=== PATIENT | male | born 1965 | race Caucasian/White ===

== ENCOUNTER 2017-02-23 12:05 | Emergency (ER) | payer OTHER, SELFPAY ==
[2017-02-23 12:21] VITALS: TEMP 98.1
--- NOTE | 2017-02-23 12:42 | ED.PDOC ---
History of Present Illness - General Chief Complaint: Skin/Abrasion/Tear Stated Complaint: diabetic wound Time Seen by Provider: 02/23/17 12:26 Source: patient Exam Limitations: no limitations - History of Present Illness Initial Comments: the patient is a 51-year-old male presenting to the emergency room secondary to a right heel ulcer with some surrounding erythema. The ulcer itself is approximately 1 inch in diameter with a diameter of the surrounding erythema being approximately 3 inches. The patient does have severe diabetic neuropathy. He has not been taking very good care of his diabetes secondary to funding issues. He has not had any fevers. He does not feel his feet very well. He has had some generalized malaise. No syncope and no chest pain. No other areas of ulceration. The current area is not draining. The ulcer does appear to be completely through the skin and into the soft tissue. Timing/Duration: unsure, constant Severity: moderate Improving Factors: nothing Worsening Factors: nothing Allergies/Adverse Reactions: Allergies NO KNOWN ALLERGY Allergy (Verified 02/23/17 12:19) Home Medications: Ambulatory Orders Aspirin [Gnp Aspirin] 81 mg PO DAILY 11/20/16 Carvedilol 6.25 mg PO TID 11/20/16 Furosemide [Lasix] 20 mg PO TID 11/20/16 Gemfibrozil 600 mg PO DAILY 11/20/16 Insulin Aspart [Novolog] See Protocol [facility] 11/20/16 Insulin Glargine [Toujeo Solostar] 10 unit SC ACHS 11/20/16 Metoclopramide HCl 10 mg PO DAILY 11/20/16 Simvastatin 20 mg PO DAILY 11/20/16 Gabapentin 100 mg PO AC #30 cap 11/21/16 Ciprofloxacin [Cipro] 500 mg PO BID #20 tab 02/23/17 Sulfamethoxazole-Trimethoprim [Bactrim Ds 800-160 mg] 1 tab PO BID #20 tab 02/23 Review of Systems - Review of Systems Constitutional: States: malaise EENTM: States: no symptoms reported Respiratory: States: no symptoms reported Cardiology: States: no symptoms reported Gastrointestinal/Abdominal: States: no symptoms reported Genitourinary: States: no symptoms reported Musculoskeletal: States: no symptoms reported Skin: States: see HPI Neurological: States: see HPI All other Systems: No Change from Baseline Past Medical History (General) - Patient Medical History Hx Seizures: Yes Hx Stroke: No Hx Dementia: No Hx Asthma: No Hx of COPD: No Hx Cardiac Disorders: Yes - Triple bypass is going to be scheduled Hx Congestive Heart Failure: Yes Hx Pacemaker: No Hx Hypertension: Yes Hx Thyroid Disease: No Hx Diabetes: Yes Hx Gastroesophageal Reflux: Yes Hx Renal Disease: No Hx Cancer: No Hx of HIV: No Hx Hepatitis C: No Hx MRSA: No - Vaccination History Hx Tetanus, Diphtheria Vaccination: - unknown Hx Influenza Vaccination: Yes Hx Pneumococcal Vaccination: Yes - Social History Hx Tobacco Use: No Hx Chewing Tobacco Use: No Hx Alcohol Use: No Hx Substance Use: No Hx Substance Use Treatment: No Hx Depression: No Hx Physical Abuse: No Hx Emotional Abuse: No Hx Suspected Abuse: No - Activities of Daily Living Hospice Agency (if applicable):: None - Female History Patient is a Female of Child Bearing Age (10 -59 yrs old): No Patient : No Family Medical History - Family History Father Family History: Unknown Living Status: Still Living Hx Family Diabetes: Yes Mother Family History: Unknown Living Status: Cause of : COPD Hx Family Hypertension: Yes Hx Family Diabetes: Yes Physical Exam - Physical Exam General Appearance: Alert, Comfortable, No apparent distress Eye Exam: bilateral normal Ears, Nose, Throat: normal ENT inspection, normal pharynx Neck: full range of motion Respiratory: lungs clear, normal breath sounds, no respiratory distress, no accessory muscle use Cardiovascular/Chest: normal peripheral pulses, regular rate, rhythm, no edema Peripheral Pulses: radial,right: 2+, radial,left: 2+, dorsalis pedis,right: 2+, dorsalis pedis,left: 2+ Gastrointestinal/Abdominal: non tender, soft - obese Rectal Exam: deferred Back Exam: normal inspection Extremity: normal range of motion, non-tender, no pedal edema, no calf tenderness, normal capillary refill Neurologic: alert, normal mood/affect, oriented x 3, sensory deficit Skin Exam: normal color - with the exception of the right heel as described above Comments: Vital Signs - 24 hr 02/23/17 12:10 Temperature 98.1 F Pulse Rate [ 100 H pulse ox] Respiratory 20 Rate Blood Pressure 186/97 [Left Arm] O2 Sat by Pulse 98 Oximetry Progress - Progress Progress: 02/23/17 12:42 the patient is a 51-year-old male presenting with a diabetic ulcer to the right medial heel. There is some surroundings cellulitis. There is no evidence of abscess formation. X-ray of the heel shows no evidence of overt osteomyelitis. Wound culture has been performed. I did debride the surrounding necrotic tissue. The patient should wash the wound twice daily with an antibacterial soap and water. He needs to try to avoid weightbearing as much as possible for now. The patient will be placed on Bactrim and ciprofloxacin for a minimum course of 10 days. He needs to control his diabetes tightly. Additionally his blood pressure was elevated here today and as needs to be followed at home and at his primary care doctor's office. He needs to follow-up with his primary care doctor within the next week for reevaluation. I would encourage him to take a picture today of the wound for comparison at his follow-up appointment. He can dress the wound locally with a triple antibiotic ointment and gauze. He does need to get set back up with a primary care doctor for the above issues. No evidence of sepsis clinically at this time. procedure: Wound debridement of right medial heel ulcer: Diameter ulcer is 1 inch: full skin thickness debridement performed by me. No local anesthetic required due to neuropathy. Culture taken. Wound cleaned with alcohol prep prior. 15 blade scalpel used for debridement of surrounding hypertrophic callus as well as for debridement of central necrotic tissue. estimated blood loss none. Departure - Departure Clinical Impression: Foot ulcer due to secondary DM Disposition: Discharge to Home or Self Care Departure Forms: ED Discharge - Pt. Copy, Patient Portal Self Enrollment Instructions: DI for Diabetic Foot Ulcer Diet: diabetic diet Activity: no pushing/pulling with affected limb Prescriptions: Sulfamethoxazole-Trimethoprim [Bactrim Ds 800-160 mg] 1 tab PO BID #20 tab Ciprofloxacin [Cipro] 500 mg PO BID #20 tab Home Medications: Ambulatory Orders Aspirin [Gnp Aspirin] 81 mg PO DAILY 11/20/16 Carvedilol 6.25 mg PO TID 11/20/16 Furosemide [Lasix] 20 mg PO TID 11/20/16 Gemfibrozil 600 mg PO DAILY 11/20/16 Insulin Aspart [Novolog] See Protocol [facility] 11/20/16 Insulin Glargine [Toujeo Solostar] 10 unit SC ACHS 11/20/16 Metoclopramide HCl 10 mg PO DAILY 11/20/16 Simvastatin 20 mg PO DAILY 11/20/16 Gabapentin 100 mg PO AC #30 cap 11/21/16 Ciprofloxacin [Cipro] 500 mg PO BID #20 tab 02/23/17 Sulfamethoxazole-Trimethoprim [Bactrim Ds 800-160 mg] 1 tab PO BID #20 tab 02/23 Additional Instructions: the patient is a 51-year-old male presenting with a diabetic ulcer to the right medial heel. There is some surroundings cellulitis. There is no evidence of abscess formation. X-ray of the heel shows no evidence of overt osteomyelitis. Wound culture has been performed. I did debride the surrounding necrotic tissue. The patient should wash the wound twice daily with an antibacterial soap and water. He needs to try to avoid weightbearing as much as possible for now. The patient will be placed on Bactrim and ciprofloxacin for a minimum course of 10 days. He needs to control his diabetes tightly. Additionally his blood pressure was elevated here today and as needs to be followed at home and at his primary care doctor's office. He needs to follow-up with his primary care doctor within the next week for reevaluation. I would encourage him to take a picture today of the wound for comparison at his follow-up appointment. He can dress the wound locally with a triple antibiotic ointment and gauze. He does need to get set back up with a primary care doctor for the above issues. No evidence of sepsis clinically at this time. taking her antibiotics with food to help avoid stomach upset. Hold your cholesterol medication while taking the antibiotics.
--- NOTE | 2017-02-23 13:35 | RAD ---
EXAM: Calcaneous,Right CLINICAL INDICATION: 51-year-old male with diabetes mellitus and medial heel ulcer. TECHNIQUE: Two views RIGHT hind foot were obtained in AP, lateral projections COMPARISON: None. FINDINGS: There is no fracture or dislocation. The joint spaces are preserved. Soft tissue irregularity along the posterior medial aspect of the heel soft tissues compatible with the patient's history of ulcer. Atherosclerotic calcification of the soft tissues. IMPRESSION: No acute radiographic abnormality. Electronically signed by: Dara Romero MD 02/23/2017 1:34 PM CDT
[2017-02-23 13:44] VITALS: BP 163/91; O2SAT 96
== END 2017-02-23 13:35 | disposition home or self-care (01) ==
LOC: ER 12:05
DX: E11.621 Type 2 diabetes mellitus with foot ulcer (principal); L97.419 Non-pressure chronic ulcer of right heel and midfoot with unspecified severity; E11.40 Type 2 diabetes mellitus with diabetic neuropathy, unspecified; I11.0 Hypertensive heart disease with heart failure; I50.9 Heart failure, unspecified; K21.9 Gastro-esophageal reflux disease without esophagitis; Z79.4 Long term (current) use of insulin; Z79.899 Other long term (current) drug therapy; Z79.82 Long term (current) use of aspirin

== ENCOUNTER 2017-03-13 01:45 | Inpatient (IN) | payer SELFPAY ==
--- NOTE | 2017-03-13 03:06 | RAD ---
EXAM DESCRIPTION: Foot,Right 3 Views CLINICAL HISTORY: 51 years, Male, right heel ulceration with erythema on top of foot COMPARISON: Calcaneal radiographs February 23, 2017 FINDINGS: There is no acute fracture or dislocation. The bony alignment is normal. There is a large area of soft tissue ulceration along the calcaneal tuberosity. There are no definite lytic or sclerotic changes. There are vascular calcifications throughout the dorsalis pedis. IMPRESSION: 1. No acute fracture or dislocation. 2. Soft tissue ulceration overlying the calcaneal tuberosity without radiographic evidence of osteomyelitis. Electronically signed by: Ramses Randle MD 03/13/2017 3:05 AM CDT
[2017-03-13] MEDS ORDERED: INSULIN, REG.(HUMAN) 100 U/ML VIAL SUBCU ONE (03:32)
[2017-03-13] MEDS ORDERED: VANCOMYCIN HCL INJ 1,000 MG in SODIUM CHLORIDE 0.9% 250ML 250 ML IVPB ONE (03:40)
--- NOTE | 2017-03-13 03:43 | ED.PDOC ---
History of Present Illness - General Chief Complaint: Skin/Abrasion/Tear Stated Complaint: right heel diabetic ulcer Time Seen by Provider: 03/13/17 02:22 Source: patient, RN notes reviewed, Vital Signs reviewed, family Exam Limitations: no limitations - History of Present Illness Initial Comments: Patient is a 51 y/o diabetic who presents with an ulcer on his right foot. He was seen in the ED [address] Parham who debrided it and started him on antibiotics. However, the wound has increased in size. He denies any pain as he has peripheral neuropathy. His sugars have been running high, in the 400s. He denies any fever or chills. He has another area on the top of his foot which is turning red and has two small ulcerations on it. Timing/Duration: getting worse, other - over 2 weeks Severity: moderate Location: feet Improving Factors: nothing Worsening Factors: nothing Associated Symptoms: change in skin texture, paresthesia Allergies/Adverse Reactions: Allergies NO KNOWN ALLERGY Allergy (Verified 03/13/17 03:02) Home Medications: Ambulatory Orders Aspirin [Gnp Aspirin] 81 mg PO DAILY 11/20/16 Carvedilol 6.25 mg PO BID 11/20/16 Furosemide [Lasix] 20 mg PO BID 11/20/16 Gemfibrozil 600 mg PO DAILY 11/20/16 Insulin Aspart [Novolog] 8 unit [facility] 11/20/16 Insulin Glargine [Toujeo Solostar] 85 unit SC DAILY 11/20/16 Metoclopramide HCl 10 mg PO QID 11/20/16 Atorvastatin Calcium [Lipitor] 40 mg PO DAILY 03/13/17 Review of Systems - Review of Systems Constitutional: States: no symptoms reported EENTM: States: no symptoms reported Respiratory: States: no symptoms reported Cardiology: States: no symptoms reported Gastrointestinal/Abdominal: States: no symptoms reported Genitourinary: States: no symptoms reported Musculoskeletal: States: joint pain, muscle pain Skin: States: other - ulcerations right foot Neurological: States: paresthesia, pre-existing deficit Endocrine: States: no symptoms reported Hematologic/Lymphatic: States: no symptoms reported All other Systems: Reviewed and Negative Past Medical History (General) - Patient Medical History Hx Seizures: No Hx Stroke: No Hx Dementia: No Hx Asthma: No Hx of COPD: No Hx Cardiac Disorders: Yes Hx Congestive Heart Failure: Yes Hx Pacemaker: No Hx Hypertension: Yes Hx Thyroid Disease: No Hx Diabetes: Yes Hx Gastroesophageal Reflux: No Hx Renal Disease: No Hx Cancer: No Hx of HIV: No Hx Hepatitis C: No Hx MRSA: No Surgical History: other - Vaccination History Hx Tetanus, Diphtheria Vaccination: No Hx Influenza Vaccination: Yes Hx Pneumococcal Vaccination: No Immunizations Up to Date: No - Social History Hx Tobacco Use: No Hx Chewing Tobacco Use: No Hx Alcohol Use: No Hx Substance Use: No Hx Substance Use Treatment: No Hx Depression: No Feels Threatened In Home Enviroment: No Feels Threatened In a Relationship: No Hx Physical Abuse: No Hx Emotional Abuse: No Hx Suspected Abuse: No - Female History Patient : No Family Medical History - Family History Father Family History: Unknown Living Status: Still Living Hx Family Diabetes: Yes Mother Family History: Unknown Living Status: Cause of : COPD Hx Family Hypertension: Yes Hx Family Diabetes: Yes Physical Exam - Physical Exam General Appearance: Alert, Comfortable, No apparent distress Eyes, Ears, Nose, Throat Exam: normal ENT inspection Cardiovascular/Chest: regular rate, rhythm, no edema, no gallop, no murmur Respiratory: lungs clear, normal breath sounds, no respiratory distress, no accessory muscle use Gastrointestinal/Abdominal: normal bowel sounds, non tender, soft, no organomegaly Extremity: normal range of motion, non-tender, slow capillary refill, other - pedal pulse found only by doppler and very faint. Neurologic: alert, normal mood/affect, oriented x 3, sensory deficit Skin Exam: other - Right heel ulceration 7.7 cm by 4 cm with full thickness ulceration 6.0 by 3.2 cm. Additionally Patient has an erythematous area on the proximal volar right foot 5.7 by 2.5 cm which has two small excoriations. Skin Problem Location: lower extremities Skin Character: lesion Progress - Results/Orders Results/Orders: 03/13/17 03/13/17 03/13/17 01:50 01:58 02:45 Temperature 98.6 F Pulse Rate [ 88 90 monitor] Respiratory 18 18 Rate Blood Pressure 171/71 174/87 [Right Arm] O2 Sat by Pulse 97 Oximetry 03/13/17 03:38 LACTIC ACID Stat BLOOD CULTURE Stat 03/13/17 03:40 Vancomycin HCl Inj 1,000 mg Sodium Chloride 0.9% 250Ml [NS 250ml] 250 ml IVPB ONCE 03/13/17 03:46 Sodium Chloride 0.9% 1000ML [Ns 1000 ml] 1,000 ml IVS ONCE Laboratory Results WBC 7.2 K/mm3 (4.8-10.8) 03/13/17 02:22 RBC 3.97 M/mm3 (4.70-6.10) L 03/13/17 02:22 Hgb 11.1 gm/dL (14.0-18.0) L 03/13/17 02:22 Hct 34.1 % (42.0-52.0) L 03/13/17 02:22 MCV 85.9 fl (80.0-94.0) 03/13/17 02:22 MCH 27.9 pg (27.0-31.0) 03/13/17 02:22 MCHC 32.4 g/dL (33.0-37.0) L 03/13/17 02:22 RDW 14.5 % (11.5-14.5) 03/13/17 02:22 Plt Count 283 K/mm3 (130-400) 03/13/17 02:22 MPV 8.6 fl (7.40-10.4) 03/13/17 02:22 Absolute Neuts (auto) 4.60 K/uL (1.8-6.8) 03/13/17 02:22 Absolute Lymphs (auto) 1.70 K/uL (1.0-3.4) 03/13/17 02:22 Absolute Monos (auto) 0.80 K/uL (0.2-0.8) 03/13/17 02:22 Absolute Eos (auto) 0.10 K/uL (0.0-0.4) 03/13/17 02:22 Absolute Basos (auto) 0.10 K/uL (0.0-0.1) 03/13/17 02:22 Neutrophils % 63.3 % (42.0-78.0) 03/13/17 02:22 Lymphocytes % 23.3 % (20.0-50.0) 03/13/17 02:22 Monocytes % 11.1 % (2.0-9.0) H 03/13/17 02:22 Eosinophils % 1.5 % (1.0-5.0) 03/13/17 02:22 Basophils % 0.8 % (0.0-2.0) 03/13/17 02:22 Sodium 133 mmol/L (135-145) L 03/13/17 02:22 Potassium 5.8 mmol/L (3.6-5.0) H 03/13/17 02:22 Chloride 97 mmol/L (101-111) L 03/13/17 02:22 Carbon Dioxide 29 mmol/L (21-31) 03/13/17 02:22 Anion Gap 12.8 (12-18) 03/13/17 02:22 BUN 65 mg/dL (7-18) H 03/13/17 02:22 Creatinine 1.94 mg/dL (0.6-1.3) H 03/13/17 02:22 BUN/Creatinine Ratio 33.5 (10-20) H 03/13/17 02:22 Random Glucose 564 mg/dL (70-105) H* 03/13/17 02:22 Serum Osmolality 310.7 mOsm/L (275-295) H 03/13/17 02:22 Calcium 9.5 mg/dL (8.4-10.2) 03/13/17 02:22 Total Bilirubin 0.4 mg/dL (0.2-1.0) 03/13/17 02:22 AST 13 IU/L (10-42) 03/13/17 02:22 ALT 11 IU/L (10-60) 03/13/17 02:22 Alkaline Phosphatase 145 IU/L (42-121) H 03/13/17 02:22 Serum Total Protein 7.6 gm/dL (6.4-8.2) 03/13/17 02:22 Albumin 3.3 g/dl (3.2-5.5) 03/13/17 02:22 Globulin 4.3 gm/dL (2.3-3.5) H 03/13/17 02:22 Albumin/Globulin Ratio 0.8 (1.1-1.9) L 03/13/17 02:22 - EKG/XRAY/CT XRAY: right foot - No ajith involvement Departure - Departure Clinical Impression: Hyperglycemia without ketosis, Neuropathy, Acute hyperkalemia, Diabetic ulcer of heel Diabetes mellitus Qualifiers: Diabetes mellitus type: type 2 Diabetes mellitus complication status: with skin complications Diabetes mellitus complication detail: with foot ulcer Qualifier Code: (E11.621) Type 2 diabetes mellitus with foot ulcer CKD (chronic kidney disease) Qualifiers: Chronic kidney disease stage: stage 3 (moderate) Qualifier Code: (N18.3) Chronic kidney disease, stage 3 (moderate) Time of Disposition: 03:56 Disposition: Admit Patient Home Medications: Ambulatory Orders Aspirin [Gnp Aspirin] 81 mg PO DAILY 11/20/16 Carvedilol 6.25 mg PO BID 11/20/16 Furosemide [Lasix] 20 mg PO BID 11/20/16 Gemfibrozil 600 mg PO DAILY 11/20/16 Insulin Aspart [Novolog] 8 unit [facility] 11/20/16 Insulin Glargine [Toujeo Solostar] 85 unit SC DAILY 11/20/16 Metoclopramide HCl 10 mg PO QID 11/20/16 Atorvastatin Calcium [Lipitor] 40 mg PO DAILY 03/13/17 Decision To Admit - Decistion To Admit Decision to Admit Reason: Medical Nature Decision to Admit Date: 03/13/17 Decision to Admit Time: 03:40
[2017-03-13] MEDS ORDERED: SODIUM CHLORIDE 0.9% 1000ML 1,000 ML IVS ONE (03:46)
--- NOTE | 2017-03-13 03:55 | HP ---
SUPERVISING PHYSICIAN: Jerry Parham M.D. CHIEF COMPLAINT: Sore to the right foot. HISTORY OF PRESENT ILLNESS: Mr. Warner is a 51 year-old male patient with a history of diabetes who presented to the Emergency Department today with an ulcer to his right foot. He had been seen previously maybe 2 weeks ago prior to this admission by Dr. Parham who debrided the area and started the patient on antibiotics. The patient noted that the wound had been increasing in size and he had been experiencing pain in the area. He notes that he has been without his diabetes medications for well over 7 weeks or better and has been taking his 's insulin, and his blood sugars have been averaging 200 to 400. In the Emergency Room, his initial blood sugar was 564. He had a potassium of 5.8. X-ray of his foot was completed for the right heel ulceration and per radiology interpretation there are no acute fractures or dislocation noted. There was note of soft tissue ulceration overlying the calcaneal tuberosity without any evidence of osteomyelitis. On admission, he was afebrile with temperature 98.6. Dr. Vazquez, E. R. physician, requested the patient be admitted for continued treatment and evaluation of his uncontrolled blood sugars and to possibly have Dr. Aguilar consult in regards to possible debridement of the wound. He was admitted in stable condition. PAST MEDICAL HISTORY: 1. Diabetes mellitus type 2 with a history of being noncompliant. 2. Chronic kidney disease. 3. Hypertension. 4. Gastroesophageal reflux disease. PAST SURGICAL HISTORY: 1. Left knee surgery. 2 Coronary artery bypass grafting HOME MEDICATIONS: 1. Metoclopramide 10 mg q.i.d. p.r.n. 2. Tradjenta 5 mg daily. 3. Toujeo 85 units subcue daily. 4. NovoLog 8 units subcue at a.c. 5. Gemfibrozil 600 mg daily. 6. Lasix 20 mg twice daily. 7. Carvedilol 6.25 mg twice daily. 8. Lipitor 40 mg daily. 9. Aspirin 81 mg daily. ALLERGIES: NO KNOWN DRUG ALLERGIES. FAMILY HISTORY: Father has history of diabetes. Mother with emphysema. SOCIAL HISTORY: The patient has previously used smokeless tobacco. He does not smoke cigarettes. He denies any alcohol or illicit drug use. He is and lives with his in [place], and is currently unemployed. REVIEW OF SYSTEMS: GENERAL: Negative for any fatigue or fevers. HEENT: Denies any ear pain, decrease in hearing, sore throat or nasal congestion. CARDIOVASCULAR: Has a history of pedal edema but denies any chest pains or palpitations. RESPIRATORY: Denies cough. Notes he had some mild dyspnea on exertion. GASTROINTESTINAL: Negative for any constipation, diarrhea, nausea or vomiting, or abdominal pain. MUSCULOSKELETAL: As noted in his History of Present Illness, right diabetic ulcer to the heel area for well over 2 weeks. Denies any significant arthralgia, limb pains or general malaise. NEUROLOGIC: Denies any headaches, weakness or seizures. PHYSICAL EXAMINATION: VITAL SIGNS: Temperature 98.6, pulse 80, blood pressure 174/87, respirations 18 , O2 sat showing 96 on room air. Admission weight 99.2 kg which is actually down from previous admission in March of last year when he weighed 103.7 kg. GENERAL: The patient appears to be well nourished, however, he does appears dehydrated but in no acute distress. HEENT: Tympanic membranes are clear bilaterally. Oropharynx is pink with mucosal membranes being dry with no jugular venous distention. There are no oral lesions. NECK: Supple with no difficulty with range of motion. CHEST: Breath sounds are bilateral and equal with no appreciable rhonchi, wheezing or rales. CARDIOVASCULAR: Regular rate and rhythm without appreciable murmurs, gallops, or rubs. ABDOMEN: Obese but soft, non-tender. Positive bowel sounds. EXTREMITIES: Right heel ulceration noted measuring 7 cm x 4 cm with full thickness of ulceration 6 x 3.2 cm as measured in the Emergency Department with some erythema noted on the proximal volar right foot measuring approximately 5.7 x 2.5 cm with two small areas of excoriations. Pulses are weak bilaterally. NEUROLOGIC: He is alert and oriented times three. Cranial nerves II-XII are grossly intact. Facial features are symmetrical. Extraocular movements are within normal limits. No nystagmus noted. There is no discernible localizing or lateralizing neuromotor deficits. He is alert and oriented times three. LABORATORY: White count 7.2, hemoglobin 11.1, hematocrit 34.1, platelet count 283,000. Differential shows to be without a left shift. Blood gas analysis showed essentially to be within normal limits with pH 7.4, bicarb 22, PO2 was 105, PCO2 was 36. Initial chemistries showed sodium 133, potassium 5.8 with BUN 65, creatinine 1.94, glucose was initially 564 with serum osmolality 310, lactic acid was normal at 1.4, calcium 9.5. Liver functions showed to be within normal limits except for an elevated alkaline phosphatase of 145. TSH is pending. Hemoglobin A1c was 13.0. Urinalysis showed 100 protein with 500 glucose and trace amount of intact blood on dipstick, otherwise was within normal limits. Serum ketones were negative. RADIOLOGY: X-ray of the right foot per radiology interpretation showed no acute fractures or dislocations. There was note of soft tissue ulceration overlying the calcaneal tuberosity without any radiographic evidence of osteomyelitis. ASSESSMENT: 1. Electrolyte imbalance with moderate hyperkalemia. 2. Chronic kidney disease with baseline creatinine around 1.4. 3. Diabetes mellitus type 2 on both oral and insulin, but the patient being in poor compliance having run out of his medications as evidenced by current hemoglobin A1c of 13.0. 4. Hypertension. 5. Gastroesophageal reflux disease. 6. Right foot ulcer secondary to complications from type 2 diabetes mellitus with no radiographic evidence of osteomyelitis at time of admission. Cultures pending 7. History of congestive heart failure, unknown etiology with no echocardiogram currently for review. 8. Hyperosmolar hyperglycemia secondary to poorly controlled diabetes medication regimen with no evidence of diabetic ketoacidosis with pH on arterial blood gas showing to be within normal limits. 9. Obesity with a body mass index of 32.3. 10. Moderate dehydration secondary to poor blood sugar control. PLAN: The patient was admitted from the E. . at the request of Dr. Vazquez as she was not comfortable with the wound care and possibly doing some debridement. Therefore she requested that the patient be admitted and if possible have Dr. Aguilar look at the wound for further assistance in the management. The patient was given 10 units of insulin in the Emergency Department as well as additional fluids. Will continue with fluids and monitor his blood sugars and electrolytes closely in an attempt to normalize his blood sugars. I will start him on Levemir 30 units daily as well as a sliding scale. The patient apparently ran out of his medications many months previously and has been using his 's insulin as he has not actually been seen recently in followup in the clinic to help with management and to have refills of his medications. He will be started on anabiotic coverage for diabetic foot ulcer with Rocephin, Flagyl and Vancomycin until cultures are competed to help in targeting antibiotic coverage. I have ask Dr Aguilar to look at the area of concern to help seed analysis laboratory assistant in plan of care. Anticipate length of stay to be 2 to 3 days. Until the patient shows to be clinically stable in regards to his blood sugars, will continue to monitor the patient closely and treat appropriately. #[id number] [facility]
[2017-03-13] MEDS ORDERED: SODIUM CHLORIDE 0.9% 250ML 250 ML ONE ×2 (04:09→20:13)
[2017-03-13] MEDS ORDERED: VANCOMYCIN HCL INJ 1,000 MG VIAL IVPB ONE ×2 (04:09→20:14)
[2017-03-13] MEDS ORDERED: SODIUM CHLORIDE 0.9% (FLUSH) 10 ML SYG IV PRN (06:36)
[2017-03-13] MEDS ORDERED: DEXTROSE 50% 25 GM/50 ML SYG IV PRN (06:55)
[2017-03-13] MEDS ORDERED: GLUCAGON INJ 1 MG VIAL SUBCU PRN (06:55)
[2017-03-13] MEDS ORDERED: IV SET AND CAP CHANGE INJ INJ SCH (07:00)
[2017-03-13] MEDS ORDERED: CARVEDILOL 3.125 MG TAB ONE (07:45)
[2017-03-13] MEDS ORDERED: metroNIDAZOLE IV PREMIX 500MG 100 ML IVPB ONE ×3 (07:45→20:14)
[2017-03-13] MEDS ORDERED: SODIUM CHL 0.9% 100ML MINI-BAG 100 ML IVPB ONE (07:45)
[2017-03-13] MEDS ORDERED: VANCOMYCIN PER PHARMACY INJ SCH (08:00)
[2017-03-13] MEDS: cefTRIAXone SODIUM 2 GM in SODIUM CHL 0.9% 100ML MINI-BAG 100 ML IVPB SCH (08:03)
[2017-03-13] MEDS: ACETAMINOPHEN 325 MG TAB PO PRN ×2 (08:10→18:00)
[2017-03-13] MEDS: SODIUM CHLORIDE 0.9% 1000ML 1,000 ML IVS PRN ×2 (08:11→13:09)
[2017-03-13] MEDS: metroNIDAZOLE IV PREMIX 500MG 500 MG in PREMIX BAG 1 BAG IVPB SCH ×2 (09:12→16:23)
[2017-03-13] MEDS: CARVEDILOL 3.125 MG TAB PO SCH ×2 (09:13→21:25)
[2017-03-13] MEDS: ASPIRIN EC 81 MG TAB PO SCH (09:13)
[2017-03-13] MEDS: GEMFIBROZIL 600 MG TAB PO SCH (09:14)
[2017-03-13] MEDS ORDERED: INSULIN DETEMIR 100 UNITS/ML PEN SUBCU SCH (10:30)
[2017-03-13] MEDS ORDERED: INSULIN LISPRO 100 UNITS/ML PEN SUBCU SCH (12:00)
[2017-03-13] MEDS: INSULIN LISPRO 100 UNITS/ML PEN SUBCU SCH ×2 (16:53→21:20)
[2017-03-13] MEDS: KCL 20MEQ/0.45% NS 1,000 ML IVS PRN (17:59)
--- NOTE | 2017-03-13 19:39 | PCM.CORE ---
Physician DVT/VTE - Nurse DVT Assessment & Total Each Risk Factor Represents 3 Points: Medical PT with Hx of MA, CHF, Severe infection/sepsis Each Risk Factor Represents 1 Point: Age 41-60, Medical PT at Bed Rest Each Risk Factor is 1 Point: Obesity (BMI >25) DVT Assessment Score: 6 - 5 or more Very High Risk Treatments: Early Ambulation *, Sequential Compression Device Pharmacological: Enoxaparin 40mg SQ Daily
[2017-03-13] MEDS ORDERED: ENOXAPARIN SODIUM 40 MG/0.4 ML SYG SUBCU SCH (20:00)
[2017-03-13] MEDS ORDERED: VANCOMYCIN HCL INJ 500 MG VIAL ONE (20:13)
[2017-03-13] MEDS ORDERED: ATORVASTATIN 20 MG TAB PO SCH (21:00)
[2017-03-13] MEDS ORDERED: SODIUM CHL 0.9% 250ML (AVIVA) 250 ML IVPB ONE (21:37)
[2017-03-13] MEDS: CHLORHEXIDINE GLUCONATE 4 % 15 ML UD TOP SCH (21:57)
[2017-03-13] MEDS ORDERED: VANCOMYCIN HCL INJ 1,000 MG, VANCOMYCIN HCL INJ 500 MG in SODIUM CHL 0.9% 250ML (AVIVA)... IVPB SCH (22:00)
[2017-03-14] MEDS: metroNIDAZOLE IV PREMIX 500MG 500 MG in PREMIX BAG 1 BAG IVPB SCH ×2 (00:34→08:49)
[2017-03-14] MEDS: GEMFIBROZIL 600 MG TAB PO SCH (06:28)
[2017-03-14] MEDS: KCL 20MEQ/0.45% NS 1,000 ML IVS PRN (06:29)
[2017-03-14] MEDS: INSULIN LISPRO 100 UNITS/ML PEN SUBCU SCH ×4 (07:41→11:48)
[2017-03-14] MEDS ORDERED: SODIUM CHL 0.9% 100ML MINI-BAG 100 ML IVPB ONE (07:54)
[2017-03-14] MEDS: cefTRIAXone SODIUM 2 GM in SODIUM CHL 0.9% 100ML MINI-BAG 100 ML IVPB SCH (08:01)
[2017-03-14] MEDS: ACETAMINOPHEN 325 MG TAB PO PRN (08:04)
[2017-03-14] MEDS ORDERED: metroNIDAZOLE IV PREMIX 500MG 100 ML IVPB ONE (08:25)
[2017-03-14] MEDS ORDERED: INSULIN DETEMIR 100 UNITS/ML PEN SUBCU SCH (09:00)
[2017-03-14] MEDS: ASPIRIN EC 81 MG TAB PO SCH (09:08)
[2017-03-14] MEDS: CARVEDILOL 3.125 MG TAB PO SCH (09:08)
[2017-03-14] MEDS: CHLORHEXIDINE GLUCONATE 4 % 15 ML UD TOP SCH (09:16)
[2017-03-14 14:41] VITALS: BP 167/84; TEMP 97.1; O2SAT 97
[2017-03-14] MEDS ORDERED: ENOXAPARIN SODIUM 40 MG/0.4 ML SYG SUBCU SCH (21:00)
--- NOTE | 2017-03-17 09:16 | DS ---
SUPERVISING PHYSICIAN: Damian Bansal MD DISCHARGE DIAGNOSIS: 1. Right foot ulcer secondary to complications from type 2 diabetes mellitus with no radiographic evidence of osteomyelitis at time of admission with cultures pending at time of discharge. 2. Electrolyte imbalance with moderate hyperkalemia. 3. Chronic kidney disease with baseline creatinine of 1.4. 4. Diabetes mellitus, type 2, on both oral and insulin therapy, but the patient being in poor compliance having run out of his medications as evidenced by current hemoglobin A1c of 13.0. 5. Hypertension. 6. Gastroesophageal reflux disease. 7. History of congestive heart failure, unknown etiology with no echocardiogram currently for review. 8. Hyperosmolar hyperglycemia secondary to poorly controlled diabetes medication regimen with no evidence of diabetic ketoacidosis with pH on arterial blood gas within normal limits. 9. Obesity with a body mass index of 32.3. 10. Moderate dehydration secondary to poor blood sugar control. HISTORY OF PRESENT ILLNESS: Mr. Warner is a 51-year-old male patient with a history of diabetes who presented to the Emergency Department on date of admission with an ulcer to his right foot. He had been seen previously maybe 2 weeks ago prior to this admission by Dr. Parham in the Emergency Room who debrided the area and started the patient on antibiotics. The patient noted that the wound had been increasing in size and he had been experiencing pain in the area. He notes that he has been without his diabetes medications for well over 7 weeks or better and has been taking his 's insulin, and his blood sugars have been averaging 200 to 400 daily. In the Emergency Room, his initial blood sugar was 564. He had a potassium of 5.8. X-ray of his foot was completed for the right heel ulceration and per radiology interpretation there were no acute fractures or dislocation noted. There was note of soft tissue ulceration overlying the calcaneal tuberosity without any evidence of osteomyelitis. On admission, he was afebrile with temperature 98.6. Dr. Vazquez , ER physician, requested the patient be admitted for continued treatment and evaluation of his uncontrolled blood sugars and to possibly have Dr. Aguilar consult in regards to possible debridement of the wound. He was admitted in stable condition. LABORATORY: White count was normal on admission and at discharge was 5.9, hemoglobin 9.8, hematocrit 29.7, differential within normal limits with no left noted at admission and at discharge. Platelet count 251,000. Blood gas analysis was within normal limits with pH 7.41. Chemistries on admission showed sodium 133, corrected for 564 glucose approximately 136 with potassium 5.8. Carbon dioxide 29, BUN 65 initially and creatinine 1.14. After initiation of subcutaneous insulin, sliding scale, and IV fluids, at discharge his electrolytes has normal. Potassium 4.7, BUN 43, creatinine 1.42, glucose down to 169. Lactic acid on admission was within normal limits at 1.4. Hemoglobin A1c 13.0%. TSH normal at 0.35. Liver functions all within normal limits. Urinalysis showed 100 protein, 500 glucose, trace intact blood in dipstick with microscopic within normal limits. Serum ketones were negative on admission. MICROBIOLOGY: Blood cultures times two showed no growth. Wound culture of the left heel showed heavy growth of budding yeast, but no bacterial growth. RADIOLOGY: X-ray of the right foot in the Emergency Department prior to admission per radiology interpretation showed no acute fractures or dislocations. There was note of soft tissue ulceration overlying the calcaneal tuberosity without any radiographic evidence of osteomyelitis. HOSPITAL COURSE: Mr. Warner was admitted from the Emergency Room to the Medical/ Surgical Floor as noted in history of present illness. He was started on fluids with boluses and subcutaneous insulin. He did show improvement in his glucose which normalized, potassium as well. Wound care was initiated on the right heel after Dr. Aguilar was able to look at the area and noted there was no need for any surgical intervention and that wound care would be sufficient. He was provided wound care twice daily with diluted Hibiclens. He was encouraged to keep his foot elevated, heart level or below, and to keep his foot off the foot or any pressure point to further exacerbate the area. His blood sugars were controlled with Levemir and sliding scale. He was started on a diabetic diet. It was felt he had clinically improved and was able to be discharged to continue with wound care and home and further manage his diabetes with a primary care provider. The patient was started on antibiotic coverage that included Flagyl, Levaquin, and vancomycin which were continued until discharge at which time the patient was transitioned to Augmentin. PLAN: Mr. Warner was discharged on 03/14/17 and encouraged to establish with a primary care provider at [facility] until he could have insurance arrangements made to establish with a different primary care provider. He was to followup with [facility] with an appointment that was scheduled on 03/17/17. He was to resume his home medications as instructed to take his insulin as directed. He was to monitor blood sugars before each meal and at bedtime and take a log with him to his followup appointment. Wound care on the foot at least twice daily with diluted Hibiclens and apply loose dressings. He was encouraged to take his antibiotics as directed, wear good pressure off loading cushioned shoes and return to the hospital should he show any worsening of his condition or any other concerning symptoms. DISCHARGE MEDICATIONS: 1. Augmentin twice daily, #20. 2. Levemir 45 units daily, #1 pen. 3. NovoLog FlexPen 10 units a.c.. DIET: Diabetic diet. ACTIVITY: Increase as tolerated. CONDITION AT DISCHARGE: Stable. #[id number] [facility]
== END 2017-03-14 15:00 | disposition home or self-care (01) | DRG 638 ==
LOC: ER 01:45 → MS 03:54 → OBSVTOIN 03:54
PROVIDERS: ADMIT Nurse Practitioner Family; ATTEND Nurse Practitioner Family
DX: E11.621 Type 2 diabetes mellitus with foot ulcer (principal); L97.411 Non-pressure chronic ulcer of right heel and midfoot limited to breakdown of skin; I13.0 Hypertensive heart and chronic kidney disease with heart failure and stage 1 through stage 4 chronic kidney disease, or unspecified chronic kidney disease; E11.22 Type 2 diabetes mellitus with diabetic chronic kidney disease; E11.00 Type 2 diabetes mellitus with hyperosmolarity without nonketotic hyperglycemic-hyperosmolar coma (NKHHC); T38.3X6A Underdosing of insulin and oral hypoglycemic [antidiabetic] drugs, initial encounter; E86.0 Dehydration; E87.5 Hyperkalemia; N18.9 Chronic kidney disease, unspecified; I50.9 Heart failure, unspecified; K21.9 Gastro-esophageal reflux disease without esophagitis; E66.9 Obesity, unspecified; Z91.128 Patient's intentional underdosing of medication regimen for other reason; Y92.009 Unspecified place in unspecified non-institutional (private) residence as the place of occurrence of the external cause; Z68.32 Body mass index [BMI] 32.0-32.9, adult; Z79.4 Long term (current) use of insulin; Z79.84 Long term (current) use of oral hypoglycemic drugs; Z95.1 Presence of aortocoronary bypass graft; Z79.899 Other long term (current) drug therapy; Z79.82 Long term (current) use of aspirin

== ENCOUNTER 2017-04-14 13:05 | Inpatient (IN) | payer SELFPAY ==
--- NOTE | 2017-04-14 16:49 | HP ---
HISTORY OF PRESENT ILLNESS: This 51 year-old white male is admitted to the hospital from the [facility]. He was last at [facility] a month ago in March of this year with a significant right heel ulceration. It seemed to be localized with some localized erythema. He was treated will antibiotics and sent home on some Augmentin, but was unable to acquire the Augmentin because of the nolasco. He was subsequently seen again in [facility] last Friday at which time he was given a Rocephin shot because of worsening appearance of his right heel. He had had some pain that was radiating up his foot with increasing redness to also extend up his leg towards the calf. The Rocephin was given IM and he had a diagnosis previously made of Escherichia coli which had pansensitivity. He was given a prescription for Bactrim and was discharged from the clinic with followup today on Friday. He did not grain picker the Bactrim because of no money and was seen in the clinic today, and was noticed to be significantly worse. Over the last couple of weeks, the foot has begun to smell quite badly. The ulceration started about 3 or 4 months ago and is now much worse. In the clinic today, his white count was elevated at over 16,000, hemoglobin 10.7 and his creatinine was 2.17 suggesting some decline in some of his end organs. He was admitted to the hospital after cultures were rechecked and had received another dose of Rocephin in the clinic today, but was steadily showing worsening symptoms and tissue viability was becoming a larger concern. The patient was admitted to the hospital for parenteral antibiotics as well as intervention by Surgery, Dr. Aguilar, for evaluation for debridement and evaluation of the eschar present. PAST MEDICAL HISTORY: 1. Diabetes mellitus type 2 currently on insulin therapy for the last 14 years. 2. Chronic kidney disease. 3. Hypertension. 4. Gastroesophageal reflux disease. PAST SURGICAL HISTORY: 1. August of last year, coronary artery bypass grafting after sternotomy to 4 vessels being followed-up subsequently by Dr. De Los Santos in the clinic. 2. Left knee surgery. CURRENT MEDICATIONS: Please refer to list provided by the nurses for an up to date list of verified home medications, including insulin which he takes Levaquin 45 units at bedtime and NovoLog 10 units before meals. His sugar earlier today was over 300. ALLERGIES: NONE KNOWN. FAMILY HISTORY: Positive for coronary artery disease, diabetes mellitus and cancer. SOCIAL HISTORY: The patient lives with his and has currently been disabled , unable to work for the last 2 years. He has not, nor does he smoke tobacco products. REVIEW OF SYSTEMS: The patient has been losing some weight. No fever or chills. HEENT: No significant hearing or vision disturbances. LUNGS: Significant shortness of breath evident upon even mild exertion. CARDIOVASCULAR: No chest pains recently. No palpitations. ABDOMEN: Generally soft with diminished appetite thereby resulting in some weight loss recently. EXTREMITIES: Significant ulceration right heel with most of the skin sloughed with a large area of scab formation now with cellulitis. NEUROLOGIC: Quite tired and appears to be quite weak clinically. PHYSICAL EXAMINATION: VITAL SIGNS: Temperature is slightly elevated at 99.7, pulse 94, blood pressure 148/79, pulse oximetry 94% on room air. Weight 105 kilos. GENERAL: The patient is awake and alert, lying in the bed on his left side. His right foot is in a dressing with an Evan wrap around it. When opened up, produced a quite malodorous smell throughout the room with significant erythema extending up his calf from the dark eschar of his right heel. HEENT: Coloration is somewhat pale. NECK: Supple. No carotid bruits. CHEST: Lungs have diminished breath sounds. CARDIOVASCULAR: Tones are regular. ABDOMEN: Soft, obese. A healed mid sternal sternotomy scar is evident. EXTREMITIES: Decreased hair is noted on the lower extremities. He does have a large area of the right heel where the skin has sloughed and especially medially has a very dark eschar. There appears to be some pus up under the skin as well in close circumference to the eschar. Significant cellulitis with erythema is extending up towards the calf medially as well as anteriorly towards the dorsum of the foot. This is all new compared to his last admission a month ago showing a worsening condition. LABORATORY: White count is 16,200, hemoglobin 10.7. Sodium 130, potassium 3.9 , BUN 54, creatinine 2.17, glucose 336, albumin 2.9. Wound cultures were obtained earlier this afternoon in the clinic and blood cultures were also obtained earlier today. X-ray was taken and radiographic interpretation is pending. ASSESSMENT: 1. Chronic ulceration right heel with eschar and localized worsening cellulitis and tissue infection grade 1 extending into 2 with significant involvement. 2. Diabetes mellitus on insulin therapy. 3. Chronic renal insufficiency worsening. 4. History of atherosclerotic cardiovascular disease with the possibility of an ischemic extremity contributing to the failure to improve. 5. Poor compliance with the patient not being able to procure outpatient antibiotics to assist with the treatment of this infected foot. 6. History of congestive heart failure. 7. History of coronary artery disease with a history of a quadruple coronary artery bypass grafting in August of last year. 8. Obesity. PLAN: The patient is admitted to the hospital for initiation of parenteral antibiotic therapy as well as surgical consultation to see if debridement might be able to assist. The patient will be started on Zosyn as well as vancomycin per Pharmacy protocol. Special cleansing is in order. Vascular Doppler ultrasound in the morning to evaluate for adequacy of peripheral vascular supply. Close observation and management of diabetes. Elevated the right foot up even with the heart, but not too high and close observation. Social Service to assist with his ongoing decisions, especially regarding his disability. #[id number] [facility]
[2017-04-14] MEDS ORDERED: DEXTROSE 50% 25 GM/50 ML SYG IV PRN (17:35)
[2017-04-14] MEDS ORDERED: HYDROcodone 5MG/APAP 325MG 1 EA TAB PO PRN (17:35)
[2017-04-14] MEDS ORDERED: MAGNESIUM HYDROXIDE 30 ML UD PO PRN (17:35)
[2017-04-14] MEDS ORDERED: GLUCAGON INJ 1 MG VIAL SUBCU PRN (17:35)
[2017-04-14] MEDS ORDERED: CHLORHEXIDINE GLUCONATE 4 % 15 ML UD TOP ONE (17:46)
[2017-04-14] MEDS ORDERED: VANCOMYCIN PER PHARMACY INJ SCH (18:00)
[2017-04-14] MEDS ORDERED: SODIUM CHL 0.9% 50ML MIN-BAG+ 50 ML IVPB ONE (19:46)
[2017-04-14] MEDS ORDERED: PIPERACILLIN/TAZOBACTAM 3.375 GM VIAL IVPB ONE (19:47)
[2017-04-14] MEDS ORDERED: SODIUM CHLORIDE 0.9% 100ML 100 ML IVPB ONE (19:47)
[2017-04-14] MEDS: KCL 20 MEQ/NS 1,000 ML IVS PRN (19:54)
[2017-04-14] MEDS: PIPERACILLIN/TAZOBACTAM 3.375 GM in SODIUM CHLORIDE 0.9% 100ML 100 ML IVPB SCH (19:55)
[2017-04-14] MEDS: IV SET AND CAP CHANGE INJ INJ SCH (20:06)
[2017-04-14] MEDS ORDERED: CARVEDILOL 3.125 MG TAB ONE (20:50)
[2017-04-14] MEDS: BIFIDOBACTERIUM INFANTIS 4 MG CAP PO SCH (20:58)
[2017-04-14] MEDS ORDERED: NON-FORMULARY MEDICATION 1 EA MIS (Carvedilol [Carvedilol] 6.25 MG) PO SCH (21:00)
[2017-04-14] MEDS: INSULIN LISPRO 100 UNITS/ML PEN SUBCU SCH (21:16)
[2017-04-14] MEDS: INSULIN DETEMIR 100 UNITS/ML PEN SUBCU SCH (21:16)
[2017-04-15] MEDS ORDERED: PIPERACILLIN/TAZOBACTAM 3.375 GM VIAL IVPB ONE ×5 (01:28→23:31)
[2017-04-15] MEDS ORDERED: SODIUM CHLORIDE 0.9% 100ML 100 ML IVPB ONE ×5 (01:28→23:32)
[2017-04-15] MEDS: PIPERACILLIN/TAZOBACTAM 3.375 GM in SODIUM CHLORIDE 0.9% 100ML 100 ML IVPB SCH ×4 (01:34→17:33)
[2017-04-15] MEDS: OMEPRAZOLE CAP 20 MG CAP PO SCH (06:05)
--- NOTE | 2017-04-15 07:02 | RAD ---
EXAM: Two view chest. INDICATION: Chest pain. COMPARISON: Chest x-ray: 11/20/2016. FINDINGS: Cardiac silhouette: Enlarged Nan: Unremarkable. Lobar consolidation: None. Pleural effusion: None. Pneumothorax: None. Other: None. Bones: Unremarkable. Other: None. IMPRESSION: 1. No acute cardiopulmonary process. Electronically signed by: Cedrick Saldaña MD 04/15/2017 7:02 AM CDT
--- NOTE | 2017-04-15 07:04 | RAD ---
EXAM DESCRIPTION: Foot,Right 3 Views CLINICAL HISTORY: 51 years Male, DIABETES MELLITUS WITH NEUROPATHY COMPARISON: None. FINDINGS: 3 views of the right fissure no acute fracture or malalignment. There is no lytic or sclerotic bone lesion. Lucency in the soft tissues posterior to the calcaneus suggests soft tissue injury at this location. No radiopaque foreign body. Vascular calcifications are noted. IMPRESSION: Probable soft tissue injury or ulceration posterior to the calcaneus, but no underlying fracture, malalignment or radiographic evidence of osteomyelitis. If clinically suspicious of osteomyelitis, MRI is recommended. Vascular calcifications. Electronically signed by: Pahni Villa MD 04/15/2017 7:04 AM CDT
[2017-04-15] MEDS ORDERED: CARVEDILOL 3.125 MG TAB ONE (07:23)
[2017-04-15] MEDS: INSULIN LISPRO 100 UNITS/ML PEN SUBCU SCH ×4 (07:47→21:53)
[2017-04-15] MEDS: HYDROcodone 7.5MG/APAP 325MG 1 EA TAB PO PRN ×2 (08:33→17:33)
[2017-04-15] MEDS: FLUCONAZOLE 100 MG TAB PO SCH (09:33)
[2017-04-15] MEDS: CARVEDILOL 3.125 MG TAB PO SCH ×2 (09:33→21:52)
[2017-04-15] MEDS: BIFIDOBACTERIUM INFANTIS 4 MG CAP PO SCH ×2 (09:33→21:52)
[2017-04-15] MEDS: ASPIRIN EC 81 MG TAB PO SCH (09:33)
[2017-04-15] MEDS: CHLORHEXIDINE GLUCONATE 4 % 15 ML UD TOP SCH ×2 (09:34→21:54)
[2017-04-15] MEDS ORDERED: VANCOMYCIN HCL INJ 1,000 MG VIAL IVPB ONE (09:37)
[2017-04-15] MEDS ORDERED: VANCOMYCIN HCL INJ 500 MG VIAL ONE (09:37)
[2017-04-15] MEDS ORDERED: SODIUM CHLORIDE 0.9% 250ML 250 ML ONE (09:37)
[2017-04-15] MEDS: VANCOMYCIN HCL INJ 1,000 MG, VANCOMYCIN HCL INJ 500 MG in SODIUM CHLORIDE 0.9% 250ML 25... IVPB SCH (09:43)
--- NOTE | 2017-04-15 11:33 | US ---
EXAM DESCRIPTION: Extremity,Lower Frank Arteries CLINICAL HISTORY: 51 years, Male, right heel deep infection COMPARISON: None. FINDINGS: Peak systolic velocities in the right lower extremity as follows: Right common femoral artery 128 centimeters/second Proximal right superficial femoral artery 57 centimeters/second Mid right superficial femoral artery 41 centimeters/second Distal right superficial femoral artery 12 centimeters/second Right popliteal artery 45 centimeters/second Right posterior tibial artery no identifiable flow Right dorsalis pedis artery no identifiable flow Right peroneal artery 33 centimeters/second Monophasic waveforms throughout the superficial femoral, popliteal and peroneal arteries. Peak systolic velocities in the left lower extremity as follows: Left common femoral artery 108 centimeters/second Proximal left superficial femoral artery 96 centimeters/second Mid left superficial femoral artery 142 centimeters/second Distal left superficial femoral artery 94 centimeters/second Left popliteal artery 53 centimeters/second Left posterior tibial artery no identifiable flow Left dorsalis pedis artery 35 cm/s Left peroneal artery 35 centimeters/second Monophasic waveforms involving the mid/distal superficial femoral, popliteal, dorsalis pedis and peroneal arteries. IMPRESSION: Bilateral lower extremity peripheral artery disease, with abnormal velocities and waveforms in both lower extremities involving the superficial femoral and more distal arteries as detailed above. Findings include no identifiable flow in the right posterior tibial, right dorsalis pedis and left posterior tibial arteries. If relevant, CT may be helpful for further evaluation. Electronically signed by: Phani Villa MD 04/15/2017 11:32 AM CDT
--- NOTE | 2017-04-15 13:18 | PN ---
DATE: 04/15/17 SUBJECTIVE: The patient is sitting up. He had increasing pain in his right heel when trying to walk and position himself for some x-ray studies. Helped by analgesic medication. No significant shortness of breath, but still very weak. Drainage evident through the dressing on his right foot. Less erythema noted on the foot. OBJECTIVE: VITAL SIGNS: Temperature 99.8. Blood pressure 129/77. Pulse oximetry 96% on room air. LUNGS: Relatively clear. HEART: Regular. ABDOMEN : Obese, yet soft. EXTREMITIES: Right foot still severely involved with infection and black eschar with undermining of some of the surrounding skin with what appears to be a pus-like arrangement on the right heel. Dr. Aguilar is coming to evaluate for the possibility of debridement to assist with trying to save tissue. RADIOLOGY: Arterial Doppler ultrasound performed revealing significant occlusive vascular disease, both lower extremities, slightly worse on the right compared to the left. LABORATORY: White count down to 15,100 with 79% neutrophils. Hemoglobin dropped to 9.5 with hydration. Sodium up to 134, CO2 27, BUN down to 50, creatinine down to 2.07, fasting glucose 162. Beta natriuretic peptide elevated at 754. Albumin 2.5, TSH normal at 0.49. Urinalysis showed evidence of pyuria, hematuria, bacteruria as well as some yeast. Urine culture pending. Wound culture initially shows some contaminants and blood cultures are negative. The patient continues on Zosyn and vancomycin per pharmacy protocol. Chest x-ray showed no acute findings. ASSESSMENT: 1. Significant chronic ulceration, right heel, with black eschar and localized worsening cellulitis and tissue infection with malodor with a grade 1 extending into 2 with significant involvement with surgery to evaluate for possible debridement. 2. Diabetes mellitus on insulin therapy. 3. Chronic renal insufficiency. 4. History of peripheral vascular occlusive arterial disease contributing to the failing to heal of the right heel ulceration. 5. Poor compliance with the patient not buying outpatient antibiotics to assist with the treatment of the infection because of cost factors. 6. History of congestive heart failure. 7. History of coronary artery disease with a history of a quadruple coronary artery bypass grafting in August of last year. 8. Obesity. PLAN: Dr. Aguilar is coming to see the patient who will make recommendations. Continue with current treatment program unless needing to change based upon clinical decisions. Close followup necessary with general condition not being entirely good for tissue preservation, but will provide ongoing assistance in an effort to save tissue as possible. #[id number] [facility]
--- NOTE | 2017-04-15 14:09 | CONS ---
DATE OF CONSULTATION: 04/15/17 HISTORY OF PRESENT ILLNESS: The patient is a 51-year-old male who I have seen in the past, in fact, a month ago, he was in the hospital with an ulceration on the right heel. At that time, I saw him without discrete consultation and recommended he continue the antibiotics that he was improving on, however, he went home and did not obtain the antibiotic. It has worsened and he was admitted yesterday with erythema and tenderness up to almost the midcalf. I have been asked to help evaluate. The patient has currently a low temperature elevation, but no chills PAST MEDICAL HISTORY: 1. Renal insufficiency. 2. Hypertension. 3. Gastroesophageal reflux. 4. Diabetes, on insulin for 14 years. PAST SURGICAL HISTORY: 1. Coronary artery bypass grafting. 2. Left knee surgery. CURRENT MEDICATIONS: He has an updated medicine list on the chart. ALLERGIES: NO KNOWN DRUG ALLERGIES. FAMILY HISTORY: Positive for heart disease, diabetes and malignancies. SOCIAL HISTORY: The patient is . He lives at home with his . He is unable to work and has become disabled. He has not smoked tobacco products. REVIEW OF SYSTEMS: Unremarkable other than significant injury to this right heel that is likely a pressure ulcer. PHYSICAL EXAMINATION: VITAL SIGNS: Temperature 99. Normotensive. Pulse 90. Respiratory rate 18. HEENT: Sclerae nonicteric. Mucous membranes moist. NECK: Without adenopathy. BACK: Without CVA tenderness. CHEST: Equal breath sounds. HEART: Regular rhythm. ABDOMEN: Benign. EXTREMITIES: The right lower extremity reveals pale right leg with an eschar about his right heel. There is mild erythema surrounding it. It is somewhat malodorous, but not strongly so. There is a small amount of purulent exudate seen at the edges of the eschar. He has no palpable dorsalis pedis or posterior tibialis pulse on this leg. LABORATORY: On admission, white count 16.2, now down to 15.1 this morning. Hemoglobin down from 10.7 to 9.5. He had 308,000 platelets. Neutrophils have gone from 82.3 to 79. He came in with a potassium of 4.9 and it is 4.1. Creatinine has come down from 2.17 to 2.07. BNP is 754. Liver functions are within normal limits. Blood sugars are anywhere from 300 to 150. X-ray of the foot reveals no signs of osteomyelitis or air in the soft tissues. Right lower extremity vascular studies show decreased flowing throughout the leg with no identifiable flow in the dorsalis pedis or posterior tibial artery. The right popliteal artery showed 45 cm per second. There were all monophasic waveforms. ASSESSMENT: 1. Pressure ulcer with eschar and surrounding cellulitis with cultures pending. 2. Diabetes mellitus with decreased flow to the right leg. PLAN: Continue the antibiotic therapy awaiting cultures. We will discuss the vascular flow with Radiology. There is no sign of osteomyelitis currently, so local wound care. The longstanding problem will be whether this will heal prior to a recurrent infection leading to a worsening situation and if there is anything our interventional vascular physicians can do to improve blood flow to the lower leg. #[id number] [facility]
[2017-04-15] MEDS: KCL 20 MEQ/NS 1,000 ML IVS PRN (15:06)
[2017-04-15] MEDS: INSULIN DETEMIR 100 UNITS/ML PEN SUBCU SCH (21:52)
[2017-04-16] MEDS: PIPERACILLIN/TAZOBACTAM 3.375 GM in SODIUM CHLORIDE 0.9% 100ML 100 ML IVPB SCH ×4 (00:16→17:44)
[2017-04-16] MEDS: KCL 20 MEQ/NS 1,000 ML IVS PRN ×2 (04:22→22:43)
[2017-04-16] MEDS ORDERED: SODIUM CHLORIDE 0.9% 100ML 100 ML IVPB ONE ×3 (05:46→10:54)
[2017-04-16] MEDS ORDERED: PIPERACILLIN/TAZOBACTAM 3.375 GM VIAL IVPB ONE ×3 (05:46→10:54)
[2017-04-16] MEDS: OMEPRAZOLE CAP 20 MG CAP PO SCH (05:57)
[2017-04-16] MEDS ORDERED: VANCOMYCIN HCL INJ 500 MG VIAL ONE (07:16)
[2017-04-16] MEDS ORDERED: SODIUM CHLORIDE 0.9% 250ML 250 ML ONE (07:16)
[2017-04-16] MEDS ORDERED: VANCOMYCIN HCL INJ 1,000 MG VIAL IVPB ONE (07:17)
[2017-04-16] MEDS: HYDROcodone 7.5MG/APAP 325MG 1 EA TAB PO PRN ×3 (07:32→22:44)
[2017-04-16] MEDS: INSULIN LISPRO 100 UNITS/ML PEN SUBCU SCH ×4 (07:36→21:27)
[2017-04-16] MEDS: VANCOMYCIN HCL INJ 1,000 MG, VANCOMYCIN HCL INJ 500 MG in SODIUM CHLORIDE 0.9% 250ML 25... IVPB SCH (08:25)
[2017-04-16] MEDS: CARVEDILOL 3.125 MG TAB PO SCH ×2 (08:27→20:50)
[2017-04-16] MEDS: BIFIDOBACTERIUM INFANTIS 4 MG CAP PO SCH ×2 (08:27→20:50)
[2017-04-16] MEDS: FLUCONAZOLE 100 MG TAB PO SCH (08:27)
[2017-04-16] MEDS: ASPIRIN EC 81 MG TAB PO SCH (08:27)
[2017-04-16] MEDS: CHLORHEXIDINE GLUCONATE 4 % 15 ML UD TOP SCH ×2 (08:28→21:26)
[2017-04-16] MEDS: ENOXAPARIN SODIUM 40 MG/0.4 ML SYG SUBCU SCH (16:54)
[2017-04-16] MEDS ORDERED: ENOXAPARIN SODIUM 30 MG/0.3 ML SYG SUBCU SCH (17:00)
[2017-04-16] MEDS ORDERED: POVIDONE IODINE 10 % 15 ML UD TOP ONE ×2 (17:13→17:31)
--- NOTE | 2017-04-16 17:37 | PN ---
DATE: 04/16/17 SUPERVISING PHYSICIAN: Damian Bansal M.D. SUBJECTIVE: The patient is lying in his hospital bed. He is asleep. He awakens easily. He complains of pain in that right foot and he says he just will not ever be able to go home because he cannot walk on it and it hurts too bad. Otherwise, he denies chest pain, shortness of breath, nausea, vomiting or diarrhea. OBJECTIVE: VITAL SIGNS: Temperature 99.3, heart rate 83, blood pressure 150/73 , respiratory rate 18, O2 sat is 91% on room air. RESPIRATORY: Essentially clear to auscultation bilaterally. CARDIAC: Regular rate and rhythm. ABDOMEN: Obese, soft. Bowel sounds are positive. EXTREMITIES: Continues to have that severe infection to his right heel with black eschar. There is also quite a bit of pus surrounding that area on the right heel. NEUROLOGIC: He is awake, alert and oriented times three. LABORATORY AND RADIOLOGY: There are no labs and films to report. ASSESSMENT: 1. Significant chronic ulceration, right heel, with black eschar and localized worsening cellulitis and tissue infection with malodor with a grade 1 extending into 2 with significant involvement with surgery to evaluate for possible debridement. 2. Diabetes mellitus on insulin therapy. 3. Chronic renal insufficiency. 4. History of peripheral vascular occlusive arterial disease contributing to the failing to heal of the right heel ulceration. 5. Poor compliance with the patient not buying outpatient antibiotics to assist with the treatment of the infection because of cost factors. 6. History of congestive heart failure. 7. History of coronary artery disease with a history of a quadruple coronary artery bypass grafting in August of last year. 8. Obesity. PLAN: We will continue present supportive care. Dr. Aguilar has seen the patient and at this point he would like to have the patient evaluated by either a school lunch manager or a vascular surgeon to determine if the infection clears if we could stent that right lower leg to improve the blood flow, or if that would be ineffective in helping the blood flow to that foot thereby he would most likely need an amputation. I have called Dr. De Los Santos who I believe has seen the patient in the past and he is out of town at this time. I will try to contact him later. Otherwise, I will recheck his lab in the morning. We will continue with his present antibiotic therapy and we will monitor his wound culture as sensitivities become available. Encourage good pulmonary hygiene. I will also add Lovenox for DVT prophylaxis. We will continue to monitor the patient closely and followup as needed. #[id number] and [id number] [facility]
[2017-04-16] MEDS: INSULIN DETEMIR 100 UNITS/ML PEN SUBCU SCH (21:26)
[2017-04-17] MEDS: PIPERACILLIN/TAZOBACTAM 3.375 GM in SODIUM CHLORIDE 0.9% 100ML 100 ML IVPB SCH ×4 (01:05→17:40)
[2017-04-17] MEDS ORDERED: SODIUM CHLORIDE 0.9% 100ML 100 ML IVPB ONE ×6 (04:04→19:38)
[2017-04-17] MEDS ORDERED: PIPERACILLIN/TAZOBACTAM 3.375 GM VIAL IVPB ONE ×6 (04:04→19:37)
[2017-04-17] MEDS: OMEPRAZOLE CAP 20 MG CAP PO SCH (06:21)
[2017-04-17] MEDS: HYDROcodone 7.5MG/APAP 325MG 1 EA TAB PO PRN ×2 (06:26→16:30)
[2017-04-17] MEDS ORDERED: VANCOMYCIN HCL INJ 500 MG VIAL ONE (07:31)
[2017-04-17] MEDS ORDERED: SODIUM CHLORIDE 0.9% 250ML 250 ML ONE (07:32)
[2017-04-17] MEDS ORDERED: VANCOMYCIN HCL INJ 1,000 MG VIAL IVPB ONE (07:32)
[2017-04-17] MEDS: INSULIN LISPRO 100 UNITS/ML PEN SUBCU SCH ×4 (07:43→21:20)
[2017-04-17] MEDS: BIFIDOBACTERIUM INFANTIS 4 MG CAP PO SCH ×2 (09:00→21:22)
[2017-04-17] MEDS: ASPIRIN EC 81 MG TAB PO SCH (09:00)
[2017-04-17] MEDS: FLUCONAZOLE 100 MG TAB PO SCH (09:00)
[2017-04-17] MEDS: ENOXAPARIN SODIUM 40 MG/0.4 ML SYG SUBCU SCH (09:00)
[2017-04-17] MEDS: CARVEDILOL 3.125 MG TAB PO SCH ×2 (09:00→21:21)
[2017-04-17] MEDS: VANCOMYCIN HCL INJ 1,000 MG, VANCOMYCIN HCL INJ 500 MG in SODIUM CHLORIDE 0.9% 250ML 25... IVPB SCH (09:34)
[2017-04-17] MEDS: CHLORHEXIDINE GLUCONATE 4 % 15 ML UD TOP SCH ×2 (16:36→21:23)
--- NOTE | 2017-04-17 20:34 | PN ---
DATE: 04/17/17 SUPERVISING PHYSICIAN: Damian Bansal M.D. SUBJECTIVE: The patient is sitting up in his chair in his hospital room. He is visiting with family members. Denies any chest pain, shortness of breath, abdominal pain, nausea or vomiting, but he does continue complaints of that right lower leg. OBJECTIVE: VITAL SIGNS: Temperature 99.3, pulse rate 81, blood pressure 146/76 , respiratory rate 20, O2 sat is 97%. RESPIRATORY: Essentially clear to auscultation bilaterally. CARDIAC: Regular rate and rhythm. ABDOMEN: Obese, soft, non-tender. Bowel sounds are positive. Dressing to the right lower leg is dry and intact. NEUROLOGIC: He is awake, alert and oriented times three. LABORATORY: WBCs are still elevated at 14.7, hemoglobin is 9.2, hematocrit 27.8 , platelets 333. BUN is slightly improved at 37 as well as his creatinine at 1.93. Alkaline phosphatase is 130, albumin 2.2, globulin 4.8, albumin 0.5. His wound culture has resulted and shows Enterococcus faecalis. It is sensitive to vancomycin which he is presently on. All other labs and films have been reviewed via the EMR. ASSESSMENT: 1. Significant chronic ulceration, right heel, with black eschar and localized worsening cellulitis and tissue infection with malodor with a grade 1 extending into 2 with significant involvement with surgery to evaluate for possible debridement. His wound culture shows Enterococcus faecalis. It is sensitive to vancomycin. 2. Diabetes mellitus on insulin therapy. 3. Chronic renal insufficiency. 4. History of peripheral vascular occlusive arterial disease contributing to the failing to heal of the right heel ulceration. 5. Poor compliance with the patient not buying outpatient antibiotics to assist with the treatment of the infection because of cost factors, presently on Vancomycin and Zosyn. 6. History of congestive heart failure. 7. History of coronary artery disease with a history of a quadruple coronary artery bypass grafting in August of last year. 8. Obesity. PLAN: We will continue present supportive care. Will continue vancomycin and Zosyn at this time. He will most likely need a moth exterminator of 4 to 6 weeks of antibiotic therapy and we may have to plan for Swing Bed admission or outpatient IV antibiotic infusion therapy. Dr. Aguilar had some concerns whether the flow to his lower extremities could be improved with some thinning. I showed the report to Dr. Snell, office machine servicer apprentice, and he recommended that at some point that he get an angiogram. Most likely he will not be able to get that angiogram until after his antibiotic therapy has completed. I will order routine lab in the morning and we will continue to follow the patient closely. I will speak with Emmie Musa, Gathering Machine Setter, as far as his discharge planning. Will encourage good pulmonary hygiene and follow the patient up as needed. Dr. Bansal is the collaborating physician available for consultation. #[id number] [facility]
[2017-04-17] MEDS: INSULIN DETEMIR 100 UNITS/ML PEN SUBCU SCH (21:19)
[2017-04-17] MEDS: SODIUM CHLORIDE 0.9% (FLUSH) 10 ML SYG IV SCH (21:23)
[2017-04-18] MEDS: PIPERACILLIN/TAZOBACTAM 3.375 GM in SODIUM CHLORIDE 0.9% 100ML 100 ML IVPB SCH ×4 (00:13→17:49)
[2017-04-18] MEDS: SODIUM CHLORIDE 0.9% (FLUSH) 10 ML SYG IV PRN (06:35)
[2017-04-18] MEDS: OMEPRAZOLE CAP 20 MG CAP PO SCH (06:35)
[2017-04-18] MEDS: HYDROcodone 7.5MG/APAP 325MG 1 EA TAB PO PRN ×3 (06:55→20:32)
[2017-04-18] MEDS ORDERED: SODIUM CHLORIDE 0.9% 250ML 250 ML ONE (07:55)
[2017-04-18] MEDS ORDERED: VANCOMYCIN HCL INJ 500 MG VIAL ONE (07:55)
[2017-04-18] MEDS ORDERED: VANCOMYCIN HCL INJ 1,000 MG VIAL IVPB ONE (07:56)
[2017-04-18] MEDS: IV SET AND CAP CHANGE INJ INJ SCH (08:15)
[2017-04-18] MEDS: INSULIN LISPRO 100 UNITS/ML PEN SUBCU SCH ×4 (09:05→21:08)
[2017-04-18] MEDS: FLUCONAZOLE 100 MG TAB PO SCH (09:06)
[2017-04-18] MEDS: CARVEDILOL 3.125 MG TAB PO SCH ×2 (09:06→20:32)
[2017-04-18] MEDS: BIFIDOBACTERIUM INFANTIS 4 MG CAP PO SCH ×2 (09:06→20:32)
[2017-04-18] MEDS: ENOXAPARIN SODIUM 40 MG/0.4 ML SYG SUBCU SCH (09:06)
[2017-04-18] MEDS: ASPIRIN EC 81 MG TAB PO SCH (09:06)
[2017-04-18] MEDS: CHLORHEXIDINE GLUCONATE 4 % 15 ML UD TOP SCH ×2 (09:06→20:36)
[2017-04-18] MEDS: VANCOMYCIN HCL INJ 1,000 MG, VANCOMYCIN HCL INJ 500 MG in SODIUM CHLORIDE 0.9% 250ML 25... IVPB SCH (09:07)
[2017-04-18] MEDS: SODIUM CHLORIDE 0.9% (FLUSH) 10 ML SYG IV SCH ×2 (09:07→20:33)
[2017-04-18] MEDS ORDERED: SODIUM CHLORIDE 0.9% 100ML 100 ML IVPB ONE ×3 (11:40→20:16)
[2017-04-18] MEDS ORDERED: PIPERACILLIN/TAZOBACTAM 3.375 GM VIAL IVPB ONE ×3 (11:40→20:15)
[2017-04-18] MEDS: [UNRECOGNIZED DRUG - OTHER] TOP SCH ×2 (11:51→20:37)
--- NOTE | 2017-04-18 13:13 | PN ---
SUPERVISING PHYSICIAN: Srinivas Parham MD DATE: 04/18/17 SUBJECTIVE: The patient is lying in his hospital bed. His is at the bedside. Dr. Aguilar and I are in examining his wound. The patient states he has been walking around, but he has a lot of pain in that right foot. He denies any shortness of breath, chest pain, nausea, vomiting, or diarrhea. OBJECTIVE: VITAL SIGNS: Afebrile. Heart rate 82. Blood pressure 137/78. Respiratory rate 20. O2 saturation 96%. LUNGS: Clear to auscultation bilaterally. CARDIAC: Regular rate and rhythm. ABDOMEN: Soft, nontender, nondistended. Bowel sounds are positive. EXTREMITIES: He has a wound to his right heel. It is approximately 4 cm in diameter and has quite a bit of eschar as well as some tissue in it, but there is a small amount of granulation on the outer part of it. NEUROLOGIC: Awake, alert and oriented times three. LABORATORY: His blood sugars have run between 137 to 209. All other labs and films have been reviewed via the EMR. ASSESSMENT: 1. Significant chronic ulceration, right heel, with black eschar and localized worsening cellulitis and tissue infection with malodor with a grade 1 extending into 2 with significant involvement with surgery to evaluate for possible debridement. His wound culture is Enterococcus faecalis. It is sensitive to vancomycin. 2. Diabetes mellitus on insulin therapy. 3. Chronic renal insufficiency. 4. History of peripheral vascular occlusive arterial disease contributing to the failing to heal of the right heel ulceration. 5. Poor compliance with the patient not buying outpatient antibiotics to assist with the treatment of the infection because of cost factors. Presently on Vanc and Zosyn. 6. History of congestive heart failure. 7. History of coronary artery disease with a history of a quadruple coronary artery bypass grafting in August of last year. 8. Obesity. PLAN: We will continue present supportive care. I have changed his dressing changes per Dr. Aguilar's instructions to Vasolex b.i.d. I will also do a CBC tomorrow. He will need 10 days of Zosyn antibiotic therapy. His last dose will be at noon on 04/24/17. I am also going to attempt to get him a PICC line placed if possible as he will most likely need 4 to 6 weeks of vancomycin antibiotic therapy. I am not sure whether that will be Swing Bed or as an outpatient, but we will try to get that finalized in the next few days. At some point after his antibiotic therapy, he will need an angiogram of the lower extremity per the recommendations of Dr. Snell. Otherwise, we will continue to monitor the patient closely and followup as needed. #[id number] [facility]
[2017-04-18] MEDS: INSULIN DETEMIR 100 UNITS/ML PEN SUBCU SCH (20:35)
[2017-04-19] MEDS: SODIUM CHLORIDE 0.9% (FLUSH) 10 ML SYG IV PRN ×2 (00:18→06:20)
[2017-04-19] MEDS: PIPERACILLIN/TAZOBACTAM 3.375 GM in SODIUM CHLORIDE 0.9% 100ML 100 ML IVPB SCH ×5 (00:18→23:47)
[2017-04-19] MEDS: HYDROcodone 7.5MG/APAP 325MG 1 EA TAB PO PRN ×3 (05:14→18:28)
[2017-04-19] MEDS ORDERED: SODIUM CHLORIDE 0.9% 100ML 100 ML IVPB ONE ×4 (05:20→20:04)
[2017-04-19] MEDS ORDERED: PIPERACILLIN/TAZOBACTAM 3.375 GM VIAL IVPB ONE ×4 (05:20→20:04)
[2017-04-19] MEDS: OMEPRAZOLE CAP 20 MG CAP PO SCH (06:20)
[2017-04-19] MEDS: INSULIN LISPRO 100 UNITS/ML PEN SUBCU SCH ×4 (07:08→21:28)
[2017-04-19] MEDS ORDERED: SODIUM CHLORIDE 0.9% 250ML 250 ML ONE (08:20)
[2017-04-19] MEDS ORDERED: VANCOMYCIN HCL INJ 500 MG VIAL ONE (08:20)
[2017-04-19] MEDS ORDERED: VANCOMYCIN HCL INJ 1,000 MG VIAL IVPB ONE (08:20)
[2017-04-19] MEDS: FUROSEMIDE 40 MG TAB PO SCH ×2 (09:23→18:15)
[2017-04-19] MEDS: VANCOMYCIN HCL INJ 1,000 MG, VANCOMYCIN HCL INJ 500 MG in SODIUM CHLORIDE 0.9% 250ML 25... IVPB SCH (09:35)
[2017-04-19] MEDS: CHLORHEXIDINE GLUCONATE 4 % 15 ML UD TOP SCH ×2 (09:36→21:04)
[2017-04-19] MEDS: ENOXAPARIN SODIUM 40 MG/0.4 ML SYG SUBCU SCH (09:36)
[2017-04-19] MEDS: FLUCONAZOLE 100 MG TAB PO SCH (09:36)
[2017-04-19] MEDS: ASPIRIN EC 81 MG TAB PO SCH (09:36)
[2017-04-19] MEDS: CARVEDILOL 3.125 MG TAB PO SCH ×2 (09:36→21:03)
[2017-04-19] MEDS: SODIUM CHLORIDE 0.9% (FLUSH) 10 ML SYG IV SCH ×2 (09:36→21:06)
[2017-04-19] MEDS: BIFIDOBACTERIUM INFANTIS 4 MG CAP PO SCH ×2 (09:36→21:03)
[2017-04-19] MEDS: [UNRECOGNIZED DRUG - OTHER] TOP SCH ×2 (09:37→21:04)
--- NOTE | 2017-04-19 15:00 | PN ---
DATE: 04/19/17 SUPERVISING PHYSICIAN: Jerry Parham M.D. SUBJECTIVE: The patient is lying in bed. He is asleep. His is at his bedside. He awakens easily and has no complaints at this time. OBJECTIVE: VITAL SIGNS: He is afebrile. Heart rate 77, blood pressure 122/72, respiratory rate 20, O2 sat is 94% on room air. RESPIRATORY: Essentially clear to auscultation bilaterally. CARDIAC: Regular rate and rhythm. ABDOMEN: Soft, nondistended, non-tender. Bowel sounds are positive. EXTREMITIES: The wound to his right medial heel is slightly improved from yesterday using the new wound care treatment. There is a draining area on the upper medial aspect of his wound that has some purulent fluid. NEUROLOGIC: He is awake, alert and oriented times three. LABORATORY: His WBCs are 11.6, hemoglobin 8.1, hematocrit 25.3, neutrophils are 80.8. Blood sugars have run between 107 and 200. All other labs and films have been reviewed via the EMR. ASSESSMENT: 1. Significant chronic ulceration, right heel, with localized cellulitis and tissue infection. Dr. Aguilar is consulting on case to evaluate for possible debridement. His wound culture is Enterococcus faecalis. It is sensitive to vancomycin. 2. Anemia with a hemoglobin that has dropped over 2 grams since admission. 3. Diabetes mellitus on insulin therapy. 4. Chronic renal insufficiency. 5. History of peripheral vascular occlusive arterial disease contributing to the failing to heal of the right heel ulceration. 6. Poor compliance with the patient not buying outpatient antibiotics to assist with the treatment of the infection because of cost factors. Presently on Vanc and Zosyn. 7. History of congestive heart failure. 8. History of coronary artery disease with a history of a quadruple coronary artery bypass grafting in August of last year. 9. Obesity. PLAN: We will continue present supportive care. We will need to try to get a PICC line in the next couple of days because he will need several more weeks of antibiotic treatment. The wound has improved on the Vasolex so we will continue that. I will do a CBC and metabolic panel tomorrow as well as we have done a new wound culture on that drainage. I will also do an anemia panel. I have also sent a note to Emmie Musa, our Insurance Instructor, that we can decide for discharge if he can do his therapy as an outpatient or if should be a Swing Bed admission, but we will look at that over the next few days. It also is to be noted that at some point he will need an angiogram of that right lower extremity per recommendations of Dr. Snell, career consultant. Otherwise we will continue to monitor the patient closely and followup as needed. #[id number] [facility]
[2017-04-19] MEDS: INSULIN DETEMIR 100 UNITS/ML PEN SUBCU SCH (21:05)
[2017-04-20] MEDS: HYDROcodone 7.5MG/APAP 325MG 1 EA TAB PO PRN ×4 (04:25→23:04)
[2017-04-20] MEDS ORDERED: PIPERACILLIN/TAZOBACTAM 3.375 GM VIAL IVPB ONE ×4 (06:08→20:08)
[2017-04-20] MEDS ORDERED: SODIUM CHLORIDE 0.9% 100ML 100 ML IVPB ONE ×4 (06:08→20:08)
[2017-04-20] MEDS: PIPERACILLIN/TAZOBACTAM 3.375 GM in SODIUM CHLORIDE 0.9% 100ML 100 ML IVPB SCH ×3 (06:10→17:06)
[2017-04-20] MEDS: OMEPRAZOLE CAP 20 MG CAP PO SCH (06:11)
[2017-04-20] MEDS ORDERED: VANCOMYCIN HCL INJ 500 MG VIAL ONE (07:41)
[2017-04-20] MEDS ORDERED: SODIUM CHLORIDE 0.9% 250ML 250 ML ONE (07:42)
[2017-04-20] MEDS ORDERED: VANCOMYCIN HCL INJ 1,000 MG VIAL IVPB ONE (07:43)
[2017-04-20] MEDS: FUROSEMIDE 40 MG TAB PO SCH ×2 (08:30→17:06)
[2017-04-20] MEDS: INSULIN LISPRO 100 UNITS/ML PEN SUBCU SCH ×4 (09:16→21:30)
[2017-04-20] MEDS: CARVEDILOL 3.125 MG TAB PO SCH ×2 (09:18→21:30)
[2017-04-20] MEDS: ENOXAPARIN SODIUM 40 MG/0.4 ML SYG SUBCU SCH (09:18)
[2017-04-20] MEDS: BIFIDOBACTERIUM INFANTIS 4 MG CAP PO SCH ×2 (09:18→21:30)
[2017-04-20] MEDS: ASPIRIN EC 81 MG TAB PO SCH (09:18)
[2017-04-20] MEDS: FLUCONAZOLE 100 MG TAB PO SCH (09:24)
[2017-04-20] MEDS: VANCOMYCIN HCL INJ 1,000 MG, VANCOMYCIN HCL INJ 500 MG in SODIUM CHLORIDE 0.9% 250ML 25... IVPB SCH (09:24)
[2017-04-20] MEDS: SODIUM CHLORIDE 0.9% (FLUSH) 10 ML SYG IV SCH (09:25)
[2017-04-20] MEDS: [UNRECOGNIZED DRUG - OTHER] TOP SCH ×2 (09:25→21:30)
[2017-04-20] MEDS: CHLORHEXIDINE GLUCONATE 4 % 15 ML UD TOP SCH ×2 (09:25→21:30)
--- NOTE | 2017-04-20 16:53 | PN ---
DATE: 04/20/17 SUPERVISING PHYSICIAN: Jerry Parham M.D. SUBJECTIVE: The patient is lying in his hospital bed. He is asleep. He awakens easily. His is at bedside. He has no complaints of shortness of breath, chest pain, nausea or vomiting. He does complain that he is somewhat weak and he still has pain in the right foot, but it does seem to be improving. OBJECTIVE: VITAL SIGNS: Temperature 99.2, pulse rate 69, blood pressure 127/66 , respiratory rate 18, O2 saturation is 91% on room air. RESPIRATORY: Essentially clear to auscultation bilaterally. It is somewhat diminished at the bases. CARDIAC: Regular rate and rhythm. ABDOMEN: Soft, nondistended, non- tender. Bowel sounds are positive. EXTREMITIES: The wound to his right medial heel is improved. The redness around the circumference of the wound is just minimal and it is just by the margins. There is no more drainage from the wound today. NEUROLOGIC: He is awake, alert and oriented times three. LABORATORY: WBCs have slightly increased from 11.6 yesterday to 12.2. Hemoglobin has dropped to 7.9 and hematocrit is 23.8, platelets 316, neutrophils 79.2. Blood sugars have run from about 98 to 187. Metabolic panel is basically within normal limits with the exception of his BUN and creatinine have elevated to 38 and 2.6. Magnesium is now 2. Ferritin is 287, TIBC is 184.8, iron saturation is 8.6, reticulocyte count is pending. MICROBIOLOGY: The second wound culture shows further incubation required. All other labs and films have been reviewed via the EMR. ASSESSMENT: 1. Significant chronic ulceration of the right heel that is now open with improvement in the localized cellulitis. His wound culture is Enterococcus faecalis sensitive to vancomycin. Dr. Aguilar following. 2. Anemia with a hemoglobin that has dropped down to 7.9 and on admission was 10.7. 3. Diabetes mellitus on insulin therapy. 4. Chronic renal insufficiency, that has worsened. 5. History of peripheral vascular occlusive arterial disease contributing to the failing to heal of the right heel ulceration. 6. Poor compliance with the patient not buying outpatient antibiotics to assist with the treatment of the infection because of cost factors. Presently on Vanc and Zosyn. 7. History of congestive heart failure. 8. History of coronary artery disease with a history of a quadruple coronary artery bypass grafting in August of last year. 9. Obesity. PLAN: We will continue present supportive care. We are in the process of attempting to get a PICC line over the next several days so he can get his antibiotic treatment that will last over the next 4 plus weeks. Will continue to use the Vasolex for the wound as that has improved greatly. I will do a CBC and metabolic panel tomorrow. Will monitor the anemia panel as well as his H& H. I am not sure where the source of the bleeding is from, although with his kidney function he probably has little erythropoietin. He may need a blood transfusion tomorrow. Per Dr. Aguliar's recommendations, we will hold off until we see it tomorrow as it may compromise his wound healing. Dr. Gabriel, head char filter tank tender, or Dr. Veronica, automotive technician instructor, may need to be involved with his chronic anemia. Dr. Gabriel will be in [place] on Friday and he may see patient in hospital then, as well as monitor his kidney function. I will also check with Emmie Musa tomorrow in Corporate Quality Manager to see if he would benefit from Swing Bed admission for his antibiotics as his history of poor compliance may hinder wound healing and at some point he will need a right lower extremity angiogram per recommendations of Dr. Snell, community relations manager. Otherwise we will continue to follow the patient closely and followup as needed. Dr. Parham is the collaborating physician and available for consultation. #[id number] [facility]
[2017-04-20] MEDS: SODIUM CHLORIDE 0.9% 1000ML 1,000 ML IVS PRN (17:44)
[2017-04-20] MEDS: IV SET AND CAP CHANGE INJ INJ SCH (18:27)
[2017-04-20] MEDS: INSULIN DETEMIR 100 UNITS/ML PEN SUBCU SCH (21:30)
[2017-04-21] MEDS: PIPERACILLIN/TAZOBACTAM 3.375 GM in SODIUM CHLORIDE 0.9% 100ML 100 ML IVPB SCH ×5 (00:20→23:17)
[2017-04-21] MEDS ORDERED: SODIUM CHLORIDE 0.9% 100ML 0 ML IVPB ONE (05:11)
[2017-04-21] MEDS ORDERED: PIPERACILLIN/TAZOBACTAM 3.375 GM VIAL IVPB ONE ×3 (05:11→19:59)
[2017-04-21] MEDS: HYDROcodone 7.5MG/APAP 325MG 1 EA TAB PO PRN ×2 (06:01→21:10)
[2017-04-21] MEDS: OMEPRAZOLE CAP 20 MG CAP PO SCH (06:03)
[2017-04-21] MEDS: INSULIN LISPRO 100 UNITS/ML PEN SUBCU SCH ×4 (07:02→22:06)
[2017-04-21] MEDS ORDERED: VANCOMYCIN HCL INJ 500 MG VIAL ONE (07:06)
[2017-04-21] MEDS ORDERED: SODIUM CHLORIDE 0.9% 250ML 0 ML ONE (07:06)
[2017-04-21] MEDS ORDERED: VANCOMYCIN HCL INJ 1,000 MG VIAL IVPB ONE (07:08)
[2017-04-21] MEDS ORDERED: SODIUM CHLORIDE 0.9% 100ML 100 ML IVPB ONE ×2 (07:08→19:59)
[2017-04-21] MEDS: FUROSEMIDE 40 MG TAB PO SCH ×2 (08:39→17:16)
[2017-04-21] MEDS: ASPIRIN EC 81 MG TAB PO SCH (08:39)
[2017-04-21] MEDS: CARVEDILOL 3.125 MG TAB PO SCH ×2 (08:39→21:10)
[2017-04-21] MEDS: BIFIDOBACTERIUM INFANTIS 4 MG CAP PO SCH ×2 (08:39→21:10)
[2017-04-21] MEDS: CHLORHEXIDINE GLUCONATE 4 % 15 ML UD TOP SCH ×2 (08:39→21:10)
[2017-04-21] MEDS: FLUCONAZOLE 100 MG TAB PO SCH (08:39)
[2017-04-21] MEDS: [UNRECOGNIZED DRUG - OTHER] TOP SCH ×2 (08:40→21:11)
[2017-04-21] MEDS: ENOXAPARIN SODIUM 40 MG/0.4 ML SYG SUBCU SCH (08:40)
[2017-04-21] MEDS ORDERED: FUROSEMIDE INJ 20 MG/2 ML VIAL IV ONE (10:05)
[2017-04-21] MEDS ORDERED: diphenhydrAMINE HCL 50 MG/ML VIAL IV ONE (10:05)
[2017-04-21] MEDS ORDERED: ACETAMINOPHEN 325 MG TAB PO ONE (10:05)
[2017-04-21] MEDS ORDERED: SODIUM CHLORIDE 0.9% 500ML 500 ML IVS SCH (10:30)
[2017-04-21] MEDS ORDERED: ONDANSETRON 4 MG TAB ONE (18:04)
[2017-04-21] MEDS: ONDANSETRON 4 MG TAB PO PRN (18:09)
--- NOTE | 2017-04-21 20:18 | PN ---
DATE: 04/21/17 SUPERVISING PHYSICIAN: Damian Bansal M.D. SUBJECTIVE: The patient is resting in the bedside chair with his feet up. He has not reported any nausea, vomiting or diarrhea. Notes that his foot is improving but continues to remain tender. OBJECTIVE: VITAL SIGNS: T max 98.3, pulse 72, blood pressure 179/88, respiratory rate 16, satting 93% on room air. I's and O's show a positive balance of 1120 with 2570 in, 1450 out. Weight 105.2 kg. CHEST: Lungs are clear to auscultation. HEART: Regular rate and rhythm. ABDOMEN: Soft, obese but non-tender. Positive bowel sounds. EXTREMITIES: Wound to the right medial heel continues to show improvement with some continued redness and minimal drainage. NEUROLOGIC: He is alert and oriented times three. LABORATORY: White count remains persistent at 12.8 with hemoglobin showing decreased to 7.7 and hematocrit 24.5 with platelet count 342,000. Differential shows a left shift. Reticulocyte count is pending. Chemistries show normal electrolytes with potassium 4.0, BUN has improved somewhat to 38 as well as creatinine is down to 2.51, glucoses range from 135 to 219. Calcium 8.4. MICROBIOLOGY: Additional wound culture of the heel again shows Enterococcus faecalis that is sensitive to both Rocephin and Ampicillin. Urine final culture at 48 hours showed no growth. Blood cultures remain negative after 5 days. ASSESSMENT: 1. Chronic ulceration of the right heel showing improvement of localized cellulitis with final culture results showing Enterococcus faecalis being sensitive to both Rocephin and Ampicillin with Dr. Aguilar following wound management. 2. Anemia likely of chronic illness with some renal insufficiency with hemoglobin continuing to show decrease now requiring transfusion of 2 units of packed red blood cells. 3. Diabetes mellitus on insulin therapy. 4. Chronic renal insufficiency showing some slight improvement. 5. History of peripheral vascular occlusive arterial disease contributing to decreased healing to the right heel and ulceration. 6. Poor compliance with medical management as the patient refuses to buy outpatient antibiotics to assist with treatment of infection. The patient currently is on vancomycin and Zosyn with plans to discontinue vancomycin and continue with Zosyn. 7. History of congestive heart failure. 8. History of coronary artery disease with history of quadruple coronary artery bypass graft in August of 2016. 9. Obesity. PLAN: I discussed the patient's case with Dr. Hamlin today. Given that no MRSA was isolated,she agreed that we could stop the vancomycin and recommended continuation of coverage with Zosyn as the sensitivity showed it was sensitive to Ampicillin. Will continue with Zosyn coverage based off renal function with anticipation of at least [address] Hamlin's recommendations to be evaluated weekly with renal functions and continued wound care management. Will plan to transfuse 2 units of packed red blood cells and repeat a CBC in the morning. After repeat H&H in the morning, I will talk to Dr. Gabriel in regards to further kidney management based off repeat BUN and creatinine. Will continue to work with Emmie and likely anticipate transferring the patient to Swing Bed status once he shows stabilization from Acute Care for continued rehabilitation, strengthening and ongoing antibiotic therapy and wound management. Until then, will continue to monitor the patient closely and treat appropriately. #[id number] [facility]
[2017-04-21] MEDS: INSULIN DETEMIR 100 UNITS/ML PEN SUBCU SCH (22:05)
[2017-04-21] MEDS: SODIUM CHLORIDE 0.9% 1000ML 1,000 ML IVS PRN (23:16)
[2017-04-21] MEDS: SODIUM CHLORIDE 0.9% (FLUSH) 10 ML SYG IV PRN (23:21)
--- NOTE | 2017-04-21 23:33 | PCM.CORE ---
Physician DVT/VTE - Contraindications Medication Contraindication: Medical Contraindication - worseing anemia - Nurse DVT Assessment & Total Each Risk Factor Represents 3 Points: Medical PT with Hx of [place], CHF, Severe infection/sepsis Each Risk Factor Represents 1 Point: Age 41-60 Each Risk Factor is 1 Point: Varicose Veins/Edema Legs, Obesity (BMI >25) DVT Assessment Score: 6 - 5 or more Very High Risk Treatments: Early Ambulation *, Sequential Compression Device
[2017-04-22] MEDS ORDERED: PIPERACILLIN/TAZOBACTAM 3.375 GM VIAL IVPB ONE ×5 (04:09→19:51)
[2017-04-22] MEDS ORDERED: SODIUM CHLORIDE 0.9% 100ML 100 ML IVPB ONE ×5 (04:12→19:51)
[2017-04-22] MEDS: PIPERACILLIN/TAZOBACTAM 3.375 GM in SODIUM CHLORIDE 0.9% 100ML 100 ML IVPB SCH ×3 (05:03→17:46)
[2017-04-22] MEDS: HYDROcodone 7.5MG/APAP 325MG 1 EA TAB PO PRN ×4 (05:20→22:10)
[2017-04-22] MEDS: OMEPRAZOLE CAP 20 MG CAP PO SCH (05:42)
[2017-04-22] MEDS: INSULIN LISPRO 100 UNITS/ML PEN SUBCU SCH ×4 (08:32→21:30)
[2017-04-22] MEDS ORDERED: VANCOMYCIN HCL INJ 1,000 MG, VANCOMYCIN HCL INJ 250 MG in SODIUM CHLORIDE 0.9% 250ML 25... IVPB SCH (09:00)
[2017-04-22] MEDS: BIFIDOBACTERIUM INFANTIS 4 MG CAP PO SCH ×2 (09:34→20:35)
[2017-04-22] MEDS: CARVEDILOL 3.125 MG TAB PO SCH ×2 (09:34→20:35)
[2017-04-22] MEDS: CHLORHEXIDINE GLUCONATE 4 % 15 ML UD TOP SCH ×2 (09:34→22:10)
[2017-04-22] MEDS: ASPIRIN EC 81 MG TAB PO SCH (09:34)
[2017-04-22] MEDS: ENOXAPARIN SODIUM 40 MG/0.4 ML SYG SUBCU SCH (09:34)
[2017-04-22] MEDS: [UNRECOGNIZED DRUG - OTHER] TOP SCH ×2 (09:34→22:10)
[2017-04-22] MEDS: FUROSEMIDE 40 MG TAB PO SCH ×2 (09:55→17:25)
[2017-04-22] MEDS: SODIUM CHLORIDE 0.9% 1000ML 1,000 ML IVS PRN (17:46)
--- NOTE | 2017-04-22 18:07 | PN ---
DATE: 04/22/17 SUPERVISING PHYSICIAN: Damian Bansal M.D. SUBJECTIVE: The patient has been afebrile but he notes that his right ankle is now showing some redness and tender to touch. OBJECTIVE: VITAL SIGNS: T max 98.6, pulse 67, blood pressure 126/80, respirations 18, O2 sat 94% on room air. I's and O's show a positive balance of 3390 with 1939 in, 1600 out. He did get 2 units of packed red blood cells yesterday. Weight is 105.5 kg. CHEST: Clear to auscultation bilaterally. HEART: Regular rate and rhythm. ABDOMEN: Obese but soft, non-tender. Positive bowel sounds. EXTREMITIES: Right foot shows some pitting edema. LABORATORY: White count is now normalized at 10.4. Hemoglobin after transfusion of 2 units of blood has improved to 9.9, hematocrit 30.4, platelet count 340,000. Differential continues to show a left shift. Reticulocyte was 1.5 with absolute reticulocyte being 41,250 which is within normal range. Chemistries show electrolytes with potassium 3.8, BUN 38, creatinine 2.28 which is improved from 2.65 currently maximum creatinine since admission. Serum osmolality 282. Glucoses have been 94 to 191. ASSESSMENT: 1. Diabetic ulcer to the heel is showing good granulation but there is now notable erythema around the area and it is extending up to the medial malleolus and just above. 2. Anemia likely chronic illness with some renal insufficiency with briefly receiving 2 units of packed red blood cells. 3. Diabetes mellitus on insulin, stable. 4. Chronic renal insufficiency showing improvement after initiation of packed red blood cells. 5. History of peripheral vascular occlusive arterial disease contributing to decreased healing to the right heel and ulceration. 6. Poor compliance with medical management as the patient refuses to buy his outpatient antibiotics to assist with treatment of infection. Currently the patient is on Zosyn. with plans to discontinue vancomycin 7. History of congestive heart failure. 8. History of coronary artery disease with history of quadruple coronary artery bypass graft in August of 2016. 9. Obesity. PLAN: Will continue to follow the patient closely along with Dr. Aguilar's recommendations. I did talk to Dr. Hamlin and recommendations are vancomycin is to stop at this point. Will continue with Zosyn as renally dosed for at least 2 weeks. The right ankle is showing some erythema today. Dr. Aguilar is seeing the patient and marked the area of most distal border. Will monitor this closely to ensure that it is not increasing. Should it show worsening within the next several hours today, certainly we will call and discuss with Dr. Hamlin recommendations for further treatment on antibiotic therapy. Will continue with current plan of care to include sliding scale as his glucoses are showing to be stable. Will follow his labs closely to include a CBC and BMP in the morning. Will anticipate length of stay to be an additional 1-1/2 to 2 weeks with the patient requiring the Zosyn antibiotic and aggressive wound management. Until discharge, will continue to follow the patient closely and treat appropriately. #[id number] [facility]
[2017-04-22] MEDS ORDERED: ATORVASTATIN 20 MG TAB PO ONE (19:41)
[2017-04-22] MEDS: ATORVASTATIN 20 MG TAB PO SCH (21:28)
[2017-04-22] MEDS: INSULIN DETEMIR 100 UNITS/ML PEN SUBCU SCH (21:30)
[2017-04-23] MEDS: PIPERACILLIN/TAZOBACTAM 3.375 GM in SODIUM CHLORIDE 0.9% 100ML 100 ML IVPB SCH ×5 (00:15→23:18)
[2017-04-23] MEDS: OMEPRAZOLE CAP 20 MG CAP PO SCH (06:41)
[2017-04-23] MEDS ORDERED: PIPERACILLIN/TAZOBACTAM 3.375 GM VIAL IVPB ONE ×3 (07:17→20:49)
[2017-04-23] MEDS ORDERED: SODIUM CHLORIDE 0.9% 100ML 100 ML IVPB ONE ×3 (07:18→20:50)
[2017-04-23] MEDS: INSULIN LISPRO 100 UNITS/ML PEN SUBCU SCH ×4 (07:22→21:00)
[2017-04-23] MEDS: FUROSEMIDE 40 MG TAB PO SCH ×2 (07:49→16:35)
[2017-04-23] MEDS: CARVEDILOL 3.125 MG TAB PO SCH ×2 (08:48→20:52)
[2017-04-23] MEDS: ASPIRIN EC 81 MG TAB PO SCH (08:48)
[2017-04-23] MEDS: BIFIDOBACTERIUM INFANTIS 4 MG CAP PO SCH ×2 (08:48→20:52)
[2017-04-23] MEDS: ENOXAPARIN SODIUM 40 MG/0.4 ML SYG SUBCU SCH (08:51)
[2017-04-23] MEDS: SODIUM CHLORIDE 0.9% 1000ML 1,000 ML IVS PRN (12:20)
[2017-04-23] MEDS: HYDROcodone 7.5MG/APAP 325MG 1 EA TAB PO PRN ×2 (13:19→20:10)
--- NOTE | 2017-04-23 15:17 | PN ---
SUPERVISING PHYSICIAN: Jerry Parham MD DATE: 04/23/17 SUBJECTIVE: The patient continues to remain afebrile. He is resting in bed. He has no further complaints. Blood sugars are fairly well controlled. He is encouraged to keep his leg elevated and wound care continues. OBJECTIVE: VITAL SIGNS: T-max 98.6. Pulse 68. Blood pressure 150/81. Respirations 18. Saturation 93% on room air. I&Os show patient with balance of 1010 with 2260 in, 1220 out. Weight 107.8 kg. He has had two bowel movements. Weight is up from admission of 101.1 kg. CHEST: Lungs clear to auscultation bilaterally. HEART: Regular rate and rhythm. ABDOMEN: Obese, but soft and nontender. Positive bowel sounds. EXTREMITIES: Right foot continues to show some pitting edema. The heel ulceration is showing some improvement. There continues to be some mild erythema around the most upper edge of the border of the wound. There is no obvious drainage. There is a small blister just above the actual wound with no drainage. No signs of fluid consolidations. Wound care continues. LABORATORY: White count remains normal at 10.5. Hemoglobin and hematocrit are fairly stable at 9.5 and 29.2. Platelet count 340,000. Differential within normal limits today. Chemistries show normal electrolytes with potassium 3.7, BUN 41, creatinine 2.37. Glucoses have been fairly well controlled from 87 to 191. ASSESSMENT: 1. Diabetic ulcer to the right heel, is good granulation, continues to slowly progress, requiring ongoing antibiotic therapy with Zosyn. 2. Anemia of chronic illness with some renal insufficiency, showing improvement after receiving 2 units of packed red blood cells, continued monitoring. 3. Diabetes mellitus, on insulin, stable. 4. Chronic renal insufficiency, stable and improved since admission after initiation packed red blood cells and fluids. 5. History of peripheral vascular occlusive arterial disease as noted on previous ultrasound, likely contributing to decreased healing to the right heel and ongoing ulceration. 6. Poor compliance with medical management of diabetes as well as outpatient treatment of wounds as he refuses to do his antibiotic treatment and requires now ongoing parenteral antibiotic with Zosyn. 7. History of congestive heart failure. 8. History of coronary artery disease with previous quadruple coronary artery bypass graft in August of 2016. 9. Obesity. PLAN: We will continue to monitor the patient's wound closely and tightly manage his blood sugars in order to help maximize wound healing. Dr. Aguilar did some bedside wound debridement. We will continue to follow Dr. Aguilar's recommendations. He remains on Zosyn for antibiotic coverage and we will closely monitor his clinical improvement. Anticipate length of stay to be at least another week to two weeks with aggressive wound management parenteral antibiotic required. Until discharge, we will continue to monitor the patient closely and treat appropriately. [facility][id number] [facility]
[2017-04-23] MEDS: [UNRECOGNIZED DRUG - OTHER] TOP SCH ×2 (16:35→20:53)
[2017-04-23] MEDS: CHLORHEXIDINE GLUCONATE 4 % 15 ML UD TOP SCH ×2 (16:35→20:52)
[2017-04-23] MEDS: IV SET AND CAP CHANGE INJ INJ SCH (20:10)
[2017-04-23] MEDS ORDERED: ATORVASTATIN 20 MG TAB PO ONE (20:49)
[2017-04-23] MEDS: ATORVASTATIN 20 MG TAB PO SCH (20:52)
[2017-04-23] MEDS: INSULIN DETEMIR 100 UNITS/ML PEN SUBCU SCH (21:03)
[2017-04-24] MEDS: HYDROcodone 7.5MG/APAP 325MG 1 EA TAB PO PRN ×3 (02:41→20:28)
[2017-04-24] MEDS ORDERED: SODIUM CHLORIDE 0.9% 100ML 100 ML IVPB ONE ×4 (05:41→20:06)
[2017-04-24] MEDS ORDERED: PIPERACILLIN/TAZOBACTAM 3.375 GM VIAL IVPB ONE ×4 (05:41→20:06)
[2017-04-24] MEDS: OMEPRAZOLE CAP 20 MG CAP PO SCH (05:56)
[2017-04-24] MEDS: PIPERACILLIN/TAZOBACTAM 3.375 GM in SODIUM CHLORIDE 0.9% 100ML 100 ML IVPB SCH ×3 (05:56→17:51)
[2017-04-24] MEDS: INSULIN LISPRO 100 UNITS/ML PEN SUBCU SCH ×4 (08:08→21:25)
[2017-04-24] MEDS: FUROSEMIDE 40 MG TAB PO SCH ×2 (08:09→16:52)
[2017-04-24] MEDS: BIFIDOBACTERIUM INFANTIS 4 MG CAP PO SCH ×2 (08:49→20:24)
[2017-04-24] MEDS: CARVEDILOL 3.125 MG TAB PO SCH ×2 (08:50→20:24)
[2017-04-24] MEDS: ASPIRIN EC 81 MG TAB PO SCH (08:50)
[2017-04-24] MEDS: ENOXAPARIN SODIUM 40 MG/0.4 ML SYG SUBCU SCH (08:50)
[2017-04-24] MEDS: [UNRECOGNIZED DRUG - OTHER] TOP SCH ×2 (08:50→20:28)
[2017-04-24] MEDS: CHLORHEXIDINE GLUCONATE 4 % 15 ML UD TOP SCH ×2 (08:50→20:28)
--- NOTE | 2017-04-24 09:57 | RAD ---
EXAM DESCRIPTION: Chest,1 View CLINICAL HISTORY: picc line placement COMPARISON: None. IMPRESSION: Single AP view of the left arm and portion of the left chest is obtained for evaluation of PICC line placement. There appears to be a PICC line overlying the left upper extremity with tip in the region of the proximal humerus. This should be considered a IV access and not central line. The tip of this catheter does not extend into the central venous system. Electronically signed by: Agustín Pelletier MD 04/24/2017 9:57 AM CDT
[2017-04-24] MEDS: SODIUM CHLORIDE 0.9% 1000ML 1,000 ML IVS PRN (10:57)
[2017-04-24] MEDS ORDERED: PROPOFOL 200 MG/20 ML VIAL IV ONE (12:00)
--- NOTE | 2017-04-24 15:09 | PN ---
SUPERVISING PHYSICIAN: Jerry Parham MD DATE: 04/24/17 SUBJECTIVE: The patient has had good control of his blood sugars. He has had no nausea, vomiting or diarrhea. He remains afebrile. His lower extremities are looking less edematous with keeping his leg elevated. He continues to tolerate wound care without any complications. OBJECTIVE: VITAL SIGNS: T-max 98.1. Pulse 74. Blood pressure 142/70. Respirations 18. Saturation 94% on room air. I&Os show positive balance of 1500 with 3050 in, 1550 out. Weight 110.0 kg. CHEST: Lungs clear to auscultation bilaterally. HEART: Regular rate and rhythm. ABDOMEN: Soft, nontender. Positive bowel sounds. EXTREMITIES: Continued right side edema with the right ulceration continuing to show slow improvement. There are some areas of eschar requiring debridement , which will be done by Dr. Aguilar in the morning. The area of cellulitis and erythema on the ankle as mentioned previously in the last two days has shown improvement and is decreased somewhat. There remains no drainage noted from the wound. NEUROLOGIC: Alert and oriented times three. LABORATORY: White count remains stable at 9.8. Hemoglobin and hematocrit decreased slightly from yesterday, 9.3 and 28.5 with platelet count 331,000. Differential within normal limits. Chemistries show normal electrolytes with potassium 3.8, BUN 40 which is elevated, but improved from yesterday. Creatinine is showing some improvement, it is down to 2.33 today. Blood sugars have been very well controlled, ranging from 82 to 123. MICROBIOLOGY: Blood cultures remain negative after 5 days. RADIOLOGY: Chest x-ray after placement of PICC line showed PICC line overlying the left upper extremity with the tip in the region of the proximal humerus. ASSESSMENT: 1. Diabetic ulcer to the right heel, continues to show good granulation, but slowly progressing, requiring ongoing antibiotic therapy with Zosyn and periodic debridement. 2. Anemia of chronic illness with some renal insufficiency, showing improvement after receiving 2 units of packed red blood cells, currently stable. We will continue to monitor. 3. Diabetes mellitus, on insulin, stable and very well controlled on sliding scale. 4. Chronic renal insufficiency, stable and somewhat improved since admission and initiation packed red blood cells and fluids. 5. History of peripheral vascular occlusive arterial disease as noted on previous ultrasound, likely contributing to decreased healing rate to the right heel and ongoing ulceration. 6. Poor compliance with past medical management of diabetes and wounds in the outpatient setting as he refused to purchase his antibiotics and continue his antibiotic therapy, requiring now ongoing parenteral antibiotic with Zosyn. 7. History of congestive heart failure. 8. History of coronary artery disease with previous quadruple coronary artery bypass graft in August of 2016. 9. Obesity. PLAN: We will continue with antibiotic therapy with Zosyn. Dr. Aguilar is following the wound closely. He plans to take the patient to surgery tomorrow to perform some debridement to assist in wound healing. The patient will continue for at least another total of 2 weeks of aggressive wound management and parenteral antibiotic with ongoing clinical assessment. Until discharge, we will continue to monitor the patient closely and treat appropriately. #[id number] [facility]
[2017-04-24] MEDS ORDERED: FUROSEMIDE INJ 20 MG/2 ML VIAL ONE (16:46)
[2017-04-24] MEDS ORDERED: FUROSEMIDE INJ 20 MG/2 ML VIAL IV ONE (17:54)
[2017-04-24] MEDS ORDERED: ATORVASTATIN 20 MG TAB PO ONE (20:05)
[2017-04-24] MEDS: ATORVASTATIN 20 MG TAB PO SCH (20:24)
[2017-04-24] MEDS: INSULIN DETEMIR 100 UNITS/ML PEN SUBCU SCH (20:25)
[2017-04-24] MEDS: SODIUM CHLORIDE 0.9% (FLUSH) 10 ML SYG IV SCH (20:26)
[2017-04-25] MEDS: PIPERACILLIN/TAZOBACTAM 3.375 GM in SODIUM CHLORIDE 0.9% 100ML 100 ML IVPB SCH ×4 (00:48→20:07)
[2017-04-25] MEDS: HYDROcodone 7.5MG/APAP 325MG 1 EA TAB PO PRN ×2 (02:36→18:14)
[2017-04-25] MEDS ORDERED: SODIUM CHLORIDE 0.9% 100ML 100 ML IVPB ONE ×4 (02:51→22:40)
[2017-04-25] MEDS ORDERED: PIPERACILLIN/TAZOBACTAM 3.375 GM VIAL IVPB ONE ×4 (02:51→22:40)
[2017-04-25] MEDS: OMEPRAZOLE CAP 20 MG CAP PO SCH (07:01)
[2017-04-25] MEDS: CARVEDILOL 3.125 MG TAB PO SCH ×2 (09:10→20:09)
[2017-04-25] MEDS: BIFIDOBACTERIUM INFANTIS 4 MG CAP PO SCH ×2 (09:26→20:08)
[2017-04-25] MEDS: FUROSEMIDE 40 MG TAB PO SCH ×2 (09:26→17:23)
[2017-04-25] MEDS: CHLORHEXIDINE GLUCONATE 4 % 15 ML UD TOP SCH ×2 (09:27→21:05)
[2017-04-25] MEDS: ASPIRIN EC 81 MG TAB PO SCH (09:27)
[2017-04-25] MEDS: [UNRECOGNIZED DRUG - OTHER] TOP SCH ×2 (09:28→20:10)
[2017-04-25] MEDS: INSULIN LISPRO 100 UNITS/ML PEN SUBCU SCH ×4 (09:33→21:03)
[2017-04-25] MEDS: ENOXAPARIN SODIUM 40 MG/0.4 ML SYG SUBCU SCH (09:34)
[2017-04-25] MEDS: SODIUM CHLORIDE 0.9% (FLUSH) 10 ML SYG IV SCH ×2 (09:35→20:09)
--- NOTE | 2017-04-25 11:36 | OP ---
DATE OF PROCEDURE: 04/25/17 PREOPERATIVE DIAGNOSIS: 1. Ulcer, right heel with necrotic tissue and infection with enterococcus. POSTOPERATIVE DIAGNOSIS: 1. Ulcer, right heel with necrotic tissue and infection with enterococcus. PROCEDURE: 1. Debridement of right heel ulcer. SURGEON: Alfredo Aguilar MD. LINING PRESSER: None. ANESTHESIA: IV sedation by Anesthesia. INDICATION: The patient is a 51-year-old, diabetic with neuropathy. He also has poor blood flow to the right heel. He has a pressure ulcer that has become infected. He had cellulitis as a result, but there is still necrotic tissue despite previous debridement. He was brought to the Surgical Suite today for debridement of the right heel ulcer after the risks, benefits and alternatives were discussed and accepted. FINDINGS: The obviously necrotic tissue was debrided and there was some bleeding from parts of the wound bed. PROCEDURE: After the patient was brought to the Surgical Suite and placed in the left side up lateral decubitus position, the right heel was prepped and draped with Betadine gel. When this was done, IV sedation was performed. A surgical time-out was taken. The wound was debrided using sharp dissection both with a 15 blade and with Metzenbaum scissors. When the obviously necrotic tissue was removed, hemostasis was obtained with electrocautery. Sterile dressing was applied. The patient was taken back to the Floor in stable condition. Estimated blood loss was 25 mL. All sponge, needle and instrument counts were correct. #[id number] [facility]
--- NOTE | 2017-04-25 17:29 | PN ---
DATE: 04/25/17 SUPERVISING PHYSICIAN: Jerry Parham M.D. SUBJECTIVE: The patient returned from surgery this afternoon after having a debridement of the right heel. He appears to be in stable condition and in no discomfort. OBJECTIVE: VITAL SIGNS: Temperature 97, pulse 76, blood pressure 160/77, respirations 16 with O2 sat showing 95% on room air. I's and O's today show a negative balance after starting additional Lasix and decreasing his 24 hour fluid intake, now shows intake at 1200 with an output of 1650. He has had 2 bowel movements. Weight is 110.4 kg which is down from the 24th of 107.8 kg. CHEST: Clear to auscultation. HEART: Regular rate and rhythm. ABDOMEN: Obese but soft, non-tender. Positive bowel sounds. EXTREMITIES: There is just trace edema to the right foot. Bandage is in place over the heel after debridement surgery. NEUROLOGIC: He is alert and oriented times three. LABORATORY: H&H shows 9.3 hemoglobin and 28.9 hematocrit which is stable. Chemistries showed to be stable with potassium 3.7, BUN is 43, creatinine 2.32, glucose has been 82 to 148. ASSESSMENT: 1. Diabetic ulcer of the right foot with cellulitis secondary to advanced peripheral vascular disease complicated by diabetes with the wound becoming infected with Enterococcus showing on final culture results with the patient having been on Zosyn and requiring additional wound debridement secondary to slow wound healing. 2. Anemia of chronic illness with some renal insufficiency showing to be stable and requiring 2 units of packed blood cells in the past week. 3. Diabetes mellitus on insulin, stable and well controlled with sliding scale. 4. Chronic renal insufficiency, stable, somewhat improved since admission and initiation of packed red blood cells and fluids. 5. History of peripheral arterial disease as noted on ultrasound certainly contributing to the decreased healing rate of the right heel and ongoing ulceration. 6. Poor medical compliance with diabetes and wound management in the outpatient setting requiring hospitalization for ongoing parenteral antibiotic therapy with Zosyn. 7. History of congestive heart failure. 8. History of coronary artery disease with previous quadruple coronary artery bypass in 2015. 9. Morbid obesity. PLAN: Will continue with antibiotic therapy again with Zosyn for a total of 2 weeks initially with anticipation of at least 4 weeks with ongoing clinical assessment. Dr. Aguilar did take the patient back to surgery today and so a debridement. I gave the patient an additional dose of Lasix yesterday as well as ordered a fluid restriction to less than 1800 mL per day as he is getting a fair amount of IV fluids from KVO fluids and ongoing IV therapy. He did show a good response with a negative balance on his I's and O's today. Will continue to follow the patient closely and monitor clinically with repeat laboratory studies as needed. Until discharge, continue to monitor the patient closely and treat appropriately. #[id number] [facility]
[2017-04-25] MEDS ORDERED: ATORVASTATIN 20 MG TAB PO ONE (19:53)
[2017-04-25] MEDS: ATORVASTATIN 20 MG TAB PO SCH (20:09)
[2017-04-25] MEDS: INSULIN DETEMIR 100 UNITS/ML PEN SUBCU SCH (21:04)
[2017-04-26] MEDS: PIPERACILLIN/TAZOBACTAM 3.375 GM in SODIUM CHLORIDE 0.9% 100ML 100 ML IVPB SCH ×4 (02:12→19:37)
[2017-04-26] MEDS: SODIUM CHLORIDE 0.9% (FLUSH) 10 ML SYG IV PRN ×2 (02:14→19:37)
[2017-04-26] MEDS: OMEPRAZOLE CAP 20 MG CAP PO SCH (05:55)
[2017-04-26] MEDS ORDERED: PIPERACILLIN/TAZOBACTAM 3.375 GM VIAL IVPB ONE ×4 (07:27→19:30)
[2017-04-26] MEDS ORDERED: SODIUM CHLORIDE 0.9% 100ML 100 ML IVPB ONE ×4 (07:27→19:30)
[2017-04-26] MEDS: INSULIN LISPRO 100 UNITS/ML PEN SUBCU SCH ×4 (08:30→21:04)
[2017-04-26] MEDS: ASPIRIN EC 81 MG TAB PO SCH (08:31)
[2017-04-26] MEDS: FUROSEMIDE 40 MG TAB PO SCH ×2 (08:31→17:20)
[2017-04-26] MEDS: BIFIDOBACTERIUM INFANTIS 4 MG CAP PO SCH ×2 (08:31→20:07)
[2017-04-26] MEDS: CARVEDILOL 3.125 MG TAB PO SCH ×2 (08:31→20:08)
[2017-04-26] MEDS: ENOXAPARIN SODIUM 40 MG/0.4 ML SYG SUBCU SCH (08:32)
[2017-04-26] MEDS: CHLORHEXIDINE GLUCONATE 4 % 15 ML UD TOP SCH ×2 (08:32→20:08)
[2017-04-26] MEDS: [UNRECOGNIZED DRUG - OTHER] TOP SCH ×3 (08:32→20:08)
--- NOTE | 2017-04-26 13:00 | PN ---
DATE: 04/26/17 SUPERVISING PHYSICIAN: Damian Bansal M.D. SUBJECTIVE: The patient continues to do well. He has been afebrile. He has had no nausea, vomiting or diarrhea. OBJECTIVE: VITAL SIGNS: T max 98.4, pulse 72, blood pressure 155/73, respirations 18, 93% saturation on room air. I's and O's continue to show a negative balance of 150 with 1000 in, 1150 out. Weight is steady at 110.2 kg. CHEST: Clear to auscultation. HEART: Regular rate and rhythm. ABDOMEN: Obese, soft, non-tender with positive bowel sounds. EXTREMITIES: Right heel has dressing in place that is clean and dry. Debridement was performed yesterday with wound care resumed. There is no erythema noted around the dressing. NEUROLOGIC: He is alert and oriented times three. LABORATORY: No repeat laboratory today. His H&H and chemistries have been stable. Will plan to repeat tomorrow. ASSESSMENT: 1. Diabetic ulcer to the right foot with advanced peripheral vascular disease complicating the diabetes with wound being infected with Enterococcus with sensitivity showing sensitive to Zosyn requiring ongoing wound management secondary to slow wound healing. 2. Anemia of chronic illness with some renal insufficiency showing to be stable having received 2 units of packed red blood cells within the last week. 3. Diabetes mellitus on insulin, stable, well controlled while in the hospital on sliding scale. 4. Chronic renal insufficiency, stable, showing some improvement after packed red blood cells and fluids. 5. History peripheral arterial disease as noted on ultrasound certainly contributing to the decreased healing rate of the right heel and ongoing ulceration. 6. History of poor medical compliance with his diabetes wound management in the outpatient setting requiring ongoing hospitalization for parenteral antibiotic therapy. 7. History of congestive heart failure. 8. History of coronary artery disease with previous quadruple coronary artery bypass in 2016 in August. 9. Obesity. PLAN: Will continue with wound management with the assistance of Dr. Aguilar and continued parenteral antibiotics to include Zosyn. Will continue to monitor his kidney function closely and H&H, and treat appropriately. He is on a fluid restriction now of 1800 mL per day and showing fairly well balanced I's and O' s. The patient will need a total of at least 2 weeks of parenteral antibiotics since admission on 04/14/17 being day 12 for total antibiotic therapy to continue for an additional week, more likely an additional 2 more weeks for a total of 4 weeks of antibiotic therapy. Will continue to monitor clinically and treat appropriately. [facility][id number] [facility]
[2017-04-26] MEDS ORDERED: ATORVASTATIN 20 MG TAB PO ONE (19:30)
[2017-04-26] MEDS: IV SET AND CAP CHANGE INJ INJ SCH (19:38)
[2017-04-26] MEDS: ATORVASTATIN 20 MG TAB PO SCH (20:07)
[2017-04-26] MEDS: INSULIN DETEMIR 100 UNITS/ML PEN SUBCU SCH (21:13)
[2017-04-27] MEDS: PIPERACILLIN/TAZOBACTAM 3.375 GM in SODIUM CHLORIDE 0.9% 100ML 100 ML IVPB SCH ×4 (01:51→20:07)
[2017-04-27] MEDS: SODIUM CHLORIDE 0.9% (FLUSH) 10 ML SYG IV PRN (01:52)
[2017-04-27] MEDS: OMEPRAZOLE CAP 20 MG CAP PO SCH (05:57)
[2017-04-27] MEDS ORDERED: SODIUM CHLORIDE 0.9% 100ML 100 ML IVPB ONE ×3 (06:58→19:41)
[2017-04-27] MEDS ORDERED: PIPERACILLIN/TAZOBACTAM 3.375 GM VIAL IVPB ONE ×3 (06:58→19:41)
[2017-04-27] MEDS: ASPIRIN EC 81 MG TAB PO SCH (08:31)
[2017-04-27] MEDS: INSULIN LISPRO 100 UNITS/ML PEN SUBCU SCH ×4 (08:31→21:25)
[2017-04-27] MEDS: FUROSEMIDE 40 MG TAB PO SCH ×2 (08:31→16:52)
[2017-04-27] MEDS: BIFIDOBACTERIUM INFANTIS 4 MG CAP PO SCH ×2 (08:31→20:16)
[2017-04-27] MEDS: CARVEDILOL 3.125 MG TAB PO SCH ×2 (08:31→20:16)
[2017-04-27] MEDS: ENOXAPARIN SODIUM 40 MG/0.4 ML SYG SUBCU SCH (08:32)
[2017-04-27] MEDS ORDERED: FUROSEMIDE INJ 40 MG/4 ML VIAL IV ONE (09:05)
[2017-04-27] MEDS: CHLORHEXIDINE GLUCONATE 4 % 15 ML UD TOP SCH ×2 (09:36→20:16)
[2017-04-27] MEDS: [UNRECOGNIZED DRUG - OTHER] TOP SCH ×2 (09:36→20:16)
[2017-04-27] MEDS: LISINOPRIL 10 MG TAB PO SCH ×2 (11:18→20:15)
[2017-04-27] MEDS: hydroCHLOROthiazide 12.5 MG CAP PO SCH ×2 (11:18→20:17)
--- NOTE | 2017-04-27 11:42 | PN ---
DATE: 04/27/17 SUBJECTIVE: Mr. Warner has no real complaints today. His pain is well controlled. He feels like he is going a little stir crazy. Yesterday evening a nurse took him outside in a wheelchair and it sure did make him happy. OBJECTIVE: T max 98.3, blood pressure 140s to 160s/70s, pulse 60s to 70s, pulse oximetry 93% room air. GENERAL: Awake and alert. No distress. CHEST: Clear to auscultation. CARDIOVASCULAR: Regular rate and rhythm. ABDOMEN: Obese , non-tender. EXTREMITIES: 3+ bilateral lower extremity edema. Right heel has a dressing on it that is clean. It is a little moist over the heel. There is no foul odor. LABORATORY: Hemoglobin is stable at 9.4. Electrolytes look good. Blood sugar this morning was 89. ASSESSMENT: 1. Stage 2 decubitus ulcer on the right heel, growing resistant Enterococcus. 2. Peripheral vascular disease. 3. Anemia of chronic disease, status post transfusion of 2 units of blood on 04/21/17. 4. Congestive heart failure, etiology undetermined, currently edematous in the lower extremities. 5. History of coronary artery disease. 6. Type 2 diabetes, currently well controlled on Levemir and Humalog. PLAN: The patient will be kept in house for continued IV antibiotics, specifically Zosyn. Dr. Aguilar is managing his wound care. He had sharp debridement in the Operating Room towards the end of last week. The patient is volume overloaded today, so I am going to give him 1 dose of IV Lasix today. The patient is cleared to get out of bed into a chair. He can be wheelchaired outdoors to get a little fresh air. I do think we will need to keep him in the hospital for ongoing IV antibiotic therapy for another week. For the future, I would recommend that we check lab work every Friday, including a sedimentation rate and C reactive protein in addition to other standard labs like CBC and BMP. Every Friday we will then look at the lab, look at his foot, talk to Dr. Aguilar and decide if the patient needs another week of IV antibiotic therapy. #[id number] [facility]
[2017-04-27] MEDS: HYDROcodone 7.5MG/APAP 325MG 1 EA TAB PO PRN ×2 (18:38→22:33)
[2017-04-27] MEDS ORDERED: ATORVASTATIN 20 MG TAB PO ONE (19:51)
[2017-04-27] MEDS: ATORVASTATIN 20 MG TAB PO SCH (20:16)
[2017-04-27] MEDS: INSULIN DETEMIR 100 UNITS/ML PEN SUBCU SCH (21:25)
[2017-04-28] MEDS ORDERED: SODIUM CHLORIDE 0.9% 100ML 100 ML IVPB ONE ×4 (00:16→20:03)
[2017-04-28] MEDS ORDERED: PIPERACILLIN/TAZOBACTAM 3.375 GM VIAL IVPB ONE ×4 (00:16→20:03)
[2017-04-28] MEDS: PIPERACILLIN/TAZOBACTAM 3.375 GM in SODIUM CHLORIDE 0.9% 100ML 100 ML IVPB SCH ×4 (02:11→20:30)
[2017-04-28] MEDS: SODIUM CHLORIDE 0.9% (FLUSH) 10 ML SYG IV PRN (02:12)
[2017-04-28] MEDS: OMEPRAZOLE CAP 20 MG CAP PO SCH (06:18)
[2017-04-28] MEDS: ENOXAPARIN SODIUM 40 MG/0.4 ML SYG SUBCU SCH (08:30)
[2017-04-28] MEDS: hydroCHLOROthiazide 12.5 MG CAP PO SCH ×2 (08:30→20:39)
[2017-04-28] MEDS: BIFIDOBACTERIUM INFANTIS 4 MG CAP PO SCH ×2 (08:30→20:39)
[2017-04-28] MEDS: FUROSEMIDE 40 MG TAB PO SCH ×2 (08:31→17:58)
[2017-04-28] MEDS: INSULIN LISPRO 100 UNITS/ML PEN SUBCU SCH ×4 (08:31→21:00)
[2017-04-28] MEDS: CHLORHEXIDINE GLUCONATE 4 % 15 ML UD TOP SCH ×2 (08:31→21:30)
[2017-04-28] MEDS: CARVEDILOL 3.125 MG TAB PO SCH ×2 (08:31→20:39)
[2017-04-28] MEDS: LISINOPRIL 10 MG TAB PO SCH ×2 (08:31→20:39)
[2017-04-28] MEDS: ASPIRIN EC 81 MG TAB PO SCH (08:31)
[2017-04-28] MEDS: SODIUM CHLORIDE 0.9% (FLUSH) 10 ML SYG IV SCH ×2 (08:32→20:30)
[2017-04-28] MEDS: [UNRECOGNIZED DRUG - OTHER] TOP SCH ×2 (08:32→21:30)
[2017-04-28] MEDS: HYDROcodone 7.5MG/APAP 325MG 1 EA TAB PO PRN ×2 (12:15→21:15)
--- NOTE | 2017-04-28 13:16 | PN ---
DATE: 04-28-17 SUBJECTIVE: No new complaints. OBJECTIVE: Afebrile. Vital signs are stable. Blood pressure is a little bit better since we resumed his lisinopril Hydrochlorothiazide. FOOT: The foot was evaluated yesterday evening. He has a deep wound that is definitely a stage 2. It is probably 4 to 5 cm in diameter. There is a little surrounding erythema. LABORATORY: Today being Friday, the patient had his routine lab work done. His white count is 7.1, H&H stable at 9.5 and 29. Electrolytes look good except for a potassium being a little bit low at 3.4 (but that is due to the diuresis with IV Lasix that he received yesterday). Creatinine is stable at 2.2. Liver enzymes are normal. C-reactive protein is elevated at 6.0. ASSESSMENT: 1. Stage 2 decubitus ulcer to the right heel growing enterococcus faecalis. 2. Peripheral vascular disease. 3. Anemia of chronic disease, status post transfusion of 2 units of blood on . 4. Congestive heart failure, stable. 5. History of coronary artery disease. 6. Type 2 diabetes, well-controlled. PLAN: 1. Continue IV Zosyn. 2. Continue wound care under the direction of Dr. Aguilar. 3. Continue weekly lab work. #[id number] [facility]uh
[2017-04-28] MEDS ORDERED: ATORVASTATIN 20 MG TAB PO ONE (19:58)
[2017-04-28] MEDS: ATORVASTATIN 20 MG TAB PO SCH (20:39)
[2017-04-28] MEDS: INSULIN DETEMIR 100 UNITS/ML PEN SUBCU SCH (21:15)
[2017-04-29] MEDS ORDERED: SODIUM CHLORIDE 0.9% 100ML 100 ML IVPB ONE ×5 (01:17→19:35)
[2017-04-29] MEDS ORDERED: PIPERACILLIN/TAZOBACTAM 3.375 GM VIAL IVPB ONE ×5 (01:17→19:35)
[2017-04-29] MEDS: SODIUM CHLORIDE 0.9% (FLUSH) 10 ML SYG IV PRN (01:57)
[2017-04-29] MEDS: PIPERACILLIN/TAZOBACTAM 3.375 GM in SODIUM CHLORIDE 0.9% 100ML 100 ML IVPB SCH ×4 (01:58→20:00)
[2017-04-29] MEDS: OMEPRAZOLE CAP 20 MG CAP PO SCH (06:15)
[2017-04-29] MEDS: INSULIN LISPRO 100 UNITS/ML PEN SUBCU SCH ×4 (07:04→20:47)
[2017-04-29] MEDS: LEVALBUTEROL NEBS 1.25 MG/3 ML VIAL INH PRN (08:12)
[2017-04-29] MEDS: ENOXAPARIN SODIUM 40 MG/0.4 ML SYG SUBCU SCH (08:22)
[2017-04-29] MEDS: SODIUM CHLORIDE 0.9% (FLUSH) 10 ML SYG IV SCH ×2 (08:23→20:03)
[2017-04-29] MEDS: ASPIRIN EC 81 MG TAB PO SCH (08:24)
[2017-04-29] MEDS: CARVEDILOL 3.125 MG TAB PO SCH (08:24)
[2017-04-29] MEDS: LISINOPRIL 10 MG TAB PO SCH ×2 (08:24→20:00)
[2017-04-29] MEDS: BIFIDOBACTERIUM INFANTIS 4 MG CAP PO SCH ×2 (08:24→20:00)
[2017-04-29] MEDS: FUROSEMIDE 40 MG TAB PO SCH ×2 (08:24→17:47)
[2017-04-29] MEDS: [UNRECOGNIZED DRUG - OTHER] TOP SCH ×2 (08:25→20:43)
[2017-04-29] MEDS: CHLORHEXIDINE GLUCONATE 4 % 15 ML UD TOP SCH ×2 (08:25→20:43)
[2017-04-29] MEDS: hydroCHLOROthiazide 12.5 MG CAP PO SCH ×2 (08:25→20:43)
--- NOTE | 2017-04-29 09:21 | PN ---
SUPERVISING PHYSICIAN: Jerry Parham MD DATE: 04/29/17 SUBJECTIVE: The patient is sitting up in the chair in his room. He is dressed in street clothes. His leg is elevated. He states he feels much better than he has since he is able to go out and get some fresh air. OBJECTIVE: VITAL SIGNS: Afebrile. Heart rate 72. Blood pressure 174/75. Respiratory rate 20. O2 saturation 94%. LUNGS: Clear to auscultation bilaterally. CARDIAC: Regular rate and rhythm. ABDOMEN: Soft, nontender, nondistended. Bowel sounds are positive. EXTREMITIES: His right foot is bandaged. The dressing is dry and intact. NEUROLOGIC: Awake, alert and oriented times three. LABORATORY: There are no labs or films to report at this time. ASSESSMENT: 1. Stage 2 decubitus ulcer to the right heel growing enterococcus faecalis, also being followed by Dr. Aguilar. 2. Hypertension. 3. Peripheral vascular disease. 4. Anemia of chronic disease, status post transfusion of 2 units of blood on . 5. Congestive heart failure, unknown etiology, now stable. 6. History of coronary artery disease. 7. Type 2 diabetes. PLAN: We will continue present supportive care. We will continue Zosyn, IV antibiotics most likely for another couple of weeks. Wound care will be per Dr. Aguilar. We will also do weekly lab work. I will increase his Coreg to 12.5 b.i.d. for his elevated blood pressure. We will continue to monitor closely and followup as needed. Dr. Parham is the collaborating physician and available for consultation. #[id number] [facility]
[2017-04-29] MEDS: CARVEDILOL 12.5 MG TAB PO SCH ×2 (09:39→20:00)
[2017-04-29] MEDS: HYDROcodone 7.5MG/APAP 325MG 1 EA TAB PO PRN (17:47)
[2017-04-29] MEDS ORDERED: ATORVASTATIN 20 MG TAB PO ONE (19:34)
[2017-04-29] MEDS: IV SET AND CAP CHANGE INJ INJ SCH (19:48)
[2017-04-29] MEDS: ATORVASTATIN 20 MG TAB PO SCH (20:00)
[2017-04-29] MEDS: INSULIN DETEMIR 100 UNITS/ML PEN SUBCU SCH (20:47)
[2017-04-30] MEDS: PIPERACILLIN/TAZOBACTAM 3.375 GM in SODIUM CHLORIDE 0.9% 100ML 100 ML IVPB SCH ×4 (02:23→22:11)
[2017-04-30] MEDS: OMEPRAZOLE CAP 20 MG CAP PO SCH (06:03)
[2017-04-30] MEDS ORDERED: PIPERACILLIN/TAZOBACTAM 3.375 GM VIAL IVPB ONE ×3 (07:31→21:52)
[2017-04-30] MEDS ORDERED: SODIUM CHLORIDE 0.9% 100ML 100 ML IVPB ONE ×3 (07:32→21:52)
[2017-04-30] MEDS: FUROSEMIDE 40 MG TAB PO SCH ×2 (08:00→17:20)
[2017-04-30] MEDS: INSULIN LISPRO 100 UNITS/ML PEN SUBCU SCH ×4 (08:35→22:14)
[2017-04-30] MEDS: BIFIDOBACTERIUM INFANTIS 4 MG CAP PO SCH ×2 (08:40→22:12)
[2017-04-30] MEDS: LISINOPRIL 10 MG TAB PO SCH ×2 (08:40→22:12)
[2017-04-30] MEDS: ASPIRIN EC 81 MG TAB PO SCH (08:40)
[2017-04-30] MEDS: ENOXAPARIN SODIUM 40 MG/0.4 ML SYG SUBCU SCH (08:40)
[2017-04-30] MEDS: CARVEDILOL 12.5 MG TAB PO SCH ×2 (08:41→22:11)
[2017-04-30] MEDS: hydroCHLOROthiazide 12.5 MG CAP PO SCH ×2 (08:41→22:12)
[2017-04-30] MEDS: SODIUM CHLORIDE 0.9% (FLUSH) 10 ML SYG IV SCH ×2 (09:00→22:14)
[2017-04-30] MEDS: [UNRECOGNIZED DRUG - OTHER] TOP SCH ×2 (11:15→22:15)
[2017-04-30] MEDS: CHLORHEXIDINE GLUCONATE 4 % 15 ML UD TOP SCH ×2 (11:15→22:14)
[2017-04-30] MEDS: ONDANSETRON 4 MG TAB PO PRN (13:24)
[2017-04-30] MEDS: HYDROcodone 7.5MG/APAP 325MG 1 EA TAB PO PRN (15:39)
--- NOTE | 2017-04-30 17:31 | PN ---
DATE: 04/30/17 SUPERVISING PHYSICIAN: Jerry Parham M.D. SUBJECTIVE: The patient is lying in his hospital bed. He is asleep. He awakens easily. He has no complaints of shortness of breath, chest pain, nausea , vomiting or diarrhea. OBJECTIVE: VITAL SIGNS: He is afebrile, heart rate 76, blood pressure 122/78, respiratory rate 18, O2 sat 92% on room air. RESPIRATORY: Clear to auscultation bilaterally. CARDIAC: Regular rate and rhythm. ABDOMEN: Soft, nondistended, non-tender. Bowel sounds are positive. EXTREMITIES: He has a bandage to the right heel area that is dry and intact. There is minimal swelling to that left lower extremity. NEUROLOGIC: He is awake, alert and oriented times three. LABORATORY: There are no labs or films to report at this time. ASSESSMENT: 1. Stage II decubitus ulcer to the right heel growing Enterococcus faecalis also being followed by Dr. Aguilar. 2. Hypertension. 3. Peripheral vascular disease. 4. Anemia of chronic disease status post transfusion of 2 units of blood on 04/21/17. 5. Congestive heart failure unknown etiology, now stable. 6. History of coronary artery disease. 7. Type 2 diabetes mellitus. PLAN: We will continue present supportive care. We will continue his Zosyn. Wound care will be per Dr. Aguilar. I have ordered some labs for in the morning. Hopefully in the next few days we can get further testing on his lower extremity. Otherwise we will continue present care and followup as needed. Dr. Parham is the collaborating physician and available for consultation. #[id number] [facility]
[2017-04-30] MEDS ORDERED: ATORVASTATIN 20 MG TAB PO ONE (21:52)
[2017-04-30] MEDS: ATORVASTATIN 20 MG TAB PO SCH (22:12)
[2017-04-30] MEDS: INSULIN DETEMIR 100 UNITS/ML PEN SUBCU SCH (22:13)
[2017-05-01] MEDS ORDERED: PIPERACILLIN/TAZOBACTAM 3.375 GM VIAL IVPB ONE ×4 (01:27→17:26)
[2017-05-01] MEDS ORDERED: SODIUM CHLORIDE 0.9% 100ML 100 ML IVPB ONE ×4 (01:27→17:26)
[2017-05-01] MEDS: PIPERACILLIN/TAZOBACTAM 3.375 GM in SODIUM CHLORIDE 0.9% 100ML 100 ML IVPB SCH ×4 (02:44→19:52)
[2017-05-01] MEDS: OMEPRAZOLE CAP 20 MG CAP PO SCH (05:29)
[2017-05-01] MEDS: HYDROcodone 7.5MG/APAP 325MG 1 EA TAB PO PRN ×3 (05:29→21:06)
[2017-05-01] MEDS: INSULIN LISPRO 100 UNITS/ML PEN SUBCU SCH ×4 (07:10→20:55)
[2017-05-01] MEDS: FUROSEMIDE 40 MG TAB PO SCH ×2 (08:19→17:08)
[2017-05-01] MEDS: ASPIRIN EC 81 MG TAB PO SCH (09:27)
[2017-05-01] MEDS: CARVEDILOL 12.5 MG TAB PO SCH ×2 (09:27→20:57)
[2017-05-01] MEDS: BIFIDOBACTERIUM INFANTIS 4 MG CAP PO SCH ×2 (09:27→20:56)
[2017-05-01] MEDS: hydroCHLOROthiazide 12.5 MG CAP PO SCH ×2 (09:28→20:57)
[2017-05-01] MEDS: LISINOPRIL 10 MG TAB PO SCH ×2 (09:28→20:57)
[2017-05-01] MEDS: ENOXAPARIN SODIUM 40 MG/0.4 ML SYG SUBCU SCH (09:28)
[2017-05-01] MEDS: SODIUM CHLORIDE 0.9% (FLUSH) 10 ML SYG IV SCH ×2 (09:28→20:57)
[2017-05-01] MEDS: CHLORHEXIDINE GLUCONATE 4 % 15 ML UD TOP SCH ×2 (09:29→20:57)
[2017-05-01] MEDS: [UNRECOGNIZED DRUG - OTHER] TOP SCH ×2 (09:29→20:58)
[2017-05-01] MEDS: POTASSIUM CHLORIDE 20 MEQ TAB PO SCH (11:37)
[2017-05-01] MEDS ORDERED: ATORVASTATIN 20 MG TAB PO ONE ×2 (17:29→21:02)
[2017-05-01] MEDS: SODIUM CHLORIDE 0.9% (FLUSH) 10 ML SYG IV PRN (19:52)
[2017-05-01] MEDS: INSULIN DETEMIR 100 UNITS/ML PEN SUBCU SCH (20:55)
[2017-05-01] MEDS: ATORVASTATIN 20 MG TAB PO SCH (20:58)
[2017-05-01] MEDS ORDERED: amLODIPine BESYLATE 5 MG TAB PO ONE (23:58)
[2017-05-02] MEDS ORDERED: PIPERACILLIN/TAZOBACTAM 3.375 GM VIAL IVPB ONE ×5 (01:06→20:06)
[2017-05-02] MEDS ORDERED: SODIUM CHLORIDE 0.9% 100ML 100 ML IVPB ONE ×5 (01:07→20:06)
[2017-05-02] MEDS: SODIUM CHLORIDE 0.9% (FLUSH) 10 ML SYG IV PRN (01:58)
[2017-05-02] MEDS: PIPERACILLIN/TAZOBACTAM 3.375 GM in SODIUM CHLORIDE 0.9% 100ML 100 ML IVPB SCH ×4 (01:58→19:43)
[2017-05-02] MEDS: OMEPRAZOLE CAP 20 MG CAP PO SCH (06:17)
[2017-05-02] MEDS: INSULIN LISPRO 100 UNITS/ML PEN SUBCU SCH ×4 (08:00→21:18)
--- NOTE | 2017-05-02 08:15 | PN ---
DATE: 05/01/17 SUBJECTIVE: The patient is sitting up in his hospital room. His leg is elevated. He is eating his meal. He denies any chest pain, shortness of breath or nausea or vomiting. He actually says he feels quite good and he has enjoyed going outside in the wheelchair. OBJECTIVE: VITAL SIGNS: He is afebrile. His heart rate is 69, chest pain 167/91, respiratory rate 16, 02 saturation 96% on room air. RESPIRATORY: Clear to auscultation bilaterally. CARDIAC: Regular rate and rhythm. ABDOMEN: Soft, non-tender, nondistended. Bowel sounds are positive. EXTREMITIES: He has a dressing to his right heel that is dry and intact. NEUROLOGIC: He is awake, alert, and oriented x3. LABORATORY: Stable hemoglobin of 9.5, hematocrit 29.4. Potassium slightly low at 3.5 with BUN of 44 and creatinine 2.24. His sed rate was 116. All other labs and films have been reviewed via the EMR. ASSESSMENT: 1. Stage 2 decubitus ulcer to the right heel growing enterococcus faecalis also being followed by Dr. Aguilar. 2. Hypertension. 3. Peripheral vascular disease. 4. Anemia of chronic disease, status post transfusion of 2 units of blood on . 5. Congestive heart failure of unknown etiology that is now stable. 6. History of coronary artery disease. 7. Type 2 diabetes. PLAN: We will continue present supportive care to include Zosyn antibiotics. Wound care orders will be per Dr. Aguilar. We will defer labs for in the morning at this time. He will most likely need an ESR in the next few days to see if that has improved. I have discontinued his lisinopril due to his kidney function. I will start him on amlodipine and may have to increase it due to his blood pressures that have slowly been increasing. I have also given him a dose of K-Dur. He tells me that his appointment with his Social Security Disability liaison on May 07 at 10:00 AM via phone and he has been approved for Social Security Disability but he will find out more information at that time. We will continue to monitor the patient closely and followup as needed. . #[id number] [facility]
[2017-05-02] MEDS: POTASSIUM CHLORIDE 20 MEQ TAB PO SCH (08:28)
[2017-05-02] MEDS: FUROSEMIDE 40 MG TAB PO SCH ×3 (08:28→16:37)
[2017-05-02] MEDS: CARVEDILOL 12.5 MG TAB PO SCH ×2 (09:09→21:17)
[2017-05-02] MEDS: ASPIRIN EC 81 MG TAB PO SCH (09:09)
[2017-05-02] MEDS: BIFIDOBACTERIUM INFANTIS 4 MG CAP PO SCH ×2 (09:11→21:16)
[2017-05-02] MEDS: amLODIPine BESYLATE 5 MG TAB PO SCH (09:11)
[2017-05-02] MEDS: ENOXAPARIN SODIUM 40 MG/0.4 ML SYG SUBCU SCH (09:14)
[2017-05-02] MEDS: CHLORHEXIDINE GLUCONATE 4 % 15 ML UD TOP SCH ×2 (09:36→21:18)
[2017-05-02] MEDS: SODIUM CHLORIDE 0.9% (FLUSH) 10 ML SYG IV SCH ×2 (09:36→21:18)
[2017-05-02] MEDS: [UNRECOGNIZED DRUG - OTHER] TOP SCH ×2 (09:37→21:19)
[2017-05-02] MEDS: IV SET AND CAP CHANGE INJ INJ SCH (16:37)
[2017-05-02] MEDS ORDERED: ATORVASTATIN 20 MG TAB PO ONE (17:22)
--- NOTE | 2017-05-02 19:36 | PN ---
DATE: 05/02/17 SUPERVISING PHYSICIAN: Damian Bansal M.D. SUBJECTIVE: The patient is sitting up in his chair in his room. His leg is elevated. He denies any chest pain, shortness of breath, leg pain, nausea or vomiting. OBJECTIVE: VITAL SIGNS: He is afebrile, heart rate 63, blood pressure 135/72, respiratory rate 17, O2 sat is 92%. RESPIRATORY: Clear to auscultation bilaterally. CARDIAC: Regular rate and rhythm. ABDOMEN: Soft, nondistended, non-tender. Bowel sounds are positive. EXTREMITIES: The wound to his right heel has very little redness surrounding the wound itself and has improved with present dressing changes. NEUROLOGIC: He is awake, alert and oriented times three. LABORATORY: There are no labs or films to report at this time. ASSESSMENT: 1. Stage II decubitus ulcer to the right heel growing Enterococcus faecalis also being followed by Dr. Aguilar. 2. Hypertension. 3. Peripheral vascular disease. 4. Anemia of chronic disease status post transfusion of 2 units of blood on 04/21/17. 5. Congestive heart failure of unknown etiology that is now stable. 6. History of coronary artery disease. 7. Type 2 diabetes mellitus. PLAN: We will continue present supportive care that includes Zosyn antibiotics. Wound care orders are per Dr. Aguilar. His insurance should be effective within the next week or so and has been approved. It may be beneficial on Friday to initiate a transfer to a wound care hospital. His blood pressure has been slightly elevated over the last few days. I have discontinue his Hydrochlorothiazide as well as his Lisinopril. I have added Amlodipine as well as increased his Coreg to 25 mg b.i.d. I have also increased his Lasix. I will check his BMP tomorrow morning to make sure that his chemistries are within normal limits. Otherwise we will continue present supportive care and followup as needed. Dr. Bansal is the collaborating physician available for consultation. #[id number] [facility]
[2017-05-02] MEDS: HYDROcodone 7.5MG/APAP 325MG 1 EA TAB PO PRN (19:43)
[2017-05-02] MEDS: INSULIN DETEMIR 100 UNITS/ML PEN SUBCU SCH (21:17)
[2017-05-02] MEDS: ATORVASTATIN 20 MG TAB PO SCH (21:17)
[2017-05-03] MEDS: PIPERACILLIN/TAZOBACTAM 3.375 GM in SODIUM CHLORIDE 0.9% 100ML 100 ML IVPB SCH ×4 (01:43→20:09)
[2017-05-03] MEDS: SODIUM CHLORIDE 0.9% (FLUSH) 10 ML SYG IV PRN (01:44)
[2017-05-03] MEDS: OMEPRAZOLE CAP 20 MG CAP PO SCH (06:32)
[2017-05-03] MEDS ORDERED: PIPERACILLIN/TAZOBACTAM 3.375 GM VIAL IVPB ONE ×3 (07:43→19:15)
[2017-05-03] MEDS ORDERED: SODIUM CHLORIDE 0.9% 100ML 100 ML IVPB ONE ×3 (07:43→19:15)
[2017-05-03] MEDS: INSULIN LISPRO 100 UNITS/ML PEN SUBCU SCH ×4 (07:51→21:15)
[2017-05-03] MEDS: POTASSIUM CHLORIDE 20 MEQ TAB PO SCH (08:13)
[2017-05-03] MEDS: SODIUM CHLORIDE 0.9% (FLUSH) 10 ML SYG IV SCH ×2 (08:15→21:20)
[2017-05-03] MEDS: CARVEDILOL 12.5 MG TAB PO SCH ×2 (08:21→21:18)
[2017-05-03] MEDS: FUROSEMIDE 40 MG TAB PO SCH ×2 (08:21→17:11)
[2017-05-03] MEDS: amLODIPine BESYLATE 5 MG TAB PO SCH (08:21)
[2017-05-03] MEDS: BIFIDOBACTERIUM INFANTIS 4 MG CAP PO SCH ×2 (08:21→21:18)
[2017-05-03] MEDS: [UNRECOGNIZED DRUG - OTHER] TOP SCH ×2 (08:22→21:19)
[2017-05-03] MEDS: ENOXAPARIN SODIUM 40 MG/0.4 ML SYG SUBCU SCH (08:22)
[2017-05-03] MEDS: CHLORHEXIDINE GLUCONATE 4 % 15 ML UD TOP SCH ×2 (08:22→21:19)
[2017-05-03] MEDS: ASPIRIN EC 81 MG TAB PO SCH (08:23)
[2017-05-03] MEDS ORDERED: ATORVASTATIN 20 MG TAB PO ONE (20:33)
--- NOTE | 2017-05-03 20:43 | PN ---
DATE: 05/03/17 SUPERVISING PHYSICIAN: Damian Bansal M.D. SUBJECTIVE: The patient is resting in bed with his leg elevated. Wounds are just in bandage for assessment. He denies any leg pain. He has not had any nausea, vomiting or diarrhea. OBJECTIVE: VITAL SIGNS: He remains afebrile with T max of 98.0, pulse 63, blood pressure 129/69, respirations 16, satting 96% on room air. I's and O's show a positive balance of 445 with 1820 in, 1375 out. He has not had any additional bowel movements since 05/01/17. ASSESSMENT: 1. Stage II decubitus ulcer to the right heel growing Enterococcus faecalis also followed by Dr. Aguilar. 2. Hypertension. 3. Peripheral vascular disease. 4. Anemia of chronic disease status post transfusion of 2 units of blood on 04/21/17. 5. Congestive heart failure of unknown etiology, stable. 6. History of coronary artery disease. 7. Type 2 diabetes mellitus. PLAN: Will continue as previous with Zosyn antibiotics and follow the patient along with Dr. Aguilar in regards to wound management. Hopefully he can be transferred for continued wound management at a wound care hospital this coming Friday or Friday. His blood pressure is remaining stable after medication change with the addition of Amlodipine and increase in Coreg to 25 mg, and holding Lisinopril and Hydrochlorothiazide. Will plan to repeat laboratory studies on Friday, otherwise will monitor the patient closely and treat appropriately until discharge. #[id number] [facility]
[2017-05-03] MEDS: INSULIN DETEMIR 100 UNITS/ML PEN SUBCU SCH (21:17)
[2017-05-03] MEDS: ATORVASTATIN 20 MG TAB PO SCH (21:18)
[2017-05-04] MEDS ORDERED: SODIUM CHLORIDE 0.9% 100ML 100 ML IVPB ONE ×4 (00:36→19:40)
[2017-05-04] MEDS ORDERED: PIPERACILLIN/TAZOBACTAM 3.375 GM VIAL IVPB ONE ×4 (00:36→19:40)
[2017-05-04] MEDS: PIPERACILLIN/TAZOBACTAM 3.375 GM in SODIUM CHLORIDE 0.9% 100ML 100 ML IVPB SCH ×4 (01:47→19:58)
[2017-05-04] MEDS: OMEPRAZOLE CAP 20 MG CAP PO SCH (06:00)
[2017-05-04] MEDS: INSULIN LISPRO 100 UNITS/ML PEN SUBCU SCH ×4 (07:36→21:10)
[2017-05-04] MEDS: POTASSIUM CHLORIDE 20 MEQ TAB PO SCH (07:52)
[2017-05-04] MEDS: LEVALBUTEROL NEBS 1.25 MG/3 ML VIAL INH PRN (08:24)
--- NOTE | 2017-05-04 09:12 | RAD ---
PROCEDURE: Abdomen Flat Upright Clinical History: abdominal pain and distention Indication: Same as above Comparison: None Technique: 3.0 views of the abdomen and pelvis were done. Findings: There is no gross evidence of free air in the abdomen or the pelvis . The small and large bowel gas pattern does not show any evidence of obstruction, ileus or bowel wall thickening. There is no visualization of radiopaque calculi in the outline of the urinary tract. The visualized lung bases are unremarkable . There is no significant constipation. Impression: Unremarkable bowel gas pattern Location of Interpretation: [id number] Electronically signed by: Gianni Giron MD 05/04/2017 9:12 AM CDT Workstation: [id number] [employer]
[2017-05-04] MEDS ORDERED: FUROSEMIDE INJ 40 MG/4 ML VIAL IV ONE (09:28)
[2017-05-04] MEDS ORDERED: POTASSIUM CHLORIDE 20 MEQ TAB PO ONE (09:29)
[2017-05-04] MEDS: BIFIDOBACTERIUM INFANTIS 4 MG CAP PO SCH ×2 (09:45→20:50)
[2017-05-04] MEDS: CARVEDILOL 12.5 MG TAB PO SCH ×2 (09:45→20:50)
[2017-05-04] MEDS: amLODIPine BESYLATE 5 MG TAB PO SCH (09:46)
[2017-05-04] MEDS: FUROSEMIDE 40 MG TAB PO SCH (09:46)
[2017-05-04] MEDS: ENOXAPARIN SODIUM 40 MG/0.4 ML SYG SUBCU SCH (09:47)
[2017-05-04] MEDS: [UNRECOGNIZED DRUG - OTHER] TOP SCH ×2 (09:47→20:51)
[2017-05-04] MEDS: ASPIRIN EC 81 MG TAB PO SCH (09:47)
[2017-05-04] MEDS: SODIUM CHLORIDE 0.9% (FLUSH) 10 ML SYG IV SCH ×2 (09:47→21:10)
[2017-05-04] MEDS: CHLORHEXIDINE GLUCONATE 4 % 15 ML UD TOP SCH ×2 (14:31→20:51)
--- NOTE | 2017-05-04 15:02 | RAD ---
EXAM DESCRIPTION: Chest,1 View CLINICAL HISTORY: chF exacerbation COMPARISON: November 20, 2016 FINDINGS: Cardiac silhouette is enlarged which could be secondary to cardiomegaly. Patient is status post median sternotomy. There are abnormal perihilar opacities and indistinctness of pulmonary vessels compatible with pulmonary edema. Blunted costophrenic angles and increased opacity at the lower lungs could represent a combination of pleural fluid and atelectasis. Other etiologies are not excluded. There is no pneumothorax. IMPRESSION: Above findings are compatible with cardiac decompensation as described. Recommend follow-up. Electronically signed by: Ned Zhu MD 05/04/2017 3:03 PM CDT
[2017-05-04] MEDS: FUROSEMIDE INJ 100 MG/10 ML VIAL IV SCH ×2 (15:30→23:06)
[2017-05-04] MEDS ORDERED: NITROGLYCERIN 0.4 MG/HR PATCH TOP SCH (15:30)
[2017-05-04] MEDS ORDERED: NITROGLYCERIN 0.4 MG/HR PATCH TOP ONE (16:00)
[2017-05-04] MEDS ORDERED: ALPRAZolam 0.5 MG TAB PO PRN (16:04)
[2017-05-04] MEDS ORDERED: LEVALBUTEROL NEBS 1.25 MG/3 ML VIAL NEB SCH (17:00)
[2017-05-04] MEDS ORDERED: FUROSEMIDE INJ 40 MG/4 ML VIAL IV SCH (17:00)
[2017-05-04] MEDS: SODIUM CHLORIDE 0.9% (FLUSH) 10 ML SYG IV PRN ×2 (19:59→23:08)
[2017-05-04] MEDS ORDERED: ATORVASTATIN 20 MG TAB PO ONE (20:43)
[2017-05-04] MEDS: ATORVASTATIN 20 MG TAB PO SCH (20:50)
[2017-05-04] MEDS: INSULIN DETEMIR 100 UNITS/ML PEN SUBCU SCH (21:09)
--- NOTE | 2017-05-04 21:50 | PN ---
DATE: 05/04/17 SUPERVISING PHYSICIAN: Damian Bansal M.D. SUBJECTIVE: The patient has been having some increasing weight gain along with increasing dyspnea. He reports that he feels a little bloated and he is notably showing some edema. This concerns that he is having an exacerbation of congestive heart failure, therefore we are doing some additional workup in regards to the change in status. He does remain afebrile with good controlled blood sugars. He has had no significant diarrhea and says he has had some fairly decent bowel movements. OBJECTIVE: VITAL SIGNS: T max 98.5, pulse 66, blood pressure 138/74, respirations are showing 28 with an O2 saturation of 92% on room air. I's and O 's show a positive balance of 460. His weight has increased from 103.8 kg to 105.2 kg. GENERAL: The patient appears to be somewhat dyspneic with a little anxiety related to increased effort to breathe. CHEST: Lung sounds are diminished towards the bases but no obvious rhonchi, rales or wheezing is noted. ABDOMEN: Obese but soft, non-tender. Positive bowel sounds. EXTREMITIES: He does show 1+ edema to both lower and upper extremities. NEUROLOGIC: He is alert and oriented times three. LABORATORY: H&H is 9.9 and 30.4. Chemistries show normal electrolytes with potassium 3.8, BUN 40, creatinine 2.21. Serum osmolality shows to be 298. BNP is elevated at 4510. Liver functions show to be within normal limits. Abdominal x-ray per radiology interpretation shows unremarkable bowel gas pattern. Chest x-ray single view per radiology interpretation shows findings compatible with cardiac decompensation with increase in opacities in the lower lungs with some abnormal perihilar opacities and indistinctness of pulmonary vessels compatible with pulmonary edema. ASSESSMENT: 1. Stage II decubitus ulcer to the right heel having grown Enterococcus faecalis followed by Dr. Aguilar for wound management. 2. Hypertension. 3. Acute exacerbation of chronic congestive heart failure, unknown etiology without a recent echocardiogram. 4. Peripheral vascular disease. 5. Anemia of chronic illness showing to be stable. 6. History of coronary artery disease. 7. Type 2 diabetes mellitus, stable. PLAN: Based off current labs, will plan on changing his Lasix to 80 mg IV every 8 hours and closely monitor his I's and O's. He will remain on strict fluid restrictions of 1500 mL or less per 24 hour period. Will go ahead and start him on a Nitro patch as he is showing some increase in his blood pressure. Will utilize BiPAP if needed and provide Xanax for any anxiety issues. Will continue to remain under the guidance of Dr. Aguilar. Will monitor his I's and O's tonight to better stabilize this exacerbation of congestive heart failure. Will repeat laboratory studies in the morning specifically monitoring his renal function and electrolytes. The patient does remain on Amlodipine and Coreg. We plan hopefully to be able to transfer the patient to a wound care facility, however this is going to have to be delayed secondary to the acute exacerbation of congestive heart failure. Once this has been stabilized, hopefully financial arrangements can be made and he could be continued on advanced wound management at a care facility. Until then, will continue to monitor the patient closely and treat appropriately. #[id number] [facility]
[2017-05-04] MEDS: HYDROcodone 7.5MG/APAP 325MG 1 EA TAB PO PRN (22:20)
[2017-05-04] MEDS: LEVALBUTEROL NEBS 1.25 MG/3 ML VIAL NEB SCH (23:30)
[2017-05-05] MEDS ORDERED: SODIUM CHLORIDE 0.9% 100ML 100 ML IVPB ONE ×4 (01:01→19:29)
[2017-05-05] MEDS ORDERED: PIPERACILLIN/TAZOBACTAM 3.375 GM VIAL IVPB ONE ×4 (01:01→19:29)
[2017-05-05] MEDS: PIPERACILLIN/TAZOBACTAM 3.375 GM in SODIUM CHLORIDE 0.9% 100ML 100 ML IVPB SCH ×4 (01:16→20:19)
[2017-05-05] MEDS: SODIUM CHLORIDE 0.9% (FLUSH) 10 ML SYG IV PRN (01:17)
[2017-05-05] MEDS ORDERED: REMOVE OLD PATCH TOP ONE (03:30)
[2017-05-05] MEDS: OMEPRAZOLE CAP 20 MG CAP PO SCH (06:02)
[2017-05-05] MEDS: FUROSEMIDE INJ 100 MG/10 ML VIAL IV SCH (08:02)
[2017-05-05] MEDS: POTASSIUM CHLORIDE 20 MEQ TAB PO SCH (08:02)
[2017-05-05] MEDS: INSULIN LISPRO 100 UNITS/ML PEN SUBCU SCH ×4 (08:04→20:54)
[2017-05-05] MEDS ORDERED: NITROGLYCERIN 0.4 MG/HR PATCH TOP SCH (09:00)
[2017-05-05] MEDS: ENOXAPARIN SODIUM 40 MG/0.4 ML SYG SUBCU SCH (09:06)
[2017-05-05] MEDS: CARVEDILOL 12.5 MG TAB PO SCH ×2 (09:06→20:28)
[2017-05-05] MEDS: BIFIDOBACTERIUM INFANTIS 4 MG CAP PO SCH ×2 (09:06→20:28)
[2017-05-05] MEDS: [UNRECOGNIZED DRUG - OTHER] TOP SCH ×2 (09:06→22:04)
[2017-05-05] MEDS: ASPIRIN EC 81 MG TAB PO SCH (09:06)
[2017-05-05] MEDS: amLODIPine BESYLATE 5 MG TAB PO SCH (09:06)
[2017-05-05] MEDS: SODIUM CHLORIDE 0.9% (FLUSH) 10 ML SYG IV SCH ×2 (09:07→20:19)
[2017-05-05] MEDS: CHLORHEXIDINE GLUCONATE 4 % 15 ML UD TOP SCH ×2 (09:07→22:04)
--- NOTE | 2017-05-05 09:10 | RAD ---
Study: Frontal and Lateral Views of the Chest. Indication: f/u chf Comparison: May 04, 2017. Impression: Mediastinal wires. Cardiomegaly with mild to moderate interstitial edema which does appear improved compared to the prior but not fully resolved. Underlying pneumonia not excluded. Lung volumes lobe. Tiny pleural effusions. No pneumothorax. Degenerative changes of the spine noted. Electronically signed by: Angel Noland MD 05/05/2017 9:10 AM CDT
[2017-05-05] MEDS: LEVALBUTEROL NEBS 1.25 MG/3 ML VIAL INH PRN (12:55)
[2017-05-05] MEDS: LEVALBUTEROL NEBS 1.25 MG/3 ML VIAL NEB SCH ×2 (16:12→23:58)
[2017-05-05] MEDS: HYDROcodone 7.5MG/APAP 325MG 1 EA TAB PO PRN ×2 (16:16→22:02)
[2017-05-05] MEDS: LISINOPRIL 5 MG TAB PO SCH (17:38)
[2017-05-05] MEDS ORDERED: ATORVASTATIN 20 MG TAB PO ONE (19:59)
[2017-05-05] MEDS ORDERED: FUROSEMIDE INJ 100 MG/10 ML VIAL ONE (20:00)
[2017-05-05] MEDS ORDERED: FUROSEMIDE INJ 100 MG/10 ML VIAL IV ONE (20:16)
[2017-05-05] MEDS: IV SET AND CAP CHANGE INJ INJ SCH (20:27)
[2017-05-05] MEDS: ATORVASTATIN 20 MG TAB PO SCH (20:28)
--- NOTE | 2017-05-05 20:49 | PN ---
DATE: 05/05/17 SUPERVISING PHYSICIAN: Damian Bansal M.D. SUBJECTIVE: The patient is doing much better today. He is no longer having shortness of breath. He had good results with Lasix. He diuresed well over 3.5 liters in the last 24 hours or greater. He is afebrile. OBJECTIVE: VITAL SIGNS: Temperature 96.8, pulse 68, blood pressure 158/82, respirations 18, satting 94% on nasal cannula at rest. I's and O's show a negative balance of 3017 with 790 in, 4500 out. Weight is 103.3 kg which is down 2.3 kg compared to the previous day of 105.2. GENERAL: The patient is resting comfortably with no obvious shortness of breath. Actually he is able to ambulate around the room without any issues. CHEST: Lungs are just diminished towards the bases but without any rhonchi, wheezing or rales. HEART : Regular rate and rhythm. ABDOMEN: Soft but obese, non-tender. Positive bowel sounds. EXTREMITIES: Still show a trace of edema but much improved from previous days. NEUROLOGIC: He is alert and oriented times three. LABORATORY: Chemistries show potassium 3.4, BUN 47, creatinine 2.3, glucoses remain in good control ranging between 119 to 164. BNP remains elevated but he is asymptomatic. RADIOLOGY: Chest x-ray two view today per radiology interpretation shows a tiny pleural effusion. No pneumothorax. Cardiomegaly with mild to moderate interstitial edema which appears to be improved compared to prior but not fully resolved. Underlying pneumonia cannot be excluded. ASSESSMENT: 1. Stage II decubitus ulcer of the right heel having grown Enterococcus faecalis followed by Dr. Aguilar for wound management showing slow improvement. 2. Hypertension. 3. Acute exacerbation of chronic congestive heart failure, unknown etiology without any recent echocardiogram showing improvement after aggressive diuresis with Lasix and continued fluid restriction. 4. Peripheral vascular disease. 5. Anemia of chronic illness showing stable H&H. 6. History of coronary artery disease. 7. Type 2 diabetes mellitus, stable. PLAN: The patient has clinically shown improvement both on his radiographic imaging and clinically as he has diuresed well over 3.5 liters. He no longer requires any BiPAP and is oxygenating well. Will plan to back him off his Lasix to 80 mg every 12 hours and continue with fluid restrictions of 1500 mL or less in a 24 hour period. He continues with a Nitro patch. Will continue to follow the patient in regards to wound management along with Dr. Aguilar. Once the patient is again clinically stabilized, consideration for transfer to a wound care facility can be followed with to completion as he continues to show slow improvement and financially he should have his insurance in place within the week. Until discharge, will continue to monitor the patient closely and treat appropriately. #[id number] [facility]
[2017-05-05] MEDS: INSULIN DETEMIR 100 UNITS/ML PEN SUBCU SCH (20:54)
[2017-05-05] MEDS ORDERED: FUROSEMIDE INJ 100 MG/10 ML VIAL IV SCH (21:00)
[2017-05-05] MEDS ORDERED: REMOVE OLD PATCH TOP SCH (21:00)
[2017-05-06] MEDS ORDERED: PIPERACILLIN/TAZOBACTAM 3.375 GM VIAL IVPB ONE ×4 (02:17→19:13)
[2017-05-06] MEDS ORDERED: SODIUM CHLORIDE 0.9% 100ML 100 ML IVPB ONE ×4 (02:17→19:13)
[2017-05-06] MEDS: PIPERACILLIN/TAZOBACTAM 3.375 GM in SODIUM CHLORIDE 0.9% 100ML 100 ML IVPB SCH ×4 (02:30→20:06)
[2017-05-06] MEDS: SODIUM CHLORIDE 0.9% (FLUSH) 10 ML SYG IV PRN ×2 (02:30→06:07)
[2017-05-06] MEDS ORDERED: FUROSEMIDE INJ 100 MG/10 ML VIAL IV SCH (06:00)
[2017-05-06] MEDS: OMEPRAZOLE CAP 20 MG CAP PO SCH (06:07)
--- NOTE | 2017-05-06 06:52 | RAD ---
EXAM: Two view chest. INDICATION: Chest pain. COMPARISON: Chest x-ray: 05/05/2017. FINDINGS: There is interstitial pulmonary edema. Small pleural effusions are likely present. The heart is enlarged. There is no pneumothorax. Median sternotomy wires are noted. IMPRESSION: Interstitial pulmonary edema. Electronically signed by: Cedrick Saldaña MD 05/06/2017 6:52 AM CDT Workstation: [id number]
[2017-05-06] MEDS: INSULIN LISPRO 100 UNITS/ML PEN SUBCU SCH ×4 (07:29→20:48)
[2017-05-06] MEDS: POTASSIUM CHLORIDE 20 MEQ TAB PO SCH (07:42)
[2017-05-06] MEDS: LEVALBUTEROL NEBS 1.25 MG/3 ML VIAL NEB SCH ×3 (08:03→23:55)
[2017-05-06] MEDS: amLODIPine BESYLATE 5 MG TAB PO SCH (08:27)
[2017-05-06] MEDS: BIFIDOBACTERIUM INFANTIS 4 MG CAP PO SCH ×2 (08:27→20:54)
[2017-05-06] MEDS: ASPIRIN EC 81 MG TAB PO SCH (08:27)
[2017-05-06] MEDS: LISINOPRIL 5 MG TAB PO SCH (08:28)
[2017-05-06] MEDS: ENOXAPARIN SODIUM 40 MG/0.4 ML SYG SUBCU SCH (08:28)
[2017-05-06] MEDS: CARVEDILOL 12.5 MG TAB PO SCH ×2 (08:28→20:51)
[2017-05-06] MEDS: FUROSEMIDE 40 MG TAB PO SCH (08:30)
[2017-05-06] MEDS: SODIUM CHLORIDE 0.9% (FLUSH) 10 ML SYG IV SCH ×2 (08:30→20:52)
[2017-05-06] MEDS: [UNRECOGNIZED DRUG - OTHER] TOP SCH ×2 (08:31→21:31)
[2017-05-06] MEDS ORDERED: POTASSIUM CHLORIDE 20 MEQ TAB PO ONE (13:21)
--- NOTE | 2017-05-06 14:51 | PN ---
SUPERVISING PHYSICIAN: Damian Bansal MD DATE: 05/06/17 SUBJECTIVE: The patient is sleeping in his hospital bed. He awakens easily. He has no complaints of chest pain, shortness of breath, nausea, vomiting or diarrhea. OBJECTIVE: VITAL SIGNS: Afebrile. Heart rate 66. Blood pressure 144/82. Respiratory rate 16. O2 saturation 96% on 2 liters nasal cannula. LUNGS: Essentially clear to auscultation bilaterally, somewhat diminished at the bases with a few scattered crackles throughout. CARDIAC: Regular rate and rhythm. ABDOMEN: Soft, nontender, nondistended. Bowel sounds are positive. EXTREMITIES: He has a dressing to the right heel that is dry and intact. NEUROLOGIC: Awake, alert and oriented times three. LABORATORY: WBC 4.2, hemoglobin stable at 9.9, hematocrit 30.7. ESR 115. Sodium 141, potassium slightly low at 3.4, chloride 101, carbon dioxide 31, BUN 45, creatinine 2.2. C-reactive protein is 1.7. All other labs and films have been reviewed via the EMR. ASSESSMENT: 1. Stage II decubitus ulcer of the right heel having grown Enterococcus faecalis followed by Dr. Aguilar for wound management showing slow improvement. 2. Hypertension. 3. Acute exacerbation of chronic congestive heart failure, unknown etiology without any recent echocardiogram showing improvement after aggressive diuresis with Lasix and continued fluid restriction. 4. Peripheral vascular disease. 5. Anemia of chronic illness showing stable hemoglobin and hematocrit. 6. History of coronary artery disease. 7. Type 2 diabetes mellitus, stable. PLAN: We will continue present supportive care. Social Service is continuing to work on his discharge as well as his insurance and disability. I have discontinued his IV Lasix and changed him to p.o. Lasix. He will have 80 mg in the morning and 40 mg in the afternoon. I have discontinued the nitro patch. After his insurance is established, we will need to look for a wound care hospital due to the very slow healing of this wound. I may call Dr. Gabriel, layout operator, in [place] tomorrow in regards to his renal failure as well as his medications we are presently giving him. His I&Os in the last 48 hours show a urine output of 7 to 8 liters. Hopefully he can tolerate the oral Lasix without any issues. I have also given him an extra dose of K-Dur. I will check a BMP in the morning. We will continue to monitor the patient closely and followup as needed. Dr. Bansal is the collaborating physician and available for consultation. #[id number] [facility]
[2017-05-06] MEDS: CHLORHEXIDINE GLUCONATE 4 % 15 ML UD TOP SCH ×2 (16:30→21:31)
[2017-05-06] MEDS ORDERED: FUROSEMIDE 40 MG TAB PO SCH (17:00)
[2017-05-06] MEDS ORDERED: ATORVASTATIN 20 MG TAB PO ONE (19:12)
[2017-05-06] MEDS: INSULIN DETEMIR 100 UNITS/ML PEN SUBCU SCH (20:48)
[2017-05-06] MEDS: ATORVASTATIN 20 MG TAB PO SCH (20:51)
[2017-05-07] MEDS: HYDROcodone 7.5MG/APAP 325MG 1 EA TAB PO PRN ×2 (00:48→22:27)
[2017-05-07] MEDS ORDERED: SODIUM CHLORIDE 0.9% 100ML 100 ML IVPB ONE ×4 (00:50→20:00)
[2017-05-07] MEDS ORDERED: PIPERACILLIN/TAZOBACTAM 3.375 GM VIAL IVPB ONE ×4 (00:50→20:00)
[2017-05-07] MEDS: PIPERACILLIN/TAZOBACTAM 3.375 GM in SODIUM CHLORIDE 0.9% 100ML 100 ML IVPB SCH ×4 (01:38→20:29)
[2017-05-07] MEDS: OMEPRAZOLE CAP 20 MG CAP PO SCH (06:03)
[2017-05-07] MEDS: INSULIN LISPRO 100 UNITS/ML PEN SUBCU SCH ×4 (07:07→22:28)
[2017-05-07] MEDS: POTASSIUM CHLORIDE 20 MEQ TAB PO SCH (08:03)
[2017-05-07] MEDS: LISINOPRIL 5 MG TAB PO SCH (08:43)
[2017-05-07] MEDS: CARVEDILOL 12.5 MG TAB PO SCH ×2 (08:44→20:35)
[2017-05-07] MEDS: BIFIDOBACTERIUM INFANTIS 4 MG CAP PO SCH ×2 (08:44→20:35)
[2017-05-07] MEDS: ASPIRIN EC 81 MG TAB PO SCH (08:44)
[2017-05-07] MEDS: amLODIPine BESYLATE 5 MG TAB PO SCH (08:45)
[2017-05-07] MEDS: FUROSEMIDE 40 MG TAB PO SCH ×2 (08:45→16:41)
[2017-05-07] MEDS: ENOXAPARIN SODIUM 40 MG/0.4 ML SYG SUBCU SCH (08:45)
[2017-05-07] MEDS: CHLORHEXIDINE GLUCONATE 4 % 15 ML UD TOP SCH ×2 (08:48→20:35)
[2017-05-07] MEDS: SODIUM CHLORIDE 0.9% (FLUSH) 10 ML SYG IV SCH ×2 (08:48→20:31)
[2017-05-07] MEDS: [UNRECOGNIZED DRUG - OTHER] TOP SCH ×2 (08:48→20:36)
[2017-05-07] MEDS: LEVALBUTEROL NEBS 1.25 MG/3 ML VIAL NEB SCH ×3 (09:00→23:34)
[2017-05-07] MEDS ORDERED: POTASSIUM CHLORIDE 20 MEQ TAB PO ONE (11:10)
[2017-05-07] MEDS ORDERED: POTASSIUM CHLORIDE 20 MEQ TAB ONE (12:13)
[2017-05-07] MEDS ORDERED: FUROSEMIDE INJ 100 MG/10 ML VIAL ONE ×2 (12:13→17:01)
--- NOTE | 2017-05-07 13:34 | PN ---
SUPERVISING PHYSICIAN: Jerry Parham MD DATE: 05/07/17 SUBJECTIVE: The patient is sitting on the side of the bed. He is talking to his and a friend. He denies any chest pain, shortness of breath, nausea, vomiting or diarrhea. He did talk to Medicare/Medicaid office today and his Medicaid is retroactive to six months prior to this date and his Medicare will be starting in March of next year. He would like to speak with Emmie Jacksony sometime today. OBJECTIVE: VITAL SIGNS: Afebrile. Heart rate 66. Blood pressure 135/76. Blood pressure 154/78. Respiratory rate 20. O2 saturation 93%. Intake is 1560 , output 2900 with a net balance of -1340. It appears that he has had a 3 kg weight gain. LUNGS: Clear to auscultation bilaterally. ABDOMEN: Soft, nontender, nondistended. Bowel sounds are positive. EXTREMITIES: No cyanosis or clubbing. There is a dressing to his right heel that is dry and intact. NEUROLOGIC: Awake, alert and oriented times three. LABORATORY: Blood sugars have run from 69 to 233, the majority of them being in the 130s. All other labs and films have been reviewed via the EMR. ASSESSMENT: 1. Stage II decubitus ulcer of the right heel having grown Enterococcus faecalis followed by Dr. Aguilar for wound management showing slow improvement. 2. Hypertension. 3. Acute exacerbation of chronic congestive heart failure, unknown etiology without any recent echocardiogram showing improvement after aggressive diuresis with Lasix and continued fluid restriction. 4. Peripheral vascular disease. 5. Anemia of chronic illness showing stable hemoglobin and hematocrit. 6. History of coronary artery disease. 7. Type 2 diabetes mellitus, stable. PLAN: We will continue present supportive care. I am going to see if we can order stand-up weights to get a more accurate estimation of his weight gain or weight loss. Since his Medicaid has been approved, we will push forward with trying to get him into a wound care facility as I believe he would benefit from that as his wound has some ways to go with the healing process. We will continue on his present antibiotic therapy and will most likely need approximately six weeks of IV antibiotic therapy. I have ordered a BMP and CBC for the in the morning. I have increased his potassium. He is presently on p.o. Lasix and depending the accuracy of his weight gain, he may need to have his Lasix changed back to IV, but he has no shortness of breath or swelling complaints, so we will monitor that for now. Otherwise, we will continue to watch him closely and treat as needed. Dr. Parham is the collaborating physician and available for consultation. #[id number] [facility]
[2017-05-07] MEDS ORDERED: ATORVASTATIN 20 MG TAB PO ONE (20:04)
[2017-05-07] MEDS: ATORVASTATIN 20 MG TAB PO SCH (20:35)
[2017-05-07] MEDS: INSULIN DETEMIR 100 UNITS/ML PEN SUBCU SCH (22:27)
[2017-05-08] MEDS ORDERED: SODIUM CHLORIDE 0.9% 100ML 100 ML IVPB ONE ×4 (01:40→20:00)
[2017-05-08] MEDS ORDERED: PIPERACILLIN/TAZOBACTAM 3.375 GM VIAL IVPB ONE ×4 (01:40→19:59)
[2017-05-08] MEDS: PIPERACILLIN/TAZOBACTAM 3.375 GM in SODIUM CHLORIDE 0.9% 100ML 100 ML IVPB SCH ×4 (02:12→20:15)
[2017-05-08] MEDS: SODIUM CHLORIDE 0.9% (FLUSH) 10 ML SYG IV PRN (02:13)
[2017-05-08] MEDS: OMEPRAZOLE CAP 20 MG CAP PO SCH (06:28)
[2017-05-08] MEDS: POTASSIUM CHLORIDE 10 MEQ TAB PO SCH (07:52)
[2017-05-08] MEDS: INSULIN LISPRO 100 UNITS/ML PEN SUBCU SCH ×4 (07:53→21:14)
[2017-05-08] MEDS: LEVALBUTEROL NEBS 1.25 MG/3 ML VIAL NEB SCH ×3 (08:04→23:30)
[2017-05-08] MEDS: FUROSEMIDE 40 MG TAB PO SCH ×2 (09:23→17:01)
[2017-05-08] MEDS: ENOXAPARIN SODIUM 40 MG/0.4 ML SYG SUBCU SCH (09:23)
[2017-05-08] MEDS: BIFIDOBACTERIUM INFANTIS 4 MG CAP PO SCH ×2 (09:23→20:16)
[2017-05-08] MEDS: LISINOPRIL 5 MG TAB PO SCH (09:24)
[2017-05-08] MEDS: CARVEDILOL 12.5 MG TAB PO SCH ×2 (09:25→20:17)
[2017-05-08] MEDS: ASPIRIN EC 81 MG TAB PO SCH (09:25)
[2017-05-08] MEDS: amLODIPine BESYLATE 5 MG TAB PO SCH (09:27)
[2017-05-08] MEDS: SODIUM CHLORIDE 0.9% (FLUSH) 10 ML SYG IV SCH ×2 (09:27→20:16)
[2017-05-08] MEDS: [UNRECOGNIZED DRUG - OTHER] TOP SCH ×2 (09:28→20:17)
--- NOTE | 2017-05-08 13:37 | PN ---
SUPERVISING PHYSICIAN: Damian Bansal MD DATE: 05/08/17 SUBJECTIVE: The patient is doing well. He has been ambulating without any shortness of breath. He says he feels much better and is anxious to go home. OBJECTIVE: VITAL SIGNS: Temperature 96.7. Pulse 67. Blood pressure 128/74. Respirations 20. Saturation 96% on room air. I&Os show negative balance 1180 with 1720 in and 2900 out. Weight down to 101.1 kg. CHEST: Lungs clear to auscultation bilaterally. ABDOMEN: Soft, nontender, nondistended. Positive bowel sounds. EXTREMITIES: No cyanosis, clubbing or edema. Dressing on the right heel is intact. Review of the wound shows good granulation without any signs of infection at this point. NEUROLOGIC: Alert and oriented times three. LABORATORY: CBC shows white count 49., hemoglobin 10, hematocrit 30.7, platelet count 260,000, differential within normal limits. Chemistries show normal electrolytes with potassium 3.6, BUN 44, creatinine 2.29, glucose 93 to 178. ASSESSMENT: 1. Stage II decubitus ulcer of the right heel having previously grown Enterococcus faecalis, followed by Dr. Aguilar for wound management, showing improvement, although slow, having been treated with 18 days of Zosyn. 2. Hypertension, stable. 3. Acute exacerbation of chronic congestive heart failure, unknown etiology without any recent echocardiogram showing improvement and resolved after aggressive diuresis with Lasix and fluid restriction. 4. Peripheral vascular disease, resulting in slow healing of #1. 5. Anemia of chronic illness showing stable hemoglobin and hematocrit. 6. History of coronary artery disease. 7. Type 2 diabetes mellitus, stable. PLAN: The plan is to hopefully send the patient home tomorrow. I did talk with Dr. Hamlin as well as Dr. Aguilar. Dr. Aguilar feels the wound is now without infection and healing well although slowly. I did discuss with Dr. Hamlin and she recommends she be placed on Augmentin until the wound is completely healed. I discussed this with the patient in regards to cost for continued antibiotic therapy as well as his regular medications and outpatient wound management through . Emmie, our outreach and education social worker, is working currently on this to secure arrangements for antibiotics and home health and hopefully anticipation of discharging tomorrow. Until then, we will continue to monitor the patient closely and treat appropriately. #[id number] [facility]
[2017-05-08] MEDS: CHLORHEXIDINE GLUCONATE 4 % 15 ML UD TOP SCH ×2 (17:02→20:17)
[2017-05-08] MEDS: IV SET AND CAP CHANGE INJ INJ SCH (17:02)
[2017-05-08] MEDS ORDERED: ATORVASTATIN 20 MG TAB PO ONE (20:01)
[2017-05-08] MEDS: ATORVASTATIN 20 MG TAB PO SCH (20:16)
[2017-05-08] MEDS: HYDROcodone 7.5MG/APAP 325MG 1 EA TAB PO PRN (20:22)
[2017-05-08] MEDS: INSULIN DETEMIR 100 UNITS/ML PEN SUBCU SCH (21:14)
[2017-05-09] MEDS ORDERED: SODIUM CHLORIDE 0.9% 100ML 100 ML IVPB ONE ×2 (01:14→07:50)
[2017-05-09] MEDS ORDERED: PIPERACILLIN/TAZOBACTAM 3.375 GM VIAL IVPB ONE ×2 (01:14→07:49)
[2017-05-09] MEDS: PIPERACILLIN/TAZOBACTAM 3.375 GM in SODIUM CHLORIDE 0.9% 100ML 100 ML IVPB SCH ×2 (01:40→08:11)
[2017-05-09] MEDS: SODIUM CHLORIDE 0.9% (FLUSH) 10 ML SYG IV PRN (01:41)
[2017-05-09] MEDS: OMEPRAZOLE CAP 20 MG CAP PO SCH (06:08)
[2017-05-09] MEDS: LEVALBUTEROL NEBS 1.25 MG/3 ML VIAL NEB SCH (07:57)
[2017-05-09] MEDS: POTASSIUM CHLORIDE 10 MEQ TAB PO SCH (08:11)
[2017-05-09] MEDS: INSULIN LISPRO 100 UNITS/ML PEN SUBCU SCH ×2 (08:14→14:48)
[2017-05-09] MEDS: ASPIRIN EC 81 MG TAB PO SCH (08:41)
[2017-05-09] MEDS: FUROSEMIDE 40 MG TAB PO SCH (08:41)
[2017-05-09] MEDS: LISINOPRIL 5 MG TAB PO SCH (08:41)
[2017-05-09] MEDS: BIFIDOBACTERIUM INFANTIS 4 MG CAP PO SCH (08:41)
[2017-05-09] MEDS: CARVEDILOL 12.5 MG TAB PO SCH (08:41)
[2017-05-09] MEDS: amLODIPine BESYLATE 5 MG TAB PO SCH (08:42)
[2017-05-09] MEDS: ENOXAPARIN SODIUM 40 MG/0.4 ML SYG SUBCU SCH (08:42)
[2017-05-09] MEDS: SODIUM CHLORIDE 0.9% (FLUSH) 10 ML SYG IV SCH (08:42)
[2017-05-09] MEDS: CHLORHEXIDINE GLUCONATE 4 % 15 ML UD TOP SCH (08:43)
[2017-05-09] MEDS: [UNRECOGNIZED DRUG - OTHER] TOP SCH (08:43)
[2017-05-09 11:23] VITALS: BP 157/80; TEMP 97.9; O2SAT 95
--- NOTE | 2017-05-11 16:02 | DS ---
SUPERVISING PHYSICIAN: Damian Bansal MD DISCHARGE DIAGNOSIS: 1. Stage II decubitus ulcer of the right heel having previously grown Enterococcus faecalis, followed by Dr. Aguilar for wound management, showing improvement with no obvious signs of infection at discharge with slow wound healing secondary to a vascular insufficiency with patient being on Zosyn.for a total of 18 days prior to discharge. 2. Chronic congestive heart failure, unknown etiology without a recent echocardiogram having acute exacerbation the week prior to discharge that resolved after aggressive diuresis and Lasix, now showing to be stable with well over 10 liters of fluid removed and weight change with a little over 5 kg. 3. Peripheral vascular disease resulting in slow healing of #1. 4. Anemia of chronic illness requiring transfusion of 2 units of packed blood cells, showing to be stable with hemoglobin and hematocrit prior to discharge. 5. History of coronary artery disease. 6. Type 2 diabetes mellitus, stable while in hospital. HISTORY OF PRESENT ILLNESS: Mr. Warner is a 51 year-old calcaneal male patient that was admitted to the hospital from [facility]. He was last at [facility] a month previous, in March of the same year with a significant right heel ulceration. It seemed to be localized with some localized erythema. He was treated with antibiotics and sent home on Augmentin but was unable to acquire the Augmentin because of the nolasco. He was subsequently seen again in [facility] the past Friday prior to admission at which time he was given a Rocephin shot because of increasing redness that was worsening appearance of the heel. He had some pain that was radiating up his foot with increasing redness to also extend up his leg towards the calf. The Rocephin was given IM and he had a prescription for Bactrim and he was discharged from the clinic with followup today on Friday of same date of admission. He did not picker/puller the Bactrim because of no money and was seen in the clinic on date of admission and was noticed to have significantly worsened. Over the last couple of weeks, his foot has begun to smell quite badly. The ulceration started approximately 3 to 4 months ago and is now much worse. In the clinic his white count was elevated well over 16,000 with his hemoglobin being 10 and his creatinine was 2.17 suggesting some decline in some of his end organs. He was admitted to the hospital after cultures were rechecked and he received another dose of Rocephin in the clinic but was steadily showing worsening symptoms and tissue viability was becoming a larger concern. The patient was admitted to the hospital for parenteral antibiotics as well as intervention by Surgery, Dr. Aguilar, for evaluation for debridement and evaluation of the eschar present. LABORATORY: The patient had well over a months worth of laboratory completed. Initial white count of admission was 16.2. After initiation of antibiotics and continuation prior to discharge he had normalized to 4.9. His hemoglobin and hematocrit initially on admission showed hemoglobin of 10.7 and hematocrit of 31.8. After admission he slowly showed a decrease to a minimum of 7.9 and 23.8 at which time he was transfused 2 units packed red blood cells which did improve and he finally showed to be stable and at discharge his hemoglobin was 9.5, hematocrit9 2.3. He did show a left shift on admission and prior to discharge after initiation of antibiotics his differential had normalized. Chemistries on admission showed a sodium of 130 with potassium 3.9. Initial BUN was 64, creatinine 2.7. Through hospitalization after multiple treatments and exacerbation of congestive heart failure and again diuresis and further treatments and IV fluids, on discharge last chemistries collected were on 05/08 , all showing to be well-controlled in regards to electrolytes. His BUN had improved and was 44. Creatinine had shown to be fairly stable around 2.29. Glucose was well controlled in the 60s up to 190s. He had a BNP that was collected on 04/15 initially that showed to be 764. On 05/04, he showed an exacerbation of congestive heart failure and at that time his BNP was repeated and it was 4510. He had additional BNP the day after initiation of diuresis which continued to show elevation at 4540. Magnesium levels were within normal limits and prior to discharge last magnesium was 1.9. He had anemia panel done, iron showed to be low at 16, TIB was low at 184, iron saturation was low at 8.6 , ferritin was normal at 287. His C-reactive protein initially on 04/28 was 6.0 , on 05/06 it was 1.7. He had a TSH that was within normal limits at 0.49. His liver functions on admission showed to be within normal limits with just a slightly elevated alkaline phosphatase, this had normalized prior to discharge at 108. Please refer to his lab summaries for full detail of all his chemistries and hematology as he had multiple lab draws. Urinalysis on admission showed 3+ bacteria, 2+ amorphous, 3 to 5 epithelials, 20 to 20 WBCs, 5 to 10 RBCs on admission with 1+ budding yeast. Dipstick showed greater than 300 protein with 500 glucose and a small amount of blood. Toxicology: He had 2 vancomycin troughs, one on 04/17 at 16.6, one on 04/21 at 28.8. MICROBIOLOGY: He had blood cultures that remained negative after 5 days. He had a wound culture of the right heel initially on 04/14 that showed a heavy growth and probably skin contaminant. After surgical intervention and debridement, he again had wound cultures that grew out enterococcus faecalis which did show sensitive to vancomycin and ampicillin. He had a urine culture on 04/14 that showed no growth at 48 hours. No additional microbiology specimens were submitted. RADIOGRAPHIC: He had a foot x-ray on admission and per radiology interpretation on 04/14/17, showed probable soft tissue ulceration posterior to the calcaneus but no underlying fracture, malalignment or radiographic evidence of osteomyelitis at that time of the right foot. His chest x-ray on admission 04/15 and per radiology interpretation showed no acute cardiopulmonary process. He also had a lower extremity ultrasound on 04/15, arterial, of the bilateral lower extremities and per radiology interpretation there was noted bilateral lower extremity peripheral artery disease with abnormal velocities and wave forms in both lower extremities involving superficial femoral and other distal arteries. Findings to include no identifiable flow in the right posterior tibial, right dorsal pedis and left posterior tibial arteries. Please refer to that final report for full details of those findings. He had a chest x-ray on 05/04 after having an exacerbation of congestive heart failure and per radiology interpretation there were no findings compatible with cardiac decompensation with pulmonary edema noted in both lungs. Followup x- rays were completed. Final x-ray done on 05/06/17 showed interstitial pulmonary edema to include the patient was much better. HOSPITAL COURSE: Mr. Warner was admitted on 04/14/17 as noted in the history of present illness for ulcerations of his right heel. He was initiated on antibiotic therapy initially to include vancomycin and Zosyn. After final cultures were obtained, the patient was continued on Zosyn. He remained on Zosyn for a total of 18 days. He had a consultation with Dr. Aguilar on 04/15/17 and on 04/25 was taken to the operating room for a debridement procedure of the right heel ulcer. He was provided wound care daily that was under the direction of Dr. Aguilar. Overall, the patient progressed well on continued antibiotic therapy but secondary to financial difficulties. he remained in the hospital length of amount of time to continue on IV antibiotics. During his hospitalization towards the later part, he did have a small exacerbation of congestive heart failure at which time his medication regimen was modified, he was increasing his Lasix and had good clinical response. He remained on a sliding scale, Align, and had no complications from the longtime antibiotic therapy. He did work with recreational therapy and was ambulatory for the majority of his hospitalization. He clinically remained stable and progressed slowly and towards the duration of his stay, showed good resolution of infection but a slow healing process. After talking to Dr. Hamlin prior to discharge, his recommendations were to continue with Augmentin in the outpatient setting until the patient's wound was completely healed. Arrangements were made for the patient to be discharged and a medication regimen secured prior to discharge to insure he had his medications to continue treatment. Our health social work professor, Emmie, worked hard with the patient financially to help establish with insurance which is in process. On date of discharge, it was felt that the patient was without any signs of infection or osteomyelitis and he was clinically improved in regards to other clinical findings of his congestive heart failure and was stable to the point where he could discontinue IV antibiotics and continue with p.o. medications in an outpatient setting. PLAN: Mr. Warner was discharged on 05/09/17 with instructions to followup [facility] in the coming week after discharge as scheduled. He is to return to the hospital daily for wound care at 3 o'clock. He was to remain on antibiotics until the wound on his right heel was completely healed which included Augmentin. He was to resume all his medications as prescribed. He was to keep daily fluid intake below 1800 cc per day and monitor his output as well as his daily weights. He was to keep his leg elevated when not walking and keep direct pressure off his right heel and to keep the wound clean and covered between dressing changes. He was told to return to the hospital should he have any concerning changes in his wound or other concerning symptoms. Discharge medications were arranged financially and he was discharged with prescriptions that were provided through [facility] to include: 1. Amlodipine 5 mg daily, #30. 2. Augmentin 875 twice a day, #20 with 5 refills. 3. Align 4 mg twice a day, #30. 4. Coreg 25 mg twice a day, #60. 5. Lasix 80 mg daily in the morning, #60; 40 mg in the afternoon at 5 o'clock, #30. 6. Levemir Pen 40 units subcutaneous at bedtime. 7. Lisinopril 2.5 mg daily, #30. 8. Potassium chloride 20 mEq daily, #30. All other medications prior to hospitalization were continued as previous. Diet at discharge was ADA 1800 calorie with fluid restrictions below 1800 cc in a 24 hour period. Activity as tolerated. No direct pressure on the right heel and keep legs elevated when possible. Condition on discharge stable and improved. #[id number] [facility]
== END 2017-05-09 13:30 | disposition home or self-care (01) | DRG 571 ==
LOC: YCFC.O 13:05 → OBSVTOIN 16:35 → MS 16:35
PROVIDERS: ADMIT Emergency Medicine; ATTEND Emergency Medicine
PROC: 30233N1 Transfusion of Nonautologous Red Blood Cells into Peripheral Vein, Percutaneous Approach (ICD-10-PCS; 2017-04-21)
PROC: 0HBMXZZ Excision of Right Foot Skin, External Approach (ICD-10-PCS; principal; 2017-04-25 11:00)
DX: L03.115 Cellulitis of right lower limb (principal); I13.0 Hypertensive heart and chronic kidney disease with heart failure and stage 1 through stage 4 chronic kidney disease, or unspecified chronic kidney disease; L89.612 Pressure ulcer of right heel, stage 2; E11.22 Type 2 diabetes mellitus with diabetic chronic kidney disease; N18.9 Chronic kidney disease, unspecified; K21.9 Gastro-esophageal reflux disease without esophagitis; I25.10 Atherosclerotic heart disease of native coronary artery without angina pectoris; I50.9 Heart failure, unspecified; B95.2 Enterococcus as the cause of diseases classified elsewhere; E11.51 Type 2 diabetes mellitus with diabetic peripheral angiopathy without gangrene; D63.8 Anemia in other chronic diseases classified elsewhere; E66.01 Morbid (severe) obesity due to excess calories; Z68.34 Body mass index [BMI] 34.0-34.9, adult; Z91.14 Patient's other noncompliance with medication regimen; Z79.4 Long term (current) use of insulin; Z95.1 Presence of aortocoronary bypass graft

== ENCOUNTER → 2017-05-19 | Outpatient (CLI) | payer SELFPAY | END | disposition home or self-care (01) | LOC: LAB.O 16:27 | PROVIDERS: ATTEND Nurse Practitioner Family | DX: E13.621 Other specified diabetes mellitus with foot ulcer (principal) ==

== ENCOUNTER → 2017-06-24 | Outpatient (CLI) | payer MEDICAID | LOC: YCFC.O 15:34 | PROVIDERS: ATTEND Nurse Practitioner Family | DX: D64.9 Anemia, unspecified (principal); E11.65 Type 2 diabetes mellitus with hyperglycemia ==

== ENCOUNTER → 2017-07-21 | Outpatient (CLI) | payer MEDICAID | END | disposition home or self-care (01) | LOC: GMAM 16:37 | PROVIDERS: ATTEND Family Medicine | DX: S91.301A Unspecified open wound, right foot, initial encounter (principal); R53.81 Other malaise ==

== ENCOUNTER 2017-09-02 16:41 | Emergency (ER) | payer SELFPAY ==
[2017-09-02 16:57] VITALS: TEMP 99.8; O2SAT 97
[2017-09-02] MEDS ORDERED: HYDROmorphone HCL INJ 2 MG/ML VIAL IM ONE (17:11)
--- NOTE | 2017-09-02 17:15 | ED.PDOC ---
History of Present Illness - General Chief Complaint: Trauma Stated Complaint: fall Time Seen by Provider: 09/02/17 17:11 Source: patient, family, EMS Exam Limitations: no limitations - History of Present Illness Initial Comments: PT IS 7 WKS S/P R BKA FROM [place]. BEEN IN HOSP AND REHAB 7 WKS. GOT STUMP SUTURES REMOVED YESTERDAY. WENT HOME FROM REHAB YESTERDAY. 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 LANDED ON STUMP. STUMP SKIN SPLIT OPEN. Occurred: just prior to arrival Severity: severe Pain Location: lower extremity Method of Injury: fall Improving Factors: nothing Worsening Factors: movement Loss of Consciousness: no loss of consciousness Associated Symptoms (Fall): denies symptoms Allergies/Adverse Reactions: Allergies Tramadol [From [facility]] Adverse Reaction (Intermediate, Verified 09/02/17 16:57) Home Medications: Ambulatory Orders Aspirin [Gnp Aspirin] 81 mg PO DAILY 11/20/16 Gemfibrozil 600 mg PO DAILY 11/20/16 Metoclopramide HCl 10 mg PO QID PRN 11/20/16 Atorvastatin Calcium [Lipitor] 40 mg PO BEDTIME 03/13/17 Insulin Detemir [Levemir Pen] 45 units SUBCU DAILY #1 pen 03/14/17 Insulin Aspart [Novolog Flexpen] 10 unit SC AC 04/18/17 Metoprolol Tartrate 50 mg PO BID 04/18/17 Amoxicillin & Pot Clavulanate [Augmentin Tab] 875 mg PO BID #20 tab 05/09/17 Bifidobacterium Infantis [Align] 4 mg PO BID 05/09/17 Carvedilol [Coreg] 25 mg PO BID #60 05/09/17 Furosemide Tab [Lasix Tab] 40 mg PO 1700 #30 05/09/17 Furosemide Tab [Lasix Tab] 80 mg PO DAILY #60 05/09/17 Insulin Detemir [Levemir Pen] 40 units SUBCU BEDTIME 05/09/17 Lisinopril 2.5 mg PO DAILY #30 tab 05/09/17 Potassium Chloride [K-Tab] 20 meq PO DAILY #30 tab 05/09/17 amLODIPine BESYLATE [Norvasc] 5 mg PO DAILY #30 05/09/17 Review of Systems - Review of Systems Constitutional: Denies: chills, diaphoresis EENTM: States: no symptoms reported Respiratory: States: no symptoms reported Cardiology: States: no symptoms reported Gastrointestinal/Abdominal: States: no symptoms reported Genitourinary: States: no symptoms reported Musculoskeletal: States: other - PAIN IN RLE STUMP. . Denies: back pain, neck pain Skin: States: lesions Neurological: States: no symptoms reported Endocrine: States: no symptoms reported All other Systems: Reviewed and Negative Past Medical History (General) - Patient Medical History Hx Seizures: No Hx Stroke: No Hx Dementia: No Hx Asthma: No Hx of COPD: No Hx Cardiac Disorders: Yes Hx Congestive Heart Failure: Yes Hx Pacemaker: No Hx Hypertension: Yes Hx Thyroid Disease: No Hx Diabetes: Yes Hx Gastroesophageal Reflux: No Hx Renal Disease: No Hx Cancer: No Hx of HIV: No Hx Hepatitis C: No Hx MRSA: No Surgical History: other - Vaccination History Hx Tetanus, Diphtheria Vaccination: No Hx Influenza Vaccination: Yes Hx Pneumococcal Vaccination: Yes - Social History Hx Tobacco Use: No Hx Chewing Tobacco Use: No Hx Alcohol Use: No Hx Substance Use: No Hx Substance Use Treatment: No Hx Depression: No Hx Physical Abuse: No Hx Emotional Abuse: No Hx Suspected Abuse: No - Female History Patient : No Family Medical History - Family History Father Family History: Unknown Living Status: Still Living Hx Family Diabetes: Yes Mother Family History: Unknown Living Status: Cause of : COPD Hx Family Hypertension: Yes Hx Family Diabetes: Yes Physical Exam - Physical Exam General Appearance: Alert, Obese Head Injury: no evidence of injury ENT Exam: hearing grossly normal, no evidence of ENT injury Neck Exam: full range of motion, normal inspection Cardiovascular/Respiratory: regular rate, rhythm, no M/R/G Gastrointestinal/Abdominal: normal bowel sounds, non tender Back Exam: normal inspection, no CVA tenderness Extremity Exam: other - RIGHT BKA STUMP IS OPEN/DEHISSED WITH EXPOSED BONE AND CONNECTIVE TISSUE, MEASURING 9 X 3 CM. CLEAN, ERYTHEMATOUS BASE. COAGULATED BLOOD. NO PURULENCE OR SURROUNDING ERYTHEMA. NO S/SX OF IFXN. Neurologic: alert, normal mood/affect Skin Exam: other - PER EXTREMITY EXAM. NO OTHER LESIONS. - [place] Coma Score [place] Total: 15 Progress - Results/Orders Results/Orders: I SPOKE WITH DR. DANIEL, PT'S ORTHO DR WHO PERFOREMD THE BKA, AND EXPLAINED THE SITUATION TO HIM. HE MADE THE GOOD POINT THAT SINCE IT IS ALREADY EXPOSED TO AIR, IT IS COLONIZED WITH BACTERIA AND SHOULD NOT BE CLOSED UNTIL SURGICALLY CLEANED OUT. PT UNABLE TO TOLERATE D/T PAIN SO DR DANIEL ASKED US TO IRRIGATE, INSTILL ANTIBIOTIC OINTMENT, BANDAGE, AND TO HAVE PT SEE HIM IN CLINIC TOMORROW WHERE HE WILL ARRANGE FOR O.R. SURGICAL REVISION AND CLOSURE UNDER GEN ANESTHESIA. I EXPLAINED THIS TO THE PT AND HE EXPRESSED UNDERSTANDING. Departure - Departure Clinical Impression: BKA stump complication, Pain of amputation stump of right lower extremity Disposition: Discharge to Home or Self Care Condition: Fair Departure Forms: ED Discharge - Pt. Copy, Patient Portal Self Enrollment Instructions: DI for Trauma Diet: resume usual diet Activity: no pushing/pulling with affected limb Referrals: Mariaelena Argueta NP [Primary Care Provider] - 1 Week Home Medications: Ambulatory Orders Aspirin [Gnp Aspirin] 81 mg PO DAILY 11/20/16 Gemfibrozil 600 mg PO DAILY 11/20/16 Metoclopramide HCl 10 mg PO QID PRN 11/20/16 Atorvastatin Calcium [Lipitor] 40 mg PO BEDTIME 03/13/17 Insulin Detemir [Levemir Pen] 45 units SUBCU DAILY #1 pen 03/14/17 Insulin Aspart [Novolog Flexpen] 10 unit SC AC 04/18/17 Metoprolol Tartrate 50 mg PO BID 04/18/17 Amoxicillin & Pot Clavulanate [Augmentin Tab] 875 mg PO BID #20 tab 05/09/17 Bifidobacterium Infantis [Align] 4 mg PO BID 05/09/17 Carvedilol [Coreg] 25 mg PO BID #60 05/09/17 Furosemide Tab [Lasix Tab] 40 mg PO 1700 #30 05/09/17 Furosemide Tab [Lasix Tab] 80 mg PO DAILY #60 05/09/17 Insulin Detemir [Levemir Pen] 40 units SUBCU BEDTIME 05/09/17 Lisinopril 2.5 mg PO DAILY #30 tab 05/09/17 Potassium Chloride [K-Tab] 20 meq PO DAILY #30 tab 05/09/17 amLODIPine BESYLATE [Norvasc] 5 mg PO DAILY #30 05/09/17 Additional Instructions: Please call Dr. Daniel's office in the morning to be seen and evaluated. Please avoid strenuous activity until seen by Dr. Daniel.
[2017-09-02] MEDS ORDERED: NEOMYCIN-BACITRACIN-POLYMYXIN 0.9 GM UD TOP ONE (17:49)
[2017-09-02 18:24] VITALS: BP 128/77
== END 2017-09-02 18:20 | disposition home or self-care (01) ==
LOC: ER 16:41
DX: T87.81 Dehiscence of amputation stump (principal); I11.0 Hypertensive heart disease with heart failure; I50.9 Heart failure, unspecified; E11.9 Type 2 diabetes mellitus without complications; Z79.4 Long term (current) use of insulin; Z79.899 Other long term (current) drug therapy; Z79.82 Long term (current) use of aspirin; Z88.6 Allergy status to analgesic agent

== ENCOUNTER → 2017-09-12 | Outpatient (CLI) | payer SELFPAY | END | disposition home or self-care (01) | LOC: GMA 18:42 | PROVIDERS: ATTEND Nurse Practitioner Family | DX: Z48.03 Encounter for change or removal of drains (principal) ==

== ENCOUNTER → 2017-09-12 | Outpatient (CLI) | payer SELFPAY | END | disposition home or self-care (01) | LOC: LAB.O 13:02 | PROVIDERS: ATTEND Internal Medicine | DX: N18.3 Chronic kidney disease, stage 3 (moderate) (principal); D50.9 Iron deficiency anemia, unspecified; E21.1 Secondary hyperparathyroidism, not elsewhere classified ==

== ENCOUNTER 2017-10-06 16:01 | Emergency (ER) | payer SELFPAY ==
[2017-10-06] MEDS ORDERED: SULFA/TRIMETH 800/160 (DS) TAB 1 EA TAB PO ONE (16:29)
--- NOTE | 2017-10-06 16:31 | ED.PDOC ---
History of Present Illness - General Time Seen by Provider: 10/06/17 16:03 Source: patient Exam Limitations: no limitations - History of Present Illness Initial Comments: the patient is a 51-year-old male presenting to the emergency room after having fallen on his right BKA site. The patient was getting out of bed when he tripped and fell going to the bathroom. He stretched open the central 2 inches of the BKA incision. The 5 stitches bridging it are still in place on the tissue has been stretched slightly leaving a small opening. It is largely hemostatic at this time. This occurred approximately 30 minutes prior to arrival. He is not currently on any antibiotics. After risks and benefits were explained the wound was irrigated with a liter of normal saline and cleaned with hydrogen peroxide. Antibiotic ointment and a sterile OpSite were placed an external gauze wrap was placed over that. He'll be placed on Bactrim twice daily for the next 7 days. He needs to keep follow-up with his general surgeon in 4 days. No evidence of infection at this time. Timing/Duration: momentarily Severity: moderate Improving Factors: nothing Worsening Factors: nothing Associated Symptoms: denies symptoms Allergies/Adverse Reactions: Allergies Tramadol [From [facility]] Adverse Reaction (Intermediate, Verified 09/02/17 16:57) Home Medications: Ambulatory Orders Aspirin [Gnp Aspirin] 81 mg PO DAILY 11/20/16 Gemfibrozil 600 mg PO DAILY 11/20/16 Metoclopramide HCl 10 mg PO QID PRN 11/20/16 Atorvastatin Calcium [Lipitor] 40 mg PO BEDTIME 03/13/17 Insulin Detemir [Levemir Pen] 45 units SUBCU DAILY #1 pen 03/14/17 Insulin Aspart [Novolog Flexpen] 10 unit SC AC 04/18/17 Metoprolol Tartrate 50 mg PO BID 04/18/17 Amoxicillin & Pot Clavulanate [Augmentin Tab] 875 mg PO BID #20 tab 05/09/17 Bifidobacterium Infantis [Align] 4 mg PO BID 05/09/17 Carvedilol [Coreg] 25 mg PO BID #60 05/09/17 Furosemide Tab [Lasix Tab] 40 mg PO 1700 #30 05/09/17 Furosemide Tab [Lasix Tab] 80 mg PO DAILY #60 05/09/17 Insulin Detemir [Levemir Pen] 40 units SUBCU BEDTIME 05/09/17 Lisinopril 2.5 mg PO DAILY #30 tab 05/09/17 Potassium Chloride [K-Tab] 20 meq PO DAILY #30 tab 05/09/17 amLODIPine BESYLATE [Norvasc] 5 mg PO DAILY #30 05/09/17 Sulfa/Trimeth 800/160 (Ds) Tab [Bactrim DS Tab] 1 ea PO BID #14 tab 10/06/17 Review of Systems - Review of Systems Constitutional: States: no symptoms reported EENTM: States: no symptoms reported Respiratory: States: no symptoms reported Cardiology: States: no symptoms reported Gastrointestinal/Abdominal: States: no symptoms reported Genitourinary: States: no symptoms reported Musculoskeletal: States: see HPI Skin: States: see HPI Neurological: States: no symptoms reported Endocrine: States: no symptoms reported Hematologic/Lymphatic: States: no symptoms reported All other Systems: No Change from Baseline Past Medical History (General) - Patient Medical History Hx Seizures: No Hx Stroke: No Hx Dementia: No Hx Asthma: No Hx of COPD: No Hx Cardiac Disorders: Yes Hx Congestive Heart Failure: Yes Hx Pacemaker: No Hx Hypertension: Yes Hx Thyroid Disease: No Hx Diabetes: Yes Hx Gastroesophageal Reflux: No Hx Renal Disease: No Hx Cancer: No Hx of HIV: No Hx Hepatitis C: No Hx MRSA: No - Vaccination History Hx Tetanus, Diphtheria Vaccination: No Hx Influenza Vaccination: Yes Hx Pneumococcal Vaccination: Yes - Social History Hx Tobacco Use: No Hx Chewing Tobacco Use: No Hx Alcohol Use: No Hx Substance Use: No Hx Substance Use Treatment: No Hx Depression: No Hx Physical Abuse: No Hx Emotional Abuse: No Hx Suspected Abuse: No - Female History Patient : No Family Medical History - Family History Father Family History: Unknown Living Status: Still Living Hx Family Diabetes: Yes Mother Family History: Unknown Living Status: Cause of : COPD Hx Family Hypertension: Yes Hx Family Diabetes: Yes Physical Exam - Physical Exam General Appearance: Alert, Comfortable, No apparent distress Eye Exam: bilateral normal Ears, Nose, Throat: normal ENT inspection, normal pharynx Neck: full range of motion Respiratory: no respiratory distress, no accessory muscle use Cardiovascular/Chest: normal peripheral pulses, no edema Peripheral Pulses: radial,right: 2+, radial,left: 2+, dorsalis pedis,left: 1+ Rectal Exam: deferred Extremity: normal range of motion, no pedal edema, normal capillary refill, other - ight BKA site as above. No evidence of acute infection. 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 The wound did open up centrally for a length of approximately 2 inches however fairly superficially. The 5 bridging sutures are still in place. The wound was irrigated with a liter of normal saline. The patient was given a first dose of Bactrim and will be placed on that twice daily for 7 days. He needs to keep follow-up with his general surgeon on . No evidence of obvious infection at this time. An operative site is placed and needs to be left in place for at least 24 hours. ER warnings were given for any worsening. He should expect some soreness in the area for the next week. Departure - Departure Clinical Impression: BKA stump complication Disposition: Discharge to Home or Self Care Condition: Fair Diet: diabetic diet Activity: increase activity as tolerated Referrals: Mariaelena Argueta NP [Primary Care Provider] - 1-2 Weeks Prescriptions: Sulfa/Trimeth 800/160 (Ds) Tab [Bactrim DS Tab] 1 ea PO BID #14 tab Home Medications: Ambulatory Orders Aspirin [Gnp Aspirin] 81 mg PO DAILY 11/20/16 Gemfibrozil 600 mg PO DAILY 11/20/16 Metoclopramide HCl 10 mg PO QID PRN 11/20/16 Atorvastatin Calcium [Lipitor] 40 mg PO BEDTIME 03/13/17 Insulin Detemir [Levemir Pen] 45 units SUBCU DAILY #1 pen 03/14/17 Insulin Aspart [Novolog Flexpen] 10 unit SC AC 04/18/17 Metoprolol Tartrate 50 mg PO BID 04/18/17 Amoxicillin & Pot Clavulanate [Augmentin Tab] 875 mg PO BID #20 tab 05/09/17 Bifidobacterium Infantis [Align] 4 mg PO BID 05/09/17 Carvedilol [Coreg] 25 mg PO BID #60 05/09/17 Furosemide Tab [Lasix Tab] 40 mg PO 1700 #30 05/09/17 Furosemide Tab [Lasix Tab] 80 mg PO DAILY #60 05/09/17 Insulin Detemir [Levemir Pen] 40 units SUBCU BEDTIME 05/09/17 Lisinopril 2.5 mg PO DAILY #30 tab 05/09/17 Potassium Chloride [K-Tab] 20 meq PO DAILY #30 tab 05/09/17 amLODIPine BESYLATE [Norvasc] 5 mg PO DAILY #30 05/09/17 Sulfa/Trimeth 800/160 (Ds) Tab [Bactrim DS Tab] 1 ea PO BID #14 tab 10/06/17 Additional Instructions: the patient's a 51-year-old male that has fallen on his right BKA operative site. The wound did open up centrally for a length of approximately 2 inches however fairly superficially. The 5 bridging sutures are still in place. The wound was irrigated with a liter of normal saline. The patient was given a first dose of Bactrim and will be placed on that twice daily for 7 days. He needs to keep follow-up with his general surgeon on . No evidence of obvious infection at this time. An operative site is placed and needs to be left in place for at least 24 hours. ER warnings were given for any worsening. He should expect some soreness in the area for the next week.
[2017-10-06 16:42] VITALS: BP 167/78; TEMP 97.6
[2017-10-06 17:30] VITALS: O2SAT 96
== END 2017-10-06 17:28 | disposition home or self-care (01) ==
LOC: ER 16:01
DX: T87.81 Dehiscence of amputation stump (principal); I11.0 Hypertensive heart disease with heart failure; I50.9 Heart failure, unspecified; E11.9 Type 2 diabetes mellitus without complications; Z79.4 Long term (current) use of insulin; Z79.899 Other long term (current) drug therapy; Z88.6 Allergy status to analgesic agent

== ENCOUNTER 2017-10-22 11:39 | Inpatient (IN) | payer SELFPAY ==
[2017-10-22] MEDS ORDERED: NITROGLYCERIN 0.4 MG 25 EA TAB SL ONE (12:01)
[2017-10-22] MEDS ORDERED: ASPIRIN (CHEWABLE) 81 MG TAB PO ONE (12:01)
--- NOTE | 2017-10-22 12:05 | ED.PDOC ---
History of Present Illness - General Chief Complaint: Chest Pain/AK Stated Complaint: shortness of breath Time Seen by Provider: 10/22/17 11:57 Source: patient, RN notes reviewed, Vital Signs reviewed, family - Exam Limitations: no limitations - History of Present Illness Initial Comments: Patient presents to ER with c/o chest tightness w/ SOB and diaphoresis that started ~ 30 minutes prior to arrival. Denies chest pain but is still having some tightness. He has a significant cardiac history with AK, CHF and quadruple bypass 09/15. Timing/Duration: 1/2 hour Severity: moderate Location: substernal Activities at Onset: none - was riding in car Prior Chest Pain/Cardiac Workup: cardiac cath, echocardiography, heart attack, other - CAD, CHF Improving Factors: nothing Worsening Factors: nothing Nitro Today/Relief: 0.4 mg x 1, provided by ED Aspirin Treatment Today: 81 mg x 1, provided at home - gave an additional 3 81mg tablets in ER Associated Symptoms: chest pain - tightness, diaphoresis, nausea/vomiting, shortness of breath Allergies/Adverse Reactions: Allergies Tramadol [From [facility]] Adverse Reaction (Intermediate, Verified 10/22/17 11:55) Home Medications: Ambulatory Orders Aspirin [Gnp Aspirin] 81 mg PO DAILY 11/20/16 Gemfibrozil 600 mg PO DAILY 11/20/16 Metoclopramide HCl 10 mg PO QID PRN 11/20/16 Atorvastatin Calcium [Lipitor] 40 mg PO BEDTIME 03/13/17 Insulin Detemir [Levemir Pen] 45 units SUBCU DAILY #1 pen 03/14/17 Insulin Aspart [Novolog Flexpen] 10 unit SC AC 04/18/17 Metoprolol Tartrate 50 mg PO BID 04/18/17 Amoxicillin & Pot Clavulanate [Augmentin Tab] 875 mg PO BID #20 tab 05/09/17 Bifidobacterium Infantis [Align] 4 mg PO BID 05/09/17 Carvedilol [Coreg] 25 mg PO BID #60 05/09/17 Furosemide Tab [Lasix Tab] 40 mg PO 1700 #30 05/09/17 Furosemide Tab [Lasix Tab] 80 mg PO DAILY #60 05/09/17 Insulin Detemir [Levemir Pen] 40 units SUBCU BEDTIME 05/09/17 Lisinopril 2.5 mg PO DAILY #30 tab 05/09/17 Potassium Chloride [K-Tab] 20 meq PO DAILY #30 tab 05/09/17 amLODIPine BESYLATE [Norvasc] 5 mg PO DAILY #30 05/09/17 Sulfa/Trimeth 800/160 (Ds) Tab [Bactrim DS Tab] 1 ea PO BID #14 tab 10/06/17 Review of Systems - Review of Systems Constitutional: States: diaphoresis. Denies: malaise EENTM: States: no symptoms reported Respiratory: States: see HPI, short of breath. Denies: cough Cardiology: States: see HPI, chest pain. Denies: palpitations, syncope Gastrointestinal/Abdominal: States: nausea Musculoskeletal: States: no symptoms reported Skin: States: no symptoms reported Neurological: States: no symptoms reported All other Systems: No Change from Baseline Past Medical History (General) - Patient Medical History Hx Seizures: No Hx Stroke: No Hx Dementia: No Hx Asthma: No Hx of COPD: No Hx Cardiac Disorders: Yes - Quad bypass Hx Congestive Heart Failure: Yes Hx Pacemaker: No Hx Hypertension: Yes Hx Thyroid Disease: No Hx Diabetes: Yes Hx Gastroesophageal Reflux: No Hx Renal Disease: No Hx Cancer: No Hx of HIV: No Hx Hepatitis C: No Hx MRSA: No Surgical History: other - Vaccination History Hx Tetanus, Diphtheria Vaccination: No Hx Influenza Vaccination: Yes Hx Pneumococcal Vaccination: Yes - Social History Hx Tobacco Use: No Hx Chewing Tobacco Use: No Hx Alcohol Use: No Hx Substance Use: No Hx Substance Use Treatment: No Hx Depression: No Hx Physical Abuse: No Hx Emotional Abuse: No Hx Suspected Abuse: No - Female History Patient : No Family Medical History - Family History Father Family History: Unknown Living Status: Still Living Hx Family Diabetes: Yes Mother Family History: Unknown Living Status: Cause of : COPD Hx Family Hypertension: Yes Hx Family Diabetes: Yes Physical Exam - Physical Exam General Appearance: Alert, Comfortable, No apparent distress, Well Developed, Well Groomed, Well Hydrated, Well Nourished Neck: full range of motion, supple, normal inspection Respiratory: lungs clear, normal breath sounds, no respiratory distress, no accessory muscle use Cardiovascular/Chest: regular rate, rhythm, no gallop, no murmur Gastrointestinal/Abdominal: normal bowel sounds, non tender, soft Extremity: normal range of motion, other - BKA on Right Neurologic: alert, normal mood/affect, oriented x 3 Skin Exam: normal color Comments: Vital Signs 10/22/17 11:45 Temperature 97.7 F Pulse Rate [ 75 pulse ox] Respiratory 20 Rate Blood Pressure 153/80 [Left Arm] O2 Sat by Pulse 97 Oximetry Progress - Progress Progress: 10/22/17 12:58 Discussed with Eren Pickard NP - will admit for CHF - Results/Orders Results/Orders: Laboratory Tests 10/22/17 10/22/17 10/22/17 12:12 12:12 12:12 WBC 9.0 RBC 3.56 L Hgb 10.0 L Hct 30.1 L MCV 84.6 MCH 28.0 MCHC 33.3 RDW 16.5 H Plt Count 301 MPV 7.7 Absolute Neuts (auto) 6.40 Absolute Lymphs (auto) 1.60 Absolute Monos (auto) 0.80 Absolute Eos (auto) 0.20 Absolute Basos (auto) 0.10 Neutrophils % 70.6 Lymphocytes % 17.9 L Monocytes % 8.5 Eosinophils % 2.4 Basophils % 0.6 D-Dimer, Quantitative 560 H* Sodium 134 L Potassium 4.2 Chloride 99 L Carbon Dioxide 26 Anion Gap 13.2 BUN 56 H Creatinine 2.52 H BUN/Creatinine Ratio 22.2 H Random Glucose 268 H Serum Osmolality 293.1 Calcium 9.0 Total Bilirubin 0.4 AST 18 ALT 12 Alkaline Phosphatase 105 Creatine Kinase 121 CK-MB (CK-2) 4.8 H* CK-MB (CK-2) % Not Reportable Troponin I 0.02 B-Natriuretic Peptide 1100.0 H* Serum Total Protein 7.6 Albumin 3.8 Globulin 3.8 H Albumin/Globulin Ratio 1.0 L - EKG/XRAY/CT EKG: Sinus, LVH, no ST T wave changes, Unchanged from - 11/20/16 Comments: 1st degree AV block Departure - Departure Clinical Impression: CHF (congestive heart failure) Qualifiers: Congestive heart failure type: unspecified congestive heart failure type Congestive heart failure chronicity: acute on chronic Qualified Code(s): I50.9 - Heart failure, unspecified Time of Disposition: 13:23 Disposition: Admit Patient Condition: Poor Home Medications: Ambulatory Orders Aspirin [Gnp Aspirin] 81 mg PO DAILY 11/20/16 Gemfibrozil 600 mg PO DAILY 11/20/16 Metoclopramide HCl 10 mg PO QID PRN 11/20/16 Atorvastatin Calcium [Lipitor] 40 mg PO BEDTIME 03/13/17 Insulin Detemir [Levemir Pen] 45 units SUBCU DAILY #1 pen 03/14/17 Insulin Aspart [Novolog Flexpen] 10 unit SC AC 04/18/17 Metoprolol Tartrate 50 mg PO BID 04/18/17 Amoxicillin & Pot Clavulanate [Augmentin Tab] 875 mg PO BID #20 tab 05/09/17 Bifidobacterium Infantis [Align] 4 mg PO BID 05/09/17 Carvedilol [Coreg] 25 mg PO BID #60 05/09/17 Furosemide Tab [Lasix Tab] 40 mg PO 1700 #30 05/09/17 Furosemide Tab [Lasix Tab] 80 mg PO DAILY #60 05/09/17 Insulin Detemir [Levemir Pen] 40 units SUBCU BEDTIME 05/09/17 Lisinopril 2.5 mg PO DAILY #30 tab 05/09/17 Potassium Chloride [K-Tab] 20 meq PO DAILY #30 tab 05/09/17 amLODIPine BESYLATE [Norvasc] 5 mg PO DAILY #30 05/09/17 Sulfa/Trimeth 800/160 (Ds) Tab [Bactrim DS Tab] 1 ea PO BID #14 tab 10/06/17 Decision To Admit - Decistion To Admit Decision to Admit Reason: Admit from ER Decision to Admit Date: 10/22/17 Decision to Admit Time: 12:58
--- NOTE | 2017-10-22 12:27 | RAD ---
EXAM DESCRIPTION: Chest,1 View CLINICAL HISTORY: SOB COMPARISON: May 06, 2017 FINDINGS: Again seen are postoperative changes in the mediastinum. The heart is enlarged but stable from the prior study. There is no airspace consolidation or pleural effusion. There is questionable mild central pulmonary vascular congestion. There is no pneumothorax or acute fracture. IMPRESSION: Postoperative changes in the mediastinum, stable cardiomegaly and possible mild central pulmonary vascular congestion. If symptoms persist or worsen, follow-up chest radiograph or chest CT is suggested. Electronically signed by: Phani Villa MD 10/22/2017 12:26 PM [facility]
--- NOTE | 2017-10-22 13:11 | HP ---
SUPERVISING PHYSICIAN: Jerry Parham M.D. CHIEF COMPLAINT: Shortness of breath and chest pain. HISTORY OF PRESENT ILLNESS: Mr. Warner is a 52 year-old male patient that presented to the Emergency Department today complaining of chest tightness with some shortness of breath, diaphoresis that started approximately 30 minutes prior to the arrival to the Emergency Room. He denied any actual chest pain but was noting that it was tight across his entire chest. He does have a significant cardiac history including a myocardial infarction, congestive heart failure and a quadruple bypass in August 2016. He is also diabetic and just recently had a [id number] amputation to the right leg for complications secondary to diabetic ulcer that was performed in the later part of July of 2017. He was going to [employer] today for wound management when he started having the chest discomfort on the way home. He is already on Lovenox at home. His laboratory studies show that his BNP was elevated at 1100 but troponin was within normal limits at 0.02. CK-MB was slightly elevated at 4.8 with CK of 121. He is mildly hyponatremic with sodium 134 with increased renal function with BUN 56, creatinine 2.52 with a known baseline creatinine of around 2.2. He just finished a round of antibiotics with Bactrim as well as noted per the patient. He was given 1 Nitroglycerin sublingual which did result in complete resolution of his symptoms. Radiographically, chest x-ray single view showed stable cardiomegaly with possible mild central pulmonary vascular congestion per radiology interpretation. His EKG showed first degree AV block with left ventricular hypertrophy with no ST or T wave changes as noted compared to EKG on 11/20/16. Given his recent history of surgery, a D- dimer was also completed with concerns for possible DVT or PE with D-dimer showing elevation at 560 prior to admission to the Emergency Department. This was followed-up by an ultrasound of the lower extremity on the left which showed no ultrasound evidence of a deep venous thrombosis. His renal function was elevated, therefore CT of the chest was not completed, however the patient was showing to be stable hemodynamically with no significant symptoms once given Nitro. Dr. German, E. R. physician, requested the patient be admitted to the hospital for close observation, cardiac telemetry and further treatment of the underlying congestive heart failure exacerbation and to further rule out any acute myocardial ischemic process. The patient was admitted to the Medical/ Surgical floor in stable condition. PAST MEDICAL HISTORY: 1. Diabetes mellitus type 2 with a longstanding history of not being compliant with medication regimen. 2. Chronic kidney disease stage IV. 3. Hypertension. 4. Gastroesophageal reflux disease. PAST SURGICAL HISTORY: 1. Left knee surgery. 2. [id number] amputation on the right extremity secondary to diabetic complications. 3. Coronary artery bypass graft in 2016. HOME MEDICATIONS: 1. Dulcolax 1 daily p.r.n. 2. Tylenol #3 as needed every 6 hours. 3. Tylenol extended release 650 every 6 hours as needed. 4. Aspirin 81 mg daily. 5. Coreg 3.125 mg twice daily. 6. Senokot S 2 tablets b.i.d. as needed. 7. Uloric 40 mg daily. 8. Lovenox 30 mg subcue daily. 9. Humalog sliding scale. 10. Levemir 10 units subcue at bedtime. 11. Reglan 10 mg a.c. and h.s. 12. Lasix 40 mg daily. 13. MiraLax 17 grams daily as needed. 14. Ambien 10 mg at bedtime. ALLERGIES: TRAMADOL. FAMILY HISTORY: Father had history of diabetes. Mother had a history of emphysema. SOCIAL HISTORY: The patient has previously used smokeless tobacco and he does not smoke cigarettes. He denies any illicit drugs or alcohol use. He is and lives in [place] and is currently unemployed secondary to medical issues. REVIEW OF SYSTEMS: Negative for any fever, fatigue or chills. HEENT: Denies any ear pain, decreased hearing, sore throat, nasal congestion. CARDIOVASCULAR: As noted in the History of Present Illness, chest tightness. No palpitations or syncopal episodes. RESPIRATORY: Denies any cough. Does have some mild dyspnea on exertion which is chronic. GASTROINTESTINAL: Negative for any constipation, diarrhea, nausea, vomiting or abdominal pain. MUSCULOSKELETAL: As note in History of Present Illness, recent [id number] amputation on the right secondary to diabetic complications. NEUROLOGIC: Denies headaches, weakness, history of seizures. PHYSICAL EXAMINATION: VITAL SIGNS: Temperature 98, pulse 74, blood pressure 137/77, respirations 12, satting 99% on room air. Admission weight is 92.9 kg which is down from previous admission in March that was 99.2 kg. GENERAL: The patient is well nourished and well hydrated. Appears to be in no acute distress. Comfortable, alert and oriented. HEENT: Tympanic membranes are clear bilaterally. Oropharynx is pink and moist without any lesions. NECK: Supple, non-tender with full range of motion. No jugular venous distention. CHEST: Breath sounds are just slightly diminished towards the bases with no appreciable wheezing, rhonchi or rales. CARDIOVASCULAR: Regular rate and rhythm without appreciable murmurs, gallops, or rubs. ABDOMEN: Obese but soft, non-tender. Positive bowel sounds. EXTREMITIES: No clubbing or cyanosis to the left lower extremity. There is a lrnqa-jfd-[id number] amputation on the right, recent with a stump bandage dressing in place. NEUROLOGIC: He is alert and oriented times three. LABORATORY: CBC on admission showed 9,000 white count with hemoglobin 10, hematocrit 30.1, platelet count 301,000. Differential is within normal limits. Coagulation study showed an elevated D-dimer of 560. Chemistries showed a mild hyponatremia of 134 with potassium 4.2, BUN 56, creatinine 2.52, glucose 268, calcium 9.0. AST, ALT and alkaline phosphatase were within normal limits. CPK was 121, CK-MB was 4.8, troponin 0.02. BNP was elevated at 1100. RADIOLOGY: Chest x-ray single view in the Emergency Department showed stable cardiomegaly with some possible mild central pulmonary congestion. He also had a lower extremity underlying on the left leg and per radiology interpretation there was no evidence of venous thrombus by ultrasound. 12-lead EKG showed a first degree AV block with left ventricular hypertrophy with no ST or T wave changes noted as compared to previous EKGs. Echocardiogram reviewed per medical records that was available at time of admission showed to be on July 2016 with an ejection fraction of 35 to 45% with a systolic dysfunction. Lower extremity Doppler in the Emergency Department of left lower extremity showed no evidence of DVT on ultrasound per radiology interpretation. ASSESSMENT: 1. Acute on chronic congestive heart failure with exacerbation with BNP on admission elevated along with a history of systolic dysfunction with last echocardiogram noted to be on July 2016 with an ejection fraction of 35 to 40%. 2. Chest pain noted to be chest tightness with initial cardiac enzymes showing to be within normal limits with the patient having an extensive history of coronary vascular disease with both previous myocardial infarction and coronary artery bypass graft in 2016. 3. Diabetes mellitus type 2 on insulin therapy. 4. Chronic kidney disease stage IV with baseline creatinine around 2.1 as noted on previous records. 5. Hypertension. 6. Gastroesophageal reflux disease. 7. Mild electrolyte imbalance with hyponatremia likely secondary to chronic loop diuretic usage. 8. Obesity with a body mass index of 30. 9. Elevated D-dimer with the patient having a recent history in the last 90 days of a [id number] amputation on the right leg with ongoing wound healing of the stump likely accounting for the elevated D-dimer with the patient showing no signs of DVT on exam with the patient having been on Lovenox injections since surgery. PLAN: The patient will be admitted to the hospital for continuation of evaluation and treatment with concerns for ongoing chest pains and exacerbation of congestive heart failure. Will give him a dose of Lasix IV tonight 40 mg and observe his I's and O's closely, and recheck his laboratory studies in the morning. Will repeat his cardiac enzymes every 6 hours times 2 as per protocol as well as EKG. He will be on cardiac telemetry continuous. Will continue with DVT prophylaxis as per protocol with Lovenox. Will continue his home medications, including the Lovenox. He will be on insulin sliding scale as per protocol. Will anticipate length of stay to be 2 to 3 days with possible discharge tomorrow afternoon or Friday depending on how the patient does clinically. Until discharge, will continue to monitor and treat appropriately. #[id number] [facility]
[2017-10-22] MEDS ORDERED: ACETAMINOPHEN 325 MG TAB PO PRN (14:10)
[2017-10-22] MEDS ORDERED: SODIUM CHLORIDE 0.9% (FLUSH) 10 ML SYG IV PRN (14:10)
[2017-10-22] MEDS ORDERED: DEXTROSE 50% 25 GM/50 ML SYG IV PRN (14:10)
[2017-10-22] MEDS ORDERED: MORPHINE SULFATE INJ 10 MG/ML VIAL IV PRN (14:10)
[2017-10-22] MEDS ORDERED: GLUCAGON INJ 1 MG VIAL SUBCU PRN (14:10)
[2017-10-22] MEDS ORDERED: NITROGLYCERIN 0.4 MG 25 EA TAB SL PRN (14:10)
[2017-10-22] MEDS ORDERED: ENOXAPARIN SODIUM 40 MG/0.4 ML SYG SUBCU SCH (14:30)
[2017-10-22] MEDS ORDERED: IV SET AND CAP CHANGE INJ INJ SCH (14:30)
[2017-10-22] MEDS: NITROGLYCERIN 0.4 MG/HR PATCH TOP SCH (14:37)
--- NOTE | 2017-10-22 15:31 | US ---
EXAM DESCRIPTION: Venous,Lower Extremity LT CLINICAL HISTORY: SOB w/ elevated D-Dimer left lower extremity edema COMPARISON: None. TECHNIQUE: 2D grayscale and color venous duplex Doppler evaluation of the lower extremity are obtained from groin to calf. FINDINGS: There is normal flow, augmentation to flow, and compressibility of the deep venous vasculature of the left lower extremity with no ultrasound evidence of deep venous thrombosis. IMPRESSION: No ultrasound evidence of deep venous thrombosis . Electronically signed by: Agustín Pelletier MD 10/22/2017 3:30 PM CHIEF LOCK TENDER OPERATOR
[2017-10-22] MEDS: INSULIN LISPRO 100 UNITS/ML PEN SUBCU SCH ×2 (16:30→21:05)
[2017-10-22] MEDS ORDERED: FUROSEMIDE INJ 40 MG/4 ML VIAL IV ONE (17:09)
[2017-10-22] MEDS ORDERED: ZOLPIDEM TARTRATE 10 MG TAB PO PRN (18:47)
--- NOTE | 2017-10-22 18:53 | PCM.CORE ---
Physician DVT/VTE - Prophylaxis Currently: Patient already on anticoagulation therapy - lovenox - Nurse DVT Assessment & Total Each Risk Factor Represents 3 Points: Medical PT with Hx of PR, CHF, Severe infection/sepsis Each Risk Factor Represents 1 Point: Age 41-60 Each Risk Factor is 1 Point: Obesity (BMI >25) DVT Assessment Score: 5 - 5 or more Very High Risk Treatments: Early Ambulation *, Sequential Compression Device Pharmacological: Enoxaparin 40mg SQ Daily
[2017-10-22] MEDS: CARVEDILOL 3.125 MG TAB PO SCH (20:35)
[2017-10-22] MEDS: METOCLOPRAMIDE HCL 5 MG TAB PO SCH (20:35)
[2017-10-22] MEDS: SODIUM CHLORIDE 0.9% (FLUSH) 10 ML SYG IV SCH (20:35)
[2017-10-22] MEDS ORDERED: INSULIN DETEMIR 100 UNITS/ML PEN SUBCU SCH (21:00)
[2017-10-22] MEDS ORDERED: SIMVASTATIN 20 MG TAB PO SCH (21:00)
[2017-10-23] MEDS ORDERED: REMOVE OLD PATCH TOP ONE (02:30)
[2017-10-23 05:57] VITALS: O2SAT 98
[2017-10-23] MEDS: METOCLOPRAMIDE HCL 5 MG TAB PO SCH (06:44)
--- NOTE | 2017-10-23 07:05 | RAD ---
EXAM: Single view chest. INDICATION: CHF. COMPARISON: Chest x-ray: 10/22/2017. FINDINGS: Cardiac silhouette: Mildly enlarged Nan: Unremarkable. Lobar consolidation: None. Pleural effusion: None. Pneumothorax: None. Other: None. Bones: Unremarkable. Other: None. IMPRESSION: 1. No acute cardiopulmonary process. Electronically signed by: Cedrick Saldaña MD 10/23/2017 7:03 AM [facility] Workstation: [id number]
[2017-10-23] MEDS: INSULIN LISPRO 100 UNITS/ML PEN SUBCU SCH (07:17)
[2017-10-23] MEDS: SODIUM CHLORIDE 0.9% (FLUSH) 10 ML SYG IV SCH (08:12)
[2017-10-23] MEDS: CARVEDILOL 3.125 MG TAB PO SCH (08:12)
[2017-10-23] MEDS: NITROGLYCERIN 0.4 MG/HR PATCH TOP SCH (08:12)
[2017-10-23] MEDS ORDERED: NON-FORMULARY MEDICATION 1 EA MIS (Febuxostat [Uloric] 40 MG) PO SCH (09:00)
[2017-10-23] MEDS ORDERED: ENOXAPARIN SODIUM 30 MG/0.3 ML SYG SUBCU SCH (09:00)
[2017-10-23] MEDS ORDERED: ASPIRIN (CHEWABLE) 81 MG TAB PO SCH (09:00)
[2017-10-23] MEDS ORDERED: ASPIRIN TABLET 325 MG TAB PO SCH (09:00)
[2017-10-23] MEDS ORDERED: FUROSEMIDE 40 MG TAB PO SCH (09:00)
[2017-10-23 10:09] VITALS: BP 119/66; TEMP 98.5
[2017-10-23] MEDS ORDERED: REMOVE OLD PATCH TOP SCH (21:00)
--- NOTE | 2017-10-27 11:53 | DS ---
SUPERVISING PHYSICIAN: Jerry Parham MD DISCHARGE DIAGNOSIS: 1. Acute on chronic congestive heart failure with exacerbation with BNP on admission elevated along with a history of systolic dysfunction with last echocardiogram noted to be July 2016 with an ejection fraction of 35% to 40%, showing good response with fluid restrictions and loop diuretics. 2. Chest pain, described as chest tightness with initial cardiac enzymes within normal limits with the patient having an extensive history of coronary artery disease with previous myocardial infarction and coronary artery bypass graft in 2016 with the patient showing no acute ischemic event with all cardiac enzymes remaining within normal limits and EKG showing no acute changes. 3. Diabetes mellitus, type 2, on insulin therapy. 4. Chronic kidney disease, stage IV, with baseline creatinine around 2.1. 5. Hypertension. 6. Gastroesophageal reflux disease. 7. Mild electrolyte imbalance with hyponatremia, secondary to chronic loop diuretic usage, improved with IV fluids. 8. Obesity with a body mass index of 30. 9. Recent history of right [id number]-ifb-epjg amputation. 10. Elevated D-dimer with the patient having a recent history in the last 90 days of a right ghvck-sht-bvyo amputation with ongoing wound healing of the stump accounting for the elevated D-dimer with the patient showing no signs of deep venous thrombosis on exam and with the patient being on Lovenox injections since surgery. REASON FOR HOSPITALIZATION: Mr. Warner is a 52 year-old male patient that presented to the Emergency Department complaining of chest tightness with some shortness of breath and diaphoresis that started approximately 30 minutes prior to the arrival to the Emergency Room. He denied any actual chest pain, but was noting that it was tight across his entire chest. He does have a significant cardiac history including a myocardial infarction, congestive heart failure and a quadruple bypass in August 2016. 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 He was going to [facility] today for wound management when he started having the chest discomfort on the way home and decided to present to the Emergency Department. He has been on Lovenox at home since his surgery. His laboratory studies initially showed that his BNP was elevated at 1100, but troponin was within normal limits at 0.02. CK-MB was slightly elevated at 4.8 with CK of 121. He was mildly hyponatremic with sodium 134 with increased renal function with BUN 56, creatinine 2.52 with a known baseline creatinine of around 2.2. He just finished a round of antibiotics with Bactrim as well as noted per the patient. He was given 1 Nitroglycerin sublingual which did result in complete resolution of his symptoms. Radiographically, initial chest x-ray single view showed stable cardiomegaly with possible mild central pulmonary vascular congestion per radiology interpretation. His EKG showed first degree AV block with left ventricular hypertrophy with no ST or T wave changes as noted compared to EKG on 11/20/16. Given his recent history of surgery, a D-dimer was also completed, which did show elevation, but he had had recent surgery. He was unable to have CT of his chest secondary to his poor renal function and he had been on Lovenox since surgery. He did have a followup ultrasound of the lower extremity on the left in the Emergency Department, which showed no ultrasound evidence of a deep venous thrombosis. H was stable hemodynamically with no significant symptoms once given Nitro. Dr. German, Emergency Room physician, requested the patient be placed in overnight observation for telemetry and further treatment of the underlying congestive heart failure exacerbation and to further rule out any acute myocardial ischemic process. The patient was admitted to the Medical/Surgical floor in stable condition. LABORATORY: Electrolytes on admission showed sodium 134, BUN 56, creatinine 2.52. At discharge, electrolytes at normalized. Sodium 137, BUN 59, creatinine 2.55. Glucoses were elevated between 171 and 268. Calcium was normal at 8.9. Liver functions were within normal limits. Initial troponins were all within normal limits and at discharge was 0.02. CK-MB was slightly elevated at 4.8, then 4.7 and at discharge had normalized to 3.5. Lipid panel showed triglycerides 336, cholesterol normal at 182 as well as LDL and HDL. RADIOLOGY: Chest x-ray in the Emergency Department prior to admission per radiologic interpretation showed postoperative changes of the mediastinum, stable cardiomegaly and possible mild central pulmonary vascular congestion. He also had a lower extremity ultrasound of the left leg and per radiologic interpretation showed no evidence of DVT. HOSPITAL COURSE: Mr. Warner was admitted from the Emergency Room for ongoing chest pains prior to admission to the Emergency Room and exacerbation of congestive heart failure as noted in history of present illness. On admission to the Medical/Surgical Floor, the patient was without any chest pain. He had no recurrence of chest pains. His cardiac telemetry showed no abnormal rhythms. His cardiac enzymes had remained within normal limits. He was given some Lasix IV which did show good response and it was felt he was clinically stable on the morning of discharge. Therefore, he was discharged home to have close clinical followup. PLAN: Mr. Warner was discharged on 10/23/17 with instructions to have close clinical followup with his primary care provider as scheduled with Mariaelena Argueta in 1 to 2 weeks as well as have cardiac followup. He was to return to the hospital should he have any concerning symptoms. No new prescriptions were provided at discharge. He was to resume all his previous medications. ACTIVITY: Per physical therapy. DIET: Diabetic diet as tolerated. CONDITION AT DISCHARGE: Stable and improved. #[id number] [facility]
== END 2017-10-23 10:48 | disposition home or self-care (01) | DRG 291 ==
LOC: ER 11:39 → MS 13:11
PROVIDERS: ADMIT Nurse Practitioner Family; ATTEND Nurse Practitioner Family
DX: I13.0 Hypertensive heart and chronic kidney disease with heart failure and stage 1 through stage 4 chronic kidney disease, or unspecified chronic kidney disease (principal); I50.23 Acute on chronic systolic (congestive) heart failure; N18.4 Chronic kidney disease, stage 4 (severe); E87.1 Hypo-osmolality and hyponatremia; E11.22 Type 2 diabetes mellitus with diabetic chronic kidney disease; K21.9 Gastro-esophageal reflux disease without esophagitis; R79.1 Abnormal coagulation profile; I44.0 Atrioventricular block, first degree; E66.9 Obesity, unspecified; F17.220 Nicotine dependence, chewing tobacco, uncomplicated; Z95.1 Presence of aortocoronary bypass graft; I25.2 Old myocardial infarction; Z68.30 Body mass index [BMI] 30.0-30.9, adult; Z89.511 Acquired absence of right leg below knee; Z79.82 Long term (current) use of aspirin; Z79.899 Other long term (current) drug therapy; Z79.4 Long term (current) use of insulin; Z91.14 Patient's other noncompliance with medication regimen; Z88.8 Allergy status to other drugs, medicaments and biological substances; I25.10 Atherosclerotic heart disease of native coronary artery without angina pectoris

== ENCOUNTER → 2017-10-30 | Outpatient (CLI) | payer SELFPAY | LOC: LAB.O 16:11 | PROVIDERS: ATTEND Internal Medicine | DX: N18.3 Chronic kidney disease, stage 3 (moderate) (principal); D50.9 Iron deficiency anemia, unspecified; R60.9 Edema, unspecified ==

== ENCOUNTER → 2017-12-18 | Outpatient (CLI) | payer SELFPAY | END | disposition home or self-care (01) | LOC: LAB.O 12:25 | PROVIDERS: ATTEND Internal Medicine | DX: N18.3 Chronic kidney disease, stage 3 (moderate) (principal); D80.9 Immunodeficiency with predominantly antibody defects, unspecified; E21.1 Secondary hyperparathyroidism, not elsewhere classified ==

== ENCOUNTER → 2018-04-16 | Outpatient (CLI) | payer MEDICARE | LOC: GMAM 16:25 | PROVIDERS: ATTEND Family Medicine | DX: M10.9 Gout, unspecified (principal); Z12.5 Encounter for screening for malignant neoplasm of prostate | CPT/HCPCS: 84550; G0103 ==

== ENCOUNTER 2018-08-02 14:56 | Emergency (ER) | payer OTHER ==
[2018-08-02 15:17] VITALS: TEMP 99.3
[2018-08-02] MEDS ORDERED: SUCRALFATE 1 GM/10 ML 1 GM UD PO ONE (15:49)
[2018-08-02] MEDS ORDERED: SODIUM CHLORIDE 0.9% 1000ML 1,000 ML IVS ONE ×2 (16:45→16:49)
--- NOTE | 2018-08-02 16:51 | ED.PDOC ---
History of Present Illness - General Chief Complaint: General Stated Complaint: leg cramp Time Seen by Provider: 08/02/18 15:48 Source: patient Exam Limitations: no limitations - History of Present Illness Initial Comments: the patient is a 52-year-old male presenting to emergency room secondary to cramping in his left lower extremity. He is having cramping in the dorsiflexor muscles in his left carmen. This has been getting worse over the last 1-2 months. Additionally he has been having some increasing reflux symptoms over the last month or so. No fevers. No chest pain. No shortness of breath. No recent falls. He reports fair control with his blood sugar. Timing/Duration: unsure Severity: moderate Improving Factors: nothing Worsening Factors: nothing Associated Symptoms: denies symptoms Allergies/Adverse Reactions: Allergies Tramadol [From [facility]] Adverse Reaction (Intermediate, Verified 08/02/18 15:18) Home Medications: Ambulatory Orders Acetaminophen W/ Codeine [Acetaminophen/Codeine #3 300-30 mg] 1 tab PO Q6HRS PRN 10/22/17 Acetaminophen [Acetaminophen ER] 650 mg PO Q6HR PRN 10/22/17 Aspirin [Aspirin Childrens] 81 mg PO DAILY 10/22/17 Bisacodyl Suppository 10Mg [Dulcolax Suppository 10mg] 1 ea ME DAILY PRN Carvedilol [Coreg] 3.125 mg PO BID 10/22/17 Enoxaparin Sodium [Lovenox] 30 mg SUBCU DAILY 10/22/17 Febuxostat [Uloric] 40 mg PO DAILY 10/22/17 Furosemide 40 mg PO DAILY 10/22/17 Insulin Detemir [Levemir Pen] 10 unit SUBCU BEDTIME 10/22/17 Insulin Lispro [Humalog] 0 unit SUBCU ACHS 10/22/17 Metoclopramide Tab [Reglan Tab] 10 mg PO ACHS 10/22/17 Polyethylene Glycol 3350 [Miralax] 17 gm PO DAILY PRN 10/22/17 Senna/Docusate Tab [Senokot-S] 2 ea PO BID PRN 10/22/17 Simethicone 80 mg PO TID PRN 10/22/17 Simvastatin 20 mg PO BEDTIME 10/22/17 Sulfamethoxazole-Trimethoprim [Bactrim Ds 800-160 mg] 1 tablet PO DAILY Zolpidem Tartrate [Ambien] 10 mg PO BEDTIME PRN 10/22/17 Famotidine 20 mg PO DAILY #30 tab 08/02/18 Review of Systems - Review of Systems Constitutional: States: malaise EENTM: States: no symptoms reported Respiratory: States: no symptoms reported Cardiology: States: no symptoms reported Gastrointestinal/Abdominal: States: no symptoms reported Genitourinary: States: no symptoms reported Musculoskeletal: States: see HPI Skin: States: no symptoms reported Neurological: States: no symptoms reported Endocrine: States: no symptoms reported All other Systems: No Change from Baseline Past Medical History (General) - Patient Medical History Hx Seizures: No Hx Stroke: No Hx Dementia: No Hx Asthma: No Hx of COPD: No Hx Cardiac Disorders: Yes Hx Congestive Heart Failure: Yes Hx Pacemaker: No Hx Hypertension: Yes Hx Thyroid Disease: No Hx Diabetes: Yes Hx Gastroesophageal Reflux: No Hx Renal Disease: No Hx Cancer: No Hx of HIV: No Hx Hepatitis C: No Hx MRSA: No Surgical History: other - Vaccination History Hx Tetanus, Diphtheria Vaccination: No Hx Influenza Vaccination: Yes Hx Pneumococcal Vaccination: Yes - Social History Hx Tobacco Use: No Hx Chewing Tobacco Use: No Hx Alcohol Use: No Hx Substance Use: No Hx Substance Use Treatment: No Hx Depression: No Hx Physical Abuse: No Hx Emotional Abuse: No Hx Suspected Abuse: No - Female History Patient : No Family Medical History - Family History Father Family History: Unknown Living Status: Still Living Hx Family Diabetes: Yes Mother Family History: Unknown Living Status: Cause of : COPD Hx Family Hypertension: Yes Hx Family Diabetes: Yes Physical Exam - Physical Exam General Appearance: Alert, Comfortable, No apparent distress Eye Exam: bilateral normal Ears, Nose, Throat: hearing grossly normal, normal ENT inspection, normal pharynx Neck: full range of motion, supple Respiratory: lungs clear, normal breath sounds, no respiratory distress, no accessory muscle use Cardiovascular/Chest: normal peripheral pulses, no edema, other - regular rate Peripheral Pulses: radial,right: 2+, radial,left: 2+ Gastrointestinal/Abdominal: non tender, soft Rectal Exam: deferred Back Exam: no vertebral tenderness Extremity: normal range of motion, no pedal edema, normal capillary refill, other - right lower exttremity amputation that is chronic. Chest palpationn over the left lower extremities dorsiflexion muscles. Neurologic: senior information developer II-XII nml as tested, alert, normal mood/affect, oriented x 3 Skin Exam: pallor - mild Comments: Vital Signs - 8 hr 08/02/18 15:05 Temperature 99.3 F Pulse Rate [ 90 pulse ox] Respiratory 20 Rate Blood Pressure 132/67 [Left Arm] O2 Sat by Pulse 97 Oximetry Progress - Progress Progress: 08/02/18 16:54 the patient is a 52-year-old male presenting to the emergency room secondary to pain in the dorsiflexor muscles of his left lower extremity with increasing spasms over the last 2 months. Laboratory work shows that the patient is in acute renal failure and has poorly controlled diabetes. He does need to maintain tighter control of his blood sugars. for the acute renal failure he is being given a liter of IV fluids here. He is also receiving a dose of insulin here additionally. He needs to decrease his Lasix to 40 mg daily from 40 mg twice daily. He needs to have laboratory work repeated again with his primary care doctor in 1 week. BUN is 85 and creatinine is 3.8 here today. These are significantly worse than his baseline. If he fails to improve with a reduction in his diuretics then additional medication changes may be warranted. ER warnings were given for a significant worsening. - Results/Orders Results/Orders: Laboratory Tests 08/02/18 08/02/18 15:55 15:55 WBC 6.2 RBC 3.18 L Hgb 9.2 L Hct 27.3 L MCV 85.8 MCH 28.9 MCHC 33.7 RDW 14.6 H Plt Count 210 MPV 8.2 Absolute Neuts (auto) 4.00 Absolute Lymphs (auto) 1.50 Absolute Monos (auto) 0.60 Absolute Eos (auto) 0.10 Absolute Basos (auto) 0.00 Neutrophils % 64.6 Lymphocytes % 24.3 Monocytes % 9.2 H Eosinophils % 1.5 Basophils % 0.4 Sodium 132 L Potassium 4.8 Chloride 98 L Carbon Dioxide 22 Anion Gap 16.8 BUN 83 H Creatinine 3.65 H BUN/Creatinine Ratio 22.7 H Random Glucose 395 H Serum Osmolality 306.1 H Calcium 9.0 Magnesium 2.0 Total Bilirubin < 0.2 L AST 18 ALT 13 Alkaline Phosphatase 113 Serum Total Protein 6.7 Albumin 3.4 Globulin 3.3 Albumin/Globulin Ratio 1.0 L Departure - Departure Clinical Impression: Moderate dehydration Acute renal failure Qualifiers: Acute renal failure type: unspecified Qualified Code(s): N17.9 - Acute kidney failure, unspecified Gastroesophageal reflux disease Qualifiers: Esophagitis presence: without esophagitis Qualified Code(s): K21.9 - Gastro- esophageal reflux disease without esophagitis Uncontrolled diabetes mellitus Qualifiers: Diabetes mellitus type: type 1 Glycemic state: with hyperglycemia Qualified Code(s): E10.65 - Type 1 diabetes mellitus with hyperglycemia Disposition: Discharge to Home or Self Care Condition: Fair Departure Forms: ED Discharge - Pt. Copy, Patient Portal Self Enrollment Instructions: Kidney Failure (DC), Type 1 Diabetes, Acid Reflux ( Gastroesophageal Reflux Disease), Adult (DC) Diet: diabetic diet Activity: increase activity as tolerated Referrals: Jerry Parham MD [Primary Care Provider] - 1-5 Days Prescriptions: Famotidine 20 mg PO DAILY #30 tab Home Medications: Ambulatory Orders Acetaminophen W/ Codeine [Acetaminophen/Codeine #3 300-30 mg] 1 tab PO Q6HRS PRN 10/22/17 Acetaminophen [Acetaminophen ER] 650 mg PO Q6HR PRN 10/22/17 Aspirin [Aspirin Childrens] 81 mg PO DAILY 10/22/17 Bisacodyl Suppository 10Mg [Dulcolax Suppository 10mg] 1 ea ME DAILY PRN Carvedilol [Coreg] 3.125 mg PO BID 10/22/17 Enoxaparin Sodium [Lovenox] 30 mg SUBCU DAILY 10/22/17 Febuxostat [Uloric] 40 mg PO DAILY 10/22/17 Furosemide 40 mg PO DAILY 10/22/17 Insulin Detemir [Levemir Pen] 10 unit SUBCU BEDTIME 10/22/17 Insulin Lispro [Humalog] 0 unit SUBCU ACHS 10/22/17 Metoclopramide Tab [Reglan Tab] 10 mg PO ACHS 10/22/17 Polyethylene Glycol 3350 [Miralax] 17 gm PO DAILY PRN 10/22/17 Senna/Docusate Tab [Senokot-S] 2 ea PO BID PRN 10/22/17 Simethicone 80 mg PO TID PRN 10/22/17 Simvastatin 20 mg PO BEDTIME 10/22/17 Sulfamethoxazole-Trimethoprim [Bactrim Ds 800-160 mg] 1 tablet PO DAILY Zolpidem Tartrate [Ambien] 10 mg PO BEDTIME PRN 10/22/17 Famotidine 20 mg PO DAILY #30 tab 08/02/18 Additional Instructions: the patient is a 52-year-old male presenting to the emergency room secondary to pain in the dorsiflexor muscles of his left lower extremity with increasing spasms over the last 2 months. Laboratory work shows that the patient is in acute renal failure and has poorly controlled diabetes. He does need to maintain tighter control of his blood sugars. for the acute renal failure he is being given a liter of IV fluids here. He is also receiving a dose of insulin here additionally. He needs to decrease his Lasix to 40 mg daily from 40 mg twice daily. He needs to have laboratory work repeated again with his primary care doctor in 1 week. BUN is 85 and creatinine is 3.8 here today. These are significantly worse than his baseline. If he fails to improve with a reduction in his diuretics then additional medication changes may be warranted. ER warnings were given for a significant worsening.
[2018-08-02] MEDS ORDERED: INSULIN LISPRO 100 UNITS/ML PEN SUBCU ONE (16:57)
[2018-08-02 19:28] VITALS: BP 143/66; O2SAT 98
== END 2018-08-02 19:25 | disposition home or self-care (01) ==
LOC: ER 14:56
DX: E86.0 Dehydration (principal); N17.9 Acute kidney failure, unspecified; K21.9 Gastro-esophageal reflux disease without esophagitis; E10.65 Type 1 diabetes mellitus with hyperglycemia; I11.0 Hypertensive heart disease with heart failure; I50.9 Heart failure, unspecified; Z79.4 Long term (current) use of insulin; Z79.899 Other long term (current) drug therapy; Z79.82 Long term (current) use of aspirin; Z88.8 Allergy status to other drugs, medicaments and biological substances
CPT/HCPCS: 36415; 80053; 82948; 83735; 85025; J1815; J7030

== ENCOUNTER 2018-08-19 19:17 | Emergency (ER) | payer OTHER ==
--- NOTE | 2018-08-19 19:32 | ED.PDOC ---
History of Present Illness - General Chief Complaint: Lower Extremity Injury Stated Complaint: left foot red and blackend toes Time Seen by Provider: 08/19/18 19:17 Source: patient, RN notes reviewed, Vital Signs reviewed, family, old records - history amputation on right leg, DM, NSTEMI, DKA - History of Present Illness Occurred: this morning Pain - Lower Extremity: severe: Right Leg, Right Foot Method of Injury: unknown Improving Factors: nothing Worsening Factors: nothing Allergies/Adverse Reactions: Allergies Tramadol [From [facility]] Adverse Reaction (Intermediate, Verified 08/02/18 15:18) Home Medications: Ambulatory Orders Acetaminophen W/ Codeine [Acetaminophen/Codeine #3 300-30 mg] 1 tab PO Q6HRS PRN 10/22/17 Acetaminophen [Acetaminophen ER] 650 mg PO Q6HR PRN 10/22/17 Aspirin [Aspirin Childrens] 81 mg PO DAILY 10/22/17 Bisacodyl Suppository 10Mg [Dulcolax Suppository 10mg] 1 ea [place] DAILY PRN Carvedilol [Coreg] 3.125 mg PO BID 10/22/17 Enoxaparin Sodium [Lovenox] 30 mg SUBCU DAILY 10/22/17 Febuxostat [Uloric] 40 mg PO DAILY 10/22/17 Furosemide 40 mg PO DAILY 10/22/17 Insulin Detemir [Levemir Pen] 10 unit SUBCU BEDTIME 10/22/17 Insulin Lispro [Humalog] 0 unit SUBCU ACHS 10/22/17 Metoclopramide Tab [Reglan Tab] 10 mg PO ACHS 10/22/17 Polyethylene Glycol 3350 [Miralax] 17 gm PO DAILY PRN 10/22/17 Senna/Docusate Tab [Senokot-S] 2 ea PO BID PRN 10/22/17 Simethicone 80 mg PO TID PRN 10/22/17 Simvastatin 20 mg PO BEDTIME 10/22/17 Sulfamethoxazole-Trimethoprim [Bactrim Ds 800-160 mg] 1 tablet PO DAILY Zolpidem Tartrate [Ambien] 10 mg PO BEDTIME PRN 10/22/17 Famotidine 20 mg PO DAILY #30 tab 08/02/18 Review of Systems - Review of Systems Constitutional: States: no symptoms reported EENTM: States: no symptoms reported Respiratory: States: no symptoms reported Cardiology: States: no symptoms reported Gastrointestinal/Abdominal: States: no symptoms reported Genitourinary: States: no symptoms reported Musculoskeletal: States: muscle pain Skin: States: change in color Neurological: States: no symptoms reported Endocrine: States: no symptoms reported Hematologic/Lymphatic: States: no symptoms reported Past Medical History (General) - Patient Medical History Hx Seizures: No Hx Stroke: No Hx Dementia: No Hx Asthma: No Hx of COPD: No Hx Cardiac Disorders: Yes Hx Congestive Heart Failure: Yes Hx Pacemaker: No Hx Hypertension: Yes Hx Thyroid Disease: No Hx Diabetes: Yes Hx Gastroesophageal Reflux: No Hx Renal Disease: No Hx Cancer: No Hx of HIV: No Hx Hepatitis C: No Hx MRSA: No - Vaccination History Hx Tetanus, Diphtheria Vaccination: No Hx Influenza Vaccination: Yes Hx Pneumococcal Vaccination: Yes - Social History Hx Tobacco Use: No Hx Chewing Tobacco Use: No Hx Alcohol Use: No Hx Substance Use: No Hx Substance Use Treatment: No Hx Depression: No Hx Physical Abuse: No Hx Emotional Abuse: No Hx Suspected Abuse: No - Female History Patient : No Family Medical History - Family History Father Family History: Unknown Living Status: Still Living Hx Family Diabetes: Yes Mother Family History: Unknown Living Status: Cause of : COPD Hx Family Hypertension: Yes Hx Family Diabetes: Yes Physical Exam - Physical Exam General Appearance: Alert, Frail, Ill Appearing Eyes, Ears, Nose, Throat: PERRL/EOMI, normal ENT inspection, TMs normal, pharynx normal Neck: non-tender, full range of motion, supple Cardiovascular/Respiratory: regular rate, rhythm, no M/R/G, normal peripheral pulses, no JVD, normal breath sounds Gastrointestinal/Abdominal: non-tender Back: normal inspection, no CVA tenderness, no vertebral tenderness Thigh/Hip: normal inspection, non-tender, no evidence of injury, normal ROM Leg: no evidence of injury, normal ROM, swelling, other - cellulitis Knee: normal inspection, non-tender, no evidence of injury, normal ROM Ankle: swelling Foot: infection - gangrene left 3 and 4 toes, soft tissue tenderness, swelling Neuro/Tendon: normal sensation, normal motor functions, normal tendon functions , responds to pain Skin: other - cellulitis Progress - Progress Progress: 08/19/18 19:34 No ortho cover at today through . Discussed with patient and will transfer given need for ortho. 08/19/18 20:11 08/19/18 19:27 Piperacillin/Tazobactam [Zosyn] 3.375 gm Sodium Chloride 0.9% 100Ml [NS (NACL 0.9%) 100ml] 100 ml IVPB ONCE 08/19/18 19:28 Vancomycin HCl Inj 1,000 mg Sodium Chloride 0.9% 250Ml [NS 250ml] 250 ml IVPB ONCE URINALYSIS Stat 08/19/18 19:29 Sodium Chloride 0.9% 1000ML [Ns 1000 ml] 1,000 ml IVS ONCE 08/19/18 19:55 COMPLETE METABOLIC PROFILE Stat BLOOD CULTURE Stat Laboratory Results WBC 11.1 K/mm3 (4.8-10.8) H 08/19/18 19:55 RBC 3.19 M/mm3 (4.70-6.10) L 08/19/18 19:55 Hgb 8.6 gm/dL (14.0-18.0) L 08/19/18 19:55 Hct 27.0 % (42.0-52.0) L 08/19/18 19:55 MCV 84.7 fl (80.0-94.0) 08/19/18 19:55 MCH 26.9 pg (27.0-31.0) L 08/19/18 19:55 MCHC 31.8 g/dL (33.0-37.0) L 08/19/18 19:55 RDW 15.2 % (11.5-14.5) H 08/19/18 19:55 Plt Count 344 K/mm3 (130-400) 08/19/18 19:55 MPV 7.8 fl (7.40-10.4) 08/19/18 19:55 Absolute Neuts (auto) 8.90 K/uL (1.8-6.8) H 08/19/18 19:55 Absolute Lymphs (auto) 1.10 K/uL (1.0-3.4) 08/19/18 19:55 Absolute Monos (auto) 0.90 K/uL (0.2-0.8) H 08/19/18 19:55 Absolute Eos (auto) 0.10 K/uL (0.0-0.4) 08/19/18 19:55 Absolute Basos (auto) 0.00 K/uL (0.0-0.1) 08/19/18 19:55 Neutrophils % 80.6 % (42.0-78.0) H 08/19/18 19:55 Lymphocytes % 9.8 % (20.0-50.0) L 08/19/18 19:55 Monocytes % 8.1 % (2.0-9.0) 08/19/18 19:55 Eosinophils % 1.1 % (1.0-5.0) 08/19/18 19:55 Basophils % 0.4 % (0.0-2.0) 08/19/18 19:55 Sodium 134 mmol/L (135-145) L 08/19/18 19:55 Potassium 4.7 mmol/L (3.6-5.0) 08/19/18 19:55 Chloride 104 mmol/L (101-111) 08/19/18 19:55 Carbon Dioxide 21 mmol/L (21-31) 08/19/18 19:55 Anion Gap 13.7 (12-18) 08/19/18 19:55 Lactic Acid 1.1 mmol/L (0.5-2.2) 08/19/18 19:55 Calcium 9.0 mg/dL (8.4-10.2) 08/19/18 19:55 08/19/18 20:22 Abnormal Lab Results 08/19/18 08/19/18 19:55 19:55 WBC 11.1 H RBC 3.19 L Hgb 8.6 L Hct 27.0 L MCH 26.9 L MCHC 31.8 L RDW 15.2 H Absolute Neuts (auto) 8.90 H Absolute Monos (auto) 0.90 H Neutrophils % 80.6 H Lymphocytes % 9.8 L Sodium 134 L BUN 57 H Creatinine 2.39 H BUN/Creatinine Ratio 23.8 H Random Glucose 259 H Albumin 2.7 L Globulin 5.0 H Albumin/Globulin Ratio 0.5 L Departure - Departure Clinical Impression: Gangrene associated with type 2 diabetes mellitus, Cellulitis of foot without toes, left, Cellulitis of leg, left Diabetes mellitus Qualifiers: Diabetes mellitus type: type 2 Diabetes mellitus technician terminal and repeater insulin use: unspecified mcfp insulin use status Diabetes mellitus complication status: with skin complications Diabetes mellitus complication detail: with foot ulcer Qualified Code(s): E11.621 - Type 2 diabetes mellitus with foot ulcer Time of Disposition: 19:36 Disposition: Transfer to Hospital Condition: Good Departure Forms: ED Discharge - Pt. Copy, Patient Portal Self Enrollment Instructions: DI for Leg Pain Diet: diabetic diet Activity: increase activity as tolerated Referrals: Jerry Parham MD [Primary Care Provider] - 1-2 Weeks Home Medications: Ambulatory Orders Acetaminophen W/ Codeine [Acetaminophen/Codeine #3 300-30 mg] 1 tab PO Q6HRS PRN 10/22/17 Acetaminophen [Acetaminophen ER] 650 mg PO Q6HR PRN 10/22/17 Aspirin [Aspirin Childrens] 81 mg PO DAILY 10/22/17 Bisacodyl Suppository 10Mg [Dulcolax Suppository 10mg] 1 ea OK DAILY PRN Carvedilol [Coreg] 3.125 mg PO BID 10/22/17 Enoxaparin Sodium [Lovenox] 30 mg SUBCU DAILY 10/22/17 Febuxostat [Uloric] 40 mg PO DAILY 10/22/17 Furosemide 40 mg PO DAILY 10/22/17 Insulin Detemir [Levemir Pen] 10 unit SUBCU BEDTIME 10/22/17 Insulin Lispro [Humalog] 0 unit SUBCU ACHS 10/22/17 Metoclopramide Tab [Reglan Tab] 10 mg PO ACHS 10/22/17 Polyethylene Glycol 3350 [Miralax] 17 gm PO DAILY PRN 10/22/17 Senna/Docusate Tab [Senokot-S] 2 ea PO BID PRN 10/22/17 Simethicone 80 mg PO TID PRN 10/22/17 Simvastatin 20 mg PO BEDTIME 10/22/17 Sulfamethoxazole-Trimethoprim [Bactrim Ds 800-160 mg] 1 tablet PO DAILY Zolpidem Tartrate [Ambien] 10 mg PO BEDTIME PRN 10/22/17 Famotidine 20 mg PO DAILY #30 tab 08/02/18 Critical Care Note - Critical Care Note Total Time (mins): 35 Transfer to Outside Facility - Transfer Information Accepting Provider:: Dr. Kearney Accepting Facility: [facility] Reason for Transfer: required specialist not available - Orthopedist
[2018-08-19] MEDS ORDERED: SODIUM CHLORIDE 0.9% 100ML 100 ML IVPB ONE (19:34)
[2018-08-19] MEDS ORDERED: SODIUM CHLORIDE 0.9% 250ML 250 ML ONE (19:34)
[2018-08-19] MEDS ORDERED: PIPERACILLIN/TAZOBACTAM 3.375 GM VIAL IVPB ONE (19:34)
[2018-08-19] MEDS ORDERED: VANCOMYCIN HCL INJ 1,000 MG VIAL IVPB ONE (19:34)
[2018-08-19 19:39] VITALS: TEMP 97.9; O2SAT 99
[2018-08-19] MEDS: PIPERACILLIN/TAZOBACTAM 3.375 GM in SODIUM CHLORIDE 0.9% 100ML 100 ML IVPB ONE (19:40)
[2018-08-19] MEDS: SODIUM CHLORIDE 0.9% 1000ML 1,000 ML IVS ONE (20:20)
[2018-08-19] MEDS: VANCOMYCIN HCL INJ 1,000 MG in SODIUM CHLORIDE 0.9% 250ML 250 ML IVPB ONE (20:20)
[2018-08-19 20:49] VITALS: BP 153/72
== END 2018-08-19 20:30 | disposition short-term general hospital (02) ==
LOC: ER 19:17
DX: E11.52 Type 2 diabetes mellitus with diabetic peripheral angiopathy with gangrene (principal); I96 Gangrene, not elsewhere classified; L03.116 Cellulitis of left lower limb; I11.0 Hypertensive heart disease with heart failure; I50.9 Heart failure, unspecified; Z79.899 Other long term (current) drug therapy; Z79.4 Long term (current) use of insulin; Z79.82 Long term (current) use of aspirin; Z88.5 Allergy status to narcotic agent; I25.2 Old myocardial infarction; Z89.611 Acquired absence of right leg above knee
CPT/HCPCS: 36415; 80053; 83605; 85025; 87040; J2543; J3370; J7030; J7050

== ENCOUNTER 2018-09-17 14:53 | Observation (INO) | payer OTHER ==
--- NOTE | 2018-09-17 15:28 | ED.PDOC ---
History of Present Illness - General Chief Complaint: Skin/Abrasion/Tear Time Seen by Provider: 09/17/18 15:23 Source: patient, family Exam Limitations: no limitations - History of Present Illness Initial Comments: THIS PATIENT IS HERE BECAUSE ABOUT THREE OR FOUR WEEKS AGO HE UNDERWENT A LEFT BKA BY DR. VIKAS POPE IN [place]. HE DEVELOPED CELLULITES OF THE LEFT STUMP AND SEPSIS AND THEN WAS ADMITTED TO THE HOSPITAL. YESTERDAY HE WAS EVALUATED BY DR. ACKERMAN IN [facility] IN [place] AND SENT HOME. TODAY HE COMES TO THE ED BECAUSE HE HAS DEVELOPED A BLISTER TO THE STUMP ATEA. THERE IS A MYKE ABOVE THE STUMP WHERE CELLULITES WAS AND SINCE THEN IT HAS CLEARED. DENIES ANY FEVER. HE IS ON KEFLEX AND DOXYCYCLINE AND THEN WAS PRESCRIBED BACTRIM DS YESTERDAY. THE PATIENT HAS A F/U WITH DR. POPE ON . Timing/Duration: week Severity: mild Location: extremities Improving Factors: nothing Worsening Factors: nothing Associated Symptoms: blisters Allergies/Adverse Reactions: Allergies Tramadol [From [facility]] Adverse Reaction (Intermediate, Verified 08/02/18 15:18) Home Medications: Ambulatory Orders Acetaminophen W/ Codeine [Acetaminophen/Codeine #3 300-30 mg] 1 tab PO Q6HRS PRN 10/22/17 Acetaminophen [Acetaminophen ER] 650 mg PO Q6HR PRN 10/22/17 Aspirin [Aspirin Childrens] 81 mg PO DAILY 10/22/17 Bisacodyl Suppository 10Mg [Dulcolax Suppository 10mg] 1 ea [place] DAILY PRN Carvedilol [Coreg] 3.125 mg PO BID 10/22/17 Enoxaparin Sodium [Lovenox] 30 mg SUBCU DAILY 10/22/17 Febuxostat [Uloric] 40 mg PO DAILY 10/22/17 Furosemide 40 mg PO DAILY 10/22/17 Insulin Detemir [Levemir Pen] 10 unit SUBCU BEDTIME 10/22/17 Insulin Lispro [Humalog] 0 unit SUBCU ACHS 10/22/17 Metoclopramide Tab [Reglan Tab] 10 mg PO ACHS 10/22/17 Polyethylene Glycol 3350 [Miralax] 17 gm PO DAILY PRN 10/22/17 Senna/Docusate Tab [Senokot-S] 2 ea PO BID PRN 10/22/17 Simethicone 80 mg PO TID PRN 10/22/17 Simvastatin 20 mg PO BEDTIME 10/22/17 Sulfamethoxazole-Trimethoprim [Bactrim Ds 800-160 mg] 1 tablet PO DAILY Zolpidem Tartrate [Ambien] 10 mg PO BEDTIME PRN 10/22/17 Famotidine 20 mg PO DAILY #30 tab 08/02/18 Review of Systems - Review of Systems Constitutional: States: see HPI EENTM: States: no symptoms reported Respiratory: States: no symptoms reported Cardiology: States: no symptoms reported Gastrointestinal/Abdominal: States: no symptoms reported Genitourinary: States: no symptoms reported Musculoskeletal: States: other - PAINFUL BKA Skin: States: other - DISCOLORES AND BLISTER FORMATION Neurological: States: no symptoms reported Endocrine: States: no symptoms reported Hematologic/Lymphatic: States: no symptoms reported Past Medical History (General) - Patient Medical History Hx Seizures: No Hx Stroke: No Hx Dementia: No Hx Asthma: No Hx of COPD: No Hx Cardiac Disorders: Yes Hx Congestive Heart Failure: Yes Hx Pacemaker: No Hx Hypertension: Yes Hx Thyroid Disease: No Hx Diabetes: Yes Hx Gastroesophageal Reflux: No Hx Renal Disease: No Hx Cancer: No Hx of HIV: No Hx Hepatitis C: No Hx MRSA: No - Vaccination History Hx Tetanus, Diphtheria Vaccination: No Hx Influenza Vaccination: Yes Hx Pneumococcal Vaccination: Yes - Social History Hx Tobacco Use: No Hx Chewing Tobacco Use: No Hx Alcohol Use: No Hx Substance Use: No Hx Substance Use Treatment: No Hx Depression: No Hx Physical Abuse: No Hx Emotional Abuse: No Hx Suspected Abuse: No - Female History Patient : No Family Medical History - Family History Father Family History: Unknown Living Status: Still Living Hx Family Diabetes: Yes Mother Family History: Unknown Living Status: Cause of : COPD Hx Family Hypertension: Yes Hx Family Diabetes: Yes Physical Exam - Physical Exam General Appearance: Alert, No apparent distress, Well Groomed, Well Hydrated Eyes, Ears, Nose, Throat Exam: PERRL/EOMI, normal ENT inspection Neck: non-tender, full range of motion, supple Cardiovascular/Chest: normal peripheral pulses, regular rate, rhythm, no edema, no gallop Respiratory: chest non-tender, lungs clear, normal breath sounds Gastrointestinal/Abdominal: normal bowel sounds, non tender, soft Back Exam: normal inspection Extremity: other - THE LEFT BKA SURGICAL SITE IS CLEAN AND AT THE TIME OF EXAM THERE IS NO DICHARGE. THERE IS A SMALL BLISTER ON THE LATERAL ASPECT OF THE FLAP CLOSE TO THE INCISION. THE REDNESS IS SIGNIFICANTLY REDUCED FROM WHERE THE ROMAN ARE. THERE IS MILD BRUISING A MILD REDNESS NOTED. Skin Character: vesicular Departure - Departure Clinical Impression: Cellulitis of drainage site following surgery Qualifiers: Encounter type: initial encounter Qualified Code(s): T81.4XXA - Infection following a procedure, initial encounter S/P BKA (below knee amputation) Qualifiers: Laterality: left Qualified Code(s): Z89.512 - Acquired absence of left leg below knee Diabetes mellitus Qualifiers: Diabetes mellitus type: type 2 Diabetes mellitus correction insulin use: unspecified correction insulin use status Time of Disposition: 15:34 Disposition: Discharge to Home or Self Care Condition: Good Departure Forms: ED Discharge - Pt. Copy, Patient Portal Self Enrollment Instructions: DI for Wound Infection Referrals: Jerry Parham MD [Primary Care Provider] - 1-2 Weeks Home Medications: Ambulatory Orders Acetaminophen W/ Codeine [Acetaminophen/Codeine #3 300-30 mg] 1 tab PO Q6HRS PRN 10/22/17 Acetaminophen [Acetaminophen ER] 650 mg PO Q6HR PRN 10/22/17 Aspirin [Aspirin Childrens] 81 mg PO DAILY 10/22/17 Bisacodyl Suppository 10Mg [Dulcolax Suppository 10mg] 1 ea [place] DAILY PRN Carvedilol [Coreg] 3.125 mg PO BID 10/22/17 Enoxaparin Sodium [Lovenox] 30 mg SUBCU DAILY 10/22/17 Febuxostat [Uloric] 40 mg PO DAILY 10/22/17 Furosemide 40 mg PO DAILY 10/22/17 Insulin Detemir [Levemir Pen] 10 unit SUBCU BEDTIME 10/22/17 Insulin Lispro [Humalog] 0 unit SUBCU ACHS 10/22/17 Metoclopramide Tab [Reglan Tab] 10 mg PO ACHS 10/22/17 Polyethylene Glycol 3350 [Miralax] 17 gm PO DAILY PRN 10/22/17 Senna/Docusate Tab [Senokot-S] 2 ea PO BID PRN 10/22/17 Simethicone 80 mg PO TID PRN 10/22/17 Simvastatin 20 mg PO BEDTIME 10/22/17 Sulfamethoxazole-Trimethoprim [Bactrim Ds 800-160 mg] 1 tablet PO DAILY Zolpidem Tartrate [Ambien] 10 mg PO BEDTIME PRN 10/22/17 Famotidine 20 mg PO DAILY #30 tab 08/02/18 Additional Instructions: CONTINUE WITH BACTRIM DS, DOXYCYCLINE AND KEFLEX. CALL DR. POPE AND SEE IF HE CAN SEE YOU SOONER THAN SEP 29. RETURN IF CONDITION WORSENS.
--- NOTE | 2018-09-17 19:32 | HP ---
SUPERVISING PHYSICIAN: Damian Bansal MD CHIEF COMPLAINT: Worsening of his left hlwdy-nlii-mudgiysjvo stump with cellulitis. HISTORY OF PRESENT ILLNESS: This is a 52-year-old male patient who about 3 or 4 weeks ago underwent a left mmwcq-dlgf-vndsapuvdl by Dr. Shar Tavera in [place]. He did develop cellulitis of this left stump and then sepsis. He was admitted to [facility] about 10 days ago. After being discharged, he came home and said he was getting worse and went back to [facility] yesterday and was evaluated in the Emergency Room. He had been previously on doxycycline and Keflex. Bactrim was added yesterday. He came home and his home health nurse saw him today and he complained of that the cellulitis was worsening. He developed a blister on the stump area. His nurse called his primary care physician, Dr. Parham, and he was instructed to go to the Emergency Room. In the Emergency Room, he was evaluated. The physician who saw him in [place] was contacted and felt like the patient was doing better, but the patient was concerned for worsening cellulitis. He felt more poorly, he had been unable to get his Bactrim filled and he will be placed in the hospital for observation. PAST MEDICAL HISTORY: 1. Coronary artery disease. 2. Congestive heart failure of unknown etiology and no current echocardiogram on the chart for review. 3. Gout. 4. Hypertension. 5. Chronic renal failure. 6. Type 2 diabetes, poorly controlled. 7. Obesity. 8. Obstructive sleep apnea. PAST SURGICAL HISTORY: 1. Coronary artery bypass graft. 2. Left knee anterior cruciate ligament repair. 3. Right rrsua-ufri-rtokfedbar. 4. Left lwvmy-fawx-aljvqgxohq. ALLERGIES: TRAMADOL. FAMILY HISTORY: Positive for diabetes and emphysema. SOCIAL HISTORY: He was born in [place]. He is . He lives in [place]. He is disabled. He has no children. He has never smoked tobacco, but he does use smokeless tobacco. He denies any ETOH or illicit drug use. REVIEW OF SYSTEMS: Negative except for as per history of present illness. PHYSICAL EXAMINATION: VITAL SIGNS: Temperature 97.8. Heart rate 68. Blood pressure 167/86. Respiratory rate 20. O2 saturation 97% on room air. GENERAL: This is a 52-year-old male patient how is lying in his hospital bed in no acute distress. HEENT: Normocephalic, atraumatic. Pupils are equal and reactive. Oropharynx is clear. NECK: Supple without mass. RESPIRATORY: Essentially clear to auscultation bilaterally. He is somewhat diminished at the bases. CHEST: There is equal rise and fall of the chest with inspiration and expiration. CARDIOVASCULAR: Regular rate and rhythm. GASTROINTESTINAL: Abdomen is soft, nondistended, nontender. Bowel sounds are positive. EXTREMITIES: He has bilateral pchmi-oeog-eycmreglfns. His right leg has a prosthesis on it. His left stump is covered in a dressing which is dry and intact. Please see nursing photographs for visual demonstrate of the wound area. NEUROLOGIC: Awake, alert and oriented times three. LABORATORY: WBC 6,400, hemoglobin 9.7, hematocrit 29.5. There is no shift on his differential. ESR is 150. Sodium 136, potassium 4.3, chloride 103, carbon dioxide 24, BUN 53, creatinine 1.73. Glucose 155, magnesium 1.5. C-reactive protein 8.3. All other labs and films have been reviewed via the EMR. IMPRESSION: 1. Cellulitis of the left fngrj-qdbp-asfyftrlit stump, failing outpatient therapy with concerns for worsening of the knee infection with a C-reactive protein of 8.3 and an ESR of 150. 2. Diabetes mellitus, type 2, poorly controlled. 3. Anemia, hypochromic/normocytic in etiology. 4. Hypomagnesemia. 5. Chronic renal insufficiency. 6. Coronary artery disease. 7. Hypertension. 8. Obstructive sleep apnea. PLAN: We will place the patient in observation. I have ordered routine labs for in the morning. I will give him magnesium replacement. Blood cultures have been drawn. I started him on his home medications which include his Keflex , doxycycline and Bactrim. We will monitor him at least overnight to make sure the cellulitis improves. Proton pump inhibitor has been started for ulcer prophylaxis as well as Lovenox for DVT prophylaxis. We will continue to monitor the patient closely and follow as needed. Dr. Bansal is the collaborating physician and available for consultation. #[id number] [facility]
[2018-09-17] MEDS ORDERED: SODIUM CHLORIDE 0.9% (FLUSH) 10 ML SYG IV PRN (20:19)
[2018-09-17] MEDS ORDERED: SENNA/DOCUSATE TAB 1 EA TAB PO PRN (20:24)
[2018-09-17] MEDS ORDERED: ZOLPIDEM TARTRATE 10 MG TAB PO PRN (20:24)
[2018-09-17] MEDS ORDERED: IV SET AND CAP CHANGE INJ INJ SCH (20:30)
[2018-09-17] MEDS ORDERED: DEXTROSE 50% 25 GM/50 ML SYG IV PRN (20:31)
[2018-09-17] MEDS ORDERED: GLUCAGON INJ 1 MG VIAL SUBCU PRN (20:31)
[2018-09-17] MEDS ORDERED: FUROSEMIDE 40 MG TAB PO SCH (21:00)
[2018-09-17] MEDS ORDERED: MAGNESIUM SULFATE PREMIX 2GM 2 GM in PREMIX BAG 1 BAG IVPB ONE (22:18)
[2018-09-17] MEDS ORDERED: SULFA/TRIMETH 800/160 (DS) TAB 1 EA TAB PO SCH (22:30)
[2018-09-17] MEDS ORDERED: DOXYCYCLINE HYCLATE CAP 100 MG CAP ONE (22:41)
[2018-09-17] MEDS ORDERED: MAGNESIUM SULFATE PREMIX 2GM 50 ML IVPB ONE (22:42)
[2018-09-17] MEDS: CEPHALEXIN MONOHYDRATE 500 MG CAP PO SCH (22:52)
[2018-09-17] MEDS: CARVEDILOL 12.5 MG TAB PO SCH (22:52)
[2018-09-17] MEDS: METOCLOPRAMIDE HCL 5 MG TAB PO SCH (22:52)
[2018-09-17] MEDS: GABAPENTIN 300 MG CAP PO SCH (22:52)
[2018-09-17] MEDS: INSULIN DETEMIR 100 UNITS/ML PEN SUBCU SCH (22:53)
[2018-09-17] MEDS: INSULIN LISPRO 100 UNITS/ML PEN SUBCU SCH (22:54)
[2018-09-17] MEDS: SODIUM CHLORIDE 0.9% (FLUSH) 10 ML SYG IV SCH (22:55)
[2018-09-17] MEDS: DOXYCYCLINE 100 MG PO SCH (22:56)
[2018-09-18] MEDS ORDERED: PANTOPRAZOLE SODIUM IV 40 MG VIAL IV SCH (06:30)
[2018-09-18] MEDS: INSULIN LISPRO 100 UNITS/ML PEN SUBCU SCH ×4 (07:29→21:06)
[2018-09-18] MEDS: METOCLOPRAMIDE HCL 5 MG TAB PO SCH ×4 (07:43→21:07)
[2018-09-18] MEDS ORDERED: NON-FORMULARY MEDICATION 1 EA MIS (Febuxostat [Uloric] 40 MG) PO SCH (09:00)
[2018-09-18] MEDS ORDERED: ENOXAPARIN SODIUM 30 MG/0.3 ML SYG SUBCU SCH (09:00)
[2018-09-18] MEDS ORDERED: POTASSIUM CHLORIDE 20 MEQ TAB ONE (09:24)
[2018-09-18] MEDS ORDERED: ATORVASTATIN 20 MG TAB PO ONE (09:27)
[2018-09-18] MEDS ORDERED: DOXYCYCLINE HYCLATE CAP 100 MG CAP ONE (09:27)
[2018-09-18] MEDS: POTASSIUM CHLORIDE 20 MEQ TAB PO SCH (09:44)
[2018-09-18] MEDS: FUROSEMIDE 40 MG TAB PO SCH ×2 (09:44→17:13)
[2018-09-18] MEDS: CITALOPRAM HBR 20 MG TAB PO SCH (09:45)
[2018-09-18] MEDS: FAMOTIDINE 20 MG TAB PO SCH (09:45)
[2018-09-18] MEDS: CEPHALEXIN MONOHYDRATE 500 MG CAP PO SCH ×2 (09:45→21:06)
[2018-09-18] MEDS: TAMSULOSIN 0.4 MG CAP PO SCH (09:45)
[2018-09-18] MEDS: FINASTERIDE 5 MG TAB PO SCH (09:45)
[2018-09-18] MEDS: amLODIPine BESYLATE 5 MG TAB PO SCH (09:45)
[2018-09-18] MEDS: GABAPENTIN 300 MG CAP PO SCH ×2 (09:45→21:07)
[2018-09-18] MEDS: CARVEDILOL 12.5 MG TAB PO SCH ×2 (09:45→21:06)
[2018-09-18] MEDS: DOXYCYCLINE HYCLATE CAP 100 MG CAP PO SCH ×2 (09:46→21:07)
[2018-09-18] MEDS: ASPIRIN (CHEWABLE) 81 MG TAB PO SCH (09:46)
[2018-09-18] MEDS: SODIUM CHLORIDE 0.9% (FLUSH) 10 ML SYG IV SCH ×2 (09:46→21:07)
[2018-09-18] MEDS: SULFA/TRIMETH 800/160 (DS) TAB 1 EA TAB PO SCH ×2 (09:51→21:05)
[2018-09-18] MEDS: DOXYCYCLINE 100 MG PO SCH (09:56)
[2018-09-18] MEDS: HYDROcodone 7.5MG/APAP 325MG 1 EA TAB PO PRN ×2 (13:56→21:08)
--- NOTE | 2018-09-18 18:35 | PN ---
DATE: 09/18/18 SUPERVISING PHYSICIAN: Damian Bansal M.D. SUBJECTIVE: The patient is resting in bed. Appears to be comfortable. He has had no fevers. He has no complaints of pain in his lower extremities. OBJECTIVE: VITAL SIGNS: Temperature 98.6, pulse 77, blood pressure 128/70, respirations 17, satting 98% on room air. I's and O's show a negative balance of 1200 with 550 in, 1750 out. Weight is 90.4 kg. CHEST: Lungs were clear to auscultation. HEART: Regular rate and rhythm. ABDOMEN: Obese but soft, non- tender. Positive bowel sounds. EXTREMITIES: The left orjmd-tzs-ocsf amputation stump area shows the distal end to be healing without any obvious signs of infection. There is minimal erythema around the incision and suture sites. No obvious skin breakdown. The area that was marked for the cellulitis has now receded well below that bambi. The right eazvn-qld-gprk amputation distally shows without any signs of infection, sores or rashes. NEUROLOGIC: He is alert and oriented times three. LABORATORY: White count 6,100, hemoglobin 9.8, hematocrit 30.2, platelet count 299,000. Differential shows to be without a left shift. Chemistries show normal electrolytes with BUN 56, creatinine 2.0. Blood sugar is between 148 and 279. Liver functions are showing to be within normal limits. ASSESSMENT: 1. Cellulitis of the left tqrld-jyqp-ficjiqguot stump having failed to respond to outpatient treatment measures with elevated inflammatory serum markers requiring initiation of more aggressive antibiotic therapy showing some good improvement. 2. Diabetes mellitus, type 2, poorly controlled. 3. Anemia with a hypochromic/normocytic presentation, likely of chronic illness. 4. Hypomagnesemia requiring replacement. 5. Chronic renal insufficiency, monitoring. 6. Coronary artery disease. 7. Hypertension. monitoring. 8. Obstructive sleep apnea, chronic. PLAN: Will continue to monitor the patient closely. We replaced his magnesium today. He remains on antibiotic coverage with both Bactrim, Keflex and doxycycline. Will anticipate at least another 24 hours and probably discharge in the morning. Until then continue to follow and treat appropriately. #[id number] [facility]
[2018-09-18] MEDS ORDERED: ATORVASTATIN 20 MG TAB PO SCH (21:00)
[2018-09-18] MEDS: INSULIN DETEMIR 100 UNITS/ML PEN SUBCU SCH (21:06)
[2018-09-19] MEDS ORDERED: ENOXAPARIN SODIUM 40 MG/0.4 ML SYG SUBCU ONE (02:23)
[2018-09-19] MEDS: METOCLOPRAMIDE HCL 5 MG TAB PO SCH (06:46)
[2018-09-19] MEDS: INSULIN LISPRO 100 UNITS/ML PEN SUBCU SCH (07:41)
[2018-09-19] MEDS ORDERED: KCL 20MEQ/0.45% NS 1,000 ML IVS PRN (08:35)
[2018-09-19] MEDS: CITALOPRAM HBR 20 MG TAB PO SCH (08:48)
[2018-09-19] MEDS: FAMOTIDINE 20 MG TAB PO SCH (08:48)
[2018-09-19] MEDS: SODIUM CHLORIDE 0.9% (FLUSH) 10 ML SYG IV SCH (08:48)
[2018-09-19] MEDS: SULFA/TRIMETH 800/160 (DS) TAB 1 EA TAB PO SCH (08:48)
[2018-09-19] MEDS: GABAPENTIN 300 MG CAP PO SCH (08:48)
[2018-09-19] MEDS: CARVEDILOL 12.5 MG TAB PO SCH (08:48)
[2018-09-19] MEDS: DOXYCYCLINE HYCLATE CAP 100 MG CAP PO SCH (08:49)
[2018-09-19] MEDS: FUROSEMIDE 40 MG TAB PO SCH (08:49)
[2018-09-19] MEDS: POTASSIUM CHLORIDE 20 MEQ TAB PO SCH (08:49)
[2018-09-19] MEDS: CEPHALEXIN MONOHYDRATE 500 MG CAP PO SCH (08:49)
[2018-09-19] MEDS: ASPIRIN (CHEWABLE) 81 MG TAB PO SCH (08:49)
[2018-09-19] MEDS: TAMSULOSIN 0.4 MG CAP PO SCH (08:49)
[2018-09-19] MEDS: FINASTERIDE 5 MG TAB PO SCH (08:49)
[2018-09-19] MEDS: amLODIPine BESYLATE 5 MG TAB PO SCH (08:49)
[2018-09-19] MEDS ORDERED: ENOXAPARIN SODIUM 40 MG/0.4 ML SYG SUBCU SCH (09:00)
[2018-09-19 10:39] VITALS: BP 162/81; TEMP 97.9; O2SAT 99
--- NOTE | 2018-09-21 19:23 | DS ---
SUPERVISING PHYSICIAN: Damian Bansal M.D. ADMISSION DIAGNOSIS: 1. Cellulitis of the left mxshm-ngy-gfqg amputation having failed outpatient therapy with concerns for worsening knee infection with C reactive protein at 8.3 and ESR 150. 2. Diabetes mellitus type 2 poorly controlled. 3. Anemia, hypochromic/normocytic in etiology. 4. Hypomagnesemia. 5. Chronic renal insufficiency. 6. Coronary artery disease. 7. Hypertension. 8. Obstructive sleep apnea. DISCHARGE DIAGNOSIS: 1. Concerns for cellulitis left srtst-aqm-gdae amputation, although the patient was showing good response to treatment and no obvious signs of cellulitis to the left ubvhn-qut-ljur amputation. 2. Diabetes mellitus, type 2, poorly controlled. 3. Anemia with a hypochromic/normocytic presentation, likely of chronic illness. 4. Hypomagnesemia, improved with replacement. 5. Chronic renal insufficiency. 6. Coronary artery disease. 7. Hypertension, controlled. 8. Chronic obstructive sleep apnea. REASON FOR HOSPITALIZATION: Mr. Warner is a 52-year-old male patient who about 3 or 4 weeks previous had surgery for a left pbage-hbpk-pxzlfypthi that was done by Dr. Shar Tavera in [place]. He eventually developed some cellulitis of this left stump and then sepsis. He was then admitted to [facility] for about 10 days after which time he was discharged. He then came home and said he was getting worse and went back to [facility] the day before admission for evaluation in the Emergency Room. He had been previously on doxycycline and Keflex. At that Emergency Room visit, Bactrim was added to his regimen. He then came home and was seen by home health nurse. He complained that the cellulitis was worsening. He developed a blister on the stump area. His home health nurse called his primary care physician, Dr. Parham, and he instructed the patient to go to the Emergency Room for evaluation. In the Emergency Room, he was evaluated. The physician who saw him in [place] was contacted and felt that the patient was doing better, but the patient was concerned for worsening cellulitis. He felt more poorly, he had been unable to get his Bactrim filled and at that point was then placed in observation for further treatment. LABORATORY STUDIES: CBC on admission was 6,400, at discharge was 6,100. Hemoglobin and hematocrit were stable at 9.8 and 30.2 at discharge respectively with platelet count of 299,000. Differential showed to be without a left shift. ESR was elevated at 150. Chemistries on admission showed normal electrolytes as well as at discharge. BUN as 64 at discharge and creatinine was at 2.7. Blood sugars ranged between 154 and 279. HOSPITAL COURSE: Mr. George Warner was admitted as noted on 09/17/18 for concerns for cellulitis and sepsis. He was started on his antibiotics as prior to hospitalization as well as Bactrim and had shown to be stable without any signs of sepsis and any more recurrence of cellulitis to the stump as noted on admission. It was felt that he could continue as an outpatient in management of the lower extremity to followup with his doctor in [place]. PHYSICAL EXAMINATION: GENERAL: The patient was seen in examination on the day of discharge. He was alert and oriented, and communicative. CHEST: Lungs were clear to auscultation. HEART: Regular rate and rhythm. ABDOMEN: Obese but soft, non-tender. EXTREMITIES: Bilateral brbxm-kte-yjir amputations. The left has sutures in place which are healing good without any signs of infection. There is minimal redness. No evidence of cellulitis or blisters. NEUROLOGIC: He is alert and oriented times three. PLAN: Mr. George Warner was discharged on 09/19/18 with instructions to followup both with Dr. Gabriel and his primary care provider, Dr. Parham in the following week. He was to continue on his medications as previous to hospitalization and start new medications as directed. Diet at discharge was diabetic diet. Activity is as per Physical Therapy and medications prescribed at discharge included: 1. Bactrim DS 1 tablet twice daily for a total of 10 days. All other medications were resumed as prior to hospitalization. DISPOSITION: He was discharged to the care of his . Condition on discharge was stable and improved. #[id number] [facility]
== END 2018-09-19 11:35 | disposition home health service (06) ==
LOC: ER 14:53 → INTOOBSV 19:30 → MS 19:30 → OBSVTOIN 19:30
PROVIDERS: ADMIT Nurse Practitioner Acute Care; ATTEND Nurse Practitioner Family
DX: T87.44 Infection of amputation stump, left lower extremity (principal); I13.0 Hypertensive heart and chronic kidney disease with heart failure and stage 1 through stage 4 chronic kidney disease, or unspecified chronic kidney disease; Y83.5 Amputation of limb(s) as the cause of abnormal reaction of the patient, or of later complication, without mention of misadventure at the time of the procedure; E11.22 Type 2 diabetes mellitus with diabetic chronic kidney disease; N18.9 Chronic kidney disease, unspecified; I50.9 Heart failure, unspecified; I25.10 Atherosclerotic heart disease of native coronary artery without angina pectoris; M10.9 Gout, unspecified; E11.65 Type 2 diabetes mellitus with hyperglycemia; G47.33 Obstructive sleep apnea (adult) (pediatric); E66.9 Obesity, unspecified; E83.42 Hypomagnesemia; D63.1 Anemia in chronic kidney disease; F17.220 Nicotine dependence, chewing tobacco, uncomplicated; Z89.512 Acquired absence of left leg below knee; Z89.511 Acquired absence of right leg below knee; Z68.30 Body mass index [BMI] 30.0-30.9, adult; Z95.1 Presence of aortocoronary bypass graft; Z79.4 Long term (current) use of insulin; Z79.82 Long term (current) use of aspirin; Z79.899 Other long term (current) drug therapy; Z88.5 Allergy status to narcotic agent
CPT/HCPCS: 96372 ×3; 96374; 96375; J1650 ×2; J3475; J1815 ×2; 80048; 80053 ×2; 82948 ×7; 36415 ×2; 87077; 86140; 85025 ×2; 87040 ×2; 83735; 85651; 36416 ×6; 94760 ×2; 99285; G0378

== ENCOUNTER 2018-09-26 16:45 | Inpatient (IN) | payer OTHER ==
--- NOTE | 2018-09-26 17:52 | ED.PDOC ---
History of Present Illness - General Chief Complaint: General Stated Complaint: Aches, fever, weakness Time Seen by Provider: 09/26/18 17:21 Source: patient Exam Limitations: no limitations - History of Present Illness Initial Comments: C/O ONSET OF WEAKNESS, FEVER AND NOT FEELING WELL. STARTED TODAY SHORTLY AFTER TAKING BACTRIM. HAS BEEN ON BACTRIM FOR INFX TO THE STUMP OF L LEG AFTER BKA. HOME HEALTH AND FAMILY HAVE BEEN CARING FOR THE WOUND AND REPORT THAT IT LOOKS GOOD. Timing/Duration: other - JUST PRIOR TO ARRIVAL Severity: moderate Improving Factors: nothing Worsening Factors: nothing Associated Symptoms: fever/chills Allergies/Adverse Reactions: Allergies Tramadol [From Ultra] Adverse Reaction (Intermediate, Verified 09/17/18 22:51) Home Medications: Ambulatory Orders Aspirin [Aspirin Childrens] 81 mg PO DAILY 10/22/17 Febuxostat [Uloric] 40 mg PO DAILY 10/22/17 Furosemide 40 mg PO BID 10/22/17 Insulin Detemir [Levemir Pen] 10 unit SUBCU BEDTIME 10/22/17 Insulin Lispro [Humalog] 0 unit SUBCU ACHS PRN 10/22/17 Metoclopramide Tab [Reglan Tab] 5 mg PO QID 10/22/17 Senna/Docusate Tab [Senokot-S] 1 ea PO BID PRN 10/22/17 Zolpidem Tartrate [Ambien] 10 mg PO BEDTIME PRN 10/22/17 Famotidine 20 mg PO DAILY #30 tab 08/02/18 Atorvastatin Calcium 40 mg PO DAILY 09/17/18 Carvedilol 12.5 mg PO BID 09/17/18 Cephalexin Monohydrate [Keflex] 500 mg PO BID 09/17/18 Citalopram Hydrobromide [Citalopram] 20 mg PO DAILY 09/17/18 Doxycycline (Monohydrate) [Doxycycline] 100 mg PO BID 09/17/18 Finasteride 5 mg PO DAILY 09/17/18 Gabapentin 300 mg PO BID 09/17/18 HYDROcodone 7.5MG/APAP 325MG [[place] 7.5/325] 1 tablet PO QID PRN 09/17/18 Nitroglycerin 0.4 mg Tab [Nitrostat] 1 tablet PO Q5MIN 09/17/18 Potassium Chloride [K-Tab] 20 meq PO DAILY 09/17/18 Tamsulosin HCl [Flomax] 0.4 mg PO DAILY 09/17/18 amLODIPine BESYLATE [Norvasc] 5 mg PO DAILY 09/17/18 Sulfa/Trimeth 800/160 (Ds) Tab [Bactrim DS] 1 ea PO BID tab 09/19/18 Review of Systems - Review of Systems Constitutional: States: fever. Denies: chills EENTM: States: no symptoms reported Respiratory: States: short of breath. Denies: cough, stridor Cardiology: Denies: chest pain, palpitations Gastrointestinal/Abdominal: Denies: abdominal pain, nausea, vomiting Genitourinary: States: dysuria. Denies: frequency, hematuria Musculoskeletal: States: no symptoms reported Skin: States: no symptoms reported Neurological: States: no symptoms reported Endocrine: States: no symptoms reported. Denies: excessive sweating Past Medical History (General) - Patient Medical History Hx Seizures: No Hx Stroke: No Hx Dementia: No Hx Asthma: No Hx of COPD: No Hx Cardiac Disorders: Yes Hx Congestive Heart Failure: Yes Hx Pacemaker: No Hx Hypertension: Yes Hx Thyroid Disease: No Hx Diabetes: Yes Hx Gastroesophageal Reflux: No Hx Renal Disease: No Hx Cancer: No Hx of HIV: No Hx Hepatitis C: No Hx MRSA: No - Vaccination History Hx Tetanus, Diphtheria Vaccination: No Hx Influenza Vaccination: Yes - 2018 Hx Pneumococcal Vaccination: Yes - 2018 - Social History Hx Tobacco Use: No Hx Chewing Tobacco Use: No Hx Alcohol Use: No Hx Substance Use: No Hx Substance Use Treatment: No Hx Depression: No Hx Physical Abuse: No Hx Emotional Abuse: No Hx Suspected Abuse: No - Female History Patient : No Family Medical History - Family History Father Family History: Unknown Living Status: Hx Family Asthma: No Hx Family Congestive Heart Failure: No Hx Family Hypertension: No Hx Family Stroke: No Hx Cardiac Disease: No Hx Family Diabetes: Yes Hx Family Cancer: Yes - colon cancer Mother Family History: Unknown Living Status: Cause of : COPD Hx Family Asthma: No Hx Family Congestive Heart Failure: No Hx Family Hypertension: Yes Hx Family Stroke: No Hx Cardiac Disease: No Hx Family Diabetes: No Hx Family Cancer: No Physical Exam - Physical Exam General Appearance: Alert, Anxious, Frail, No apparent distress, Obese Eye Exam: bilateral normal Ears, Nose, Throat: hearing grossly normal, normal ENT inspection Neck: non-tender, full range of motion, supple Respiratory: lungs clear, normal breath sounds, no respiratory distress Cardiovascular/Chest: regular rate, rhythm, no murmur, tachycardia Gastrointestinal/Abdominal: non tender, soft, no organomegaly Back Exam: normal inspection, no CVA tenderness Extremity: other - ALDO BKA, L LEG DRESSED WHICH IS CLEAN AND DRY AND WAS NOT REMOVED. Neurologic: no motor/sensory deficits, normal mood/affect Skin Exam: normal color, warm/dry Lymphatic: no adenopathy Progress - Progress Progress: 09/26/18 18:59 VSS, D/W JOELLEN TY, WILL ADMIT. - EKG/XRAY/CT EKG: Sinus - LAD, RATE 76, NL INTERVALS, , nonspecific ST T wave Chg - ICRBBB, NAIP,, Changed from - RESOLUTION OF 1ST DEGREE AV BLOCK. O/W UNCHANGED. Departure - Departure Clinical Impression: Pyelonephritis, Diabetes 1.5, managed as type 2, PVD (peripheral vascular disease) CHF (congestive heart failure) Qualifiers: Heart failure type: unspecified Heart failure chronicity: acute Qualified Code( s): I50.9 - Heart failure, unspecified Time of Disposition: 19:03 Disposition: Admit Patient Condition: Fair Departure Forms: ED Discharge - Pt. Copy, Patient Portal Self Enrollment Referrals: Jerry Parham MD [Primary Care Provider] - 1-2 Weeks Home Medications: Ambulatory Orders Aspirin [Aspirin Childrens] 81 mg PO DAILY 10/22/17 Febuxostat [Uloric] 40 mg PO DAILY 10/22/17 Furosemide 40 mg PO BID 10/22/17 Insulin Detemir [Levemir Pen] 10 unit SUBCU BEDTIME 10/22/17 Insulin Lispro [Humalog] 0 unit SUBCU ACHS PRN 10/22/17 Metoclopramide Tab [Reglan Tab] 5 mg PO QID 10/22/17 Senna/Docusate Tab [Senokot-S] 1 ea PO BID PRN 10/22/17 Zolpidem Tartrate [Ambien] 10 mg PO BEDTIME PRN 10/22/17 Famotidine 20 mg PO DAILY #30 tab 08/02/18 Atorvastatin Calcium 40 mg PO DAILY 09/17/18 Carvedilol 12.5 mg PO BID 09/17/18 Cephalexin Monohydrate [Keflex] 500 mg PO BID 09/17/18 Citalopram Hydrobromide [Citalopram] 20 mg PO DAILY 09/17/18 Doxycycline (Monohydrate) [Doxycycline] 100 mg PO BID 09/17/18 Finasteride 5 mg PO DAILY 09/17/18 Gabapentin 300 mg PO BID 09/17/18 HYDROcodone 7.5MG/APAP 325MG [[place] 7.5/325] 1 tablet PO QID PRN 09/17/18 Nitroglycerin 0.4 mg Tab [Nitrostat] 1 tablet PO Q5MIN 09/17/18 Potassium Chloride [K-Tab] 20 meq PO DAILY 09/17/18 Tamsulosin HCl [Flomax] 0.4 mg PO DAILY 09/17/18 amLODIPine BESYLATE [Norvasc] 5 mg PO DAILY 09/17/18 Sulfa/Trimeth 800/160 (Ds) Tab [Bactrim DS] 1 ea PO BID tab 09/19/18
--- NOTE | 2018-09-26 17:55 | RAD ---
EXAM DESCRIPTION: AP view of the chest CLINICAL HISTORY:52 years Male, SOB Comparison: October 23, 2017 FINDINGS: The cardiac silhouette is enlarged but stable. There is hazy appearance of the perihilar structures. The patient has had a CABG. Small amount of fluid in the minor fissure otherwise no pleural abnormalities. IMPRESSION: Suspect interstitial pulmonary edema. Electronically signed by: Jas Bonner DO 09/26/2018 5:54 PM CDT
[2018-09-26] MEDS ORDERED: MEROPENEM 1 GM in SODIUM CHL 0.9% 50ML MIN-BAG+ 50 ML IVPB ONE (19:41)
[2018-09-26] MEDS ORDERED: MEROPENEM 500 MG VIAL IVPB ONE (19:51)
[2018-09-26] MEDS ORDERED: SODIUM CHLORIDE 0.9% 100ML 100 ML IVPB ONE (19:51)
[2018-09-26] MEDS ORDERED: FUROSEMIDE INJ 40 MG/4 ML VIAL IV ONE (20:41)
[2018-09-26] MEDS ORDERED: diphenhydrAMINE HCL 50 MG/ML VIAL IV ONE (20:41)
[2018-09-26] MEDS ORDERED: ACETAMINOPHEN 325 MG TAB PO ONE (20:41)
[2018-09-26] MEDS ORDERED: VANCOMYCIN HCL INJ 1,000 MG, VANCOMYCIN HCL INJ 500 MG in SODIUM CHLORIDE 0.9% 250ML 25... IVPB ONE (20:51)
[2018-09-26] MEDS ORDERED: VANCOMYCIN HCL INJ 1,000 MG VIAL IVPB ONE (20:59)
[2018-09-26] MEDS ORDERED: SODIUM CHLORIDE 0.9% 250ML 250 ML ONE (20:59)
[2018-09-26] MEDS ORDERED: VANCOMYCIN HCL INJ 500 MG VIAL ONE (20:59)
[2018-09-26] MEDS ORDERED: SODIUM CHLORIDE 0.9% 500ML 500 ML IVS SCH (21:00)
--- NOTE | 2018-09-26 21:23 | HP ---
SUPERVISING PHYSICIAN: Jerry Parham M.D. CHIEF COMPLAINT: Weakness and fever. HISTORY OF PRESENT ILLNESS: Mr. Warner is a 52 year-old male patient that presented to the [facility] today with his with complaints of increasing weakness, fever and just not feeling well. He noted that his symptoms started yesterday. He has been on Bactrim plus doxycycline and Keflex for a questionable infection in his stump of the left leg clean-uqt-xrpz amputation. He notes that he had been having some dysuria within the last couple of days and just overall not feeling well. He denied any nausea, vomiting or abdominal pains. He also notes that he feels like he is completely emptying his bladder he only goes small amounts on any given time. He does have a history of benign prostatic hypertrophy and is on Flomax. Laboratory studies on admission to the E. . showed a white count of 8.7 but hemoglobin 7.2 and hematocrit 22.4 with platelet count 199,000. Differential did show to be without a left shift. Mr. Warner notes that he just was given 2 units of packed red blood cells within the last 3 weeks. He does have a history of chronic renal disease and his chemistry showed that his BUN was 84, creatinine was 3.27 today. He is denying any bloody stools, melenic stools or any bright red blood per rectum. He has been having some shortness of breath with some exertional efforts but denied any chest pains or any significant cough. It is noted on his labs that his BNP was elevated at 2,050 and troponin was 0.05. Urinalysis showed a significant amount of protein at 300 with 100 glucose, large amount of blood and microscopic revealed too numerous to count RBCs, WBCs and 2+ bacteria and no epithelials cells. Vital signs did show that he was febrile with a temperature of 100.9, pulse 76, blood pressure 101/47 with respirations of 18, satting 95% on room air. Urine culture was sent for concerns for pyelonephritis given he has a temperature and findings on exam. Given that he has been on multiple antibiotics and continues to show a fever with a bladder infection, Dr. Villa requested the patient be admitted for ongoing treatment of both his urinary tract infection with concerns for pyelonephritis as well as his symptomatic anemia and congestive heart failure exacerbation because on his x-rays it was noted that his chest films per radiology interpretation showed suspect interstitial pulmonary edema. Also of note, it looked like there was possibly a right upper lobe infiltrate which was concerning for pneumonia. The patient now is going to be admitted to the Medical/Surgical floor for further treatment and evaluation. He was in stable condition at time of admission. PAST MEDICAL HISTORY: 1. Congestive heart failure, unknown etiology without any current echocardiogram. 2. Coronary artery disease. 3. Gout. 4. Hypertension. 5. Chronic renal failure. 6. Type 2 diabetes poorly controlled. 7. Obesity. 8. Obstructive sleep apnea. PAST SURGICAL HISTORY: 1. Coronary artery bypass graft. 2. Left knee anterior cruciate ligament repair. 3. Bilateral xrxpm-lrf-yszu amputations. CURRENT MEDICATIONS: ALLERGIES: TRAMADOL. FAMILY HISTORY: Positive for diabetes and emphysema. SOCIAL HISTORY: The patient lives in [place]. He is . He is disabled and has no children. He has never smoked tobacco but does use smokeless tobacco periodically. He denies any alcohol or illicit drug use. REVIEW OF SYSTEMS: CONSTITUTIONAL: Notes fevers at home with a fever on admission of 100.1 with the patient denying any chills or night sweats. HEENT: No reported nasal congestion, ear aches, sore throats, headaches, vision changes. RESPIRATORY: Notes some shortness of breath with any exertional effort, but denies any cough, stridors, wheezing. CARDIOVASCULAR: Denies any chest pains, palpitations, syncopal episodes. GASTROINTESTINAL: Denies any abdominal pains, nausea, vomiting, diarrhea or constipation. GENITOURINARY: Does note he is having some dysuria but denies any increased frequency or hematuria. MUSCULOSKELETAL: Bilateral wmgye-myg-dzcj amputations with most recent being on the left with no complaints. NEUROLOGIC: Denies any ataxia, seizures, syncopal episodes. PHYSICAL EXAMINATION: VITAL SIGNS: Temperature 100.9, pulse 76, blood pressure 101/47, respirations 18, satting 95% on room air. Admission weight is 89.3 kg. GENERAL: The patient is resting in bed. Appears to be in no acute distress. Very pleasant, laughing with his . He is moderately obese and does appear to be anxious. HEENT: Tympanic membranes are clear bilaterally. Oropharynx was pink with notably dry mucosal membranes but no lesions. NECK: Supple, non-tender with full range of motion. CHEST: Lungs were clear to auscultation, just diminished towards the bases. No obvious respiratory distress. No prominent rhonchi, wheezing or rales. ABDOMEN: Soft, non-tender with positive bowel sounds. EXTREMITIES: Bilateral mcjck-tqp-evjs amputations. Left leg shows a clean and dry incision with sutures still in place. NEUROLOGIC: He is alert and oriented times three. Facial features were symmetrical. Extraocular movements are within normal limits. There is no notable nystagmus. SKIN: Warm and dry, pale. No lesions, rashes or decubiti. LABORATORY: CBC on admission showed white count 8,700, hemoglobin 7.2, hematocrit 22.4. RBC indices were normocytic/normochromic with platelet count 199,000. Differential showed to be without a current left shift. Chemistries showed normal electrolytes with BUN 84, creatinine 3.27. Carbon dioxide was low at 20, glucose 226 with osmolality 304, calcium 8.3. Liver functions showed to be within normal limits. Alkaline phosphatase was 134, troponin 0.05. BNP was elevated 2050. Urinalysis showed greater than 300 protein, 100 glucose, large amount of blood. Microscopic revealed too numerous to count RBCs and WBCs with 2+ bacteria, no epithelial cells. MICROBIOLOGY: Urine culture pending. RADIOLOGY: Chest x-ray per radiology interpretation of single view chest showed suspected interstitial pulmonary edema. CT of the abdomen and pelvis is pending. ASSESSMENT: 1. Urinary tract infection with concerns for developing pyelonephritis with the patient having been on 3 previous antibiotics, including Bactrim. 2. Acute on chronic heart failure, uncertain etiology, likely diastolic but no current echocardiogram for review with the patient having a BNP elevated on admission. 3. Symptomatic anemia with a normocytic/normochromic presentation secondary to chronic illness, including chronic kidney disease requiring transfusion of packed red blood cells. 4. Diabetes mellitus type 2, poorly controlled. 5. Pulmonary interstitial edema with acute exacerbation of congestive heart failure with concerns for developing right upper lobe pneumonia likely community acquired. 6. Sepsis secondary to urinary tract infection and possibly developing pneumonia with the patient showing to be febrile, mildly hypotensive, decreasing renal function and anemia. 7. Bilateral xyxuf-pmw-pnjq amputations with most recent being this year with some complications from postoperative cellulitis with the patient having currently been on Bactrim, doxycycline and Keflex. 8. Obstructive sleep apnea. 9. History of benign prostatic hypertrophy on Flomax. PLAN: The patient is going to be admitted to the Medical/Surgical floor for ongoing treatment of both questionable pyelonephritis, developing right upper lobe pneumonia, exacerbation of congestive heart failure and symptomatic anemia. Will plan to transfuse him 2 units of packed red blood cells slowly and utilize Lasix between units. I feel like he is probably interstitially dehydrated given that he has an elevated osmolality and hopefully with initial transfusions he will pull some interstitial fluid back in and able to utilize Lasix to reestablish fluid balance. Anticipate probably having to give him some additional IV fluids after the units. Until his units are complete, will closely monitor his I's and O's and plan on leaving him on a fluid restricted diet as well as put him on an 1800 calorie ADA diet. Given the concern for pyelonephritis, I have started him on Meropenem considering that he has had multiple antibiotics, including Bactrim, doxycycline and some Keflex in the last month, but yet has developed a urinary tract infection and has run a fever. I will also go ahead and start him on vancomycin with concerns for possible MRSA versus an Enterococcus species causing his urinary tract infection. Will culture his urine and await culture results to further target antibiotic therapy. Will go ahead and get a CT of his abdomen without contrast to further evaluate for possible urinary retention. If he is showing some urinary retention, certainly will place a Damon catheter. Will put him on aggressive bronchial hygiene for treatment of possible developing pneumonia with q.i.d. DuoNeb treatments. He is to be on antibiotic coverage with Meropenem and vancomycin. In regards to his anemia, although I do not think this is acute loss, I think it is related to his renal dysfunction which is chronic. Will go ahead and monitor occult bloods on stools to further rule out acute loss. At some point he will need an echocardiogram given his history of congestive heart failure and ongoing exacerbation. I will try to see if there is one available in the clinic tomorrow. Will plan to repeat labs in the morning. He will be on DVT prophylaxis as per protocol with Lovenox as well as will put him on GI protection with Protonix. Will monitor him closely with cardiac telemetry. Should the patient show any clinical decline and become unstable, certainly will transfer to [facility] for a higher level of care given the patient's multiple co-morbidities. Anticipate length of stay to be at least 2 to 3 days. Until the patient is showing clinical improvement, will continue to monitor and treat as needed. #[id number] MTDD
[2018-09-26] MEDS ORDERED: ACETAMINOPHEN 325 MG TAB PO PRN (21:31)
[2018-09-26] MEDS ORDERED: HYDROcodone 5MG/APAP 325MG 1 EA TAB PO PRN (21:31)
[2018-09-26] MEDS ORDERED: DEXTROSE 50% 25 GM/50 ML SYG IV PRN (21:31)
[2018-09-26] MEDS ORDERED: ALBUTEROL SULFATE 2.5 MG/3 ML VIAL NEB PRN (21:31)
[2018-09-26] MEDS ORDERED: GLUCAGON INJ 1 MG VIAL SUBCU PRN (21:31)
[2018-09-26] MEDS ORDERED: IV SET AND CAP CHANGE INJ INJ SCH (22:00)
--- NOTE | 2018-09-26 22:11 | CT ---
EXAM DESCRIPTION: Abdoment/Pelvis w/o Contrast CLINICAL HISTORY:52 years Male, Complicated UTI; ? Pyleo Comparison: None TECHNIQUE: Contiguous axial images of the abdomen and pelvis were obtained followed by reconstruction images. This exam was performed according to our departmental dose-optimization program, which includes automated exposure control, adjustment of the mA and/or kV according to patient size and/or use of iterative reconstruction technique. FINDINGS: Lung bases: Bilateral pleural effusions, right larger than left. Patchy alveolar opacities throughout the right lower lobe and in the lingula. Heart: Myocardium [place]ta. Liver:Unremarkable. No focal liver lesion. Gallbladder: There is diffuse gallbladder wall edema. No calcified gallstones. Spleen:Unremarkable Pancreas: Pancreas is unremarkable. Adrenal glands:Within normal limits. Kidneys/ureters:Within normal limits Bladder: Circumferential wall thickening with adjacent inflammatory stranding. Pelvic organs: No acute abnormality Vascular structures: Diffuse atherosclerotic calcifications. Peritoneum: No free fluid. Lymph nodes: No abnormal lymph nodes. Stomach/small bowel/colon: Stomach is unremarkable. Small bowel is unremarkable. Colon is unremarkable. Appendix: No evidence of appendicitis. Bones: No acute osseous abnormality. Soft tissues: Unremarkable.. IMPRESSION: Patchy airspace opacities in the right lower lobe concerning for developing pneumonia. Additional opacities in the left base may be related to atelectasis or additional areas of pneumonia. Bilateral pleural effusions, right larger than left. Diffuse gallbladder wall edema. No calcified gallstones. These findings may be related to disease intrinsic or extrinsic to the gallbladder. If there is clinical concern for biliary colic, consider nuclear medicine hepatobiliary scan. Circumferential wall thickening and inflammatory fat stranding of the urinary bladder consistent with cystitis. Both kidneys demonstrate nonspecific perinephric stranding. There is no hydronephrosis and no clear evidence of pyelonephritis which is difficult to exclude without IV contrast. Electronically signed by: Jas Bonner DO 09/26/2018 10:10 PM CDT
[2018-09-27] MEDS ORDERED: SENNA/DOCUSATE TAB 1 EA TAB PO PRN (01:34)
[2018-09-27] MEDS ORDERED: ZOLPIDEM TARTRATE 10 MG TAB PO PRN (01:34)
[2018-09-27] MEDS ORDERED: PANTOPRAZOLE SODIUM IV 40 MG VIAL IV SCH (06:30)
[2018-09-27] MEDS ORDERED: ATORVASTATIN 20 MG TAB PO ONE (07:31)
[2018-09-27] MEDS ORDERED: SODIUM CHL 0.9% 50ML MIN-BAG+ 50 ML IVPB ONE ×2 (07:32→20:14)
[2018-09-27] MEDS ORDERED: POTASSIUM CHLORIDE 20 MEQ TAB ONE (07:32)
[2018-09-27] MEDS ORDERED: MEROPENEM 1 GM VIAL IVPB ONE ×2 (07:32→20:15)
--- NOTE | 2018-09-27 07:54 | RAD ---
EXAM: Single view chest. INDICATION: Pneumonia. COMPARISON: Chest x-ray: 09/26/2018. FINDINGS: Persistent peribronchial thickening with a right upper lobe consolidation. The heart is enlarged. There is no pneumothorax. Bilateral pleural effusions may be present. There is no pneumothorax. IMPRESSION: Peribronchial thickening with a right upper lobe consolidation, likely representing pneumonia. Electronically signed by: Cedrick Saldaña MD 09/27/2018 7:53 AM CDT Workstation: [id number]
[2018-09-27] MEDS ORDERED: ALBUTEROL SULFATE 2.5 MG/3 ML VIAL NEB SCH (08:00)
[2018-09-27] MEDS: INSULIN LISPRO 100 UNITS/ML PEN SUBCU SCH ×4 (08:12→21:00)
[2018-09-27] MEDS: FAMOTIDINE 20 MG TAB PO SCH (08:56)
[2018-09-27] MEDS: ASPIRIN (CHEWABLE) 81 MG TAB PO SCH (08:57)
[2018-09-27] MEDS: amLODIPine BESYLATE 5 MG TAB PO SCH (08:57)
[2018-09-27] MEDS: CITALOPRAM HBR 20 MG TAB PO SCH (08:57)
[2018-09-27] MEDS: BIFIDOBACTERIUM INFANTIS 4 MG CAP PO SCH (08:57)
[2018-09-27] MEDS: GABAPENTIN 300 MG CAP PO SCH ×2 (08:57→21:06)
[2018-09-27] MEDS: POTASSIUM CHLORIDE 20 MEQ TAB PO SCH (08:57)
[2018-09-27] MEDS: CARVEDILOL 12.5 MG TAB PO SCH ×2 (08:57→21:06)
[2018-09-27] MEDS: FINASTERIDE 5 MG TAB PO SCH (08:57)
[2018-09-27] MEDS: METOCLOPRAMIDE HCL 5 MG TAB PO SCH ×4 (08:57→21:07)
[2018-09-27] MEDS: TAMSULOSIN 0.4 MG CAP PO SCH (08:58)
[2018-09-27] MEDS: ENOXAPARIN SODIUM 40 MG/0.4 ML SYG SUBCU SCH (08:58)
[2018-09-27] MEDS ORDERED: SODIUM CHLORIDE 0.9% (FLUSH) 10 ML SYG IV SCH (09:00)
[2018-09-27] MEDS ORDERED: VANCOMYCIN PER PHARMACY IVPB SCH (09:00)
[2018-09-27] MEDS: MEROPENEM 1 GM in SODIUM CHL 0.9% 50ML MIN-BAG+ 50 ML IVPB SCH ×2 (09:01→21:06)
[2018-09-27] MEDS: IPRATROPIUM/ALBUTEROL 3 ML VIAL NEB SCH ×4 (09:27→20:07)
[2018-09-27] MEDS: NON-FORMULARY MEDICATION 1 EA MIS (Febuxostat [Uloric] 40 MG) PO SCH (09:36)
[2018-09-27] MEDS: KCL 20MEQ/0.45% NS 1,000 ML IVS PRN ×2 (09:58→19:30)
[2018-09-27] MEDS: HYDROcodone 7.5MG/APAP 325MG 1 EA TAB PO PRN (10:07)
[2018-09-27] MEDS: ONDANSETRON INJ 4 MG/2 ML VIAL IV PRN (13:40)
--- NOTE | 2018-09-27 15:54 | PN ---
SUPERVISING PHYSICIAN: Jerry Parham MD DATE: 09/27/19 SUBJECTIVE: The patient got 2 units of blood through the night without any complications. He notes his shortness of breath is not quite as extreme as it was on admission. He has had no chest pain. He does have a cough that is nonproductive and he has been afebrile. The patient since admission and this morning had not had any significant output at which point I requested a catheter placement and he had well over 500 urine output at that time. The patient continues to stay he does not feel like he has to pee even though he pees a little bit and does not feel like he is retaining. OBJECTIVE: VITAL SIGNS: Temperature 98.0, pulse 79, blood pressure 137/65, respirations 18 , saturation 95% on room air. Weight 100 kg. GENERAL: The patient is sitting in the bedside chair and appears t9o be comfortable and in no acute distress. He does continue to look pale and frail in appearance. CHEST: Lung sounds in right upper lobe has notable rhonchi more prominent on the lateral aspect and left is fairly clear. but lungs are diminished towards the bases. HEART: Regular rate and rhythm without any notable murmurs or gallops. ABDOMEN: Soft, obese, non-tender.. EXTREMITIES: Below-knee amputations, bilateral, without any complications. Left lower stump with most recent amputation shows sutures to be in place without any obvious complications or infection. NEUROLOGICAL: Alert and oriented x3. LABORATORY: H&H this morning is up to 8.7 and 26.9 with platelet count of 196, 000 and RBC indices are normocytic normochromic. Differential continues to show without a left shift. Chemistries show electrolytes to be within normal limits with C02 continuing to be low at 20. BUN 89, creatinine 3.46, both are up from admission and serum osmolality continues to be elevated at 302. Blood sugars are between 118 and 173. Calcium 8.3. Urinalysis on catheterized specimen showed 100 glucose, moderate of blood with 5 to 10 RBC, 5 to 10 WBC, 3 to 5 epithelials and 1+ bacteria. MICROBIOLOGY: Urine culture pending. RADIOLOGY: Chest x-ray, single-view this morning, per radiology interpretation showed peribronchial thickening with a right upper lobe consolidation likely representing pneumonia. ASSESSMENT: 1. Right upper lobe pneumonia community acquired with patient having been previously on 3 separate antibiotics, now on vancomycin and meropenem. 2. Urinary tract infection with concerns for developing pyelonephritis with the patient having been on previous antibiotics including Bactrim and requiring initiation and more aggressive antibiotics including meropenem and vancomycin, awaiting culture results. 4. Urinary retention further related to developing urinary tract infection with patient having a history of hypertrophy and recent catheterization within the last month. 4. Acute on chronic heart failure, uncertain etiology, likely diastolic but no current echocardiogram for review with the patient having elevated BNP on admission. 5. Symptomatic anemia with a normocytic/normochromic presentation probably due to chronic chronic illness, including chronic kidney disease requiring transfusion of 2 units of packed red blood cells. 6. Diabetes mellitus type 2, poorly controlled. 7. Sepsis secondary to the urinary tract infection and developing pneumonia requiring initiation of parenteral antibiotics including meropenem and vancomycin with the patient being mildly hypotensive, decreased renal function and anemia and febrile on admission. 8. Chronic renal disease with acute exacerbation due probably to previous antibiotic administration including Bactrim and prerenal azotemic state due to the anemia. 9. Moderate dehydration/hypovolemia due to chronic renal disease and exacerbating congestive heart failure and resultant mild pulmonary edema requiring aggressive management. . 10. Bilateral [id number]-[id number] amputations with most recent surgery this past year complicated by postoperative cellulitis with patient having currently been on Bactrim, doxycycline and Keflex showing improvement without obvious cellulitis on admission. 11. Obstructive sleep apnea, not currently using any BiPAP or C-PAP. 12. History of benign prostatic hypertrophy on Flomax with evidence of acute urinary retention as noted above with resultant bladder infection and possible pyelonephritis. PLAN: Will continue with plan of care at this point with meropenem and vancomycin for treatment of both the right upper lobe pneumonia and urinary tract infection, possible pyelonephritis given that he has had multiple weeks of antibiotics including Keflex, doxycycline and Bactrim. Will await his urine culture results to help further antibiotic therapy. Will plan to follow his hemoglobin and hematocrit closely as we increase fluid management given he does have elevated BNP and congestive heart failure exacerbation, anticipate probably he will need another unit of packed red blood cells once he truly euvolemic. Will manage his fluids slowly to prevent complications and reinitiate Lasix once his fluid status is corrected. He remains on DVT prophylaxis and GI prophylaxis. Will plan to repeat labs and chest x-ray in the morning. He continues to be on aggressive pulmonary hygiene. Will continue to monitor occult blood of stools to further rule out any acute loss and more likely is ongoing chronic illness and chronic kidney disease. He will need an echocardiogram at some point and should his renal function fail to show any significant response, certainly we will need to touch base with his paper wood cutter, Dr. Vieyra. Until the patient shows good clinical improvement and can continue into the outpatient management with treatment, we will continue to monitor and treat as needed. #[id number] [facility]
[2018-09-27] MEDS: INSULIN DETEMIR 100 UNITS/ML PEN SUBCU SCH (21:04)
[2018-09-27] MEDS: ATORVASTATIN 20 MG TAB PO SCH (21:06)
[2018-09-28] MEDS: KCL 20MEQ/0.45% NS 1,000 ML IVS PRN (05:04)
[2018-09-28] MEDS: INSULIN LISPRO 100 UNITS/ML PEN SUBCU SCH ×4 (07:36→21:30)
[2018-09-28] MEDS ORDERED: SODIUM CHLORIDE 0.9% (FLUSH) 10 ML SYG IV ONE (07:46)
[2018-09-28] MEDS: POTASSIUM CHLORIDE 20 MEQ TAB PO SCH (07:52)
[2018-09-28] MEDS ORDERED: SOD POLYSTYRENE SULFONATE 15 GM/60 ML BTTL PO ONE (07:59)
[2018-09-28] MEDS ORDERED: SODIUM BICARBONATE VIAL 50 MEQ/50 ML VIAL ONE ×2 (08:06→20:21)
[2018-09-28] MEDS ORDERED: DEXTROSE 5% 1000ML 1,000 ML IVS ONE ×2 (08:06→20:21)
[2018-09-28] MEDS: IPRATROPIUM/ALBUTEROL 3 ML VIAL NEB SCH ×4 (08:10→19:45)
[2018-09-28] MEDS: SODIUM BICARBONATE VIAL 75 MEQ in DEXTROSE 5% 1000ML 1,000 ML IVS PRN ×2 (08:24→21:06)
[2018-09-28] MEDS ORDERED: VANCOMYCIN HCL INJ 500 MG VIAL ONE (08:27)
[2018-09-28] MEDS ORDERED: SODIUM CHLORIDE 0.9% 250ML 250 ML ONE (08:28)
[2018-09-28] MEDS ORDERED: VANCOMYCIN HCL INJ 1,000 MG VIAL IVPB ONE (08:28)
[2018-09-28] MEDS: FAMOTIDINE 20 MG TAB PO SCH (08:39)
[2018-09-28] MEDS: METOCLOPRAMIDE HCL 5 MG TAB PO SCH ×4 (08:39→21:09)
[2018-09-28] MEDS: FINASTERIDE 5 MG TAB PO SCH (08:39)
[2018-09-28] MEDS: amLODIPine BESYLATE 5 MG TAB PO SCH (08:39)
[2018-09-28] MEDS ORDERED: SODIUM CHL 0.9% 50ML MIN-BAG+ 50 ML IVPB ONE ×2 (08:58→20:21)
[2018-09-28] MEDS ORDERED: MEROPENEM 1 GM VIAL IVPB ONE ×2 (08:59→20:22)
[2018-09-28] MEDS ORDERED: VANCOMYCIN HCL INJ 1,000 MG, VANCOMYCIN HCL INJ 500 MG in SODIUM CHLORIDE 0.9% 250ML 25... IVPB SCH (09:00)
[2018-09-28] MEDS: ASPIRIN (CHEWABLE) 81 MG TAB PO SCH (09:08)
[2018-09-28] MEDS: CARVEDILOL 12.5 MG TAB PO SCH ×2 (09:08→21:09)
[2018-09-28] MEDS: MEROPENEM 1 GM in SODIUM CHL 0.9% 50ML MIN-BAG+ 50 ML IVPB SCH ×2 (09:09→21:05)
[2018-09-28] MEDS: ENOXAPARIN SODIUM 40 MG/0.4 ML SYG SUBCU SCH (09:09)
[2018-09-28] MEDS: BIFIDOBACTERIUM INFANTIS 4 MG CAP PO SCH (09:09)
[2018-09-28] MEDS: CITALOPRAM HBR 20 MG TAB PO SCH (09:09)
[2018-09-28] MEDS: SODIUM CHLORIDE 0.9% (FLUSH) 10 ML SYG IV PRN ×4 (09:09→21:09)
[2018-09-28] MEDS: TAMSULOSIN 0.4 MG CAP PO SCH (09:09)
[2018-09-28] MEDS: NON-FORMULARY MEDICATION 1 EA MIS (Febuxostat [Uloric] 40 MG) PO SCH (09:19)
--- NOTE | 2018-09-28 09:38 | RAD ---
EXAM DESCRIPTION: Chest,1 View CLINICAL HISTORY: Right upper lobe pneumonia COMPARISON: Chest radiograph dated September 27, 2018 TECHNIQUE: Upright frontal view the chest FINDINGS: Postsurgical changes with median sternotomy wires. Cardiac silhouette shows cardiomegaly with central pulmonary vascular congestion and worsening opacities bilaterally, most compatible with congestive heart failure with pulmonary edema. Underlying infiltrate cannot be excluded. Suspect small bilateral pleural effusions. No pneumothorax. Visualized osseous structures show no destructive lesions. IMPRESSION: 1. Cardiomegaly with central pulmonary vascular congestion and worsening alveolar opacities bilaterally, compatible with congestive heart failure with pulmonary edema. Underlying infiltrate cannot be excluded. 2. Suspect small bilateral pleural effusions. Electronically signed by: Edmund Tiwari MD 09/28/2018 9:36 AM CDT
[2018-09-28] MEDS: GABAPENTIN 300 MG CAP PO SCH ×2 (09:48→21:09)
[2018-09-28] MEDS: ONDANSETRON INJ 4 MG/2 ML VIAL IV PRN (13:14)
--- NOTE | 2018-09-28 18:37 | PN ---
DATE: 09/28/18 SUPERVISING PHYSICIAN: Jamaal Mendez M.D. SUBJECTIVE: The patient still feels pretty poorly today. He has a little bit of shortness of breath last night but no respiratory distress. He is starting to have a little scrotal edema but continues to have decent urine output. Clinically he is quite fragile and his kidney function showed a decrease in functionality with his increased creatinine. I did talk to Dr. Gabriel. Given his creatinine is 4 and he was hyperkalemic, we are going to go ahead and start him on some Kayexalate and sodium bicarb infusion. He is afebrile but I did explain to him that should he not show a good clinical response, certainly by tomorrow will need to transfer to a higher level of care but the biggest concern needing dialysis. OBJECTIVE: VITAL SIGNS: Temperature 98.5, pulse 72, blood pressure 112/70, respirations 18, satting 92 to 93% on room air. I's and O's show a positive balance of 2090 with 3040 in, 950 out. He has had 5 bowel movements today. GENERAL: The patient appears very frail and pale but he is alert in no obvious distress. CHEST: Lungs sounds remain clear throughout, just slightly diminished towards the bases. There are no rhonchi, wheezing or rales noted. HEART: Regular rate and rhythm. ABDOMEN: Obese but soft, non-tender with positive bowel sounds. GENITOURINARY: His scrotal area shows some increased edema but no obvious skin breakdown. Damon catheter is in place. EXTREMITIES: Bilateral [id number] amputations. NEUROLOGIC: He is alert and oriented times three. LABORATORY: CBC shows a stable white count at 7.1, hemoglobin now is up to 9, hematocrit 27.7, platelet count 202,000. Differential shows to be without a left shift. Chemistries show worsening creatinine, it is up to 4.02 today as well as BUN is up to 97, potassium 6.1. Carbon dioxide is down at 18, sodium 135, calcium 8.4. Serum osmolality continues to be elevated at 302. MICROBIOLOGY: Urine culture remains pending. RADIOLOGY: Repeat chest x-ray this morning per radiology interpretation shows cardiomegaly with central pulmonary vascular congestion and worsening alveolar opacities bilaterally compatible with congestive heart failure with pulmonary edema with underlying infiltrate that cannot be excluded. Also suspect small bilateral pleural effusions. ASSESSMENT: 1. Right upper lobe pneumonia community acquired having previously been on previous 3 antibiotics, now on vancomycin and meropenem. 2. Urinary tract infection with concerns for developing pyelonephritis with the patient now on meropenem and vancomycin awaiting culture results. 3. Acute urinary retention requiring catheterization. 4. Acute on chronic heart failure likely related to acute renal dysfunction with some diastolic and systolic components but currently showing fairly stable with a significantly elevated BNP on admission. 5. Symptomatic anemia with a normocytic/normochromic presentation due to chronic chronic illness, including chronic kidney disease requiring transfusion of 2 units of packed red blood cells showing to be stable now. 6. Diabetes mellitus type 2, poorly controlled. 7. Sepsis secondary to the urinary tract infection and pneumonia showing good response to parenteral antibiotics, although worsening renal function. 8. Chronic renal failure with acute exacerbation likely due to previous administration of Bactrim and prerenal azotemic state from the anemia and hypovolemia showing very little response, in fact worsening with transfusion requiring initiation of sodium bicarb infusion after consulting with nephrology. 9. Electrolyte imbalance with hyperkalemia secondary to acute renal failure requiring initiation of Kayexalate with no significant changes noted on EKGs and the patient showing to be stable. 10. Bilateral [id number] amputations with most recent surgery this year complicated by postoperative cellulitis having been on multiple antibiotics including Bactrim, doxycycline and Keflex, showing to be without any obvious cellulitis on this admission. 11. Obstructive sleep apnea, not currently using any BiPAP or C-PAP. 12. History of benign prostatic hypertrophy on Flomax with evidence of acute urinary retention requiring Damon placement with the patient having resulting bladder infection prior to admission and Damon placement catheter as well as concern for pyelonephritis with the patient on Meropenem and vancomycin awaiting final culture results. PLAN: After talking to Dr. Gabriel, will go ahead and start him on sodium bicarb with some D5W with 1.5 amps of bicarb to infuse at 150 as tolerated for 24 hours and reevaluate his renal function in the morning. I will go ahead and give him some Kayexalate to correct the potassium and recheck potassium in 4 hours. I did discuss at length with the patient his critical nature of his illness and possibly having to ship him tomorrow to [facility] for a higher level of care, including possible dialysis should he not respond to current treatment plans. He does remain on antibiotic coverage for pyelonephritis and urinary tract infection. Those cultures are still pending. He is Meropenem and vancomycin both renally dosed. Will closely monitor his output and again should he show any worsening clinically, including desaturation or concerns for pulmonary edema with his fluid status being hard to manage, certainly will transfer him to [facility]. Hopefully tomorrow he will show some improvement and we can continue with the patient's plan of care and touch base with Dr. Gabriel. Until that point and if the patient continues to remain stable, he can remain here and will continue to treat as needed. #[id number] [facility]
[2018-09-28] MEDS: ATORVASTATIN 20 MG TAB PO SCH (21:08)
[2018-09-28] MEDS: INSULIN DETEMIR 100 UNITS/ML PEN SUBCU SCH (21:45)
[2018-09-28] MEDS: HYDROcodone 7.5MG/APAP 325MG 1 EA TAB PO PRN (22:04)
[2018-09-29] MEDS ORDERED: SODIUM BICARBONATE VIAL 50 MEQ/50 ML VIAL ONE (05:45)
[2018-09-29] MEDS ORDERED: DEXTROSE 5% 1000ML 1,000 ML IVS ONE (05:45)
[2018-09-29] MEDS: SODIUM BICARBONATE VIAL 75 MEQ in DEXTROSE 5% 1000ML 1,000 ML IVS PRN (05:59)
[2018-09-29] MEDS: IPRATROPIUM/ALBUTEROL 3 ML VIAL NEB SCH ×2 (07:52→13:15)
[2018-09-29] MEDS ORDERED: SODIUM CHL 0.9% 50ML MIN-BAG+ 50 ML IVPB ONE (07:53)
[2018-09-29] MEDS ORDERED: MEROPENEM 1 GM VIAL IVPB ONE (07:55)
[2018-09-29] MEDS: MEROPENEM 1 GM in SODIUM CHL 0.9% 50ML MIN-BAG+ 50 ML IVPB SCH (07:58)
[2018-09-29] MEDS: INSULIN LISPRO 100 UNITS/ML PEN SUBCU SCH (08:03)
[2018-09-29] MEDS: amLODIPine BESYLATE 5 MG TAB PO SCH (08:04)
[2018-09-29] MEDS: POTASSIUM CHLORIDE 20 MEQ TAB PO SCH (08:04)
[2018-09-29] MEDS: FAMOTIDINE 20 MG TAB PO SCH (08:04)
[2018-09-29] MEDS: BIFIDOBACTERIUM INFANTIS 4 MG CAP PO SCH (08:04)
[2018-09-29] MEDS: FINASTERIDE 5 MG TAB PO SCH (08:04)
[2018-09-29] MEDS: CITALOPRAM HBR 20 MG TAB PO SCH (08:04)
[2018-09-29] MEDS: CARVEDILOL 12.5 MG TAB PO SCH (08:04)
[2018-09-29] MEDS: GABAPENTIN 300 MG CAP PO SCH (08:04)
[2018-09-29] MEDS: TAMSULOSIN 0.4 MG CAP PO SCH (08:04)
[2018-09-29] MEDS: METOCLOPRAMIDE HCL 5 MG TAB PO SCH (08:04)
[2018-09-29] MEDS: ASPIRIN (CHEWABLE) 81 MG TAB PO SCH (08:04)
[2018-09-29] MEDS: ENOXAPARIN SODIUM 40 MG/0.4 ML SYG SUBCU SCH (08:04)
[2018-09-29] MEDS: NON-FORMULARY MEDICATION 1 EA MIS (Febuxostat [Uloric] 40 MG) PO SCH (08:22)
[2018-09-29 13:47] VITALS: TEMP 98.4
[2018-09-29 13:51] VITALS: BP 116/71; O2SAT 93
--- NOTE | 2018-10-02 08:19 | DS ---
SUPERVISING PHYSICIAN: Jamaal Mendez MD DISCHARGE DIAGNOSES: 1. Right upper lobe pneumonia community acquired having previously been on previous 3 antibiotics, now on vancomycin and meropenem. 2. Urinary tract infection with concerns for developing pyelonephritis with the patient now on meropenem and vancomycin awaiting culture results. 3. Acute urinary retention requiring catheterization. 4. Acute on chronic heart failure likely related to acute renal dysfunction with some diastolic and systolic components but currently showing fairly stable with a significantly elevated BNP on admission. 5. Symptomatic anemia with a normocytic/normochromic presentation due to chronic chronic illness, including chronic kidney disease requiring transfusion of 2 units of packed red blood cells showing to be stable now. 6. Diabetes mellitus type 2, poorly controlled. 7. Sepsis secondary to the urinary tract infection and pneumonia showing good response to parenteral antibiotics, although worsening renal function. 8. Chronic renal failure with acute exacerbation likely due to previous administration of Bactrim and prerenal azotemic state from the anemia and hypovolemia showing very little response, in fact worsening with transfusion requiring initiation of sodium bicarb infusion after consulting with nephrology. 9. Electrolyte imbalance with hyperkalemia secondary to acute renal failure requiring initiation of Kayexalate with no significant changes noted on EKGs and the patient showing to be stable. 10. Bilateral [id number] amputations with most recent surgery this year complicated by postoperative cellulitis having been on multiple antibiotics including Bactrim, doxycycline and Keflex, showing to be without any obvious cellulitis on this admission. 11. Obstructive sleep apnea, not currently using any BiPAP or C-PAP. 12. History of benign prostatic hypertrophy on Flomax with evidence of acute urinary retention requiring Damon placement with the patient having resulting bladder infection prior to admission and Damon placement catheter as well as concern for pyelonephritis with the patient on Meropenem and vancomycin awaiting final culture results. HISTORY OF PRESENT ILLNESS: Mr. Warner is a 52 year-old male patient that who was admitted to the hospital after he presented to the Emergency Room with complaints of increasing fever and just not feeling well. His symptoms started the day prior to admission. He had had some doxycycline, Keflex and Bactrim for a questionable wound infection in his stump of the left leg [id number] amputation. He also had some dysuria the last several days, just overall feeling poorly. He denied any nausea, vomiting or abdominal pains. He noted he did not feel like he was completely emptying his bladder and he only goes small amounts at any given time but he does have a history of chronic renal failure. He sees Dr. Gagan Lewis, a building admin in [place]. He also has a history of benign prostatic hypertrophy and is on Flomax. Laboratory studies on admission to the Emergency Room showed a white count of 8.7, hemoglobin 7.2 and hematocrit 22.4 with platelet count of 199,000. Differential did show to be without a left shift. He was given 2 units of packed red blood cells within the last 3 weeks most likely due to his chronic renal disease as he is denying any bloody stools, melenic stools or any bright red blood per rectum. He has also been having some shortness of breath with exertion but denied any chest pains or any significant cough. His BNP was elevated at 2,550 and troponin was 0.05. Urinalysis showed a significant amount of protein at 300 with 100 of glucose, large amount of blood and microscopic revealed too numerous to count RBCs, WBCs and 2+ bacteria with no epithelials cells. Vital signs showed he was febrile with a temperature of 100.9, pulse 76, blood pressure 101/47 with respirations of 18, saturation 95% on room air, yet a urine culture was sent for concerns for pyelonephritis given that he has been on multiple antibiotics and continues to show a fever with a bladder infection. It was requested by the Emergency Room physician that he be admitted for his symptomatic anemia, congestive heart failure exacerbation and there was also a suspect for interstitial pulmonary edema per chest x-ray. There was also a concern for a right upper lobe infiltrate which is concerning for pneumonia. The patient was admitted to the medical/surgical floor. HOSPITAL COURSE: He was given 2 units of packed red blood cells and Lasix between units. He is most likely interstitially dehydrated given that he had an elevated osmolality and it was hoped that the transfusions would help his overall status. He was also put on meropenem. There were also concerns of possible MRSA versus an enterococcus species causing his urinary tract infection. His cultures were monitored. He was given some IV fluids with bicarbonate in them. His overall condition failed to respond to the therapy. He is a patient of Dr. Gagan Lewis in [place] given his history of chronic renal failure and his multiple comorbidities as well as the ongoing urinary tract infection which also causes concerns for pneumonia as well as his congestive heart failure exacerbation, I spoke with Dr. Gagan Lewis and he thought he would be better served by being transferred to [facility] as he most likely would need dialysis and he may be a candidate for dialysis on a routine basis. His white count remained stable throughout his stay but after his blood transfusion his hemoglobin did come up to 9.7 and hematocrit 27.7. His baseline creatinine is 2.2 and his creatinine here in the hospital is 4.02. On the , he also had a potassium that was elevated to 6.1 and required him to receive some Kayexalate. Today, his potassium is 4.5. His vital signs remain stable so we will transfer him to [facility] at the request of his building admin, Dr. Gagan Lewis. DISCHARGE PLAN: The patient will be discharged from the hospital and transferred to [facility] in [place]. He will go via ambulance. I sent his lab work along with his chart notes, his radiology reports, to [facility]. I also sent a list of his home medications as well as the medications he was on here in the hospital. Dr. Lutz, hospitalist at [place], accepted the patient in transfer with consult to Dr. Gagan Lewis, building admin. He is to followup with Dr. Destiny Parham after discharge from [facility]. DISCHARGE MEDICATIONS: 1. Aspirin. 2. Senokot. 3. Uloric. 4. Humalog insulin. 5. Levemir insulin. 6. Reglan. 7. Furosemide. 8. Ambien. 9. Famotidine. 10. Tamsulosin. 11. Gabapentin. 12. Finasteride. 13. Amlodipine. 14. Potassium chloride. 15. Citalopram. 16. Pravastatin,. 17. Hydrocodone. 18. Carvedilol. 19. Nitroglycerin. 20. Albuterol sulfate nebs. 21. Vancomycin per pharmacy. #[id number] [facility]
== END 2018-09-29 13:20 | disposition short-term general hospital (02) | DRG 871 ==
LOC: ER 16:45 → OBSVTOIN 21:21 → MS 21:21
PROVIDERS: ADMIT Nurse Practitioner Family; ATTEND Nurse Practitioner Acute Care
PROC: 30263N1 (ICD-10-PCS; principal; 2018-09-27)
DX: A41.9 Sepsis, unspecified organism (principal); I50.43 Acute on chronic combined systolic (congestive) and diastolic (congestive) heart failure; J18.9 Pneumonia, unspecified organism; N12 Tubulo-interstitial nephritis, not specified as acute or chronic; N40.1 Benign prostatic hyperplasia with lower urinary tract symptoms; D63.1 Anemia in chronic kidney disease; I25.10 Atherosclerotic heart disease of native coronary artery without angina pectoris; M1A.9XX0 Chronic gout, unspecified, without tophus (tophi); I12.9 Hypertensive chronic kidney disease with stage 1 through stage 4 chronic kidney disease, or unspecified chronic kidney disease; E11.22 Type 2 diabetes mellitus with diabetic chronic kidney disease; N18.9 Chronic kidney disease, unspecified; E11.65 Type 2 diabetes mellitus with hyperglycemia; E87.5 Hyperkalemia; E66.9 Obesity, unspecified; R33.9 Retention of urine, unspecified; G47.33 Obstructive sleep apnea (adult) (pediatric); Z88.5 Allergy status to narcotic agent; Z68.33 Body mass index [BMI] 33.0-33.9, adult; Z95.1 Presence of aortocoronary bypass graft; Z89.512 Acquired absence of left leg below knee; Z89.511 Acquired absence of right leg below knee

== ENCOUNTER 2018-10-11 08:40 | Inpatient (IN) | payer OTHER ==
--- NOTE | 2018-10-11 08:47 | ED.PDOC ---
History of Present Illness - General Chief Complaint: Chest Pain/[place] Stated Complaint: Chest pain, SOB, nausea Time Seen by Provider: 10/11/18 08:46 Source: patient Exam Limitations: no limitations - History of Present Illness Initial Comments: George Warner 52 y/o male with long history of DM 2 and CAD came to ER with nausea/vomiting yesterday then today with SOB,feeling bloated and had episode of gripping like chest pains today.Had taken Lasix which had eased his sob and CP at this time .On his arrival his Sao2 -85% RA.Stated was hospitalized in [facility] 2 wks ago for kidney infection,PNA,scrotal cellulitis and in hospital for 2 weeks.Denies chills ,fever but has some non productive cough. Timing/Duration: 24 hours Severity: moderate Location: central Activities at Onset: none Prior Chest Pain/Cardiac Workup: cardiac cath, heart attack Improving Factors: rest Nitro Today/Relief: 0.4 mg x 1, provided by ED Aspirin Treatment Today: 325 mg x 1, provided by ED Associated Symptoms: other - see hpi Allergies/Adverse Reactions: Allergies Tramadol [From Ultram] Adverse Reaction (Intermediate, Verified 10/11/18 09:07) Home Medications: Ambulatory Orders Aspirin [Aspirin Childrens] 81 mg PO DAILY 10/22/17 Febuxostat [Uloric] 40 mg PO DAILY 10/22/17 Furosemide 40 mg PO BID 10/22/17 Insulin Detemir [Levemir Pen] 10 unit SUBCU BEDTIME 10/22/17 Insulin Lispro [Humalog] 0 unit SUBCU ACHS PRN 10/22/17 Metoclopramide Tab [Reglan Tab] 5 mg PO QID 10/22/17 Senna/Docusate Tab [Senokot-S] 1 ea PO BID PRN 10/22/17 Zolpidem Tartrate [Ambien] 10 mg PO BEDTIME PRN 10/22/17 Famotidine 20 mg PO DAILY #30 tab 08/02/18 Atorvastatin Calcium 40 mg PO DAILY 09/17/18 Carvedilol 12.5 mg PO BID 09/17/18 Citalopram Hydrobromide [Citalopram] 20 mg PO DAILY 09/17/18 Finasteride 5 mg PO DAILY 09/17/18 Gabapentin 300 mg PO BID 09/17/18 HYDROcodone 7.5MG/APAP 325MG [[place] 7.5/325] 1 tablet PO QID PRN 09/17/18 Nitroglycerin 0.4 mg Tab [Nitrostat] 1 tablet PO Q5MIN 09/17/18 Potassium Chloride [K-Tab] 20 meq PO DAILY 09/17/18 Tamsulosin HCl [Flomax] 0.4 mg PO DAILY 09/17/18 amLODIPine BESYLATE [Norvasc] 5 mg PO DAILY 09/17/18 Albuterol Sulfate Nebs [Proventil Nebs] 2.5 mg NEB Q4H PRN vial 09/29/18 Review of Systems - Review of Systems Constitutional: States: no symptoms reported EENTM: States: no symptoms reported Respiratory: States: see HPI Cardiology: States: see HPI Genitourinary: States: see HPI Musculoskeletal: States: no symptoms reported Skin: States: no symptoms reported Neurological: States: no symptoms reported Endocrine: States: no symptoms reported Hematologic/Lymphatic: States: no symptoms reported Past Medical History (General) - Patient Medical History Hx Seizures: No Hx Stroke: No Hx Dementia: No Hx Asthma: No Hx of COPD: No Hx Cardiac Disorders: Yes Hx Congestive Heart Failure: Yes Hx Pacemaker: No Hx Hypertension: Yes Hx Thyroid Disease: No Hx Diabetes: Yes Hx Gastroesophageal Reflux: No Hx Renal Disease: No Hx Cancer: No Hx of HIV: No Hx Hepatitis C: No Hx MRSA: No Surgical History: coronary bypass surgery, other - bilateral BKA - Vaccination History Hx Tetanus, Diphtheria Vaccination: No Hx Influenza Vaccination: Yes - 2017 Hx Pneumococcal Vaccination: Yes - 2018 - Social History Hx Tobacco Use: No Hx Chewing Tobacco Use: No Hx Alcohol Use: No Hx Substance Use: No Hx Substance Use Treatment: No Hx Depression: No Hx Physical Abuse: No Hx Emotional Abuse: No Hx Suspected Abuse: No - Activities of Daily Living Grooming Ability: Standby Assistance Eating (Feeding) Ability: Standby Assistance Toileting Ability: Moderate Assistance - Female History Patient : No Family Medical History - Family History Father Family History: Unknown Living Status: Hx Family Asthma: No Hx Family Congestive Heart Failure: No Hx Family Hypertension: No Hx Family Stroke: No Hx Cardiac Disease: No Hx Family Diabetes: Yes - dad;multiple family members Hx Family Cancer: Yes - colon cancer Mother Family History: Unknown Living Status: Cause of : COPD Hx Family Asthma: No Hx Family Congestive Heart Failure: No Hx Family Hypertension: Yes Hx Family Stroke: No Hx Cardiac Disease: No Hx Family Diabetes: No Hx Family Cancer: No Physical Exam - Physical Exam General Appearance: Alert, Comfortable, No apparent distress Eyes, Ears, Nose, Throat Exam: normal ENT inspection, pharynx normal Neck: non-tender, supple, normal inspection Respiratory: chest non-tender, lungs clear - upper and mid lungs, decreased breath sounds - bases Cardiovascular/Chest: normal peripheral pulses, regular rate, rhythm, no murmur Peripheral Pulses: radial,right: 2+, radial,left: 2+ Gastrointestinal/Abdominal: non tender, soft, no organomegaly Extremity: non-tender, normal inspection, no pedal edema, no calf tenderness, other - bilateral BKA Neurologic: alert, oriented x 3 Skin Exam: normal color, warm/dry Lymphatic: no adenopathy Progress - Progress Progress: 10/11/18 09:21 Vital Signs - 8 hr 10/11/18 08:43 Pulse Rate [ 80 Apical] Respiratory 20 Rate Blood Pressure 142/78 [Left Arm] O2 Sat by Pulse 85 L Oximetry 10/11/18 10:48 Patient agreed for hospital OBS after discussing all lab findings as well as CXR /EKG. - Results/Orders Results/Orders: 10/11/18 08:44 Telemetry .ONCE EKG Stat Pulse Ox Stat 10/11/18 08:47 IV Care:Saline Lock per Protoc QSHIFT 10/11/18 09:49 THYROID STIMULATING HORMONE Stat Laboratory Results - last 24 hr 10/11/18 10/11/18 10/11/18 09:08 09:08 09:08 WBC 6.7 RBC 3.32 L Hgb 9.2 L Hct 28.9 L MCV 87.0 MCH 27.7 MCHC 32.0 L RDW 15.6 H Plt Count 242 MPV 8.3 Absolute Neuts (auto) 4.90 Absolute Lymphs (auto) 0.70 L Absolute Monos (auto) 0.60 Absolute Eos (auto) 0.40 Absolute Basos (auto) 0.10 Neutrophils % 73.9 Lymphocytes % 10.7 L Monocytes % 9.1 H Eosinophils % 5.3 H Basophils % 1.0 PT 10.8 INR 1.08 PTT (SP) 24.3 Sodium 140 Potassium 4.1 Chloride 105 Carbon Dioxide 28 Anion Gap 11.1 L BUN 65 H Creatinine 2.41 H BUN/Creatinine Ratio 27.0 H Random Glucose 149 H Serum Osmolality 300.9 H Lactic Acid 1.1 Calcium 9.5 Magnesium 2.1 Total Bilirubin 0.6 Direct Bilirubin < 0.1 Indirect Bilirubin 0.5 AST 16 ALT 19 Alkaline Phosphatase 127 H Creatine Kinase 189 H CK-MB (CK-2) 4.6 H* CK-MB (CK-2) % 2.43 Troponin I 0.03 B-Natriuretic Peptide 1830.0 H* Serum Total Protein 7.0 Albumin 3.1 L Lipase Urine Color Urine Appearance Urine pH Ur Specific [place] Urine Protein Urine Glucose (UA) Urine Ketones Urine Blood Urine Nitrite Urine Bilirubin Urine Urobilinogen Ur Leukocyte Esterase Urine RBC Urine WBC Ur Epithelial Cells Urine Bacteria 10/11/18 10/11/18 09:10 09:16 WBC RBC Hgb Hct MCV MCH MCHC RDW Plt Count MPV Absolute Neuts (auto) Absolute Lymphs (auto) Absolute Monos (auto) Absolute Eos (auto) Absolute Basos (auto) Neutrophils % Lymphocytes % Monocytes % Eosinophils % Basophils % PT INR PTT (SP) Sodium Potassium Chloride Carbon Dioxide Anion Gap BUN Creatinine BUN/Creatinine Ratio Random Glucose Serum Osmolality Lactic Acid Calcium Magnesium Total Bilirubin Direct Bilirubin Indirect Bilirubin AST ALT Alkaline Phosphatase Creatine Kinase CK-MB (CK-2) CK-MB (CK-2) % Troponin I B-Natriuretic Peptide Serum Total Protein Albumin Lipase 31 Urine Color Yellow Urine Appearance Clear Urine pH 7.0 Ur Specific [place] 1.020 Urine Protein >=300 H Urine Glucose (UA) Negative Urine Ketones Negative Urine Blood Small H Urine Nitrite Negative Urine Bilirubin Negative Urine Urobilinogen 0.2 Ur Leukocyte Esterase Negative Urine RBC 1-3 Urine WBC 0 Ur Epithelial Cells 0-1 Urine Bacteria 0 - EKG/XRAY/CT EKG: Sinus, nonspecific ST T wave Chg, Unchanged from - 26 Sep 2018 Comments: HR-79 XRAY: chest - bilateral vascular congestion,infiltrates both lungs ,left pleural effusion small w/ slight improvement compared to previous CXR/ radiologist Departure - Departure Clinical Impression: CKD (chronic kidney disease) stage 3, GFR 30-59 ml/min Acute exacerbation of CHF (congestive heart failure) Qualifiers: Heart failure type: combined systolic and diastolic Qualified Code(s): I50.43 - Acute on chronic combined systolic (congestive) and diastolic (congestive) heart failure Anemia Qualifiers: Anemia type: due to chronic kidney disease Chronic kidney disease stage: stage 3 (moderate) Qualified Code(s): N18.3 - Chronic kidney disease, stage 3 ( moderate) Time of Disposition: 10:56 Disposition: Admit Patient Condition: Fair Departure Forms: Patient Portal Self Enrollment Referrals: Jerry Parham MD [Primary Care Provider] - 1-2 Weeks Home Medications: Ambulatory Orders Aspirin [Aspirin Childrens] 81 mg PO DAILY 10/22/17 Febuxostat [Uloric] 40 mg PO DAILY 10/22/17 Furosemide 40 mg PO BID 10/22/17 Insulin Detemir [Levemir Pen] 10 unit SUBCU BEDTIME 10/22/17 Insulin Lispro [Humalog] 0 unit SUBCU ACHS PRN 10/22/17 Metoclopramide Tab [Reglan Tab] 5 mg PO QID 10/22/17 Senna/Docusate Tab [Senokot-S] 1 ea PO BID PRN 10/22/17 Zolpidem Tartrate [Ambien] 10 mg PO BEDTIME PRN 10/22/17 Famotidine 20 mg PO DAILY #30 tab 08/02/18 Atorvastatin Calcium 40 mg PO DAILY 09/17/18 Carvedilol 12.5 mg PO BID 09/17/18 Citalopram Hydrobromide [Citalopram] 20 mg PO DAILY 09/17/18 Finasteride 5 mg PO DAILY 09/17/18 Gabapentin 300 mg PO BID 09/17/18 HYDROcodone 7.5MG/APAP 325MG [[place] 7.5/325] 1 tablet PO QID PRN 09/17/18 Nitroglycerin 0.4 mg Tab [Nitrostat] 1 tablet PO Q5MIN 09/17/18 Potassium Chloride [K-Tab] 20 meq PO DAILY 09/17/18 Tamsulosin HCl [Flomax] 0.4 mg PO DAILY 09/17/18 amLODIPine BESYLATE [Norvasc] 5 mg PO DAILY 09/17/18 Albuterol Sulfate Nebs [Proventil Nebs] 2.5 mg NEB Q4H PRN vial 09/29/18 Decision To Admit - Decistion To Admit Decision to Admit Reason: Admit from ER Decision to Admit Date: 10/11/18 - D/W Rachel Ferguson-ANP/Hospitalist Decision to Admit Time: 10:55
--- NOTE | 2018-10-11 08:55 | RAD ---
PROCEDURE: XR CHEST 1 VIEW HISTORY: chest pain COMPARISON: 09/28/2018 TECHNIQUE: Single projection of the chest was done. FINDINGS: Note is again made of median sternotomy. There is presence of bilateral vascular congestion and interstitial and airspace infiltrates seen diffusely in the left hemithorax and in the right mid and lower lung zone. There is slight interval improvement in these findings since the prior study . Small left-sided pleural effusion is also noted There are no pneumothoraces The cardiomediastinal silhouette is stable. IMPRESSION: There is presence of bilateral vascular congestion and interstitial and airspace infiltrates seen diffusely in the left hemithorax and in the right mid and lower lung zone. There is slight interval improvement in these findings since the prior study . Small left-sided pleural effusion is also noted Electronically signed by: Gianni Giron MD 10/11/2018 8:53 AM ASSEMBLY WORKER Workstation: [id number]
[2018-10-11] MEDS ORDERED: BUMETANIDE 0.25 MG/ML VIAL IV ONE (09:46)
[2018-10-11] MEDS ORDERED: NITROGLYCERIN 0.4 MG 25 EA TAB SL ONE (10:23)
[2018-10-11] MEDS ORDERED: ASPIRIN TABLET 325 MG TAB PO ONE (10:23)
--- NOTE | 2018-10-11 11:12 | HP ---
SUPERVISING PHYSICIAN: Jerry Parham M.D. CHIEF COMPLAINT: Shortness of breath. HISTORY OF PRESENT ILLNESS: This is a 52 year-old male patient that has a long history of congestive heart failure, coronary artery disease and diabetes mellitus type 2 as well as chronic renal failure. He presented to the Emergency Room with nausea and vomiting. He also had some shortness of breath and chest pain. He had recently gotten out of the hospital at [facility] due to his renal failure as well as his needing diuretics for his CHF. Over the last 2 days he felt like his abdomen was very taut, had a difficult time breathing. He was coughing and it got to the point where he had nausea and vomiting. In the Emergency Room his O2 sat was 85% on room air. Vital signs: Heart rate 80, blood pressure 142/78, respiratory rate was between 20 and 24. After being placed on oxygen, his saturations went up to 93%. His lab showed sodium 140, potassium 4.1, chloride 105, carbon dioxide 28, BUN 65, creatinine 2.41. His baseline creatinine is 2.2. Glucose 149, lactic acid 1.1. Alkaline phosphatase was slightly elevated at 127, creatinine kinase 189, CK-MB 4.6, troponin 0.03, BMP was 1,830. White count was 6,700 with hemoglobin 9.2, hematocrit 28.9. There was no left shift on differential. Urinalysis was basically within normal limits with the exception of greater than 300 urine protein and small amount of urine blood. Chest x-ray showed the presence of bilateral vascular congestion and interstitial and airspace infiltrates seen diffusely in the left hemithorax and in the right mid and lower lung zones. There is slight improvement in these findings since prior study. Small left sided effusion is also noted. He was given 2 mg of Bumex in the Emergency Room as well as an aspirin and Nitroglycerin. I was called for hospital admission. PAST MEDICAL HISTORY: 1. Congestive heart failure of unknown etiology without any current echocardiogram for review. 2. Coronary artery disease. 3. Gout. 4. Hypertension. 5. Chronic renal failure. 6. Type 2 diabetes poorly controlled on insulin therapy. 7. Obesity. 8. Obstructive sleep apnea. PAST SURGICAL HISTORY: 1. Coronary artery bypass graft. 2. Left knee anterior cruciate ligament repair. 3. Bilateral [id number] amputations. CURRENT MEDICATIONS: Per the EMR and awaiting verification. ALLERGIES: TRAMADOL. FAMILY HISTORY: Positive for diabetes and emphysema. SOCIAL HISTORY: He is and lives in [place]. He is disabled. He has no children. He denies any cigarette smoking, ETOH or illicit drug use. He does occasionally use smokeless tobacco. REVIEW OF SYSTEMS: GENERAL: Positive for fatigue. Negative for fever or weight changes. HEENT: Negative for ear pain, vision changes, sore throat or sinus symptoms. RESPIRATORY: As per History of Present Illness. CARDIAC: As per History of Present Illness. GENITOURINARY: Positive for polyuria. Negative for hematuria or dysuria. MUSCULOSKELETAL: Negative for myalgias, arthralgias or back pain. SKIN: Negative for lesions or rashes. NEUROLOGIC: Negative for dizziness, headache or seizures. PHYSICAL EXAMINATION: VITAL SIGNS: He is afebrile, heart rate 67, blood pressure 165/83, respiratory rate 24, O2 sat is 93% on 2 liters nasal cannula. GENERAL: This is a 52 year-old male patient who is sitting in his chair in his hospital room. He is in no acute distress. HEENT: Normocephalic and atraumatic. Pupils are equal and reactive. Oropharynx is clear. NECK: Supple without mass. RESPIRATORY: Scattered crackles throughout and diminished at the bases. CHEST: There is equal rise and fall of the chest with inspiration and expiration. He is slightly tachypneic at times. CARDIOVASCULAR: Regular rate and rhythm. GASTROINTESTINAL: Abdomen is soft, nondistended, non-tender. Bowel sounds are positive. EXTREMITIES: He has bilateral [id number] amputations. NEUROLOGIC: He is awake, alert and oriented times three. LABORATORY: Labs and films are as per the History of Present Illness. ASSESSMENT: 1. Congestive heart failure with exacerbation, unknown etiology with no current echocardiogram to review. His BNP on admission was 1,830. 2. Shortness of breath and chest pain most likely secondary to #1. 3. Anemia of chronic disease. 4. Chronic renal failure with no exacerbation. His baseline creatinine is about 2.2, today it is 2.4. 5. Poorly controlled diabetes mellitus type 2. He is on insulin therapy. 6. Coronary artery disease. 7. Hypertension. 8. Obstructive sleep apnea. 9. History of gout. PLAN: We will admit the patient to the hospital. I have placed him on the CHF guidelines. He is on a calcium channel gunnar and a beta gunnar, so I have added a very low dose of an Evan inhibitor. I have also given him aggressive Lasix and diuretic therapy. A PPI has been ordered for ulcer prophylaxis, Lovenox for DVT prophylaxis. I have also ordered serial cardiac enzymes due to his complaints of chest pain on admission. I have restarted his home medications. I have ordered lab for in the morning as well as a chest x-ray. Will continue to follow him closely and followup as needed. Dr Parham is the collaborating physician available for consultation. #[id number] ADDENDUM: 10/26/2018 Patient has CHF with diastolic/systolic component and an ejection fraction of 35% on last echocardiogram. INDERJIT
[2018-10-11] MEDS ORDERED: SODIUM CHLORIDE 0.9% (FLUSH) 10 ML SYG IV PRN (12:06)
[2018-10-11] MEDS ORDERED: NITROGLYCERIN 0.4 MG 25 EA TAB SL PRN (12:06)
[2018-10-11] MEDS ORDERED: ACETAMINOPHEN 325 MG TAB PO PRN (12:06)
[2018-10-11] MEDS ORDERED: DEXTROSE 50% 25 GM/50 ML SYG IV PRN (12:15)
[2018-10-11] MEDS ORDERED: GLUCAGON INJ 1 MG VIAL SUBCU PRN (12:15)
[2018-10-11] MEDS ORDERED: HYDROcodone 7.5MG/APAP 325MG 1 EA TAB PO PRN (12:16)
[2018-10-11] MEDS ORDERED: ALBUTEROL SULFATE 2.5 MG/3 ML VIAL NEB PRN (12:24)
[2018-10-11] MEDS ORDERED: IV SET AND CAP CHANGE INJ INJ SCH (12:30)
[2018-10-11] MEDS: METOCLOPRAMIDE HCL 5 MG TAB PO SCH ×3 (12:51→21:28)
[2018-10-11] MEDS: INSULIN LISPRO 100 UNITS/ML PEN SUBCU SCH ×2 (17:51→21:32)
[2018-10-11] MEDS: FUROSEMIDE INJ 40 MG/4 ML VIAL IV SCH (17:53)
[2018-10-11] MEDS: ENOXAPARIN SODIUM 30 MG/0.3 ML SYG SUBCU SCH (21:28)
[2018-10-11] MEDS: GABAPENTIN 300 MG CAP PO SCH (21:28)
[2018-10-11] MEDS: CARVEDILOL 12.5 MG TAB PO SCH (21:28)
[2018-10-11] MEDS: ATORVASTATIN 20 MG TAB PO SCH (21:28)
[2018-10-11] MEDS: INSULIN DETEMIR 100 UNITS/ML PEN SUBCU SCH (21:33)
[2018-10-11] MEDS: ZOLPIDEM TARTRATE 10 MG TAB PO PRN (22:41)
[2018-10-12] MEDS: PANTOPRAZOLE SODIUM IV 40 MG VIAL IV SCH (06:28)
--- NOTE | 2018-10-12 07:09 | RAD ---
Procedure: XR CHEST 1 VIEW Exam Date: 10/12/2018 Ordering Provider: LORENZO ACOSTA Clinical Indication: CHF Comparison: 10/11/2018 Findings: Residuals of thoracic surgery. Cardiomediastinal silhouette is stable. Vascular congestion/pulmonary edema is not significantly changed from prior. No new infiltrates. Small bilateral pleural effusions. No pneumothorax. No acute osseous abnormality. Impression: 1. Vascular congestion/pulmonary edema is not significantly changed from prior. No new infiltrates. 2. Small bilateral pleural effusions. Electronically signed by: Lyle Ordoñez MD 10/12/2018 7:08 AM [facility]
[2018-10-12] MEDS: POTASSIUM CHLORIDE 20 MEQ TAB PO SCH (08:06)
[2018-10-12] MEDS: INSULIN LISPRO 100 UNITS/ML PEN SUBCU SCH ×4 (08:14→21:01)
[2018-10-12] MEDS: GABAPENTIN 300 MG CAP PO SCH ×2 (09:03→21:03)
[2018-10-12] MEDS: ASPIRIN (CHEWABLE) 81 MG TAB PO SCH (09:03)
[2018-10-12] MEDS: amLODIPine BESYLATE 5 MG TAB PO SCH (09:03)
[2018-10-12] MEDS: TAMSULOSIN 0.4 MG CAP PO SCH (09:03)
[2018-10-12] MEDS: FINASTERIDE 5 MG TAB PO SCH (09:03)
[2018-10-12] MEDS: CITALOPRAM HBR 20 MG TAB PO SCH (09:03)
[2018-10-12] MEDS: METOCLOPRAMIDE HCL 5 MG TAB PO SCH ×4 (09:04→21:03)
[2018-10-12] MEDS: FAMOTIDINE 20 MG TAB PO SCH (09:04)
[2018-10-12] MEDS: CARVEDILOL 12.5 MG TAB PO SCH ×2 (09:04→21:03)
[2018-10-12] MEDS: LISINOPRIL 5 MG TAB PO SCH (09:04)
[2018-10-12] MEDS: FUROSEMIDE INJ 40 MG/4 ML VIAL IV SCH (09:04)
[2018-10-12] MEDS: NON-FORMULARY MEDICATION 1 EA MIS (Febuxostat [Uloric] 40 MG) PO SCH (11:19)
--- NOTE | 2018-10-12 14:27 | PN ---
SUPERVISING PHYSICIAN: Jerry Parham MD DATE: 10/12/18 SUBJECTIVE: The patient is sitting up in his room. His is at the bedside. He states he feels much better. He has had no shortness of breath. We discussed that his normal medication regimen would be restarted and he was good with that. Hopefully if he continues to progress, we will send him home tomorrow or the next day. He agreed with that plan. OBJECTIVE: VITAL SIGNS: Afebrile. Heart rate 66. Blood pressure 143/80. Respiratory rate 18. O2 saturation 95% on room air. RESPIRATORY: Essentially clear to auscultation bilaterally. It is diminished at the bases. There are very rare scattered crackles in his upper lung field, much improved since yesterday. CARDIAC: Regular rate and rhythm. EXTREMITIES: No cyanosis, clubbing or edema to his upper legs. He has bilateral [id number] amputations. NEUROLOGIC: Awake, alert and oriented times three. LABORATORY: WBCs 5.5, hemoglobin 9.3, hematocrit 28. Blood sugars have run between 114 and 219. Electrolytes are basically within normal limits. His alkaline phosphatase is slightly elevated at 127. His serial cardiac enzymes show troponins have remained stable, but his creatinine kinase was 183 and 203 and his CK-MB was 5.2 and 5.7. Chest x-ray showed vascular congestion, pulmonary edema, not significantly changed from prior. No new infiltrates. There are small bilateral pleural effusions. All other labs and films have been reviewed via the EMR. ASSESSMENT: 1. Congestive heart failure with exacerbation, unknown etiology with no current echocardiogram to review. His BNP on admission was 1,830. 2. Shortness of breath and chest pain most likely secondary to #1. 3. Anemia of chronic disease. 4. Chronic renal failure with no exacerbation. His baseline creatinine is about 2.2, today it is 2.5. 5. Poorly controlled diabetes mellitus, type 2. He is on insulin therapy. 6. Coronary artery disease. 7. Hypertension. 8. Obstructive sleep apnea. 9. History of gout. PLAN: We will continue present supportive care. I have discontinue his IV furosemide and we will be starting on his routine p.o. Lasix. His Lasix may need to be adjusted tomorrow depending on how his lab work and chest x-ray are tomorrow. Hopefully he can be discharged with close followup with his primary care physician, Dr. Parham. We will continue to monitor the patient closely and follow as needed. Dr. Parham is the collaborating physician and available for consultation. #[id number] [facility]
[2018-10-12] MEDS: FUROSEMIDE 40 MG TAB PO SCH (17:05)
[2018-10-12] MEDS: INSULIN DETEMIR 100 UNITS/ML PEN SUBCU SCH (21:02)
[2018-10-12] MEDS: ATORVASTATIN 20 MG TAB PO SCH (21:03)
[2018-10-12] MEDS: ENOXAPARIN SODIUM 30 MG/0.3 ML SYG SUBCU SCH (21:03)
[2018-10-12] MEDS: SENNA/DOCUSATE TAB 1 EA TAB PO PRN (21:04)
[2018-10-12] MEDS: ZOLPIDEM TARTRATE 10 MG TAB PO PRN (22:16)
[2018-10-13] MEDS: PANTOPRAZOLE SODIUM IV 40 MG VIAL IV SCH (06:44)
--- NOTE | 2018-10-13 07:04 | RAD ---
EXAM DESCRIPTION: Chest,1 View CLINICAL HISTORY:52 years Male, chf Comparison: October 12, 2018 IMPRESSION: Enlarged cardiac silhouette with mild vascular congestion, similar to prior. No focal lung consolidation. Sternotomy wires noted. No pleural effusion or pneumothorax. Electronically signed by: Jaswant Drake MD 10/13/2018 7:03 AM OPERATIONS ASSOCIATE
[2018-10-13] MEDS: INSULIN LISPRO 100 UNITS/ML PEN SUBCU SCH ×2 (07:50→12:02)
[2018-10-13] MEDS: POTASSIUM CHLORIDE 20 MEQ TAB PO SCH (07:51)
[2018-10-13] MEDS: GABAPENTIN 300 MG CAP PO SCH (08:46)
[2018-10-13] MEDS: FUROSEMIDE 40 MG TAB PO SCH (08:46)
[2018-10-13] MEDS: TAMSULOSIN 0.4 MG CAP PO SCH (08:46)
[2018-10-13] MEDS: SENNA/DOCUSATE TAB 1 EA TAB PO PRN (08:46)
[2018-10-13] MEDS: METOCLOPRAMIDE HCL 5 MG TAB PO SCH (08:47)
[2018-10-13] MEDS: CITALOPRAM HBR 20 MG TAB PO SCH (08:47)
[2018-10-13] MEDS: ASPIRIN (CHEWABLE) 81 MG TAB PO SCH (08:47)
[2018-10-13] MEDS: NON-FORMULARY MEDICATION 1 EA MIS (Febuxostat [Uloric] 40 MG) PO SCH (08:47)
[2018-10-13] MEDS: CARVEDILOL 12.5 MG TAB PO SCH (08:47)
[2018-10-13] MEDS: LISINOPRIL 5 MG TAB PO SCH (08:47)
[2018-10-13] MEDS: FAMOTIDINE 20 MG TAB PO SCH (08:47)
[2018-10-13] MEDS: amLODIPine BESYLATE 5 MG TAB PO SCH (08:48)
[2018-10-13] MEDS: FINASTERIDE 5 MG TAB PO SCH (08:48)
[2018-10-13 09:40] VITALS: BP 137/71; TEMP 97.9; O2SAT 95
--- NOTE | 2018-10-13 15:55 | DS ---
SUPERVISING PHYSICIAN: Jerry Parham MD DISCHARGE DIAGNOSIS: 1. Congestive heart failure with exacerbation, unknown etiology with no current echocardiogram to review. His BNP on admission was 1,830. 2. Shortness of breath and chest pain, most likely secondary to #1. 3. Anemia of chronic disease. 4. Chronic renal failure with no exacerbation. His baseline creatinine is about 2.2, today it is 2.5. 5. Poorly controlled diabetes mellitus, type 2. He is on insulin therapy. 6. Coronary artery disease. 7. Hypertension. 8. Obstructive sleep apnea. 9. History of gout. HISTORY OF PRESENT ILLNESS: This is a 52-year-old male patient that has a long history of congestive heart failure, coronary artery disease and diabetes mellitus, type 2 as well as chronic renal failure. He presented to the Emergency Room on the date of admission with nausea and vomiting. He also had some shortness of breath and chest pain. He felt like his abdomen and upper chest were very "tight." He had recently gotten out of the hospital at [facility] due to his renal failure as well as his needing diuretics for his CHF. Over the last 2 days, he felt like his abdomen was very taut, had a difficult time breathing. He was coughing and it got to the point where he had nausea and vomiting. In the Emergency Room his O2 sat was 85% on room air. Vital signs showed heart rate 80, blood pressure 142/78, respiratory rate was between 20 and 24. After being placed on oxygen, his saturations went up to 93%. His lab showed sodium 140, potassium 4.1, chloride 105, carbon dioxide 28, BUN 65, creatinine 2.41. His baseline creatinine is 2.2. Glucose 149, lactic acid 1.1. Alkaline phosphatase was slightly elevated at 127, creatinine kinase 189, CK-MB 4.6, troponin 0.03, BMP was 1,830. White count was 6,700 with hemoglobin 9.2, hematocrit 28.9. There was no left shift on differential. Urinalysis was basically within normal limits with the exception of greater than 300 urine protein and small amount of urine blood. Chest x-ray showed the presence of bilateral vascular congestion and interstitial and airspace infiltrates seen diffusely in the left hemithorax and in the right mid and lower lung zones. There is slight improvement in these findings since prior study. Small left sided effusion was also noted. He was given 2 mg of Bumex in the Emergency Room as well as an aspirin and nitroglycerin. He was admitted to the hospital. HOSPITAL COURSE: The patient was given aggressive diuresis and restarted on most of his home medications. After the first 24 hours, he had diuresed 3700 mL and the second day, he reached 4000 mL. His total negative balance was - 4500 mL. He lost over 2 kg while in the hospital. His lab studies showed a stable WBC of 5.4 with hemoglobin 9.1 and hematocrit 27.8. Platelet count was stable at 254. Electrolytes were basically within normal limits. Creatinine kinase was slightly elevated at 203 with CK-MB of 5.7, but troponins were 0.03, unchanged throughout his hospital stay. His chest x-ray showed enlarged cardiac silhouette with mild vascular congestion, no focal lung consolidations. The patient's breathing was unlabored. He denied any shortness of breath. Today, he will be discharged home in stable condition. DISCHARGE PLAN: The patient will be discharged home in stable condition. He is to resume his previous activity as well as his previous medications. He did say he had a difficult time sleeping and he was given Ambien in the hospital and they were very effective with his insomnia. I have given him an Ambien prescription of #15 tabs and he can discuss with Dr. Parham if he could get a prescription for that. He has a followup with Dr. Parham on 10/14/18 at 2:15 PM. He is to return to the hospital or followup with Dr. Parham for any problems or complications. #[id number] [facility]
== END 2018-10-13 11:59 | disposition home or self-care (01) | DRG 291 ==
LOC: ER 08:40 → MS 11:11
PROVIDERS: ADMIT Nurse Practitioner Acute Care; ATTEND Nurse Practitioner Acute Care
DX: I13.0 Hypertensive heart and chronic kidney disease with heart failure and stage 1 through stage 4 chronic kidney disease, or unspecified chronic kidney disease (principal); I50.43 Acute on chronic combined systolic (congestive) and diastolic (congestive) heart failure; D63.1 Anemia in chronic kidney disease; E11.22 Type 2 diabetes mellitus with diabetic chronic kidney disease; E11.65 Type 2 diabetes mellitus with hyperglycemia; N18.9 Chronic kidney disease, unspecified; I25.10 Atherosclerotic heart disease of native coronary artery without angina pectoris; M10.9 Gout, unspecified; G47.33 Obstructive sleep apnea (adult) (pediatric); Z89.512 Acquired absence of left leg below knee; Z89.511 Acquired absence of right leg below knee; E66.9 Obesity, unspecified; Z88.5 Allergy status to narcotic agent; Z68.38 Body mass index [BMI] 38.0-38.9, adult

== ENCOUNTER 2018-10-19 02:13 | Emergency (ER) | payer OTHER ==
[2018-10-19] MEDS ORDERED: TOBRAMYCIN SULFATE 40 MG/ML ONE (03:08)
[2018-10-19] MEDS ORDERED: CHLORHEXIDINE GLUCONATE 4 % 15 ML UD TOP ONE (03:12)
[2018-10-19] MEDS ORDERED: CEFEPIME 2 GM VIAL ONE (03:15)
[2018-10-19] MEDS ORDERED: SODIUM CHLORIDE 0.9% 50ML 50 ML ONE (03:15)
[2018-10-19] MEDS: CEFEPIME 1 GM in SODIUM CHLORIDE 0.9% 50ML 50 ML IVPB ONE (03:16)
[2018-10-19] MEDS: CIPROFLOXACIN 500 MG TAB PO ONE (03:16)
--- NOTE | 2018-10-19 03:53 | RAD ---
EXAM: 2 VIEWS LEFT KNEE RADIOGRAPHS CLINICAL INDICATION: Dehiscence amputation wound. Soft tissue swelling and pain. COMPARISON: None currently available. FINDINGS: Soft tissue lesion anterior to the proximal left tibial amputation site with soft tissue swelling. Soft tissue gas. No radiographic evidence of osteomyelitis. IMPRESSION: Soft tissue swelling with soft tissue gas adjacent to the stump of the left lower extremity without evidence of osteomyelitis. Electronically signed by: Saleem Huff MD 10/19/2018 3:52 AM [facility]
[2018-10-19] MEDS ORDERED: LINEZOLID IV 300 ML IVPB ONE (04:11)
[2018-10-19] MEDS: LINEZOLID IV 600 MG in PREMIX BAG 1 BAG IVPB ONE (04:13)
[2018-10-19] MEDS: TOBRAMYCIN PER PHARMACY INJ ONE (04:14)
--- NOTE | 2018-10-19 04:19 | ED.PDOC ---
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 The patient apparently had a BKA done a little more than 2 weeks ago. He had been on antibiotics up until one week ago. Essentially as soon as he stopped the Bactrim due to renal failure he started getting redness in the surgery site as well as a black eschar forming to the lateral aspect that finally dehisced tonight. the patient was recently in acute renal failure with creatinine up to 4. The patient is pleasant and cooperative. He does not appear to be septic. Erythema does extend the entire length of the repair. There is no crepitus. No evidence clinically to support necrotizing fasciitis or escalating gangrene. This appears to be a local wound infection with dehiscence of the lateral third of the wound. Timing/Duration: unsure Severity: moderate Improving Factors: nothing Worsening Factors: nothing Associated Symptoms: denies symptoms Allergies/Adverse Reactions: Allergies Tramadol [From Ultram] Adverse Reaction (Intermediate, Verified 10/19/18 02:33) Home Medications: Ambulatory Orders Aspirin [Aspirin Childrens] 81 mg PO DAILY 10/22/17 Febuxostat [Uloric] 40 mg PO DAILY 10/22/17 Furosemide 40 mg PO BID 10/22/17 Insulin Detemir [Levemir Pen] 10 unit SUBCU BEDTIME 10/22/17 Insulin Lispro [Humalog] 0 unit SUBCU ACHS PRN 10/22/17 Metoclopramide Tab [Reglan Tab] 5 mg PO QID 10/22/17 Senna/Docusate Tab [Senokot-S] 1 ea PO BID PRN 10/22/17 Zolpidem Tartrate [Ambien] 10 mg PO BEDTIME PRN 10/22/17 Famotidine 20 mg PO DAILY #30 tab 08/02/18 Atorvastatin Calcium 40 mg PO DAILY 09/17/18 Carvedilol 12.5 mg PO BID 09/17/18 Citalopram Hydrobromide [Citalopram] 20 mg PO DAILY 09/17/18 Finasteride 5 mg PO DAILY 09/17/18 Gabapentin 300 mg PO BID 09/17/18 HYDROcodone 7.5MG/APAP 325MG [[place] 7.5/325] 1 tablet PO QID PRN 09/17/18 Nitroglycerin 0.4 mg Tab [Nitrostat] 1 tablet PO Q5MIN 09/17/18 Potassium Chloride [K-Tab] 20 meq PO DAILY 09/17/18 Tamsulosin HCl [Flomax] 0.4 mg PO DAILY 09/17/18 amLODIPine BESYLATE [Norvasc] 5 mg PO DAILY 09/17/18 Albuterol Sulfate Nebs [Proventil Nebs] 2.5 mg NEB Q4H PRN vial 09/29/18 Zolpidem Tartrate [Ambien] 10 mg PO BEDTIME PRN #15 tab 10/13/18 Ciprofloxacin [Cipro] 250 mg PO Q12H #20 tablet 10/19/18 Linezolid [Zyvox] 600 mg PO BID #10 tab 10/19/18 Review of Systems - Review of Systems Constitutional: States: no symptoms reported EENTM: States: no symptoms reported Respiratory: States: no symptoms reported Cardiology: States: no symptoms reported Gastrointestinal/Abdominal: States: no symptoms reported Musculoskeletal: States: see HPI Skin: States: see HPI Neurological: States: no symptoms reported Endocrine: States: no symptoms reported Hematologic/Lymphatic: States: no symptoms reported All other Systems: No Change from Baseline Past Medical History (General) - Patient Medical History Hx Seizures: No Hx Stroke: No Hx Dementia: No Hx Asthma: No Hx of COPD: No Hx Cardiac Disorders: No Hx Congestive Heart Failure: Yes Hx Pacemaker: No Hx Hypertension: Yes Hx Thyroid Disease: No Hx Diabetes: Yes Hx Gastroesophageal Reflux: No Hx Renal Disease: Yes Hx Cancer: No Hx of HIV: No Hx Hepatitis C: No Hx MRSA: No - Vaccination History Hx Tetanus, Diphtheria Vaccination: No Hx Influenza Vaccination: Yes - 2018 Hx Pneumococcal Vaccination: Yes - 2018 - Social History Hx Tobacco Use: No Hx Chewing Tobacco Use: No Hx Alcohol Use: No Hx Substance Use: No Hx Substance Use Treatment: No Hx Depression: No Hx Physical Abuse: No Hx Emotional Abuse: No Hx Suspected Abuse: No - Female History Patient : No Family Medical History - Family History Father Family History: Unknown Living Status: Hx Family Asthma: No Hx Family Congestive Heart Failure: No Hx Family Hypertension: No Hx Family Stroke: No Hx Cardiac Disease: No Hx Family Diabetes: Yes - dad;multiple family members Hx Family Cancer: Yes - colon cancer Mother Family History: Unknown Living Status: Cause of : COPD Hx Family Asthma: No Hx Family Congestive Heart Failure: No Hx Family Hypertension: Yes Hx Family Stroke: No Hx Cardiac Disease: No Hx Family Diabetes: No Hx Family Cancer: No Physical Exam - Physical Exam General Appearance: Alert, Comfortable, No apparent distress Eye Exam: bilateral normal Ears, Nose, Throat: hearing grossly normal, normal ENT inspection, normal pharynx Neck: full range of motion, supple Respiratory: lungs clear, normal breath sounds, no respiratory distress, no accessory muscle use Cardiovascular/Chest: normal peripheral pulses, no edema, other - regular rate Peripheral Pulses: radial,right: 2+, radial,left: 2+, dorsalis pedis,right: 2+, dorsalis pedis,left: 2+ Gastrointestinal/Abdominal: non tender, soft Rectal Exam: deferred Back Exam: no CVA tenderness, no vertebral tenderness Extremity: other - left lower extremity BKA with dehiscence to the lateral third 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 There is mild eschar formation that will eventually need to be removed. Blood culture has been taken. Wound culture has been taken though the area has been somewhat exposed to the elements. Based on his previous infections, the patient is being covered for staph and Pseudomonas. There does appear to be localized infection. I do not see evidence of gas gangrene or necrotizing fasciitis at this point. Creatinine is down to 2.5 from 4 a couple of weeks ago. Medications are chosen for coverage as above as well as to minimize renal impact. The patient received a renal dose of cefepime IV here as well as 1 dose of IV Zyvox and 1 dose of oral ciprofloxacin. The patient is going to be written for 5 days of oral Zyvox to cover for MRSA and 10 days of oral ciprofloxacin at a lower dose to cover for pseudomonas. he will need to have his renal function rechecked before the coming weekend. The wound was redressed with wet-to-dry dressings with saline and tobramycin. he may ultimately require a wound VAC for reclosure of this. They can use a solution to redo the wet-to-dry dressings until they can be reevaluated by the general surgeon hopefully tomorrow or the next day. They have been instructed to contact the general surgeon tomorrow to arrange further follow-up. No doubt their surgeon will have their own plan of care and monitoring for this patient. No evidence of sepsis at this time. Continue diabetes control. CRP was 3.7 here today. White count was 5700. ER warnings are given for any significant worsening. - Results/Orders Results/Orders: x-ray of the indications site shows very mild subcutaneous air at the site of dehiscence Laboratory Tests 10/19/18 10/19/18 10/19/18 03:00 03:00 03:00 WBC 5.2 RBC 3.14 L Hgb 9.0 L Hct 27.2 L MCV 86.6 MCH 28.6 MCHC 33.2 RDW 16.1 H Plt Count 244 MPV 8.3 Absolute Neuts (auto) 3.10 Absolute Lymphs (auto) 1.00 Absolute Monos (auto) 0.70 Absolute Eos (auto) 0.40 Absolute Basos (auto) 0.10 Neutrophils % 59.6 Lymphocytes % 19.7 L Monocytes % 12.5 H Eosinophils % 7.0 H Basophils % 1.2 PT 10.6 INR 1.06 PTT (SP) 25.2 Sodium 138 Potassium 4.5 Chloride 106 Carbon Dioxide 25 Anion Gap 11.5 L BUN 57 H Creatinine 2.56 H BUN/Creatinine Ratio 22.3 H Random Glucose 180 H Serum Osmolality 296.0 H Calcium 8.7 Total Bilirubin 0.4 AST 16 ALT 12 Alkaline Phosphatase 122 H C-Reactive Protein Serum Total Protein 7.3 Albumin 3.3 Globulin 4.0 H Albumin/Globulin Ratio 0.8 L 10/19/18 03:00 WBC RBC Hgb Hct MCV MCH MCHC RDW Plt Count MPV Absolute Neuts (auto) Absolute Lymphs (auto) Absolute Monos (auto) Absolute Eos (auto) Absolute Basos (auto) Neutrophils % Lymphocytes % Monocytes % Eosinophils % Basophils % PT INR PTT (SP) Sodium Potassium Chloride Carbon Dioxide Anion Gap BUN Creatinine BUN/Creatinine Ratio Random Glucose Serum Osmolality Calcium Total Bilirubin AST ALT Alkaline Phosphatase C-Reactive Protein 3.7 H Serum Total Protein Albumin Globulin Albumin/Globulin Ratio Departure - Departure Clinical Impression: Dehiscence of amputation stump Postoperative wound infection Qualifiers: Encounter type: initial encounter Qualified Code(s): T81.4XXA - Infection following a procedure, initial encounter Disposition: Discharge to Home or Self Care Condition: Fair Departure Forms: ED Discharge - Pt. Copy, Patient Portal Self Enrollment Instructions: DI for Postoperative Pain Diet: diabetic diet Activity: increase activity as tolerated Referrals: Jerry Parham MD [Primary Care Provider] - 1-5 Days Prescriptions: Ciprofloxacin [Cipro] 250 mg PO Q12H #20 tablet Linezolid [Zyvox] 600 mg PO BID #10 tab Home Medications: Ambulatory Orders Aspirin [Aspirin Childrens] 81 mg PO DAILY 10/22/17 Febuxostat [Uloric] 40 mg PO DAILY 10/22/17 Furosemide 40 mg PO BID 10/22/17 Insulin Detemir [Levemir Pen] 10 unit SUBCU BEDTIME 10/22/17 Insulin Lispro [Humalog] 0 unit SUBCU ACHS PRN 10/22/17 Metoclopramide Tab [Reglan Tab] 5 mg PO QID 10/22/17 Senna/Docusate Tab [Senokot-S] 1 ea PO BID PRN 10/22/17 Zolpidem Tartrate [Ambien] 10 mg PO BEDTIME PRN 10/22/17 Famotidine 20 mg PO DAILY #30 tab 08/02/18 Atorvastatin Calcium 40 mg PO DAILY 09/17/18 Carvedilol 12.5 mg PO BID 09/17/18 Citalopram Hydrobromide [Citalopram] 20 mg PO DAILY 09/17/18 Finasteride 5 mg PO DAILY 09/17/18 Gabapentin 300 mg PO BID 09/17/18 HYDROcodone 7.5MG/APAP 325MG [[place] 7.5/325] 1 tablet PO QID PRN 09/17/18 Nitroglycerin 0.4 mg Tab [Nitrostat] 1 tablet PO Q5MIN 09/17/18 Potassium Chloride [K-Tab] 20 meq PO DAILY 09/17/18 Tamsulosin HCl [Flomax] 0.4 mg PO DAILY 09/17/18 amLODIPine BESYLATE [Norvasc] 5 mg PO DAILY 09/17/18 Albuterol Sulfate Nebs [Proventil Nebs] 2.5 mg NEB Q4H PRN vial 09/29/18 Zolpidem Tartrate [Ambien] 10 mg PO BEDTIME PRN #15 tab 10/13/18 Ciprofloxacin [Cipro] 250 mg PO Q12H #20 tablet 10/19/18 Linezolid [Zyvox] 600 mg PO BID #10 tab 10/19/18 Additional Instructions: the patient is a 52-year-old male presenting to emergency room secondary to dehiscence of the lateral third of his BKA repair flap of his left lower extremity. There is mild eschar formation that will eventually need to be removed. Blood culture has been taken. Wound culture has been taken though the area has been somewhat exposed to the elements. Based on his previous infections, the patient is being covered for staph and Pseudomonas. There does appear to be localized infection. I do not see evidence of gas gangrene or necrotizing fasciitis at this point. Creatinine is down to 2.5 from 4 a couple of weeks ago. Medications are chosen for coverage as above as well as to minimize renal impact. The patient received a renal dose of cefepime IV here as well as 1 dose of IV Zyvox and 1 dose of oral ciprofloxacin. The patient is going to be written for 5 days of oral Zyvox to cover for MRSA and 10 days of oral ciprofloxacin at a lower dose to cover for pseudomonas. he will need to have his renal function rechecked before the coming weekend. The wound was redressed with wet-to-dry dressings with saline and tobramycin. he may ultimately require a wound VAC for reclosure of this. They can use a solution to redo the wet-to-dry dressings until they can be reevaluated by the general surgeon hopefully tomorrow or the next day. They have been instructed to contact the general surgeon tomorrow to arrange further follow-up. No doubt their surgeon will have their own plan of care and monitoring for this patient. No evidence of sepsis at this time. Continue diabetes control. CRP was 3.7 here today. White count was 5700. ER warnings are given for any significant worsening.
[2018-10-19 06:39] VITALS: BP 145/71; TEMP 97.9; O2SAT 99
== END 2018-10-19 06:39 | disposition home or self-care (01) ==
LOC: ER 02:13
DX: T81.40XA Infection following a procedure, unspecified, initial encounter (principal); L08.9 Local infection of the skin and subcutaneous tissue, unspecified; T87.81 Dehiscence of amputation stump; I50.9 Heart failure, unspecified; I12.9 Hypertensive chronic kidney disease with stage 1 through stage 4 chronic kidney disease, or unspecified chronic kidney disease; E11.22 Type 2 diabetes mellitus with diabetic chronic kidney disease; N18.9 Chronic kidney disease, unspecified; Y83.8 Other surgical procedures as the cause of abnormal reaction of the patient, or of later complication, without mention of misadventure at the time of the procedure; Z89.512 Acquired absence of left leg below knee; Z88.6 Allergy status to analgesic agent; Z79.4 Long term (current) use of insulin; Z79.899 Other long term (current) drug therapy; Z79.82 Long term (current) use of aspirin

== ENCOUNTER 2018-10-24 15:15 | Emergency (ER) | payer OTHER ==
[2018-10-24] MEDS ORDERED: CIPROFLOXACIN 500 MG TAB PO ONE (15:33)
[2018-10-24] MEDS ORDERED: diphenhydrAMINE HCL 25 MG CAP PO ONE (16:09)
[2018-10-24] MEDS ORDERED: predniSONE 20 MG TAB PO ONE (16:09)
--- NOTE | 2018-10-24 16:22 | RAD ---
PROCEDURE: XR CHEST 1 VIEW HISTORY: weakness, dizziness, 2 days postop COMPARISON: 10/13/2018 TECHNIQUE: Single projection of the chest was done. FINDINGS: Note is again made of median sternotomy. Persistent mild volume loss in the left hemithorax remains unchanged . There are no discrete airspace infiltrates, pneumothoraces or pleural effusions. The pulmonary vascularity is normal. The cardiomediastinal silhouette is stable. IMPRESSION: There is no acute pleural-parenchymal process seen in the imaged lung [place]. Location of Interpretation: Teleradiology Electronically signed by: Gianni Giron MD 10/24/2018 4:21 PM [facility] Workstation: [id number]
[2018-10-24] MEDS ORDERED: SODIUM CHLORIDE 0.9% 1000ML 500 ML IVS ONE (16:54)
[2018-10-24] MEDS ORDERED: SOD POLYSTYRENE SULFONATE 15 GM/60 ML BTTL PO ONE (17:07)
--- NOTE | 2018-10-24 17:10 | ED.PDOC ---
History of Present Illness - General Chief Complaint: Problem Stated Complaint: Swollen testicles Time Seen by Provider: 10/24/18 15:21 Source: patient Exam Limitations: no limitations - History of Present Illness Initial Comments: the patient is a 53-year-old male with well known peripheral vascular and coronary artery disease as well as brittle diabetes presenting secondary to progressive fatigue and weakness and mild shortness of breath over the last couple of days. 3 days ago he had a revision of his left BKA due to dehiscence a few days before that. He has been on antibiotics of Bactrim and Keflex for that. He does have a known history of chronic renal insufficiency with a baseline creatinine of around 2.2. The patient has not been eating well over the last couple of days and he has not been drinking much either. He is reporting some mild scrotal swelling. I'm uncertain how much fluid he received an surgery. He has not had any chest pain. Lungs are actually clear at this point. Timing/Duration: unsure Severity: moderate Improving Factors: nothing Worsening Factors: nothing Associated Symptoms: loss of appetite, malaise, shortness of breath, weakness Allergies/Adverse Reactions: Allergies Tramadol [From Ultra] Adverse Reaction (Intermediate, Verified 10/24/18 15:46) Home Medications: Ambulatory Orders Aspirin [Aspirin Childrens] 81 mg PO DAILY 10/22/17 Febuxostat [Uloric] 40 mg PO DAILY 10/22/17 Furosemide 40 mg PO BID 10/22/17 Insulin Detemir [Levemir Pen] 10 unit SUBCU BEDTIME 10/22/17 Insulin Lispro [Humalog] 0 unit SUBCU ACHS PRN 10/22/17 Metoclopramide Tab [Reglan Tab] 5 mg PO QID 10/22/17 Senna/Docusate Tab [Senokot-S] 1 ea PO BID PRN 10/22/17 Famotidine 20 mg PO DAILY #30 tab 08/02/18 Atorvastatin Calcium 40 mg PO DAILY 09/17/18 Carvedilol 12.5 mg PO BID 09/17/18 Citalopram Hydrobromide [Citalopram] 20 mg PO DAILY 09/17/18 Finasteride 5 mg PO DAILY 09/17/18 Gabapentin 300 mg PO BID 09/17/18 HYDROcodone 7.5MG/APAP 325MG [[place] 7.5/325] 1 tablet PO QID PRN 09/17/18 Nitroglycerin 0.4 mg Tab [Nitrostat] 1 tablet PO Q5MIN 09/17/18 Potassium Chloride [K-Tab] 20 meq PO DAILY 09/17/18 Tamsulosin HCl [Flomax] 0.4 mg PO DAILY 09/17/18 amLODIPine BESYLATE [Norvasc] 5 mg PO DAILY 09/17/18 Cephalexin Monohydrate [Keflex] 500 mg PO QID 10/24/18 Sulfa/Trimeth 800/160 (Ds) Tab [Bactrim DS] 1 tablet PO JOSE-OTH-DAY 10/24/18 Review of Systems - Review of Systems Constitutional: States: malaise, weakness EENTM: States: no symptoms reported Respiratory: States: cough, short of breath Cardiology: States: edema Gastrointestinal/Abdominal: States: nausea - mild Genitourinary: States: other - ecreased urine output recently Musculoskeletal: States: muscle pain - generalized Skin: States: other - left BKA does appear to be healing. There is mild erythema around the suture line. Mild clear drainage as well. Neurological: States: other - the patient is easily arousable and oriented. He does appear tired. He does have chronic peripheral neuropathy. Endocrine: States: no symptoms reported All other Systems: No Change from Baseline Past Medical History (General) - Patient Medical History Hx Seizures: No Hx Stroke: No Hx Dementia: No Hx Asthma: No Hx of COPD: No Hx Cardiac Disorders: No Hx Congestive Heart Failure: Yes Hx Pacemaker: No Hx Hypertension: Yes Hx Thyroid Disease: No Hx Diabetes: Yes Hx Gastroesophageal Reflux: No Hx Renal Disease: Yes Hx Cancer: No Hx of HIV: No Hx Hepatitis C: No Hx MRSA: No Surgical History: coronary bypass surgery, other - Vaccination History Hx Tetanus, Diphtheria Vaccination: No Hx Influenza Vaccination: Yes - 2017 Hx Pneumococcal Vaccination: Yes - 2014 - Social History Hx Tobacco Use: No Hx Chewing Tobacco Use: No Hx Alcohol Use: No Hx Substance Use: No Hx Substance Use Treatment: No Hx Depression: No Hx Physical Abuse: No Hx Emotional Abuse: No Hx Suspected Abuse: No - Female History Patient : No Family Medical History - Family History Father Family History: Unknown Living Status: Hx Family Asthma: No Hx Family Congestive Heart Failure: No Hx Family Hypertension: No Hx Family Stroke: No Hx Cardiac Disease: No Hx Family Diabetes: Yes - dad;multiple family members Hx Family Cancer: Yes - colon cancer Mother Family History: Unknown Living Status: Cause of : COPD Hx Family Asthma: No Hx Family Congestive Heart Failure: No Hx Family Hypertension: Yes Hx Family Stroke: No Hx Cardiac Disease: No Hx Family Diabetes: No Hx Family Cancer: No Physical Exam - Physical Exam General Appearance: Alert, Frail, Ill Appearing Eye Exam: bilateral normal Ears, Nose, Throat: hearing grossly normal, normal pharynx Neck: full range of motion, supple Respiratory: lungs clear, normal breath sounds, no respiratory distress, no accessory muscle use Cardiovascular/Chest: normal peripheral pulses, regular rate, rhythm, other - he does have mild scrotal edema. Peripheral Pulses: radial,right: 2+, radial,left: 2+ Gastrointestinal/Abdominal: soft, other - mild diffuse discomfort but no real point tenderness. 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 The patient has several problems of an uncertain source. He does appear to be developing some hepatic and renal dysfunction/failure. He does additionally have symptomatic anemia. He is receiving small IV fluid bolus and is starting to receive blood. He did receive 1 dose of oral prednisone and one dose of Benadryl prior. He also has mild hyperkalemia which may correct with fluids. He is receiving 1 dose of Kayexalate. No EKG changes consistent with hyperkalemia. He has already been on the antibiotics of Bactrim and Keflex from his general surgeon. He just had his left BKA revised 3 days ago. Blood pressures have been low normal here. Lactic acid is normal. A blood culture has been performed. He does have an elevation of his BNP and troponin however these are likely at least partially falsely elevated related to his renal function. No evidence of any chest pain. No EKG changes diagnostic of any acute ischemia here. Transferred for higher level of care. Consideration to be given towards abdominal ultrasound and echocardiogram. acceptance on transfer is appreciated. critical care time spent in management of multiple life-threatening processes above is 40 minutes including time for arrangement for transfers and family consultation. Excluding otherwise billable procedures. 10/24/18 17:18 - Results/Orders Results/Orders: Vital Signs - 24 hr 10/24/18 10/24/18 10/24/18 15:21 16:20 17:10 Temperature 97.8 F Pulse Rate [ 64 62 59 L Left Radial] Respiratory 18 16 20 Rate Blood Pressure 88/42 109/70 104/53 [Right Arm] O2 Sat by Pulse 89 L 99 99 Oximetry most blood pressures are actually in the 110's/ 60s. Laboratory Tests 10/24/18 10/24/18 10/24/18 15:53 15:53 15:53 WBC 6.1 RBC 2.71 L Hgb 7.7 L* Hct 23.6 L MCV 87.2 MCH 28.4 MCHC 32.6 L RDW 16.2 H Plt Count 164 MPV 8.3 Absolute Neuts (auto) 4.30 Absolute Lymphs (auto) 0.80 L Absolute Monos (auto) 0.70 Absolute Eos (auto) 0.20 Absolute Basos (auto) 0.00 Neutrophils % 70.0 Lymphocytes % 13.8 L Monocytes % 12.3 H Eosinophils % 3.5 Basophils % 0.4 Sodium 135 Potassium 5.8 H Chloride 103 Carbon Dioxide 19 L Anion Gap 18.8 H BUN 99 H Creatinine 5.23 H BUN/Creatinine Ratio 18.9 Random Glucose 166 H Serum Osmolality 304.7 H Lactic Acid 1.5 Calcium 8.7 Magnesium 2.2 Total Bilirubin 0.7 AST 1209 H ALT 910 H Alkaline Phosphatase 230 H Creatine Kinase 203 H* CK-MB (CK-2) 6.9 H* CK-MB (CK-2) % 3.40 Troponin I 0.18 H* B-Natriuretic Peptide 2190.0 H* Serum Total Protein 6.7 Albumin 3.1 L Globulin 3.6 H Albumin/Globulin Ratio 0.9 L Crossmatch 10/24/18 15:55 WBC RBC Hgb Hct MCV MCH MCHC RDW Plt Count MPV Absolute Neuts (auto) Absolute Lymphs (auto) Absolute Monos (auto) Absolute Eos (auto) Absolute Basos (auto) Neutrophils % Lymphocytes % Monocytes % Eosinophils % Basophils % Sodium Potassium Chloride Carbon Dioxide Anion Gap BUN Creatinine BUN/Creatinine Ratio Random Glucose Serum Osmolality Lactic Acid Calcium Magnesium Total Bilirubin AST ALT Alkaline Phosphatase Creatine Kinase CK-MB (CK-2) CK-MB (CK-2) % Troponin I B-Natriuretic Peptide Serum Total Protein Albumin Globulin Albumin/Globulin Ratio Crossmatch See Detail Departure - Departure Clinical Impression: Acute hepatitis, Hyperkalemia, Symptomatic anemia Acute renal failure Qualifiers: Acute renal failure type: unspecified Qualified Code(s): N17.9 - Acute kidney failure, unspecified Disposition: Transfer to Hospital Referrals: Jerry Parham MD [Primary Care Provider] - 1-2 Weeks Home Medications: Ambulatory Orders Aspirin [Aspirin Childrens] 81 mg PO DAILY 10/22/17 Febuxostat [Uloric] 40 mg PO DAILY 10/22/17 Furosemide 40 mg PO BID 10/22/17 Insulin Detemir [Levemir Pen] 10 unit SUBCU BEDTIME 10/22/17 Insulin Lispro [Humalog] 0 unit SUBCU ACHS PRN 10/22/17 Metoclopramide Tab [Reglan Tab] 5 mg PO QID 10/22/17 Senna/Docusate Tab [Senokot-S] 1 ea PO BID PRN 10/22/17 Famotidine 20 mg PO DAILY #30 tab 08/02/18 Atorvastatin Calcium 40 mg PO DAILY 09/17/18 Carvedilol 12.5 mg PO BID 09/17/18 Citalopram Hydrobromide [Citalopram] 20 mg PO DAILY 09/17/18 Finasteride 5 mg PO DAILY 09/17/18 Gabapentin 300 mg PO BID 09/17/18 HYDROcodone 7.5MG/APAP 325MG [[place] 7.5/325] 1 tablet PO QID PRN 09/17/18 Nitroglycerin 0.4 mg Tab [Nitrostat] 1 tablet PO Q5MIN 09/17/18 Potassium Chloride [K-Tab] 20 meq PO DAILY 09/17/18 Tamsulosin HCl [Flomax] 0.4 mg PO DAILY 09/17/18 amLODIPine BESYLATE [Norvasc] 5 mg PO DAILY 09/17/18 Cephalexin Monohydrate [Keflex] 500 mg PO QID 10/24/18 Sulfa/Trimeth 800/160 (Ds) Tab [Bactrim DS] 1 tablet PO JOSE-OTH-DAY 10/24/18
[2018-10-24 18:23] VITALS: TEMP 98.4
[2018-10-24 18:44] VITALS: BP 99/56; O2SAT 97
== END 2018-10-24 18:40 | disposition short-term general hospital (02) ==
LOC: ER 15:15
DX: N17.9 Acute kidney failure, unspecified (principal); B17.9 Acute viral hepatitis, unspecified; E87.5 Hyperkalemia; D64.9 Anemia, unspecified; R06.02 Shortness of breath; I10 Essential (primary) hypertension; E11.40 Type 2 diabetes mellitus with diabetic neuropathy, unspecified; Z79.82 Long term (current) use of aspirin; Z89.512 Acquired absence of left leg below knee; Z79.899 Other long term (current) drug therapy; Z88.6 Allergy status to analgesic agent; Z95.1 Presence of aortocoronary bypass graft
CPT/HCPCS: 36415; 71045; 80053; 82550; 82553; 83605; 83735; 83880; 84484; 85025; 86922; 87040; 93005; J7030; J7512; P9016; Q0163

== ENCOUNTER → 2018-11-05 | Outpatient (CLI) | payer OTHER | LOC: YCHH 18:01 | PROVIDERS: ATTEND Family Medicine | DX: E11.21 Type 2 diabetes mellitus with diabetic nephropathy (principal); D64.9 Anemia, unspecified ==

== ENCOUNTER 2018-11-21 22:41 | Emergency (ER) | payer OTHER ==
[2018-11-21] MEDS ORDERED: HYDROcodone 5MG/APAP 325MG 1 EA TAB PO ONE (23:02)
[2018-11-21] MEDS ORDERED: PHENAZOPYRIDINE HCL 200 MG TAB PO ONE (23:02)
[2018-11-21 23:03] VITALS: BP 164/86; TEMP 99.1; O2SAT 95
[2018-11-21] MEDS ORDERED: CIPROFLOXACIN 500 MG TAB PO ONE (23:15)
[2018-11-21] MEDS ORDERED: FLUCONAZOLE 100 MG TAB PO ONE (23:15)
--- NOTE | 2018-11-21 23:24 | ED.PDOC ---
History of Present Illness - General Chief Complaint: Problem Stated Complaint: urinary retintion Time Seen by Provider: 11/21/18 22:45 Source: patient Exam Limitations: no limitations - History of Present Illness Initial Comments: the patient is a 53-year-old male presenting to the emergency room secondary to urinary frequency and dysuria for the last 24-48 hours. No fever. He did have a urinary catheter placed several weeks ago when he was at [facility]. He feels like he is unable to empty his bladder. He has started dialysis. His bladder is cramping on him. Ultrasound of the bladder shows no significant dilation here tonight. Minimal residual probably less than 30 cc. Timing/Duration: 24 hours Severity: moderate Improving Factors: nothing Worsening Factors: nothing Associated Symptoms: denies symptoms Allergies/Adverse Reactions: Allergies Tramadol [From [facility]] Adverse Reaction (Intermediate, Verified 11/21/18 23:03) Home Medications: Ambulatory Orders Aspirin [Aspirin Childrens] 81 mg PO DAILY 10/22/17 Febuxostat [Uloric] 40 mg PO DAILY 10/22/17 Furosemide 40 mg PO BID 10/22/17 Insulin Detemir [Levemir Pen] 10 unit SUBCU BEDTIME 10/22/17 Insulin Lispro [Humalog] 0 unit SUBCU ACHS PRN 10/22/17 Metoclopramide Tab [Reglan Tab] 5 mg PO QID 10/22/17 Senna/Docusate Tab [Senokot-S] 1 ea PO BID PRN 10/22/17 Famotidine 20 mg PO DAILY #30 tab 08/02/18 Atorvastatin Calcium 40 mg PO DAILY 09/17/18 Carvedilol 12.5 mg PO BID 09/17/18 Citalopram Hydrobromide [Citalopram] 20 mg PO DAILY 09/17/18 Finasteride 5 mg PO DAILY 09/17/18 Gabapentin 300 mg PO BID 09/17/18 HYDROcodone 7.5MG/APAP 325MG [[place] 7.5/325] 1 tablet PO QID PRN 09/17/18 Nitroglycerin 0.4 mg Tab [Nitrostat] 1 tablet PO Q5MIN 09/17/18 Potassium Chloride [K-Tab] 20 meq PO DAILY 09/17/18 Tamsulosin HCl [Flomax] 0.4 mg PO DAILY 09/17/18 amLODIPine BESYLATE [Norvasc] 5 mg PO DAILY 09/17/18 Cephalexin Monohydrate [Keflex] 500 mg PO QID 10/24/18 Sulfa/Trimeth 800/160 (Ds) Tab [Bactrim DS] 1 tablet PO JOSE-OTH-DAY 10/24/18 Review of Systems - Review of Systems Review of Systems: 11/21/18 23:24 review of systems is for new symptoms only. Constitutional: States: no symptoms reported EENTM: States: no symptoms reported Respiratory: States: no symptoms reported Cardiology: States: no symptoms reported Gastrointestinal/Abdominal: States: no symptoms reported Genitourinary: States: see HPI Musculoskeletal: States: no symptoms reported Skin: States: no symptoms reported Neurological: States: no symptoms reported All other Systems: No Change from Baseline Past Medical History (General) - Patient Medical History Hx Seizures: No Hx Stroke: No Hx Dementia: No Hx Asthma: No Hx of COPD: No Hx Cardiac Disorders: No Hx Congestive Heart Failure: Yes Hx Pacemaker: No Hx Hypertension: Yes Hx Thyroid Disease: No Hx Diabetes: Yes Hx Gastroesophageal Reflux: No Hx Renal Disease: Yes Hx Cancer: No Hx of HIV: No Hx Hepatitis C: No Hx MRSA: No - Vaccination History Hx Tetanus, Diphtheria Vaccination: No Hx Influenza Vaccination: Yes - 2017 Hx Pneumococcal Vaccination: Yes - 2014 - Social History Hx Tobacco Use: No Hx Chewing Tobacco Use: No Hx Alcohol Use: No Hx Substance Use: No Hx Substance Use Treatment: No Hx Depression: No Hx Physical Abuse: No Hx Emotional Abuse: No Hx Suspected Abuse: No - Female History Patient : No Family Medical History - Family History Father Family History: Unknown Living Status: Hx Family Asthma: No Hx Family Congestive Heart Failure: No Hx Family Hypertension: No Hx Family Stroke: No Hx Cardiac Disease: No Hx Family Diabetes: Yes - dad;multiple family members Hx Family Cancer: Yes - colon cancer Mother Family History: Unknown Living Status: Cause of : COPD Hx Family Asthma: No Hx Family Congestive Heart Failure: No Hx Family Hypertension: Yes Hx Family Stroke: No Hx Cardiac Disease: No Hx Family Diabetes: No Hx Family Cancer: No Physical Exam - Physical Exam General Appearance: Alert, Comfortable, No apparent distress Eye Exam: bilateral normal Ears, Nose, Throat: hearing grossly normal, normal ENT inspection Neck: full range of motion, supple Respiratory: lungs clear, normal breath sounds, no respiratory distress, no accessory muscle use, other - dialysis catheter to the right chest Cardiovascular/Chest: normal peripheral pulses, other - regular rate Peripheral Pulses: radial,right: 2+, radial,left: 2+ Gastrointestinal/Abdominal: non tender, soft Rectal Exam: deferred Back Exam: no vertebral tenderness Extremity: other - bilateral lower extremity amputations 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 He appears to have a yeast infection in his urine that is likely due to the catheter required several weeks ago while in the hospital. He has been given a dose of Diflucan here. He will be instructed to take 1 tablet of Diflucan every 3 days for 5 doses. He does need to keep follow-up for dialysis. He does need to continue his ciprofloxacin. Also secondary to the pain from bladder spasm I'm going to place the patient on oxybutynin 5 mg tablets one half tablet every 8 hours as needed for bladder spasm. He does need to keep good control of his diabetes. ER warnings were given. Ultrasound of the bladder here tonight shows no significant urinary res idual. - Results/Orders Results/Orders: Laboratory Tests 11/21/18 22:55 Urine Color Yellow Urine Appearance Sl cloudy Urine pH 7.0 Ur Specific [place] 1.020 Urine Protein >=300 H Urine Glucose (UA) 500 H Urine Ketones Negative Urine Blood Moderate H Urine Nitrite Negative Urine Bilirubin Negative Urine Urobilinogen 0.2 Ur Leukocyte Esterase Negative Urine RBC 5-10 H Urine WBC 0 Ur Epithelial Cells 1-3 Urine Bacteria Rare Urine Yeast 1+ budding Departure - Departure Clinical Impression: Yeast UTI Disposition: Discharge to Home or Self Care Condition: Fair Departure Forms: ED Discharge - Pt. Copy, Patient Portal Self Enrollment Instructions: DI for Urinary Tract Infection (UTI) Diet: diabetic diet Activity: increase activity as tolerated Referrals: Jerry Parham MD [Primary Care Provider] - 1-2 Weeks Home Medications: Ambulatory Orders Aspirin [Aspirin Childrens] 81 mg PO DAILY 10/22/17 Febuxostat [Uloric] 40 mg PO DAILY 10/22/17 Furosemide 40 mg PO BID 10/22/17 Insulin Detemir [Levemir Pen] 10 unit SUBCU BEDTIME 10/22/17 Insulin Lispro [Humalog] 0 unit SUBCU ACHS PRN 10/22/17 Metoclopramide Tab [Reglan Tab] 5 mg PO QID 10/22/17 Senna/Docusate Tab [Senokot-S] 1 ea PO BID PRN 10/22/17 Famotidine 20 mg PO DAILY #30 tab 08/02/18 Atorvastatin Calcium 40 mg PO DAILY 09/17/18 Carvedilol 12.5 mg PO BID 09/17/18 Citalopram Hydrobromide [Citalopram] 20 mg PO DAILY 09/17/18 Finasteride 5 mg PO DAILY 09/17/18 Gabapentin 300 mg PO BID 09/17/18 HYDROcodone 7.5MG/APAP 325MG [[place] 7.5/325] 1 tablet PO QID PRN 09/17/18 Nitroglycerin 0.4 mg Tab [Nitrostat] 1 tablet PO Q5MIN 09/17/18 Potassium Chloride [K-Tab] 20 meq PO DAILY 09/17/18 Tamsulosin HCl [Flomax] 0.4 mg PO DAILY 09/17/18 amLODIPine BESYLATE [Norvasc] 5 mg PO DAILY 09/17/18 Cephalexin Monohydrate [Keflex] 500 mg PO QID 10/24/18 Sulfa/Trimeth 800/160 (Ds) Tab [Bactrim DS] 1 tablet PO JOSE-OTH-DAY 10/24/18 Additional Instructions: the patient is a 53-year-old male presenting to emergency room secondary to dysuria and frequency. He appears to have a yeast infection in his urine that is likely due to the catheter required several weeks ago while in the hospital. He has been given a dose of Diflucan here. He will be instructed to take 1 tablet of Diflucan every 3 days for 5 doses. He does need to keep follow-up for dialysis. He does need to continue his ciprofloxacin. Also secondary to the pain from bladder spasm I'm going to place the patient on oxybutynin 5 mg tablets one half tablet every 8 hours as needed for bladder spasm. He does need to keep good control of his diabetes. ER warnings were given. Ultrasound of the bladder here tonight shows no significant urinary residual.
== END 2018-11-21 23:36 | disposition home or self-care (01) ==
LOC: ER 22:41
DX: B37.49 Other urogenital candidiasis (principal); E11.22 Type 2 diabetes mellitus with diabetic chronic kidney disease; N18.9 Chronic kidney disease, unspecified; I13.0 Hypertensive heart and chronic kidney disease with heart failure and stage 1 through stage 4 chronic kidney disease, or unspecified chronic kidney disease; I50.9 Heart failure, unspecified; Z79.899 Other long term (current) drug therapy; Z79.4 Long term (current) use of insulin; Z88.5 Allergy status to narcotic agent

== ENCOUNTER 2018-12-07 22:29 | Emergency (ER) | payer OTHER ==
[2018-12-07 22:46] VITALS: BP 163/82; TEMP 97
[2018-12-07] MEDS ORDERED: NEOMYCIN-BACITRACIN-POLYMYXIN 0.9 GM UD TOP ONE ×2 (22:53→22:59)
[2018-12-07] MEDS ORDERED: CIPROFLOXACIN 500 MG TAB PO ONE (23:04)
[2018-12-07] MEDS ORDERED: cefTRIAXone SODIUM 1 GM VIAL IM ONE (23:04)
--- NOTE | 2018-12-07 23:07 | ED.PDOC ---
History of Present Illness - General Chief Complaint: Lower Extremity Injury Stated Complaint: Left leg sore Time Seen by Provider: 12/07/18 22:42 Source: patient Exam Limitations: no limitations - History of Present Illness Initial Comments: the patient is a 53-year-old male presenting to emergency room secondary to his BKA revision site dehiscing. The patient apparently tripped while he was getting out of bed yesterday and landed on the repair site causing it to the [place] over the central 3 inches. It looks as if the lateral downturned aspect had already started turning necrotic and was trying to pull apart prior to that. no fevers. Minimal drainage. The wound has already been opened more than 24 hours. Timing/Duration: unsure Severity: moderate Improving Factors: nothing Worsening Factors: nothing Allergies/Adverse Reactions: Allergies Tramadol [From [facility]] Adverse Reaction (Intermediate, Verified 11/21/18 23:03) Home Medications: Ambulatory Orders Aspirin [Aspirin Childrens] 81 mg PO DAILY 10/22/17 Febuxostat [Uloric] 40 mg PO DAILY 10/22/17 Furosemide 40 mg PO BID 10/22/17 Insulin Detemir [Levemir Pen] 10 unit SUBCU BEDTIME 10/22/17 Insulin Lispro [Humalog] 0 unit SUBCU ACHS PRN 10/22/17 Metoclopramide Tab [Reglan Tab] 5 mg PO QID 10/22/17 Senna/Docusate Tab [Senokot-S] 1 ea PO BID PRN 10/22/17 Famotidine 20 mg PO DAILY #30 tab 08/02/18 Atorvastatin Calcium 40 mg PO DAILY 09/17/18 Carvedilol 12.5 mg PO BID 09/17/18 Citalopram Hydrobromide [Citalopram] 20 mg PO DAILY 09/17/18 Finasteride 5 mg PO DAILY 09/17/18 Gabapentin 300 mg PO BID 09/17/18 HYDROcodone 7.5MG/APAP 325MG [[place] 7.5/325] 1 tablet PO QID PRN 09/17/18 Nitroglycerin 0.4 mg Tab [Nitrostat] 1 tablet PO Q5MIN 09/17/18 Potassium Chloride [K-Tab] 20 meq PO DAILY 09/17/18 Tamsulosin HCl [Flomax] 0.4 mg PO DAILY 09/17/18 amLODIPine BESYLATE [Norvasc] 5 mg PO DAILY 09/17/18 Cephalexin Monohydrate [Keflex] 500 mg PO QID 10/24/18 Sulfa/Trimeth 800/160 (Ds) Tab [Bactrim DS] 1 tablet PO JOSE-OTH-DAY 10/24/18 Ciprofloxacin [Cipro] 250 mg PO Q12H #20 tablet 12/07/18 Review of Systems - Review of Systems Review of Systems: 12/07/18 23:07 for new symptoms: Constitutional: States: no symptoms reported EENTM: States: no symptoms reported Respiratory: States: no symptoms reported Cardiology: States: no symptoms reported Gastrointestinal/Abdominal: States: no symptoms reported Genitourinary: States: no symptoms reported Musculoskeletal: States: see HPI Skin: States: see HPI Neurological: States: no symptoms reported Endocrine: States: no symptoms reported All other Systems: No Change from Baseline Past Medical History (General) - Patient Medical History Hx Seizures: No Hx Stroke: No Hx Dementia: No Hx Asthma: No Hx of COPD: No Hx Cardiac Disorders: No Hx Congestive Heart Failure: Yes Hx Pacemaker: No Hx Hypertension: Yes Hx Thyroid Disease: No Hx Diabetes: Yes Hx Gastroesophageal Reflux: No Hx Renal Disease: Yes Hx Cancer: No Hx of HIV: No Hx Hepatitis C: No Hx MRSA: No - Vaccination History Hx Tetanus, Diphtheria Vaccination: No Hx Influenza Vaccination: Yes Hx Pneumococcal Vaccination: Yes - 2015 - Social History Hx Tobacco Use: No Hx Chewing Tobacco Use: No Hx Alcohol Use: No Hx Substance Use: No Hx Substance Use Treatment: No Hx Depression: No Hx Physical Abuse: No Hx Emotional Abuse: No Hx Suspected Abuse: No - Female History Patient : No Family Medical History - Family History Father Family History: Unknown Living Status: Hx Family Asthma: No Hx Family Congestive Heart Failure: No Hx Family Hypertension: No Hx Family Stroke: No Hx Cardiac Disease: No Hx Family Diabetes: Yes - dad;multiple family members Hx Family Cancer: Yes - colon cancer Mother Family History: Unknown Living Status: Cause of : COPD Hx Family Asthma: No Hx Family Congestive Heart Failure: No Hx Family Hypertension: Yes Hx Family Stroke: No Hx Cardiac Disease: No Hx Family Diabetes: No Hx Family Cancer: No Physical Exam - Physical Exam General Appearance: Other - the patient is drowsy but he is already taken his sleeping medicines Eye Exam: bilateral normal Ears, Nose, Throat: hearing grossly normal Neck: full range of motion, supple Respiratory: no respiratory distress, no accessory muscle use Cardiovascular/Chest: normal peripheral pulses, no edema Peripheral Pulses: radial,right: 2+, radial,left: 2+ Gastrointestinal/Abdominal: non tender, soft Rectal Exam: deferred Extremity: other - bilateral lower extremity previous amputations. 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 The lateral aspect appears to have already been turning necrotic prior to that. The wound was irrigated with a liter of saline. The patient was dosed with a dose of Rocephin and started on ciprofloxacin which he will be continued on. He needs to keep follow-up for his dialysis. a picture was taken with his phone of the dehiscence site. This can be sent to his general surgeon tomorrow and further plans can be made for closure as per his surgeon's wishes. Dressing was applied and pressure wrap was reapplied. Follow up with general surgeon as soon as possible. ER warnings are given. The patient was already started on Tamiflu today as his has the flu. repair may need to be delayed until imminent threat of the flu has passed for this patient, as it may significantly complicate his recovery. 12/07/18 23:12 Departure - Departure Clinical Impression: Dehiscence of amputation stump Disposition: Discharge to Home or Self Care Condition: Fair Departure Forms: ED Discharge - Pt. Copy, Patient Portal Self Enrollment Diet: diabetic diet Referrals: Jerry Parham MD [Primary Care Provider] - 1-2 Weeks Prescriptions: Ciprofloxacin [Cipro] 250 mg PO Q12H #20 tablet Home Medications: Ambulatory Orders Aspirin [Aspirin Childrens] 81 mg PO DAILY 10/22/17 Febuxostat [Uloric] 40 mg PO DAILY 10/22/17 Furosemide 40 mg PO BID 10/22/17 Insulin Detemir [Levemir Pen] 10 unit SUBCU BEDTIME 10/22/17 Insulin Lispro [Humalog] 0 unit SUBCU ACHS PRN 10/22/17 Metoclopramide Tab [Reglan Tab] 5 mg PO QID 10/22/17 Senna/Docusate Tab [Senokot-S] 1 ea PO BID PRN 10/22/17 Famotidine 20 mg PO DAILY #30 tab 08/02/18 Atorvastatin Calcium 40 mg PO DAILY 09/17/18 Carvedilol 12.5 mg PO BID 09/17/18 Citalopram Hydrobromide [Citalopram] 20 mg PO DAILY 09/17/18 Finasteride 5 mg PO DAILY 09/17/18 Gabapentin 300 mg PO BID 09/17/18 HYDROcodone 7.5MG/APAP 325MG [[place] 7.5/325] 1 tablet PO QID PRN 09/17/18 Nitroglycerin 0.4 mg Tab [Nitrostat] 1 tablet PO Q5MIN 09/17/18 Potassium Chloride [K-Tab] 20 meq PO DAILY 09/17/18 Tamsulosin HCl [Flomax] 0.4 mg PO DAILY 09/17/18 amLODIPine BESYLATE [Norvasc] 5 mg PO DAILY 09/17/18 Cephalexin Monohydrate [Keflex] 500 mg PO QID 10/24/18 Sulfa/Trimeth 800/160 (Ds) Tab [Bactrim DS] 1 tablet PO JOSE-OTH-DAY 10/24/18 Ciprofloxacin [Cipro] 250 mg PO Q12H #20 tablet 12/07/18 Additional Instructions: the patient is a 53-year-old male presented to the emergency room secondary to dehiscence of his left lower extremity BKA site after a fall yesterday. The lateral aspect appears to have already been turning necrotic prior to that. The wound was irrigated with a liter of saline. The patient was dosed with a dose of Rocephin and started on ciprofloxacin which he will be continued on. He needs to keep follow-up for his dialysis. a picture was taken with his phone of the dehiscence site. This can be sent to his general surgeon tomorrow and further plans can be made for closure as per his surgeon's wishes. Dressing was applied and pressure wrap was reapplied. Follow up with general surgeon as soon as possible. ER warnings are given. The patient was already started on Tamiflu today as his has the flu. repair may need to be delayed until imminent threat of the flu has passed for this patient, as it may significantly complicate his recovery.
[2018-12-07] MEDS ORDERED: LIDOCAINE 1% 2 ML VIAL INJ ONE (23:13)
[2018-12-07 23:32] VITALS: O2SAT 95
== END 2018-12-07 23:31 | disposition home or self-care (01) ==
LOC: ER 22:29
DX: T87.81 Dehiscence of amputation stump (principal); I50.9 Heart failure, unspecified; I13.2 Hypertensive heart and chronic kidney disease with heart failure and with stage 5 chronic kidney disease, or end stage renal disease; E11.22 Type 2 diabetes mellitus with diabetic chronic kidney disease; N18.9 Chronic kidney disease, unspecified; Z79.899 Other long term (current) drug therapy; Z79.4 Long term (current) use of insulin; Z79.82 Long term (current) use of aspirin; Z88.8 Allergy status to other drugs, medicaments and biological substances; Z89.512 Acquired absence of left leg below knee; W06.XXXA Fall from bed, initial encounter

== ENCOUNTER → 2019-01-05 | Emergency (ER) | payer OTHER | LOC: ER 20:04 | DX: Z53.21 Procedure and treatment not carried out due to patient leaving prior to being seen by health care provider (principal) ==

== ENCOUNTER → 2019-01-11 | Outpatient (CLI) | payer OTHER | LOC: GMAM 11:48 | PROVIDERS: ATTEND Family Medicine | DX: E11.59 Type 2 diabetes mellitus with other circulatory complications (principal); N18.4 Chronic kidney disease, stage 4 (severe); D64.9 Anemia, unspecified ==

== ENCOUNTER 2019-05-07 17:20 | Emergency (ER) | payer OTHER, MEDICARE ==
[2019-05-07 17:51] VITALS: TEMP 98.5; O2SAT 96
--- NOTE | 2019-05-07 18:55 | ED.PDOC ---
History of Present Illness - General Chief Complaint: Problem Stated Complaint: Painful, burning urination and hesitency Time Seen by Provider: 05/07/19 17:45 Source: patient Exam Limitations: no limitations - History of Present Illness Initial Comments: patient comes in with 3 day history of dysuria and urethral pain. Patient states it feels like in the past when he had a bladder infection. Patient had been having some difficulty with urinary retention and currently has a Damon catheter in place. It was last placed back in 3 days ago and that the symptoms began. He's had no fever or chills. He has had some nausea but no emesis. Patient is on dialysis but does still make urine about every 12 hours. Patient states originally he had to have the catheter. He started retaining urine after several days. Patient has no other acute complaints. patient has Urology consult appointment next week. Timing/Duration: getting worse Quality: moderate Onset Location: suprapubic Radiation: none Activites at Onset: none Prior abdominal problems: similar symptoms Sexual intercourse history: not active Improving Factors: nothing Worsening Factors: other - urination Associated Symptoms: denies symptoms Allergies/Adverse Reactions: Allergies Tramadol [From Ultram] Adverse Reaction (Intermediate, Verified 05/07/19 17:41) Home Medications: Ambulatory Orders Aspirin [Aspirin Childrens] 81 mg PO DAILY 10/22/17 Febuxostat [Uloric] 40 mg PO DAILY 10/22/17 Furosemide 40 mg PO BID 10/22/17 Insulin Detemir [Levemir Pen] 10 unit SUBCU BEDTIME 10/22/17 Insulin Lispro [Humalog] 0 unit SUBCU ACHS PRN 10/22/17 Metoclopramide Tab [Reglan Tab] 5 mg PO QID 10/22/17 Senna/Docusate Tab [Senokot-S] 1 ea PO BID PRN 10/22/17 Famotidine 20 mg PO DAILY #30 tab 08/02/18 Atorvastatin Calcium 40 mg PO DAILY 09/17/18 Carvedilol 12.5 mg PO BID 09/17/18 Citalopram Hydrobromide [Citalopram] 20 mg PO DAILY 09/17/18 Finasteride 5 mg PO DAILY 09/17/18 Gabapentin 300 mg PO BID 09/17/18 HYDROcodone 7.5MG/APAP 325MG [[place] 7.5/325] 1 tablet PO QID PRN 09/17/18 Nitroglycerin 0.4 mg Tab [Nitrostat] 1 tablet PO Q5MIN 09/17/18 Potassium Chloride [K-Tab] 20 meq PO DAILY 09/17/18 Tamsulosin HCl [Flomax] 0.4 mg PO DAILY 09/17/18 amLODIPine BESYLATE [Norvasc] 5 mg PO DAILY 09/17/18 Cephalexin Monohydrate [Keflex] 500 mg PO QID 10/24/18 Sulfa/Trimeth 800/160 (Ds) Tab [Bactrim DS] 1 tablet PO JOSE-OTH-DAY 10/24/18 Ciprofloxacin [Cipro] 250 mg PO Q12H #20 tablet 12/07/18 Ciprofloxacin [Cipro] 250 mg PO DAILY #7 tablet 05/07/19 Sulfa/Trimeth 800/160 (Ds) Tab [Bactrim DS] 1 tablet PO BID #28 tab 05/07/19 Review of Systems - Review of Systems Constitutional: States: no symptoms reported. Denies: chills, fever EENTM: States: no symptoms reported Respiratory: States: no symptoms reported. Denies: cough, short of breath Cardiology: States: no symptoms reported. Denies: chest pain, palpitations Gastrointestinal/Abdominal: States: see HPI, abdominal pain, nausea. Denies: diarrhea, vomiting Genitourinary: States: see HPI Past Medical History (General) - Patient Medical History Hx Seizures: No Hx Stroke: No Hx Dementia: No Hx Asthma: No Hx of COPD: No Hx Cardiac Disorders: No Hx Congestive Heart Failure: Yes Hx Pacemaker: No Hx Hypertension: Yes Hx Thyroid Disease: No Hx Diabetes: Yes Hx Gastroesophageal Reflux: No Hx Renal Disease: Yes Hx Cancer: No Hx of HIV: No Hx Hepatitis C: No Hx MRSA: No Surgical History: coronary bypass surgery, other - Vaccination History Hx Tetanus, Diphtheria Vaccination: No Hx Influenza Vaccination: Yes Hx Pneumococcal Vaccination: Yes - Social History Hx Tobacco Use: No Hx Chewing Tobacco Use: No Hx Alcohol Use: No Hx Substance Use: No Hx Substance Use Treatment: No Hx Depression: No Hx Physical Abuse: No Hx Emotional Abuse: No Hx Suspected Abuse: No - Female History Patient is a Female of Child Bearing Age (10 -59 yrs old): No Patient : No Family Medical History - Family History Father Family History: Unknown Living Status: Hx Family Asthma: No Hx Family Congestive Heart Failure: No Hx Family Hypertension: No Hx Family Stroke: No Hx Cardiac Disease: No Hx Family Diabetes: Yes - dad;multiple family members Hx Family Cancer: Yes - colon cancer Mother Family History: Unknown Living Status: Cause of : COPD Hx Family Asthma: No Hx Family Congestive Heart Failure: No Hx Family Hypertension: Yes Hx Family Stroke: No Hx Cardiac Disease: No Hx Family Diabetes: No Hx Family Cancer: No Physical Exam - Physical Exam General Appearance: Alert, No apparent distress Eyes, Ears, Nose, Throat Exam: PERRL/EOMI, normal ENT inspection, TMs normal Neck: non-tender, full range of motion, supple Cardiovascular/Respiratory: regular rate, rhythm, no M/R/G, no JVD, normal breath sounds, no respiratory distress Gastrointestinal/Abdominal: normal bowel sounds, non tender, soft Rectal Exam: normal exam Male Genital Exam: normal genitalia, other - catheter in place Back Exam: normal inspection Progress - Progress Progress: patient has symptoms consistent with UTI. We discussed with the patient having the catheter and will complicate treatment but since he was having retention he may in fact need. Patient would like the catheter out and feels like he can get better without it. We discussed the fact that is very possible that he will have to come back in 6-12 hours of no urine output and feelings of bladder distention return the patient is willing to take that chance. We've given him Rocephin 2 g IM here and he said start Cipro 250 mg daily at home. Patient is to follow-up in 2-3 days to get culture results and to make sure he is doing better. Patient should return to the emergency room for increased temp greater than or equal to 100.5, 05/07/19 18:57 - Results/Orders Results/Orders: 05/07/19 18:23 Urine Culture Stat Laboratory Results WBC 8.5 K/mm3 (4.8-10.8) 05/07/19 18:34 RBC 3.10 M/mm3 (4.70-6.10) L 05/07/19 18:34 Hgb 9.0 gm/dL (14.0-18.0) L 05/07/19 18:34 Hct 28.4 % (42.0-52.0) L 05/07/19 18:34 MCV 91.5 fl (80.0-94.0) 05/07/19 18:34 MCH 29.0 pg (27.0-31.0) 05/07/19 18:34 MCHC 31.7 g/dL (33.0-37.0) L 05/07/19 18:34 RDW 18.1 % (11.5-14.5) H 05/07/19 18:34 Plt Count 230 K/mm3 (130-400) 05/07/19 18:34 MPV 8.3 fl (7.40-10.4) 05/07/19 18:34 Absolute Neuts (auto) 6.80 K/uL (1.8-6.8) 05/07/19 18:34 Absolute Lymphs (auto) 0.90 K/uL (1.0-3.4) L 05/07/19 18:34 Absolute Monos (auto) 0.70 K/uL (0.2-0.8) 05/07/19 18:34 Absolute Eos (auto) 0.10 K/uL (0.0-0.4) 05/07/19 18:34 Absolute Basos (auto) 0.00 K/uL (0.0-0.1) 05/07/19 18:34 Neutrophils % 79.3 % (42.0-78.0) H 05/07/19 18:34 Lymphocytes % 10.4 % (20.0-50.0) L 05/07/19 18:34 Monocytes % 8.4 % (2.0-9.0) 05/07/19 18:34 Eosinophils % 1.5 % (1.0-5.0) 05/07/19 18:34 Basophils % 0.4 % (0.0-2.0) 05/07/19 18:34 Urine Color Yellow (Yellow) 05/07/19 18:23 Urine Appearance Cloudy (Clear) 05/07/19 18: Urine pH 7.0 (4.5-7.8) 05/07/19 18:23 Ur Specific Simms 1.020 (1.005-1.030) 05/07/19 18:23 Urine Protein >=300 mg/dL H 05/07/19 18:23 Urine Glucose (UA) Negative mg/dL (Negative) 05/07/19 18:23 Urine Ketones Negative mg/dL (NEGATIVE) 05/07/19 18:23 Urine Blood Moderate (Negative) H 05/07/19 18:23 Urine Nitrite Negative 05/07/19 18:23 Urine Bilirubin Negative (NEGATIVE) 05/07/19 18:23 Urine Urobilinogen 0.2 mg/dL (0.2-1.0) 05/07/19 18:23 Ur Leukocyte Esterase Small (Negative) H 05/07/19 18:23 Urine RBC >50 /hpf H 05/07/19 18:23 Urine WBC Tntc /hpf H 05/07/19 18:23 Ur Epithelial Cells 0 /hpf 05/07/19 18:23 Urine Bacteria 4+ H 05/07/19 18:23 Departure - Departure Clinical Impression: Urinary tract infection Qualifiers: Urinary tract infection type: acute cystitis Hematuria presence: with hematuria Qualified Code(s): N30.01 - Acute cystitis with hematuria Disposition: Discharge to Home or Self Care Condition: Fair Departure Forms: ED Discharge - Pt. Copy, Patient Portal Self Enrollment Referrals: Jerry Parham MD [Primary Care Provider] - 1-2 Weeks Prescriptions: Ciprofloxacin [Cipro] 250 mg PO DAILY #7 tablet Sulfa/Trimeth 800/160 (Ds) Tab [Bactrim DS] 1 tablet PO BID #28 tab Home Medications: Ambulatory Orders Aspirin [Aspirin Childrens] 81 mg PO DAILY 10/22/17 Febuxostat [Uloric] 40 mg PO DAILY 10/22/17 Furosemide 40 mg PO BID 10/22/17 Insulin Detemir [Levemir Pen] 10 unit SUBCU BEDTIME 10/22/17 Insulin Lispro [Humalog] 0 unit SUBCU ACHS PRN 10/22/17 Metoclopramide Tab [Reglan Tab] 5 mg PO QID 10/22/17 Senna/Docusate Tab [Senokot-S] 1 ea PO BID PRN 10/22/17 Famotidine 20 mg PO DAILY #30 tab 08/02/18 Atorvastatin Calcium 40 mg PO DAILY 09/17/18 Carvedilol 12.5 mg PO BID 09/17/18 Citalopram Hydrobromide [Citalopram] 20 mg PO DAILY 09/17/18 Finasteride 5 mg PO DAILY 09/17/18 Gabapentin 300 mg PO BID 09/17/18 HYDROcodone 7.5MG/APAP 325MG [[place] 7.5/325] 1 tablet PO QID PRN 09/17/18 Nitroglycerin 0.4 mg Tab [Nitrostat] 1 tablet PO Q5MIN 09/17/18 Potassium Chloride [K-Tab] 20 meq PO DAILY 09/17/18 Tamsulosin HCl [Flomax] 0.4 mg PO DAILY 09/17/18 amLODIPine BESYLATE [Norvasc] 5 mg PO DAILY 09/17/18 Cephalexin Monohydrate [Keflex] 500 mg PO QID 10/24/18 Sulfa/Trimeth 800/160 (Ds) Tab [Bactrim DS] 1 tablet PO JOSE-OTH-DAY 10/24/18 Ciprofloxacin [Cipro] 250 mg PO Q12H #20 tablet 12/07/18 Ciprofloxacin [Cipro] 250 mg PO DAILY #7 tablet 05/07/19 Sulfa/Trimeth 800/160 (Ds) Tab [Bactrim DS] 1 tablet PO BID #28 tab 05/07/19 Additional Instructions: Patient is to follow-up in 2-3 days to get culture results and to make sure he is doing better. Patient should return to the emergency room for increased temp greater than or equal to 100.5,
[2019-05-07 20:12] VITALS: BP 127/58
== END 2019-05-07 20:13 | disposition home or self-care (01) ==
LOC: ER 17:20
DX: N30.01 Acute cystitis with hematuria (principal); I50.9 Heart failure, unspecified; I13.2 Hypertensive heart and chronic kidney disease with heart failure and with stage 5 chronic kidney disease, or end stage renal disease; E11.22 Type 2 diabetes mellitus with diabetic chronic kidney disease; N18.6 End stage renal disease; Z95.1 Presence of aortocoronary bypass graft; Z79.899 Other long term (current) drug therapy; Z79.4 Long term (current) use of insulin; Z79.82 Long term (current) use of aspirin; Z88.5 Allergy status to narcotic agent; Z87.440 Personal history of urinary (tract) infections; Z99.2 Dependence on renal dialysis
CPT/HCPCS: 36415; 81001; 85025; 87086; J0696

== ENCOUNTER 2019-05-13 20:17 | Emergency (ER) | payer MEDICARE, OTHER ==
[2019-05-13 20:42] VITALS: BP 131/63; TEMP 98.8; O2SAT 94
[2019-05-13] MEDS ORDERED: AMOXICILLIN & POT CLAVULANATE 875 MG TAB PO ONE (20:46)
[2019-05-13] MEDS ORDERED: PHENAZOPYRIDINE HCL 200 MG TAB PO ONE (20:49)
[2019-05-13] MEDS ORDERED: FLUCONAZOLE 100 MG TAB PO ONE (20:50)
--- NOTE | 2019-05-13 20:53 | ED.PDOC ---
History of Present Illness - General Chief Complaint: Problem Stated Complaint: uunable to void, only dribbling Time Seen by Provider: 05/13/19 20:24 Source: patient Exam Limitations: no limitations - History of Present Illness Initial Comments: the patient is a 53-year-old male presenting to the emergency room secondary toa sensation of difficulty with voiding. He has had a history of urinary retention in the past. He was started on antibiotics a few days ago for a urinary tract infection in the form of ciprofloxacin. He is on dialysis. He has voided just before he came up here a little bit. He still feels like he needs to go. No fevers. No evidence of sepsis. He is pleasant and cooperative. He does not have a Damon catheter in place at this time. Timing/Duration: 24 hours Severity: moderate Improving Factors: nothing Worsening Factors: nothing Associated Symptoms: denies symptoms Allergies/Adverse Reactions: Allergies Tramadol [From Ultram] Adverse Reaction (Intermediate, Verified 05/07/19 17:41) Home Medications: Ambulatory Orders Aspirin [Aspirin Childrens] 81 mg PO DAILY 10/22/17 Febuxostat [Uloric] 40 mg PO DAILY 10/22/17 Insulin Detemir [Levemir Pen] 15 unit SUBCU BEDTIME 10/22/17 Insulin Lispro [Humalog] 0 unit SUBCU ACHS PRN 10/22/17 Metoclopramide Tab [Reglan Tab] 5 mg PO QID 10/22/17 Senna/Docusate Tab [Senokot-S] 1 ea PO BID PRN 10/22/17 Famotidine 20 mg PO DAILY #30 tab 08/02/18 Atorvastatin Calcium 40 mg PO DAILY 09/17/18 Carvedilol 12.5 mg PO BID 09/17/18 Citalopram Hydrobromide [Citalopram] 20 mg PO DAILY 09/17/18 Finasteride 5 mg PO DAILY 09/17/18 Gabapentin 300 mg PO BID 09/17/18 Nitroglycerin 0.4 mg Tab [Nitrostat] 1 tablet PO Q5MIN 09/17/18 Tamsulosin HCl [Flomax] 0.4 mg PO DAILY 09/17/18 amLODIPine BESYLATE [Norvasc] 5 mg PO DAILY 09/17/18 Ciprofloxacin [Cipro] 250 mg PO DAILY #7 tablet 05/07/19 Lisinopril 2.5 mg PO DAILY 05/07/19 Sulfa/Trimeth 800/160 (Ds) Tab [Bactrim DS] 1 tablet PO BID #28 tab 05/07/19 Zolpidem Tartrate 10 mg PO BEDTIME PRN 05/07/19 Amoxicillin & Pot Clavulanate [Augmentin Tab] 500 mg PO DAILY #10 tablet 05/13/19 Review of Systems - Review of Systems Constitutional: States: no symptoms reported EENTM: States: no symptoms reported Respiratory: States: no symptoms reported Cardiology: States: no symptoms reported Gastrointestinal/Abdominal: States: no symptoms reported Genitourinary: States: see HPI Musculoskeletal: States: no symptoms reported Skin: States: no symptoms reported Neurological: States: no symptoms reported Endocrine: States: no symptoms reported All other Systems: No Change from Baseline Past Medical History (General) - Patient Medical History Hx Seizures: No Hx Stroke: No Hx Dementia: No Hx Asthma: No Hx of COPD: No Hx Cardiac Disorders: Yes - hx OR Hx Congestive Heart Failure: Yes Hx Pacemaker: No Hx Hypertension: Yes Hx Thyroid Disease: No Hx Diabetes: Yes Hx Gastroesophageal Reflux: No Hx Renal Disease: Yes - renal failure Hx Cancer: No Hx of HIV: No Hx Hepatitis C: No Hx MRSA: No Surgical History: other - Vaccination History Hx Tetanus, Diphtheria Vaccination: No Hx Influenza Vaccination: Yes Hx Pneumococcal Vaccination: Yes - Social History Hx Tobacco Use: No Hx Chewing Tobacco Use: No Hx Alcohol Use: No Hx Substance Use: No Hx Substance Use Treatment: No Hx Depression: No Hx Physical Abuse: No Hx Emotional Abuse: No Hx Suspected Abuse: No - Female History Patient : No Family Medical History - Family History Father Family History: Unknown Living Status: Hx Family Asthma: No Hx Family Congestive Heart Failure: No Hx Family Hypertension: No Hx Family Stroke: No Hx Cardiac Disease: No Hx Family Diabetes: Yes - dad;multiple family members Hx Family Cancer: Yes - colon cancer Mother Family History: Unknown Living Status: Cause of : COPD Hx Family Asthma: No Hx Family Congestive Heart Failure: No Hx Family Hypertension: Yes Hx Family Stroke: No Hx Cardiac Disease: No Hx Family Diabetes: No Hx Family Cancer: No Physical Exam - Physical Exam General Appearance: Alert, No apparent distress Eye Exam: bilateral normal Ears, Nose, Throat: hearing grossly normal, normal pharynx Neck: non-tender, supple Respiratory: lungs clear, normal breath sounds, no respiratory distress, no accessory muscle use Cardiovascular/Chest: normal peripheral pulses, no edema, other - egular rate Peripheral Pulses: radial,right: 2+, radial,left: 2+ Gastrointestinal/Abdominal: non tender - with the exception of mild suprapubic discomfort, soft Rectal Exam: deferred Back Exam: no CVA tenderness, no vertebral tenderness Extremity: non-tender, normal inspection - the patient has bilateral lower extremity amputations 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 In and out catheter was performed to confirm that there was no significant urinary retention. It appears that the urine culture is growing out Escherichia coli that is resistant to ciprofloxacin. He is going to be switched over to Augmentin based on sensitivities. He needs to keep himself well-hydrated. He needs to keep follow-up with dialysis. He does need to have a repeat urinalysis in a week or 2 to confirm clearing. He received his first dose here tonight. Departure - Departure Clinical Impression: Acute cystitis Qualifiers: Hematuria presence: without hematuria Qualified Code(s): N30.00 - Acute cystitis without hematuria Disposition: Discharge to Home or Self Care Condition: Fair Departure Forms: ED Discharge - Pt. Copy, Patient Portal Self Enrollment Instructions: DI for Urinary Tract Infection (UTI) Diet: diabetic diet Activity: increase activity as tolerated Referrals: Jerry Parham MD [Primary Care Provider] - 1-2 Weeks Prescriptions: Amoxicillin & Pot Clavulanate [Augmentin Tab] 500 mg PO DAILY #10 tablet Home Medications: Ambulatory Orders Aspirin [Aspirin Childrens] 81 mg PO DAILY 10/22/17 Febuxostat [Uloric] 40 mg PO DAILY 10/22/17 Insulin Detemir [Levemir Pen] 15 unit SUBCU BEDTIME 10/22/17 Insulin Lispro [Humalog] 0 unit SUBCU ACHS PRN 10/22/17 Metoclopramide Tab [Reglan Tab] 5 mg PO QID 10/22/17 Senna/Docusate Tab [Senokot-S] 1 ea PO BID PRN 10/22/17 Famotidine 20 mg PO DAILY #30 tab 08/02/18 Atorvastatin Calcium 40 mg PO DAILY 09/17/18 Carvedilol 12.5 mg PO BID 09/17/18 Citalopram Hydrobromide [Citalopram] 20 mg PO DAILY 09/17/18 Finasteride 5 mg PO DAILY 09/17/18 Gabapentin 300 mg PO BID 09/17/18 Nitroglycerin 0.4 mg Tab [Nitrostat] 1 tablet PO Q5MIN 09/17/18 Tamsulosin HCl [Flomax] 0.4 mg PO DAILY 09/17/18 amLODIPine BESYLATE [Norvasc] 5 mg PO DAILY 09/17/18 Ciprofloxacin [Cipro] 250 mg PO DAILY #7 tablet 05/07/19 Lisinopril 2.5 mg PO DAILY 05/07/19 Sulfa/Trimeth 800/160 (Ds) Tab [Bactrim DS] 1 tablet PO BID #28 tab 05/07/19 Zolpidem Tartrate 10 mg PO BEDTIME PRN 05/07/19 Amoxicillin & Pot Clavulanate [Augmentin Tab] 500 mg PO DAILY #10 tablet 05/13/19 Additional Instructions: the patient's 53-year-old male with acute cystitis. In and out catheter was performed to confirm that there was no significant urinary retention. It appears that the urine culture is growing out Escherichia coli that is resistant to ciprofloxacin. He is going to be switched over to Augmentin based on sensitivities. He needs to keep himself well-hydrated. He needs to keep follow-up with dialysis. He does need to have a repeat urinalysis in a week or 2 to confirm clearing. He received his first dose here [facility].
== END 2019-05-13 21:05 | disposition home or self-care (01) ==
LOC: ER 20:17
DX: N30.00 Acute cystitis without hematuria (principal); I25.2 Old myocardial infarction; I50.9 Heart failure, unspecified; N18.6 End stage renal disease; E11.22 Type 2 diabetes mellitus with diabetic chronic kidney disease; I13.2 Hypertensive heart and chronic kidney disease with heart failure and with stage 5 chronic kidney disease, or end stage renal disease; Z79.4 Long term (current) use of insulin; Z79.82 Long term (current) use of aspirin; Z79.899 Other long term (current) drug therapy; Z88.5 Allergy status to narcotic agent; Z99.2 Dependence on renal dialysis

== ENCOUNTER 2019-05-25 19:52 | Emergency (ER) | payer MEDICARE, OTHER ==
[2019-05-25] MEDS ORDERED: MECLIZINE HCL 12.5 MG TAB PO ONE (20:06)
--- NOTE | 2019-05-25 20:09 | ED.PDOC ---
History of Present Illness - General Chief Complaint: GI Problem Stated Complaint: dizziness Time Seen by Provider: 05/25/19 20:05 Source: patient, family, EMS Exam Limitations: no limitations - History of Present Illness Initial Comments: patient comes in via EMS for severe weakness. Patient stated he started feeling bad yesterday morning at approximately 1 AM. At that time he was extremely dizzy with the room actually spinning and moving. Patient is severe headache and his eyes hurt with bright lights. Patient stated he had vertigo once before but it did not seem like it was this bad. He did have some nausea and 2 episodes of emesis. Additionally, he's had some loose stools 4 but no abdominal pain. Patient states his blood sugars been greater than 100 every kathy e they checked it but he just feels so weak he can't even push himself in the wheelchair. Patient stated it had worsened to the point where his could not help him get up and they had to call the ambulance. Patient does have a significant past medical history of diabetes mellitus, end-stage kidney failure on dialysis, CAD status post CABG, hypertension, and peripheral artery disease. Patient has had a CABG and bilateral below the knee amputations. Patient states he does not have any chest pain and does not feel like it did prior to the problems he had with his heart in the past. He denies any fever, chills, cough or cold symptoms, shortness of breath or chest pain. Patient does not smoke, drink, or take illicit substances. Patient is O2 dependent but states he's never had lung problems and doesn't really know why he is on oxygen. Timing/Duration: 24 hours, constant Severity: severe Improving Factors: nothing Worsening Factors: movement Associated Symptoms: headaches, nausea/vomiting, weakness Allergies/Adverse Reactions: Allergies Tramadol [From Ultram] Adverse Reaction (Intermediate, Verified 05/07/19 17:41) Home Medications: Ambulatory Orders Aspirin [Aspirin Childrens] 81 mg PO DAILY 10/22/17 Febuxostat [Uloric] 40 mg PO DAILY 10/22/17 Insulin Detemir [Levemir Pen] 15 unit SUBCU BEDTIME 10/22/17 Insulin Lispro [Humalog] 0 unit SUBCU ACHS PRN 10/22/17 Metoclopramide Tab [Reglan Tab] 5 mg PO QID 10/22/17 Senna/Docusate Tab [Senokot-S] 1 ea PO BID PRN 10/22/17 Famotidine 20 mg PO DAILY #30 tab 08/02/18 Atorvastatin Calcium 40 mg PO DAILY 09/17/18 Carvedilol 12.5 mg PO BID 09/17/18 Citalopram Hydrobromide [Citalopram] 20 mg PO DAILY 09/17/18 Finasteride 5 mg PO DAILY 09/17/18 Gabapentin 300 mg PO BID 09/17/18 Nitroglycerin 0.4 mg Tab [Nitrostat] 1 tablet PO Q5MIN 09/17/18 Tamsulosin HCl [Flomax] 0.4 mg PO DAILY 09/17/18 amLODIPine BESYLATE [Norvasc] 5 mg PO DAILY 09/17/18 Ciprofloxacin [Cipro] 250 mg PO DAILY #7 tablet 05/07/19 Lisinopril 2.5 mg PO DAILY 05/07/19 Sulfa/Trimeth 800/160 (Ds) Tab [Bactrim DS] 1 tablet PO BID #28 tab 05/07/19 Zolpidem Tartrate 10 mg PO BEDTIME PRN 05/07/19 Amoxicillin & Pot Clavulanate [Augmentin Tab] 500 mg PO DAILY #10 tablet 05/13/19 Meclizine HCl [Meclizine] 25 mg PO TID PRN #6 chw 05/25/19 Review of Systems - Review of Systems Constitutional: States: malaise, weakness. Denies: chills, fever EENTM: States: no symptoms reported, eye pain - photophobia. Denies: blurred vision, double vision, ear pain, ear discharge, nose pain, nose congestion, throat pain Respiratory: States: no symptoms reported. Denies: cough, short of breath, wheezing Cardiology: States: no symptoms reported. Denies: chest pain, edema, palpitations Gastrointestinal/Abdominal: States: diarrhea, nausea, vomiting. Denies: abdominal pain Genitourinary: States: no symptoms reported. Denies: dysuria, frequency, hematuria Musculoskeletal: States: no symptoms reported Skin: States: no symptoms reported Neurological: States: see HPI Past Medical History (General) - Patient Medical History Hx Seizures: No Hx Stroke: No Hx Dementia: No Hx Asthma: No Hx of COPD: No Hx Cardiac Disorders: Yes - hx [place] Hx Congestive Heart Failure: Yes Hx Pacemaker: No Hx Hypertension: Yes Hx Thyroid Disease: No Hx Diabetes: Yes Hx Gastroesophageal Reflux: No Hx Renal Disease: Yes - renal failure Hx Cancer: No Hx of HIV: No Hx Hepatitis C: No Hx MRSA: No - Vaccination History Hx Tetanus, Diphtheria Vaccination: No Hx Influenza Vaccination: Yes Hx Pneumococcal Vaccination: Yes - Social History Hx Tobacco Use: No Hx Chewing Tobacco Use: No Hx Alcohol Use: No Hx Substance Use: No Hx Substance Use Treatment: No Hx Depression: No Hx Physical Abuse: No Hx Emotional Abuse: No Hx Suspected Abuse: No - Female History Patient : No Family Medical History - Family History Father Family History: Unknown Living Status: Hx Family Asthma: No Hx Family Congestive Heart Failure: No Hx Family Hypertension: No Hx Family Stroke: No Hx Cardiac Disease: No Hx Family Diabetes: Yes - dad;multiple family members Hx Family Cancer: Yes - colon cancer Mother Family History: Unknown Living Status: Cause of : COPD Hx Family Asthma: No Hx Family Congestive Heart Failure: No Hx Family Hypertension: Yes Hx Family Stroke: No Hx Cardiac Disease: No Hx Family Diabetes: No Hx Family Cancer: No Physical Exam - Physical Exam General Appearance: Alert, Frail, Ill Appearing Eye Exam: bilateral normal Ears, Nose, Throat: hearing grossly normal, normal ENT inspection, normal pharynx Neck: non-tender, full range of motion, supple, normal inspection Respiratory: chest non-tender, lungs clear, normal breath sounds, no respiratory distress Cardiovascular/Chest: normal peripheral pulses, regular rate, rhythm, no edema, no gallop, no JVD, no murmur Peripheral Pulses: radial,right: 2+, radial,left: 2+ Gastrointestinal/Abdominal: normal bowel sounds, non tender, soft, no organomegaly, no pulsatile mass Extremity: other - bilateral BKA Neurologic: facility operations manager II-XII nml as tested, no motor/sensory deficits, alert, oriented x 3 Progress - Progress Progress: 05/25/19 22:47 patient is feeling much better after Semont maneuvers and IVF. Will send him home with meclizine to be filled tomorrow and precautions - Results/Orders Results/Orders: Patient Name: IRIS SHELTON Gender: Male Date of : 1965 Referring Physician: ROHINI LONG: [facility] Accession Number: [id number] Requested Date: May 25, 2019 20:06 Report Status: Final Requested Procedure: 1 Procedure Description: Head Modality: CT Findings Reporting MD: Lucina Ceja MD: Not available Dictation Time: Mixing Supervisor: Not available Wood Ski Maker Date: PROCEDURE: Head CLINICAL HISTORY: 53 years Male weakness, dizziness diabetic on dialysis TECHNIQUE: Contiguous axial CT images obtained through the brain without IV contrast. Coronal and sagittal reformats also provided. This CT exam was performed according to our departmental dose-optimization program, which includes one or more of the following dose reduction techniques: automated exposure control, adjustment of the mA and/or kV according to patient size, and/or use of iterative reconstruction technique. COMPARISON: No prior exams provided for comparison. FINDINGS: There is no intracranial hemorrhage, extraaxial collection, or acute transcortical infarction. The ventricles are normal in size and contour without mass-effect or midline shift. No fracture or aggressive osseous lesion. Minimal paranasal sinusitis. The mastoid air cells are clear. IMPRESSION: Minimal paranasal sinusitis. No other acute intracranial abnormalities. Patient Name: KIMBERLYN CHIN Gender: Male Date of : December 15, 1973 Referring Physician: ROHINI LONG Organization: [facility] Accession Number: [id number] Requested Date: May 25, 2019 20:50 Report Status: Final Requested Procedure: 1 Procedure Description: Abdoment/Pelvis w/o Contrast Modality: CT Findings Reporting MD: Lucina Ceja MD: Not available Dictation Time: Mixing Supervisor: Not available Wood Ski Maker Date: PROCEDURE: CT Abdomen/Pelvis w/o Contrast CLINICAL HISTORY: 45 years Male RLQ pain, hx of perforation colon TECHNIQUE: Contiguous axial images obtained through the abdomen and pelvis without IV contrast. Coronal and sagittal reformatted images provided. This CT exam was performed according to our departmental dose-optimization program, which includes one or more of the following dose reduction techniques: automated exposure control, adjustment of the mA and/or kV according to patient size, and/or use of iterative reconstruction technique. COMPARISON: Comparison is made to the prior examination dated 07/24/2009. FINDINGS: There are acute inflammatory changes in the central upper pelvis, centered at an inflamed mid sigmoid diverticulum. There are a few bubbles of gas in the wall of the inflamed diverticulum. No definite free intraperitoneal air or drainable abscess. There is diffuse sigmoid diverticulosis. No bowel obstruction or other bowel inflammation. Normal appendix. Mild patchy bibasilar atelectasis. Steatosis of the liver, which is enlarged without focal lesion on this noncontrast study. Fatty replacement of the pancreas. The spleen, adrenal glands, kidneys, urinary bladder, and osseous structures are normal. IMPRESSION: Acute mid sigmoid diverticulitis. There our a few bubbles of gas in the wall of the inflamed diverticulum without definite free intraperitoneal air, drainable abscess, or bowel obstruction. Electronically signed by: Lucina Ceja MD 05/25/2019 9:24 PM CDT - EKG/XRAY/CT EKG: Darinel, Sinus, nonspecific ST T wave Chg, Unchanged from - oct 2018 Departure - Departure Clinical Impression: Vertigo, Dehydration Disposition: Discharge to Home or Self Care Condition: Fair Departure Forms: ED Discharge - Pt. Copy, Patient Portal Self Enrollment Referrals: Jerry Parham MD [Primary Care Provider] - 1-2 Weeks Prescriptions: Meclizine HCl [Meclizine] 25 mg PO TID PRN #6 chw PRN Reason: Dizziness Home Medications: Ambulatory Orders Aspirin [Aspirin Childrens] 81 mg PO DAILY 10/22/17 Febuxostat [Uloric] 40 mg PO DAILY 10/22/17 Insulin Detemir [Levemir Pen] 15 unit SUBCU BEDTIME 10/22/17 Insulin Lispro [Humalog] 0 unit SUBCU ACHS PRN 10/22/17 Metoclopramide Tab [Reglan Tab] 5 mg PO QID 10/22/17 Senna/Docusate Tab [Senokot-S] 1 ea PO BID PRN 10/22/17 Famotidine 20 mg PO DAILY #30 tab 08/02/18 Atorvastatin Calcium 40 mg PO DAILY 09/17/18 Carvedilol 12.5 mg PO BID 09/17/18 Citalopram Hydrobromide [Citalopram] 20 mg PO DAILY 09/17/18 Finasteride 5 mg PO DAILY 09/17/18 Gabapentin 300 mg PO BID 09/17/18 Nitroglycerin 0.4 mg Tab [Nitrostat] 1 tablet PO Q5MIN 09/17/18 Tamsulosin HCl [Flomax] 0.4 mg PO DAILY 09/17/18 amLODIPine BESYLATE [Norvasc] 5 mg PO DAILY 09/17/18 Ciprofloxacin [Cipro] 250 mg PO DAILY #7 tablet 05/07/19 Lisinopril 2.5 mg PO DAILY 05/07/19 Sulfa/Trimeth 800/160 (Ds) Tab [Bactrim DS] 1 tablet PO BID #28 tab 05/07/19 Zolpidem Tartrate 10 mg PO BEDTIME PRN 05/07/19 Amoxicillin & Pot Clavulanate [Augmentin Tab] 500 mg PO DAILY #10 tablet 05/13/19 Meclizine HCl [Meclizine] 25 mg PO TID PRN #6 chw 05/25/19 Additional Instructions: follow up with pcp in 1-2 days. Return to ER for intractable emesis, weakness, or altered LOC
--- NOTE | 2019-05-25 20:49 | CT ---
PROCEDURE: Head CLINICAL HISTORY: 53 years Male weakness, dizziness diabetic on dialysis TECHNIQUE: Contiguous axial CT images obtained through the brain without IV contrast. Coronal and sagittal reformats also provided. This CT exam was performed according to our departmental dose-optimization program, which includes one or more of the following dose reduction techniques: automated exposure control, adjustment of the mA and/or kV according to patient size, and/or use of iterative reconstruction technique. COMPARISON: No prior exams provided for comparison. FINDINGS: There is no intracranial hemorrhage, extraaxial collection, or acute transcortical infarction. The ventricles are normal in size and contour without mass-effect or midline shift. No fracture or aggressive osseous lesion. Minimal paranasal sinusitis. The mastoid air cells are clear. IMPRESSION: Minimal paranasal sinusitis. No other acute intracranial abnormalities. Electronically signed by: Lucina Ceja MD 05/25/2019 8:47 PM CDT
[2019-05-25] MEDS ORDERED: SODIUM CHLORIDE 0.9% 500ML 500 ML IVS ONE (21:15)
[2019-05-25 23:06] VITALS: BP 111/54; TEMP 97.5; O2SAT 97
== END 2019-05-25 22:55 | disposition home or self-care (01) ==
LOC: ER 19:52
DX: R42 Dizziness and giddiness (principal); E86.0 Dehydration; R00.1 Bradycardia, unspecified; N18.6 End stage renal disease; E11.22 Type 2 diabetes mellitus with diabetic chronic kidney disease; I50.9 Heart failure, unspecified; I13.2 Hypertensive heart and chronic kidney disease with heart failure and with stage 5 chronic kidney disease, or end stage renal disease; I25.2 Old myocardial infarction; I25.10 Atherosclerotic heart disease of native coronary artery without angina pectoris; Z79.899 Other long term (current) drug therapy; Z79.4 Long term (current) use of insulin; Z79.82 Long term (current) use of aspirin; Z88.5 Allergy status to narcotic agent; Z99.2 Dependence on renal dialysis; Z95.1 Presence of aortocoronary bypass graft; Z99.81 Dependence on supplemental oxygen
CPT/HCPCS: 36415; 70450; 80053; 82550; 82553; 83605; 83735; 84484; 85025; 93005; J7040

== ENCOUNTER → 2019-08-16 | Outpatient (CLI) | payer OTHER | LOC: YCHH 09:37 | PROVIDERS: ATTEND Family Medicine | DX: E11.59 Type 2 diabetes mellitus with other circulatory complications (principal); D64.9 Anemia, unspecified; E78.5 Hyperlipidemia, unspecified ==

== ENCOUNTER → 2019-10-06 | Outpatient (CLI) | payer MEDICARE | LOC: YCHH 16:17 | PROVIDERS: ATTEND Family Medicine | DX: E11.59 Type 2 diabetes mellitus with other circulatory complications (principal) ==

== ENCOUNTER 2019-10-10 11:48 | Emergency (ER) | payer MEDICARE ==
[2019-10-10] MEDS ORDERED: LUBIPROSTONE 24 MCG CAP PO ONE (12:10)
--- NOTE | 2019-10-10 12:13 | ED.PDOC ---
History of Present Illness - General Chief Complaint: GI Problem Stated Complaint: Constipation Time Seen by Provider: 10/10/19 11:50 Source: patient Exam Limitations: no limitations - History of Present Illness Initial Comments: the patient is a 53-year-old male presenting to emergency room secondary to constipation. He has gotten constipated enough that it is starting to cause some gastritis and nausea issues. Most of the constipation is likely due to chronic dehydration from dialysis as well as decreased mobility secondary to his amputations. No fever. No blood in the stool. No point abdominal pain. His abdomen generally feels full. He does have obvious palpable stool.he has been taking some [id number] laxatives with minimal effect and did do an enema prior to coming in. Timing/Duration: other - 4 days Severity: moderate Improving Factors: nothing Worsening Factors: nothing Associated Symptoms: nausea/vomiting Allergies/Adverse Reactions: Allergies Tramadol [From Ultram] Adverse Reaction (Intermediate, Verified 05/07/19 17:41) Home Medications: Ambulatory Orders Aspirin [Aspirin Childrens] 81 mg PO DAILY 10/22/17 Febuxostat [Uloric] 40 mg PO DAILY 10/22/17 Insulin Detemir [Levemir Pen] 15 unit SUBCU BEDTIME 10/22/17 Insulin Lispro [Humalog] 0 unit SUBCU ACHS PRN 10/22/17 Metoclopramide Tab [Reglan Tab] 5 mg PO QID 10/22/17 Senna/Docusate Tab [Senokot-S] 1 ea PO BID PRN 10/22/17 Famotidine 20 mg PO DAILY #30 tab 08/02/18 Atorvastatin Calcium 40 mg PO DAILY 09/17/18 Carvedilol 12.5 mg PO BID 09/17/18 Citalopram Hydrobromide [Citalopram] 20 mg PO DAILY 09/17/18 Finasteride 5 mg PO DAILY 09/17/18 Gabapentin 300 mg PO BID 09/17/18 Nitroglycerin 0.4 mg Tab [Nitrostat] 1 tablet PO Q5MIN 09/17/18 Tamsulosin HCl [Flomax] 0.4 mg PO DAILY 09/17/18 amLODIPine BESYLATE [Norvasc] 5 mg PO DAILY 09/17/18 Ciprofloxacin [Cipro] 250 mg PO DAILY #7 tablet 05/07/19 Lisinopril 2.5 mg PO DAILY 05/07/19 Sulfa/Trimeth 800/160 (Ds) Tab [Bactrim DS] 1 tablet PO BID #28 tab 05/07/19 Zolpidem Tartrate 10 mg PO BEDTIME PRN 05/07/19 Amoxicillin & Pot Clavulanate [Augmentin Tab] 500 mg PO DAILY #10 tablet 05/13/19 Meclizine HCl [Meclizine] 25 mg PO TID PRN #6 chw 05/25/19 Review of Systems - Review of Systems Review of Systems: 10/10/19 12:12 for acute changes only. Constitutional: States: no symptoms reported EENTM: States: no symptoms reported Respiratory: States: no symptoms reported Cardiology: States: no symptoms reported Gastrointestinal/Abdominal: States: constipation, nausea Genitourinary: States: no symptoms reported Musculoskeletal: States: no symptoms reported Skin: States: no symptoms reported Neurological: States: no symptoms reported Endocrine: States: no symptoms reported All other Systems: No Change from Baseline Past Medical History (General) - Patient Medical History Hx Seizures: No Hx Stroke: No Hx Dementia: No Hx Asthma: No Hx of COPD: No Hx Cardiac Disorders: Yes - hx [place] Hx Congestive Heart Failure: Yes Hx Pacemaker: No Hx Hypertension: Yes Hx Thyroid Disease: No Hx Diabetes: Yes Hx Gastroesophageal Reflux: No Hx Renal Disease: Yes - renal failure Hx Cancer: No Hx of HIV: No Hx Hepatitis C: No Hx MRSA: No - Vaccination History Hx Tetanus, Diphtheria Vaccination: No Hx Influenza Vaccination: Yes Hx Pneumococcal Vaccination: Yes - Social History Hx Tobacco Use: No Hx Chewing Tobacco Use: No Hx Alcohol Use: No Hx Substance Use: No Hx Substance Use Treatment: No Hx Depression: No Hx Physical Abuse: No Hx Emotional Abuse: No Hx Suspected Abuse: No - Female History Patient : No Family Medical History - Family History Father Family History: Unknown Living Status: Hx Family Asthma: No Hx Family Congestive Heart Failure: No Hx Family Hypertension: No Hx Family Stroke: No Hx Cardiac Disease: No Hx Family Diabetes: Yes - dad;multiple family members Hx Family Cancer: Yes - colon cancer Mother Family History: Unknown Living Status: Cause of : COPD Hx Family Asthma: No Hx Family Congestive Heart Failure: No Hx Family Hypertension: Yes Hx Family Stroke: No Hx Cardiac Disease: No Hx Family Diabetes: No Hx Family Cancer: No Physical Exam - Physical Exam General Appearance: Alert, No apparent distress Eye Exam: bilateral normal Ears, Nose, Throat: hearing grossly normal, normal pharynx Neck: non-tender, supple Respiratory: lungs clear, normal breath sounds, no respiratory distress, no accessory muscle use Cardiovascular/Chest: normal peripheral pulses, no edema, other - regular rate Peripheral Pulses: radial,right: 2+, radial,left: 2+ Gastrointestinal/Abdominal: soft, other - moderately distended with palpable stool Rectal Exam: deferred Back Exam: no vertebral tenderness Extremity: normal range of motion, other - chronic changes related to amputations Neurologic: accounts adjustable clerk II-XII nml as tested, alert, normal mood/affect, oriented x 3 Skin Exam: normal color Comments: Vital Signs - 24 hr 10/10/19 10/10/19 11:50 12:05 Temperature 98.2 F Pulse Rate [ 84 84 Monitor] Respiratory 20 Rate Blood Pressure 180/98 [R brachial] O2 Sat by Pulse 98 Oximetry Progress - Progress Progress: 10/10/19 12:35 the patient's a 53-year-old male presenting to emergency room with symptoms of significant constipation. No bowel movement in the last 3 or 4 days. He was given one dose of amitiza here today, after x-ray confirmed no obvious ileus or obstruction. He is going to be given a prescription for GoLYTELY to take tomorrow, so he is cleaned out prior to his dialysis on Friday. he can take it over a period of 6 hours. ER warnings were given. Jayro morris follow-up otherwise with primary care doctor and dialysis. - Results/Orders Results/Orders: on the two-view abdomen i do not see any evidence of any bowel obstruction or ileus. Difficult to determine stool burden however. Departure - Departure Clinical Impression: Constipation by delayed colonic transit Disposition: Discharge to Home or Self Care Condition: Fair Departure Forms: ED Discharge - Pt. Copy, Patient Portal Self Enrollment Instructions: DI for Constipation Diet: diabetic diet - high-fiber Activity: increase activity as tolerated Referrals: Jerry Parham MD [Primary Care Provider] - 1-2 Weeks Home Medications: Ambulatory Orders Aspirin [Aspirin Childrens] 81 mg PO DAILY 10/22/17 Febuxostat [Uloric] 40 mg PO DAILY 10/22/17 Insulin Detemir [Levemir Pen] 15 unit SUBCU BEDTIME 10/22/17 Insulin Lispro [Humalog] 0 unit SUBCU ACHS PRN 10/22/17 Metoclopramide Tab [Reglan Tab] 5 mg PO QID 10/22/17 Senna/Docusate Tab [Senokot-S] 1 ea PO BID PRN 10/22/17 Famotidine 20 mg PO DAILY #30 tab 08/02/18 Atorvastatin Calcium 40 mg PO DAILY 09/17/18 Carvedilol 12.5 mg PO BID 09/17/18 Citalopram Hydrobromide [Citalopram] 20 mg PO DAILY 09/17/18 Finasteride 5 mg PO DAILY 09/17/18 Gabapentin 300 mg PO BID 09/17/18 Nitroglycerin 0.4 mg Tab [Nitrostat] 1 tablet PO Q5MIN 09/17/18 Tamsulosin HCl [Flomax] 0.4 mg PO DAILY 09/17/18 amLODIPine BESYLATE [Norvasc] 5 mg PO DAILY 09/17/18 Ciprofloxacin [Cipro] 250 mg PO DAILY #7 tablet 05/07/19 Lisinopril 2.5 mg PO DAILY 05/07/19 Sulfa/Trimeth 800/160 (Ds) Tab [Bactrim DS] 1 tablet PO BID #28 tab 05/07/19 Zolpidem Tartrate 10 mg PO BEDTIME PRN 05/07/19 Amoxicillin & Pot Clavulanate [Augmentin Tab] 500 mg PO DAILY #10 tablet 05/13/19 Meclizine HCl [Meclizine] 25 mg PO TID PRN #6 chw 05/25/19 Additional Instructions: the patient is 39-year-old -[place] male presenting with several weeks of symptoms of abdominal pain with a small amount of blood in the stool and intermittent nausea and vomiting. Blood levels appear to be completely normal. Vital signs have remained stable. The blood in the stool is most likely coming from his hemorrhoids. Preparation H can be applied several times daily topically to help reduce any bleeding from the hemorrhoids. Additionally he needs to keep himself from being constipated to help with this problem. He is going to be written for 1 gallon of GoLYTELY to be taken to clean out his intestines. I believe the constipation is the most likely source for his lower abdominal pain at this point, given the physical exam, imaging and laboratory reports. MiraLAX [id number] 3-5 times per week after that can help pr event constipation and reduce hemorrhoid formation. If he does get cleaned out however and he continues to have lower abdominal pain then he should take the ciprofloxacin and metronidazole that he has been written for 1 week. for the gastritis that the patient has, he is going to be placed on Pepcid and Carafate for the next few weeks. He will also be written for some Zofran to control any vomiting. If the patient is still failing to improve after this regimen or worsens in spite of this, then he will need to see his primary care doctor to get set up for endoscopies with gastroenterology. ER warnings were given. Prescriptions are written out.
[2019-10-10 12:17] VITALS: TEMP 98.2
--- NOTE | 2019-10-10 12:42 | RAD ---
EXAM DESCRIPTION: Abdomen Flat Upright CLINICAL HISTORY: 53 years Male, suspected constipation COMPARISON: CT abdomen and pelvis 09/26/2018. FINDINGS/IMPRESSION: Frontal portable upright views of the abdomen was obtained. A small stool burden is present within the cecum. The remainder of the colon and rectum appears decompressed. The bowel gas pattern is normal without evidence of obstruction. No free intra-abdominal air is seen. No abnormal calcifications are seen. No acute osseous abnormality. Electronically signed by: Oral Jacinto DO 10/10/2019 12:41 PM [facility]
[2019-10-10 12:51] VITALS: BP 124/92; O2SAT 94
== END 2019-10-10 12:45 | disposition home or self-care (01) ==
LOC: ER 11:48
DX: K59.01 Slow transit constipation (principal); R11.2 Nausea with vomiting, unspecified; K64.9 Unspecified hemorrhoids; I25.2 Old myocardial infarction; I50.9 Heart failure, unspecified; N18.9 Chronic kidney disease, unspecified; E11.22 Type 2 diabetes mellitus with diabetic chronic kidney disease; I13.0 Hypertensive heart and chronic kidney disease with heart failure and stage 1 through stage 4 chronic kidney disease, or unspecified chronic kidney disease; Z79.4 Long term (current) use of insulin; Z79.82 Long term (current) use of aspirin; Z79.899 Other long term (current) drug therapy; Z88.5 Allergy status to narcotic agent

== ENCOUNTER 2019-10-19 19:06 | Emergency (ER) | payer MEDICARE ==
[2019-10-19 20:17] VITALS: TEMP 98.2; O2SAT 94
--- NOTE | 2019-10-19 20:28 | ED.PDOC ---
History of Present Illness - General Chief Complaint: Abdominal Pain Stated Complaint: n/v/d, abd pain Time Seen by Provider: 10/19/19 20:10 Information Source: patient Exam Limitations: no limitations - History of Present Illness Initial Comments: 53 yo M with ESRD on dialysis T//Fri who presents for LUQ abd pain onset two days ago with associated n/v. Pain is dull, non radiating, constant, located in one particular spot that pt points out. Pt has port in R chest wall for dialysis, had a full session today without any complications. Denies f/c, cough, congestion, CP, SOB, diarrhea, constipation, urinary sx (pt still makes small amt of urine), hematemesis, melena, hematochezia. Review of Systems - Review of Systems Constitutional: Denies: chills, fever EENTM: States: no symptoms reported Respiratory: Denies: cough, short of breath Cardiology: Denies: chest pain, palpitations Gastrointestinal/Abdominal: States: abdominal pain, nausea, vomiting. Denies: constipation, diarrhea Genitourinary: Denies: dysuria, hematuria Musculoskeletal: Denies: back pain, neck pain Skin: Denies: lesions, rash Neurological: Denies: headache, numbness, weakness Past Medical History (General) - Patient Medical History Hx Seizures: No Hx Stroke: No Hx Dementia: No Hx Asthma: No Hx of COPD: No Hx Cardiac Disorders: Yes - hx [place] Hx Congestive Heart Failure: Yes Hx Pacemaker: No Hx Hypertension: Yes Hx Thyroid Disease: No Hx Diabetes: Yes Hx Gastroesophageal Reflux: No Hx Renal Disease: Yes - renal failure Hx Cancer: No Hx of HIV: No Hx Hepatitis C: No Hx MRSA: No Surgical History: other - Vaccination History Hx Tetanus, Diphtheria Vaccination: No Hx Influenza Vaccination: Yes Hx Pneumococcal Vaccination: Yes - Social History Hx Tobacco Use: No Hx Chewing Tobacco Use: No Hx Alcohol Use: No Hx Substance Use: No Hx Substance Use Treatment: No Hx Depression: No Hx Physical Abuse: No Hx Emotional Abuse: No Hx Suspected Abuse: No - Female History Patient : No Family Medical History - Family History Father Family History: Unknown Living Status: Hx Family Asthma: No Hx Family Congestive Heart Failure: No Hx Family Hypertension: No Hx Family Stroke: No Hx Cardiac Disease: No Hx Family Diabetes: Yes - dad;multiple family members Hx Family Cancer: Yes - colon cancer Mother Family History: Unknown Living Status: Cause of : COPD Hx Family Asthma: No Hx Family Congestive Heart Failure: No Hx Family Hypertension: Yes Hx Family Stroke: No Hx Cardiac Disease: No Hx Family Diabetes: No Hx Family Cancer: No Physical Exam - Physical Exam General Appearance: Alert, Comfortable, No apparent distress, Well Developed, Well Nourished Eyes, Ears, Nose, Throat Exam: normal ENT inspection Neck: full range of motion, supple, normal inspection Respiratory: chest non-tender, lungs clear, normal breath sounds, no respiratory distress, no accessory muscle use Cardiovascular/Chest: normal peripheral pulses, regular rate, rhythm, no edema, no gallop, no JVD, no murmur Peripheral Pulses: No deficit Gastrointestinal/Abdominal: normal bowel sounds, non tender, soft, no organomegaly, no pulsatile mass, other - LUQ discomfort. No guarding, rebound, distention. Back Exam: normal inspection, no CVA tenderness, no vertebral tenderness Extremity: normal range of motion, non-tender, normal inspection, no pedal edema, other - Bilateral BKA Neurologic: no motor/sensory deficits, alert, normal mood/affect, oriented x 3 Skin Exam: normal color, warm/dry Progress - Progress Progress: I have explained and reviewed all results with the pt. Pt is feeling better, gabbi po, no vomiting since arrival to ED. I explained that emergent conditions may arise and to return to the ER for new, worsening, or any persistent conditions. I've explained the importance of f/u for recheck, pt reports PCP follow up appointment scheduled for tomorrow. All questions and concerns addressed at this time. Pt understands and agrees with plan. Pt well appearing, NAD, is stable for discharge. Joana Jacobs MD Emergency Medicine Physician Billing Number [id number] - Results/Orders Results/Orders: Laboratory Results - last 24 hr 10/19/19 10/19/19 10/19/19 20:27 20:27 20:59 WBC 7.1 RBC 3.07 L Hgb 9.2 L Hct 28.8 L MCV 93.9 MCH 30.0 MCHC 32.0 L RDW 18.0 H Plt Count 214 MPV 8.5 Absolute Neuts (auto) 5.30 Absolute Lymphs (auto) 0.90 L Absolute Monos (auto) 0.80 Absolute Eos (auto) 0.10 Absolute Basos (auto) 0.00 Neutrophils % 75.0 Lymphocytes % 12.1 L Monocytes % 10.8 H Eosinophils % 1.5 Basophils % 0.6 Sodium 136 Potassium 3.6 Chloride 94 L Carbon Dioxide 28 Anion Gap 17.6 BUN 29 H Creatinine 3.39 H BUN/Creatinine Ratio 8.6 L Random Glucose 162 H Serum Osmolality 281.3 Calcium 9.2 Total Bilirubin 0.8 AST 21 ALT 16 Alkaline Phosphatase 76 Serum Total Protein 7.4 Albumin 3.4 Globulin 4.0 H Albumin/Globulin Ratio 0.9 L Urine Color Yellow Urine Appearance Clear Urine pH 7.5 Ur Specific [place] 1.020 Urine Protein >=300 H Urine Glucose (UA) 100 H Urine Ketones Negative Urine Blood Trace-lysed H Urine Nitrite Negative Urine Bilirubin Small H Urine Urobilinogen 1.0 Ur Leukocyte Esterase Negative Urine RBC 0 Urine WBC 0-1 Ur Epithelial Cells 0-1 Urine Bacteria 0 Urine Sperm 5-10 CT abd/pelvis: EXAM: Abdoment/Pelvis w/o Contrast CLINICAL INDICATION: Abdominal pain. COMPARISON: 09/26/2018 TECHNIQUE: The CT scan was done using contiguous axial 2.5 mm noncontrast sections through the abdomen and pelvis. This exam was performed according to our departmental dose-optimization program, which includes automated exposure control, adjustment of the mA and/or kV according to patient size and/or use of iterative reconstruction technique. FINDINGS: The visualized portions of the lung bases contain small bilateral pleural effusions and bibasilar subsegmental atelectasis but are otherwise clear. The liver, gallbladder, kidneys, adrenal glands, spleen, and pancreas have a normal noncontrast CT appearance. The aorta contains dense atherosclerotic calcifications with no evidence of aneurysm. The appendix is normal. There is no free air, free fluid, or abscess. Mild diverticulosis of the sigmoid colon is identified. IMPRESSION: 1. No evidence of an acute intra-abdominal process. 2. Diverticulosis. 3. Bilateral pleural effusions. Electronically signed by: Dinesh Tamayo MD 10/19/2019 9:06 PM [facility] Vital Signs - 24 hr 10/19/19 10/19/19 10/19/19 20:04 21:00 21:52 Temperature 98.2 F Pulse Rate [ 70 69 69 left] Respiratory 20 16 16 Rate Blood Pressure 157/71 143/68 143/68 [left] O2 Sat by Pulse 94 L 94 L 94 L Oximetry Departure - Departure Clinical Impression: Acute abdominal pain Time of Disposition: 21:47 Disposition: Discharge to Home or Self Care Health Concerns: Condition: stable Departure Forms: ED Discharge - Pt. Copy, Patient Portal Self Enrollment Instructions: DI for Abdominal Pain-Adult Referrals: Jerry Parham MD [Primary Care Provider] - 10/20/19 Home Medications: Ambulatory Orders Aspirin [Aspirin Childrens] 81 mg PO DAILY 10/22/17 Febuxostat [Uloric] 40 mg PO DAILY 10/22/17 Insulin Detemir [Levemir Pen] 15 unit SUBCU BEDTIME 10/22/17 Insulin Lispro [Humalog] 0 unit SUBCU ACHS PRN 10/22/17 Metoclopramide Tab [Reglan Tab] 5 mg PO QID 10/22/17 Senna/Docusate Tab [Senokot-S] 1 ea PO BID PRN 10/22/17 Famotidine 20 mg PO DAILY #30 tab 08/02/18 Atorvastatin Calcium 40 mg PO DAILY 09/17/18 Carvedilol 12.5 mg PO BID 09/17/18 Citalopram Hydrobromide [Citalopram] 20 mg PO DAILY 09/17/18 Finasteride 5 mg PO DAILY 09/17/18 Gabapentin 300 mg PO BID 09/17/18 Nitroglycerin 0.4 mg Tab [Nitrostat] 1 tablet PO Q5MIN 09/17/18 Tamsulosin HCl [Flomax] 0.4 mg PO DAILY 09/17/18 amLODIPine BESYLATE [Norvasc] 5 mg PO DAILY 09/17/18 Ciprofloxacin [Cipro] 250 mg PO DAILY #7 tablet 05/07/19 Lisinopril 2.5 mg PO DAILY 05/07/19 Sulfa/Trimeth 800/160 (Ds) Tab [Bactrim DS] 1 tablet PO BID #28 tab 05/07/19 Zolpidem Tartrate 10 mg PO BEDTIME PRN 05/07/19 Amoxicillin & Pot Clavulanate [Augmentin Tab] 500 mg PO DAILY #10 tablet 05/13/19 Meclizine HCl [Meclizine] 25 mg PO TID PRN #6 chw 05/25/19 Additional Instructions: Follow up: [facility] As needed, if symptoms worsen
[2019-10-19] MEDS: ONDANSETRON INJ 4 MG/2 ML VIAL IV ONE (20:41)
[2019-10-19 21:03] VITALS: BP 143/68
--- NOTE | 2019-10-19 21:08 | CT ---
EXAM: Abdoment/Pelvis w/o Contrast CLINICAL INDICATION: Abdominal pain. COMPARISON: 09/26/2018 TECHNIQUE: The CT scan was done using contiguous axial 2.5 mm noncontrast sections through the abdomen and pelvis. This exam was performed according to our departmental dose-optimization program, which includes automated exposure control, adjustment of the mA and/or kV according to patient size and/or use of iterative reconstruction technique. FINDINGS: The visualized portions of the lung bases contain small bilateral pleural effusions and bibasilar subsegmental atelectasis but are otherwise clear. The liver, gallbladder, kidneys, adrenal glands, spleen, and pancreas have a normal noncontrast CT appearance. The aorta contains dense atherosclerotic calcifications with no evidence of aneurysm. The appendix is normal. There is no free air, free fluid, or abscess. Mild diverticulosis of the sigmoid colon is identified. IMPRESSION: 1. No evidence of an acute intra-abdominal process. 2. Diverticulosis. 3. Bilateral pleural effusions. Electronically signed by: Dinesh Tamayo MD 10/19/2019 9:06 PM [facility]
== END 2019-10-19 21:50 | disposition home or self-care (01) ==
LOC: ER 19:06
DX: R10.12 Left upper quadrant pain (principal); R11.2 Nausea with vomiting, unspecified; N18.6 End stage renal disease; I50.9 Heart failure, unspecified; E11.22 Type 2 diabetes mellitus with diabetic chronic kidney disease; I13.2 Hypertensive heart and chronic kidney disease with heart failure and with stage 5 chronic kidney disease, or end stage renal disease; I25.2 Old myocardial infarction; Z99.2 Dependence on renal dialysis; Z79.899 Other long term (current) drug therapy; Z79.82 Long term (current) use of aspirin; Z79.4 Long term (current) use of insulin
CPT/HCPCS: 36415; 74176; 80053; 81001; 85025; J2405

== ENCOUNTER → 2019-11-15 | Outpatient (CLI) | payer MEDICARE | LOC: YCHH 14:13 | PROVIDERS: ATTEND Family Medicine | DX: R79.89 Other specified abnormal findings of blood chemistry (principal); E78.5 Hyperlipidemia, unspecified; D64.9 Anemia, unspecified; E11.59 Type 2 diabetes mellitus with other circulatory complications; E79.0 Hyperuricemia without signs of inflammatory arthritis and tophaceous disease; R97.20 Elevated prostate specific antigen [PSA] ==

== ENCOUNTER 2019-12-03 23:00 | Emergency (ER) | payer MEDICARE ==
[2019-12-03 23:51] VITALS: TEMP 100.4
--- NOTE | 2019-12-04 00:17 | ED.PDOC ---
History of Present Illness - General Chief Complaint: Respiratory Problem Stated Complaint: cough, uri Time Seen by Provider: 12/03/19 23:48 Source: patient, RN notes reviewed, Vital Signs reviewed, family - Exam Limitations: no limitations - History of Present Illness Comments: Patient is a 54-year-old male who presents with complaints of cough, generalized body aches, low-grade fevers and not feeling well. Patient states the symptoms been going on for a couple of days. The cough is been intermittent for weeks. It is nonproductive. Nothing seems to improve his symptoms. They are worse with exertion or deep inspiration. The symptoms are of moderate intensity. Cough Quality/Degree: moderate, dry cough Possible Cause: no prior episodes Improving Factors: nothing Worsening Factors: nothing Associated Symptoms: cough, fever/chills, muscle aches, nasal congestion, nasal drainage, shortness of breath Respiratory Risk Factors: no cause identified Allergies/Adverse Reactions: Allergies Tramadol [From Ultra] Adverse Reaction (Intermediate, Verified 05/07/19 17:41) Home Medications: Ambulatory Orders Aspirin [Aspirin Childrens] 81 mg PO DAILY 10/22/17 Febuxostat [Uloric] 40 mg PO DAILY 10/22/17 Insulin Detemir [Levemir Pen] 15 unit SUBCU BEDTIME 10/22/17 Insulin Lispro [Humalog] 0 unit SUBCU ACHS PRN 10/22/17 Metoclopramide Tab [Reglan Tab] 5 mg PO QID 10/22/17 Senna/Docusate Tab [Senokot-S] 1 ea PO BID PRN 10/22/17 Famotidine 20 mg PO DAILY #30 tab 08/02/18 Atorvastatin Calcium 40 mg PO DAILY 09/17/18 Carvedilol 12.5 mg PO BID 09/17/18 Citalopram Hydrobromide [Citalopram] 20 mg PO DAILY 09/17/18 Finasteride 5 mg PO DAILY 09/17/18 Gabapentin 300 mg PO BID 09/17/18 Nitroglycerin 0.4 mg Tab [Nitrostat] 1 tablet PO Q5MIN 09/17/18 Tamsulosin HCl [Flomax] 0.4 mg PO DAILY 09/17/18 amLODIPine BESYLATE [Norvasc] 5 mg PO DAILY 09/17/18 Ciprofloxacin [Cipro] 250 mg PO DAILY #7 tablet 05/07/19 Lisinopril 2.5 mg PO DAILY 05/07/19 Sulfa/Trimeth 800/160 (Ds) Tab [Bactrim DS] 1 tablet PO BID #28 tab 05/07/19 Zolpidem Tartrate 10 mg PO BEDTIME PRN 05/07/19 Amoxicillin & Pot Clavulanate [Augmentin Tab] 500 mg PO DAILY #10 tablet Meclizine HCl [Meclizine] 25 mg PO TID PRN #6 chw 05/25/19 Review of Systems - Review of Systems Constitutional: States: see HPI, fever, malaise EENTM: States: nose congestion Respiratory: States: see HPI, cough, short of breath. Denies: stridor, wheezing Cardiology: States: no symptoms reported. Denies: chest pain, palpitations, syncope Gastrointestinal/Abdominal: States: no symptoms reported Genitourinary: States: no symptoms reported Musculoskeletal: States: see HPI, joint pain Skin: States: no symptoms reported Neurological: States: no symptoms reported Endocrine: States: no symptoms reported Hematologic/Lymphatic: States: no symptoms reported All other Systems: Reviewed and Negative Past Medical History (General) - Patient Medical History Hx Seizures: No Hx Stroke: No Hx Dementia: No Hx Asthma: No Hx of COPD: No Hx Cardiac Disorders: Yes - hx [place] Hx Congestive Heart Failure: Yes Hx Pacemaker: No Hx Hypertension: Yes Hx Thyroid Disease: No Hx Diabetes: Yes Hx Gastroesophageal Reflux: No Hx Renal Disease: Yes - renal failure, dialysis Hx Cancer: No Hx of HIV: No Hx Hepatitis C: No Hx MRSA: No Surgical History: coronary bypass surgery, other - Vaccination History Hx Tetanus, Diphtheria Vaccination: Yes Hx Influenza Vaccination: Yes Hx Pneumococcal Vaccination: Yes - Social History Hx Tobacco Use: No Hx Chewing Tobacco Use: No Hx Alcohol Use: No Hx Substance Use: No Hx Substance Use Treatment: No Hx Depression: No Hx Physical Abuse: No Hx Emotional Abuse: No Hx Suspected Abuse: No - Female History Patient : No Family Medical History - Family History Father Family History: Unknown Living Status: Hx Family Asthma: No Hx Family Congestive Heart Failure: No Hx Family Hypertension: No Hx Family Stroke: No Hx Cardiac Disease: No Hx Family Diabetes: Yes - dad;multiple family members Hx Family Cancer: Yes - colon cancer Mother Family History: Unknown Living Status: Cause of : COPD Hx Family Asthma: No Hx Family Congestive Heart Failure: No Hx Family Hypertension: Yes Hx Family Stroke: No Hx Cardiac Disease: No Hx Family Diabetes: No Hx Family Cancer: No Physical Exam - Physical Exam General Appearance: Alert, Anxious, Well Developed, Well Groomed, Well Hydrated, Well Nourished, Other - Patient with bilateral BKA's Eye Exam: bilateral normal ENT Exam: pharynx normal, nasal congestion, nasal drainage Neck: non-tender, full range of motion, supple, normal inspection, trachea midline Respiratory: chest non-tender, no respiratory distress, rhonchi - In the bases bilaterally Cardiovascular/Chest: regular rate, rhythm, no edema, no gallop, no JVD, no murmur Gastrointestinal/Abdominal: normal bowel sounds, non tender, soft Extremity: normal range of motion, other - Bilateral BKA 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 12/04/19 01:31 Patient's work-up is unremarkable. His blood pressure has been trending up while he was here but he is having no difficulty with that and has no complaints of headache, chest pain or back pain. Plan on discharge home with a diagnosis of viral upper respiratory tract infection. Patient is to follow-up in the morning with dialysis for dialysis. I have discussed this plan of care with the patient and his and they voiced understanding and agreement. William Hilliard M.D. #[id number] - Results/Orders Results/Orders: Laboratory Results - last 24 hr 12/03/19 12/03/19 00:00 00:00 Urine Color Yellow Urine Appearance Clear Urine pH 8.5 H Ur Specific [place] 1.020 Urine Protein >=300 H Urine Glucose (UA) 100 H Urine Ketones Negative Urine Blood Trace-intact H Urine Nitrite Negative Urine Bilirubin Negative Urine Urobilinogen 0.2 Ur Leukocyte Esterase Negative Urine RBC 5-10 H Urine WBC 0-1 Ur Epithelial Cells 0-1 Urine Bacteria Rare Group A Strep Rapid Negative Influenza a and B is negative. EXAM: XR Chest, 2 Views CLINICAL HISTORY: The patient is 54 years old and is Male; cough and fever TECHNIQUE: Frontal and lateral views of the chest. COMPARISON: Chest radiograph from 10/24/2018 FINDINGS: LUNGS: Minimal linear density projecting over the left midlung is suggestive of scarring or subsegmental atelectasis. There is mild diffuse interstitial prominence in the lungs, and interstitial edema is not excluded. No focal consolidation visualized. PLEURAL SPACE: No significant pleural effusion. No obvious pneumothorax. HEART: Stable moderate enlargement of the cardiac silhouette. MEDIASTINUM: Unremarkable. BONES/JOINTS: Post-sternotomy changes are noted. Degenerative changes of the spine. No acute fracture. TUBES, LINES AND DEVICES: Right internal jugular dialysis catheter terminates in the SVC. IMPRESSION: Mild diffuse interstitial prominence, which may represent mild interstitial edema. Electronically signed by: Neelam Goodwin MD 12/04/2019 12:34 AM [employer]IN[employer] CONSULTANT Departure - Departure Clinical Impression: Viral upper respiratory tract infection with cough Renal failure syndrome Qualifiers: Renal failure chronicity: chronic Chronic kidney disease stage: on chronic dialysis Qualified Code(s): N18.6 - End stage renal disease; Z99.2 - Dependence on renal dialysis Time of Disposition: 01:34 Disposition: Discharge to Home or Self Care Condition: Good Departure Forms: ED Discharge - Pt. Copy, Patient Portal Self Enrollment Instructions: Viral Upper Respiratory Infection, Adult (DC) Referrals: Jerry Parham MD [Primary Care Provider] - 1-5 Days Home Medications: Ambulatory Orders Aspirin [Aspirin Childrens] 81 mg PO DAILY 10/22/17 Febuxostat [Uloric] 40 mg PO DAILY 10/22/17 Insulin Detemir [Levemir Pen] 15 unit SUBCU BEDTIME 10/22/17 Insulin Lispro [Humalog] 0 unit SUBCU ACHS PRN 10/22/17 Metoclopramide Tab [Reglan Tab] 5 mg PO QID 10/22/17 Senna/Docusate Tab [Senokot-S] 1 ea PO BID PRN 10/22/17 Famotidine 20 mg PO DAILY #30 tab 08/02/18 Atorvastatin Calcium 40 mg PO DAILY 09/17/18 Carvedilol 12.5 mg PO BID 09/17/18 Citalopram Hydrobromide [Citalopram] 20 mg PO DAILY 09/17/18 Finasteride 5 mg PO DAILY 09/17/18 Gabapentin 300 mg PO BID 09/17/18 Nitroglycerin 0.4 mg Tab [Nitrostat] 1 tablet PO Q5MIN 09/17/18 Tamsulosin HCl [Flomax] 0.4 mg PO DAILY 09/17/18 amLODIPine BESYLATE [Norvasc] 5 mg PO DAILY 09/17/18 Ciprofloxacin [Cipro] 250 mg PO DAILY #7 tablet 05/07/19 Lisinopril 2.5 mg PO DAILY 05/07/19 Sulfa/Trimeth 800/160 (Ds) Tab [Bactrim DS] 1 tablet PO BID #28 tab 05/07/19 Zolpidem Tartrate 10 mg PO BEDTIME PRN 05/07/19 Amoxicillin & Pot Clavulanate [Augmentin Tab] 500 mg PO DAILY #10 tablet 05/13/19 Meclizine HCl [Meclizine] 25 mg PO TID PRN #6 chw 05/25/19
--- NOTE | 2019-12-04 00:35 | RAD ---
EXAM: XR Chest, 2 Views CLINICAL HISTORY: The patient is 54 years old and is Male; cough and fever TECHNIQUE: Frontal and lateral views of the chest. COMPARISON: Chest radiograph from 10/24/2018 FINDINGS: LUNGS: Minimal linear density projecting over the left midlung is suggestive of scarring or subsegmental atelectasis. There is mild diffuse interstitial prominence in the lungs, and interstitial edema is not excluded. No focal consolidation visualized. PLEURAL SPACE: No significant pleural effusion. No obvious pneumothorax. HEART: Stable moderate enlargement of the cardiac silhouette. MEDIASTINUM: Unremarkable. BONES/JOINTS: Post-sternotomy changes are noted. Degenerative changes of the spine. No acute fracture. TUBES, LINES AND DEVICES: Right internal jugular dialysis catheter terminates in the SVC. IMPRESSION: Mild diffuse interstitial prominence, which may represent mild interstitial edema. Electronically signed by: Neelam Goodwin MD 12/04/2019 12:34 AM D[employer] PRODUCT MANAGER
[2019-12-04 01:08] VITALS: BP 208/115; O2SAT 93
== END 2019-12-04 01:42 | disposition home or self-care (01) ==
LOC: ER 23:00
DX: J06.9 Acute upper respiratory infection, unspecified (principal); N18.6 End stage renal disease; I25.2 Old myocardial infarction; I50.9 Heart failure, unspecified; E11.22 Type 2 diabetes mellitus with diabetic chronic kidney disease; I13.2 Hypertensive heart and chronic kidney disease with heart failure and with stage 5 chronic kidney disease, or end stage renal disease; Z99.2 Dependence on renal dialysis; Z95.1 Presence of aortocoronary bypass graft; Z79.82 Long term (current) use of aspirin; Z79.4 Long term (current) use of insulin; Z79.899 Other long term (current) drug therapy

== ENCOUNTER 2020-02-07 17:43 | Emergency (ER) | payer MEDICARE ==
[2020-02-07] MEDS ORDERED: SODIUM PHOS/BIPHOS ENEMA ADULT 133 ML BTTL PR ONE (18:29)
[2020-02-07] MEDS ORDERED: MAGNESIUM CITRATE 300 ML BTTL PO ONE (18:29)
[2020-02-07] MEDS ORDERED: SODIUM CHLORIDE 0.9% (FLUSH) 10 ML SYG IV PRN (18:55)
--- NOTE | 2020-02-07 18:56 | ED.PDOC ---
History of Present Illness - General Chief Complaint: Abdominal Pain Stated Complaint: "I'm constipated" Time Seen by Provider: 02/07/20 17:59 Source: patient - History of Present Illness Initial Comments: 54 yo male with PMH of ESRD on HD TThS who is bib from home for cc of RUQ pain. Onset 2 days ago and worsening, reports pain to Right flank which radiates to RUQ, sharp "like knives stabbing me", 910 severity, no meds taken at home for relief. Reports a couple days since he had flatus and 3-4 days since last BM. Seen in ED 2 days ago for same complaint and diagnosed with constipation. Given Miralax in ED and sent home with Rx but pt did not fill it or take it. Denies any fevers, chills, urinary sx's. Has nausea but no emesis. Last dialyzed 2 days ago. Allergies/Adverse Reactions: Allergies Tramadol [From [facility]] Adverse Reaction (Intermediate, Verified 02/07/20 18:18) Home Medications: Ambulatory Orders Aspirin [Aspirin Childrens] 81 mg PO DAILY 10/22/17 Febuxostat [Uloric] 40 mg PO DAILY 10/22/17 Insulin Detemir [Levemir Pen] 15 unit SUBCU BEDTIME 10/22/17 Insulin Lispro [Humalog] 0 unit SUBCU ACHS PRN 10/22/17 Metoclopramide Tab [Reglan Tab] 5 mg PO QID 10/22/17 Senna/Docusate Tab [Senokot-S] 1 ea PO BID PRN 10/22/17 Famotidine 20 mg PO DAILY #30 tab 08/02/18 Atorvastatin Calcium 40 mg PO DAILY 09/17/18 Carvedilol 12.5 mg PO BID 09/17/18 Citalopram Hydrobromide [Citalopram] 20 mg PO DAILY 09/17/18 Finasteride 5 mg PO DAILY 09/17/18 Gabapentin 300 mg PO BID 09/17/18 Nitroglycerin 0.4 mg Tab [Nitrostat] 1 tablet PO Q5MIN 09/17/18 Tamsulosin HCl [Flomax] 0.4 mg PO DAILY 09/17/18 amLODIPine BESYLATE [Norvasc] 5 mg PO DAILY 09/17/18 Ciprofloxacin [Cipro] 250 mg PO DAILY #7 tablet 05/07/19 Lisinopril 2.5 mg PO DAILY 05/07/19 Sulfa/Trimeth 800/160 (Ds) Tab [Bactrim DS] 1 tablet PO BID #28 tab 05/07/19 Zolpidem Tartrate 10 mg PO BEDTIME PRN 05/07/19 Amoxicillin & Pot Clavulanate [Augmentin Tab] 500 mg PO DAILY #10 tablet 05/13/19 Meclizine HCl [Meclizine] 25 mg PO TID PRN #6 chw 05/25/19 Polyethylene Glycol 3350 [Miralax] 17 gm PO BID PRN 20 Days #20 pckt 02/06/20 Review of Systems - Review of Systems Review of Systems: 02/07/20 19:15 as per HPI All other Systems: Reviewed and Negative Past Medical History (General) - Patient Medical History Hx Seizures: No Hx Stroke: No Hx Dementia: No Hx Asthma: No Hx of COPD: No Hx Cardiac Disorders: Yes - hx [place] Hx Congestive Heart Failure: Yes Hx Pacemaker: No Hx Hypertension: Yes Hx Thyroid Disease: No Hx Diabetes: Yes Hx Gastroesophageal Reflux: No Hx Renal Disease: Yes - renal failure, dialysis Hx Cancer: No Hx of HIV: No Hx Hepatitis C: No Hx MRSA: No - Vaccination History Hx Tetanus, Diphtheria Vaccination: Yes Hx Influenza Vaccination: Yes Hx Pneumococcal Vaccination: Yes - Social History Hx Tobacco Use: No Hx Chewing Tobacco Use: Yes Hx Alcohol Use: No Hx Substance Use: No Hx Substance Use Treatment: No Hx Depression: No Hx Physical Abuse: No Hx Emotional Abuse: No Hx Suspected Abuse: No - Activities of Daily Living Hospice Agency (if applicable):: None - Female History Patient is a Female of Child Bearing Age (10 -59 yrs old): No Patient : No - Triage Comment ED Triage Comment: pt wheeled to ED bed 3 for triage. pt voices he has been impacted and constipated for over one week. Family Medical History - Family History Father Family History: Unknown Living Status: Hx Family Asthma: No Hx Family Congestive Heart Failure: No Hx Family Hypertension: No Hx Family Stroke: No Hx Cardiac Disease: No Hx Family Diabetes: Yes - dad;multiple family members Hx Family Cancer: Yes - colon cancer Mother Family History: Unknown Living Status: Cause of : COPD Hx Family Asthma: No Hx Family Congestive Heart Failure: No Hx Family Hypertension: Yes Hx Family Stroke: No Hx Cardiac Disease: No Hx Family Diabetes: No Hx Family Cancer: No Physical Exam - Physical Exam General Appearance: Alert, No apparent distress Eye Exam: bilateral normal Ears, Nose, Throat: hearing grossly normal, normal ENT inspection, normal pharynx Neck: non-tender, full range of motion, supple, normal inspection Respiratory: chest non-tender, lungs clear, normal breath sounds, no respiratory distress, no accessory muscle use Cardiovascular/Chest: normal peripheral pulses, regular rate, rhythm, no edema, no gallop, no JVD, no murmur Peripheral Pulses: radial,right: 2+, radial,left: 2+ Gastrointestinal/Abdominal: soft, no organomegaly, abnormal bowel sounds - decreased throughout, tenderness - moderate to R flank and RUQ Back Exam: normal inspection, no CVA tenderness, no vertebral tenderness Extremity: normal range of motion, non-tender, no pedal edema, no calf tenderness, other - prosthesis noted to LLE Neurologic: mattress maker II-XII nml as tested, no motor/sensory deficits, alert, normal mood/affect, oriented x 3 Skin Exam: normal color, warm/dry Progress - Progress Progress: 02/07/20 19:16 RUQ pain -suspect constipation most likely. Consider also cholecystitis, kidney stone, UTI, gastroenteritis, SBO, ileus, pancreatitis, gastritis, other -obtain labs, KUB -plan for laxatives and enema in ED 02/08/20 22:45 -given pt's RUQ ttp and reported hx of SBO, obtained CT A/P wo for further eval. It revealed pericholecystic fluid without gallstone or gallbladder wall thickening. F/u ultrasound was recommended to exclude acute cholecystitis. He was also incidentally noted to have BL pleural effusions, moderate on R, small on L, which are likely indicative of volume overload in ESRD/HD patient. Moderate distal colon constipation noted. -His labs were reassuring with normal WBC, T bili 1.0, other LFT's wnl. Remained stable in ED w/o feves, vitals wnl. -I discussed the CT findings with on-call surgeon, Dr. Oliver, who was concerned about acute cholecystitis even in the setting of ESRD and volume overload. He recommended admission with formal US evaluation of the gallbladder and to plan for possible surgery. However, unable to admit pt here given he is a dialysis pt and would require dialysis while inpatient. Thus, spoke with Dr. Deluna - surgeon at [facility], who advised pt be transferred to ED for stat US and repeat evaluation there. Then spoke with Dr. Villa, [facility] ED physician who accepted pt for transfer. -Given Fentanyl 50 mcg IV for pain, blood cx's collected, Zosyn 2.25 g IV given. Lactate only 0.8. Bryant Jane MD Billing #[id number] 02/07/20 18:55 IV Care:Saline Lock per Protoc QSHIFT Telemetry .ONCE 02/07/20 20:05 UA [URINALYSIS] Stat 02/07/20 21:50 BLOOD CULTURE Stat Laboratory Results - last 24 hr 02/07/20 02/07/20 02/07/20 19:03 19:03 19:03 WBC 7.0 RBC 3.71 L Hgb 10.8 L Hct 33.9 L MCV 91.5 MCH 29.2 MCHC 31.9 L RDW 21.4 H Plt Count 135 MPV 8.4 Absolute Neuts (auto) 5.30 Absolute Lymphs (auto) 0.80 L Absolute Monos (auto) 0.70 Absolute Eos (auto) 0.10 Absolute Basos (auto) 0.10 Neutrophils % 75.6 Lymphocytes % 11.3 L Monocytes % 10.7 H Eosinophils % 1.6 Basophils % 0.8 Sodium 132 L Potassium 4.8 Chloride 91 L Carbon Dioxide 29 Anion Gap 16.8 BUN 60 H D Creatinine 5.59 H D BUN/Creatinine Ratio 10.7 Random Glucose 141 H Serum Osmolality 283.8 Lactic Acid Calcium 8.8 Total Bilirubin 1.0 AST 25 ALT 15 Alkaline Phosphatase 99 Serum Total Protein 6.9 Albumin 3.4 Globulin 3.5 Albumin/Globulin Ratio 1.0 L Lipase 22 D 02/07/20 22:14 WBC RBC Hgb Hct MCV MCH MCHC RDW Plt Count MPV Absolute Neuts (auto) Absolute Lymphs (auto) Absolute Monos (auto) Absolute Eos (auto) Absolute Basos (auto) Neutrophils % Lymphocytes % Monocytes % Eosinophils % Basophils % Sodium Potassium Chloride Carbon Dioxide Anion Gap BUN Creatinine BUN/Creatinine Ratio Random Glucose Serum Osmolality Lactic Acid 0.8 Calcium Total Bilirubin AST ALT Alkaline Phosphatase Serum Total Protein Albumin Globulin Albumin/Globulin Ratio Lipase - EKG/XRAY/CT XRAY: abdomen - moderate stool right colon without obstruction per my read Departure - Departure Clinical Impression: Cholecystitis without calculus Time of Disposition: 22:19 Disposition: Transfer to Hospital Condition: Fair Departure Forms: ED Discharge - Pt. Copy, Patient Portal Self Enrollment Instructions: DI for Abdominal Pain-Adult Referrals: Jerry Parham MD [Primary Care Provider] - 1-2 Weeks Home Medications: Ambulatory Orders Aspirin [Aspirin Childrens] 81 mg PO DAILY 10/22/17 Febuxostat [Uloric] 40 mg PO DAILY 10/22/17 Insulin Detemir [Levemir Pen] 15 unit SUBCU BEDTIME 10/22/17 Insulin Lispro [Humalog] 0 unit SUBCU ACHS PRN 10/22/17 Metoclopramide Tab [Reglan Tab] 5 mg PO QID 10/22/17 Senna/Docusate Tab [Senokot-S] 1 ea PO BID PRN 10/22/17 Famotidine 20 mg PO DAILY #30 tab 08/02/18 Atorvastatin Calcium 40 mg PO DAILY 09/17/18 Carvedilol 12.5 mg PO BID 09/17/18 Citalopram Hydrobromide [Citalopram] 20 mg PO DAILY 09/17/18 Finasteride 5 mg PO DAILY 09/17/18 Gabapentin 300 mg PO BID 09/17/18 Nitroglycerin 0.4 mg Tab [Nitrostat] 1 tablet PO Q5MIN 09/17/18 Tamsulosin HCl [Flomax] 0.4 mg PO DAILY 09/17/18 amLODIPine BESYLATE [Norvasc] 5 mg PO DAILY 09/17/18 Ciprofloxacin [Cipro] 250 mg PO DAILY #7 tablet 05/07/19 Lisinopril 2.5 mg PO DAILY 05/07/19 Sulfa/Trimeth 800/160 (Ds) Tab [Bactrim DS] 1 tablet PO BID #28 tab 05/07/19 Zolpidem Tartrate 10 mg PO BEDTIME PRN 05/07/19 Amoxicillin & Pot Clavulanate [Augmentin Tab] 500 mg PO DAILY #10 tablet 05/13/19 Meclizine HCl [Meclizine] 25 mg PO TID PRN #6 chw 05/25/19 Polyethylene Glycol 3350 [Miralax] 17 gm PO BID PRN 20 Days #20 pckt 02/06/20 Transfer to Outside Facility - Transfer Information Decision to Transfer Date: 02/07/20 Decision to Transfer Time: 22:20 Reason for Transfer: specialized care not available - hemodialysis Accepting Provider:: Dr. Villa Accepting Facility: [facility]
--- NOTE | 2020-02-07 19:13 | RAD ---
EXAM DESCRIPTION: XR Abdomen 1 View CLINICAL HISTORY: constipation TECHNIQUE: One view of the abdomen is submitted. COMPARISON: 02/06/2020 FINDINGS: Bowel: Moderate stool throughout the large bowel to the level of the rectum. Overall paucity of small bowel gas. No dilation. Calcifications: None Bones: Multilevel spondylosis. No acute fracture. IMPRESSION: Nonobstructive bowel gas pattern. Moderate stool. Electronically signed by: Daniel Gamboa MD 02/07/2020 7:11 PM CDT
--- NOTE | 2020-02-07 20:54 | CT ---
PROCEDURE: Abdomen/Pelvis w/o Contrast CLINICAL HISTORY: abdominal pain, hx of bowel obstruction TECHNIQUE: Contiguous axial images obtained through the abdomen and pelvis without IV contrast. Coronal and sagittal reformatted images were provided. This exam was performed according to our departmental dose-optimization program, which includes automated exposure control, adjustment of the mA and/or kV according to patient size and/or use of iterative reconstruction technique. COMPARISON: 10/19/2019 FINDINGS: Lung bases: Moderate right and small left pleural effusions. Mild adjacent bibasilar consolidation. The heart is enlarged. Coronary artery calcification. Liver: The liver is enlarged. Mild infiltrative changes in the region of the keny hepatis. Gallbladder and biliary system: No calcified gallstones or gallbladder wall thickening. Small amount of pericholecystic fluid and mild infiltration of the fat. Pancreas: Grossly unremarkable Spleen: Grossly unremarkable Adrenals: Unremarkable Kidneys: No calculi. No hydronephrosis. Bowel: Moderate stool. Colonic diverticula without adjacent inflammatory change. No obstruction. No appreciable mucosal thickening. Appendix: Normal caliber appendix. No findings to suggest acute appendicitis. Urinary bladder: Unremarkable Reproductive: Unremarkable as visualized Lymph nodes: No pathologically enlarged lymph nodes. Peritoneum: Small amount of perihepatic fluid and fluid within the right paracolic gutter. No free air. Vessels: Moderate atherosclerotic disease. No abdominal aortic aneurysm. Abdominal wall: Tiny fat-containing umbilical hernia. Bones: Multilevel spondylosis. No acute fracture. IMPRESSION: 1. Mild infiltrative changes in the right upper quadrant adjacent to the gallbladder and keny hepatis. Small amount of perihepatic and right paracolic gutter free fluid. No calcified gallstones or gallbladder wall thickening. Consider ultrasound for further evaluation of the gallbladder as clinically warranted. 2. Moderate right and small left pleural effusions. Mild adjacent bibasilar consolidation (atelectasis and/or infiltrate). 3. Other findings as above. Electronically signed by: Daniel Gamboa MD 02/07/2020 8:53 PM CDT
[2020-02-07] MEDS ORDERED: PIPERACILLIN/TAZOBACTAM 2.25 GM in SODIUM CHLORIDE 0.9% 50ML 50 ML IVPB ONE (21:50)
[2020-02-07] MEDS ORDERED: SODIUM CHLORIDE 0.9% 50ML 50 ML ONE (21:52)
[2020-02-07] MEDS ORDERED: PIPERACILLIN/TAZOBACTAM 2.25 GM VIAL IVPB ONE (21:52)
[2020-02-07] MEDS ORDERED: fentaNYL CITRATE INJ 50 MCG/ML AMP IV ONE (22:04)
[2020-02-07 23:12] VITALS: BP 141/73; TEMP 97.3; O2SAT 99
== END 2020-02-07 23:24 | disposition short-term general hospital (02) ==
LOC: ER 17:43
DX: K81.9 Cholecystitis, unspecified (principal); K59.00 Constipation, unspecified; N18.6 End stage renal disease; E11.22 Type 2 diabetes mellitus with diabetic chronic kidney disease; I50.9 Heart failure, unspecified; I13.2 Hypertensive heart and chronic kidney disease with heart failure and with stage 5 chronic kidney disease, or end stage renal disease; I25.2 Old myocardial infarction; Z99.2 Dependence on renal dialysis; Z79.899 Other long term (current) drug therapy; Z79.82 Long term (current) use of aspirin; Z79.4 Long term (current) use of insulin; Z88.5 Allergy status to narcotic agent
CPT/HCPCS: 74018; 74176; 80053; 83605; 83690; 85025; 87040; A4216; J2543; J3010

== ENCOUNTER 2020-03-29 17:58 | Emergency (ER) | payer MEDICARE ==
--- NOTE | 2020-03-29 18:15 | ED.PDOC ---
History of Present Illness - General Chief Complaint: Skin/Abrasion/Tear Time Seen by Provider: 03/29/20 18:03 Source: patient, RN notes reviewed, Vital Signs reviewed, family Exam Limitations: no limitations - History of Present Illness Initial Comments: Pt is a 54 yo male with ESRD on HD, HTN and bilaterall BKA. Presents with 1 week h/o small red area to lateral left leg just inferior to the knee. States his prosthetic rubbed in this area and for the past week has been red. He denies drainage or bleeding from the wound. He was seen bu his home health nurse today and told to come too ED because he may need antibiotics. He denies fever, chills, CP, SOB or any other concerns. He has been putting Neosporin and band aid on the wound and keeping it clean. Allergies/Adverse Reactions: Allergies Tramadol [From [facility]] Adverse Reaction (Intermediate, Verified 02/07/20 18:18) Home Medications: Ambulatory Orders Aspirin [Aspirin Childrens] 81 mg PO DAILY 10/22/17 Febuxostat [Uloric] 40 mg PO DAILY 10/22/17 Insulin Detemir [Levemir Pen] 15 unit SUBCU BEDTIME 10/22/17 Insulin Lispro [Humalog] 0 unit SUBCU ACHS PRN 10/22/17 Metoclopramide Tab [Reglan Tab] 5 mg PO QID 10/22/17 Senna/Docusate Tab [Senokot-S] 1 ea PO BID PRN 10/22/17 Famotidine 20 mg PO DAILY #30 tab 08/02/18 Atorvastatin Calcium 40 mg PO DAILY 09/17/18 Carvedilol 12.5 mg PO BID 09/17/18 Citalopram Hydrobromide [Citalopram] 20 mg PO DAILY 09/17/18 Finasteride 5 mg PO DAILY 09/17/18 Gabapentin 300 mg PO BID 09/17/18 Nitroglycerin 0.4 mg Tab [Nitrostat] 1 tablet PO Q5MIN 09/17/18 Tamsulosin HCl [Flomax] 0.4 mg PO DAILY 09/17/18 amLODIPine BESYLATE [Norvasc] 5 mg PO DAILY 09/17/18 Ciprofloxacin [Cipro] 250 mg PO DAILY #7 tablet 05/07/19 Lisinopril 2.5 mg PO DAILY 05/07/19 Sulfa/Trimeth 800/160 (Ds) Tab [Bactrim DS] 1 tablet PO BID #28 tab 05/07/19 Zolpidem Tartrate 10 mg PO BEDTIME PRN 05/07/19 Amoxicillin & Pot Clavulanate [Augmentin Tab] 500 mg PO DAILY #10 tablet 05/13/19 Meclizine HCl [Meclizine] 25 mg PO TID PRN #6 chw 05/25/19 Polyethylene Glycol 3350 [Miralax] 17 gm PO BID PRN 20 Days #20 pckt 02/06/20 Clindamycin HCl [Clindamycin Hydrochloride] 300 mg PO Q8H 10 Days #30 cap 03/29/20 Review of Systems - Review of Systems Constitutional: Denies: chills, fever, weakness EENTM: Denies: nose congestion, throat pain Respiratory: Denies: cough, short of breath Cardiology: Denies: chest pain, palpitations, syncope Gastrointestinal/Abdominal: Denies: abdominal pain, diarrhea, nausea, vomiting Musculoskeletal: Denies: back pain, neck pain Skin: States: other - As per HPI Neurological: Denies: headache, paresthesia All other Systems: Reviewed and Negative Past Medical History (General) - Patient Medical History Hx Seizures: No Hx Stroke: No Hx Dementia: No Hx Asthma: No Hx of COPD: No Hx Cardiac Disorders: Yes - hx [place] Hx Congestive Heart Failure: Yes Hx Pacemaker: No Hx Hypertension: Yes Hx Thyroid Disease: No Hx Diabetes: Yes Hx Gastroesophageal Reflux: No Hx Renal Disease: Yes - renal failure, dialysis Hx Cancer: No Hx of HIV: No Hx Hepatitis C: No Hx MRSA: No - Vaccination History Hx Tetanus, Diphtheria Vaccination: Yes Hx Influenza Vaccination: Yes Hx Pneumococcal Vaccination: Yes - Social History Hx Tobacco Use: No Hx Chewing Tobacco Use: Yes Hx Alcohol Use: No Hx Substance Use: No Hx Substance Use Treatment: No Hx Depression: No Hx Physical Abuse: No Hx Emotional Abuse: No Hx Suspected Abuse: No - Female History Patient : No Family Medical History - Family History Father Family History: Unknown Living Status: Hx Family Asthma: No Hx Family Congestive Heart Failure: No Hx Family Hypertension: No Hx Family Stroke: No Hx Cardiac Disease: No Hx Family Diabetes: Yes - dad;multiple family members Hx Family Cancer: Yes - colon cancer Mother Family History: Unknown Living Status: Cause of : COPD Hx Family Asthma: No Hx Family Congestive Heart Failure: No Hx Family Hypertension: Yes Hx Family Stroke: No Hx Cardiac Disease: No Hx Family Diabetes: No Hx Family Cancer: No Physical Exam - Physical Exam General Appearance: Alert, Comfortable, No apparent distress, Other - seated in wheel chair Neck: non-tender, full range of motion, supple Cardiovascular/Chest: regular rate, rhythm, no edema, no murmur, other - LUE fistula with thrill Respiratory: chest non-tender, lungs clear, normal breath sounds, no respiratory distress Gastrointestinal/Abdominal: non tender, soft, no pulsatile mass Back Exam: normal inspection, no CVA tenderness Extremity: other - Bilateral BKA Neurologic: no motor/sensory deficits, alert, normal mood/affect Skin Exam: other - There is a quarter sized area of erythema to left lateral leg below the knee. No induration, fluctuance, bleeding or drainage Progress - Progress Progress: 03/29/20 18:22 Pt presents with 1 week h/o small erythematous area to left leg. Began as an area where his prostheitic was rubbing. There is no sign of abscess at this time. He is nontoxic appearing. Will start Clindamycin and discussed local wound care and will f/u with pcp in 1-2 days for recheck. SRP given. Departure - Departure Clinical Impression: ESRD (end stage renal disease) Cellulitis Qualifiers: Site of cellulitis: extremity Site of cellulitis of extremity: lower extremity Laterality: left Qualified Code(s): L03.116 - Cellulitis of left lower limb Time of Disposition: 18:18 Disposition: Discharge to Home or Self Care Condition: Good Departure Forms: ED Discharge - Pt. Copy, Patient Portal Self Enrollment Instructions: Cellulitis (Skin Infection), Adult (DC) Activity: increase activity as tolerated Referrals: Jerry Parham MD [Primary Care Provider] - 1-2 Days Prescriptions: Clindamycin HCl [Clindamycin Hydrochloride] 300 mg PO Q8H 10 Days #30 cap Home Medications: Ambulatory Orders Aspirin [Aspirin Childrens] 81 mg PO DAILY 10/22/17 Febuxostat [Uloric] 40 mg PO DAILY 10/22/17 Insulin Detemir [Levemir Pen] 15 unit SUBCU BEDTIME 10/22/17 Insulin Lispro [Humalog] 0 unit SUBCU ACHS PRN 10/22/17 Metoclopramide Tab [Reglan Tab] 5 mg PO QID 10/22/17 Senna/Docusate Tab [Senokot-S] 1 ea PO BID PRN 10/22/17 Famotidine 20 mg PO DAILY #30 tab 08/02/18 Atorvastatin Calcium 40 mg PO DAILY 09/17/18 Carvedilol 12.5 mg PO BID 09/17/18 Citalopram Hydrobromide [Citalopram] 20 mg PO DAILY 09/17/18 Finasteride 5 mg PO DAILY 09/17/18 Gabapentin 300 mg PO BID 09/17/18 Nitroglycerin 0.4 mg Tab [Nitrostat] 1 tablet PO Q5MIN 09/17/18 Tamsulosin HCl [Flomax] 0.4 mg PO DAILY 09/17/18 amLODIPine BESYLATE [Norvasc] 5 mg PO DAILY 09/17/18 Ciprofloxacin [Cipro] 250 mg PO DAILY #7 tablet 05/07/19 Lisinopril 2.5 mg PO DAILY 05/07/19 Sulfa/Trimeth 800/160 (Ds) Tab [Bactrim DS] 1 tablet PO BID #28 tab 05/07/19 Zolpidem Tartrate 10 mg PO BEDTIME PRN 05/07/19 Amoxicillin & Pot Clavulanate [Augmentin Tab] 500 mg PO DAILY #10 tablet 05/13/19 Meclizine HCl [Meclizine] 25 mg PO TID PRN #6 chw 05/25/19 Polyethylene Glycol 3350 [Miralax] 17 gm PO BID PRN 20 Days #20 pckt 02/06/20 Clindamycin HCl [Clindamycin Hydrochloride] 300 mg PO Q8H 10 Days #30 cap 03/29/20
[2020-03-29] MEDS ORDERED: CLINDAMYCIN HCL CAP 150 MG CAP PO ONE (18:24)
[2020-03-29 18:35] VITALS: BP 145/101; TEMP 97.3; O2SAT 93
== END 2020-03-29 18:40 | disposition home or self-care (01) ==
LOC: ER 17:58
DX: L03.116 Cellulitis of left lower limb (principal); I12.0 Hypertensive chronic kidney disease with stage 5 chronic kidney disease or end stage renal disease; N18.6 End stage renal disease; I25.2 Old myocardial infarction; Z79.899 Other long term (current) drug therapy; Z79.82 Long term (current) use of aspirin; Z79.4 Long term (current) use of insulin; Z89.512 Acquired absence of left leg below knee; Z89.511 Acquired absence of right leg below knee

== ENCOUNTER → 2020-04-19 | Outpatient (CLI) | payer MEDICARE | LOC: ECHO 13:10 | PROVIDERS: ATTEND Family Medicine | DX: I50.30 Unspecified diastolic (congestive) heart failure (principal); I51.7 Cardiomegaly ==

== ENCOUNTER → 2020-05-17 | Outpatient (CLI) | payer MEDICARE ==
--- NOTE | 2020-05-18 13:31 | CT ---
EXAM DESCRIPTION: Chest w/o Contrast CLINICAL HISTORY: 54 years, Male, PLEURAL EFFUSION COMPARISON: CT chest March 02, 2016, CT abdomen and pelvis February 07, 2020, six chest x-ray February 06, 2020 TECHNIQUE: Thin-section noncontrast axial CT images are obtained according to our protocol. Reconstructed MPR images are created and reviewed as well. FINDINGS: Lungs: Bilateral pleural effusions are present, since small to moderate on the left and moderate to large on the right. Compared to previous study March 02, 2016 pleural effusions were larger at that time. Patient had a CT abdomen February 07, 2020 which included the lower thorax and a large right pleural effusion was present with small left effusion. Left effusion appears slightly larger and the right appears unchanged. Small nodule in the right middle lobe measures 5 mm. This may be new compared to previous study in 2015. Follow-up as per recommendations below. Patchy atelectasis/consolidation in the right middle lobe, right lower lobe and inferior lingula. Partial volume loss in the left lower lobe anterior to the pleural effusion. Mediastinum: Lymph nodes are normal in size. Normal vascular contours. Heart size is large with no pericardial effusion. Extensive coronary arterial calcification. Chest wall/axilla: No mass or adenopathy. Lower neck/supraclavicular: No mass or adenopathy. Normal thyroid gland. Upper abdomen: Small amount of free fluid in the upper abdomen consistent with ascites. Ascites appears to be a new development compared to previous study February 17, 2020. Otherwise unremarkable upper abdominal viscera. IMPRESSION: Large right pleural effusion with small to moderate left pleural effusion. Patchy infiltrate/partial volume loss in the right middle lobe and right lower lobe. Extensive coronary arterial calcification. Upper abdominal ascites. Pulmonary nodule 5 mm in the right middle lobe. Follow-up as per recommendations below. 2017 Fleischner Society Recommendations for Single Solid Lung Nodule Follow-Up based on size (average of long- and short-axis diameters) <6 mm Low-Risk Patient: No routine follow-up <6 mm High-Risk Patient: Optional CT at 12 months This exam was performed according to our departmental dose-optimization program, which includes automated exposure control, adjustment of the mA and/or kV according to patient size and/or use of iterative reconstruction technique. Total DLP equals 980.75 mGycm. Electronically signed by: Declan Curry MD 05/18/2020 1:29 PM CDT
== END ==
LOC: CT 15:33
PROVIDERS: ATTEND Family Medicine
DX: J90 Pleural effusion, not elsewhere classified (principal); I25.10 Atherosclerotic heart disease of native coronary artery without angina pectoris; R18.8 Other ascites; R91.1 Solitary pulmonary nodule; R91.8 Other nonspecific abnormal finding of lung field

== ENCOUNTER 2020-06-21 16:31 | Emergency (ER) | payer MEDICARE ==
--- NOTE | 2020-06-21 17:39 | ED.PDOC ---
History of Present Illness - General Stated Complaint: can't urinate Time Seen by Provider: 06/21/20 17:33 Source: patient, Vital Signs reviewed - History of Present Illness Initial Comments: 54 y/o male reports that he hasn't urinated for two days. he is a dialysis patient but still urinates 2-3 times a day. He denies fever, SOB, or cough Timing/Duration: other - 2 days Quality: moderate Onset Location: suprapubic Radiation: none Activites at Onset: none Prior abdominal problems: similar symptoms - a while back treated for bladder spasms Improving Factors: nothing Allergies/Adverse Reactions: Allergies Tramadol [From Ultra] Adverse Reaction (Intermediate, Verified 02/07/20 18:18) Home Medications: Ambulatory Orders Aspirin [Aspirin Childrens] 81 mg PO DAILY 10/22/17 Febuxostat [Uloric] 40 mg PO DAILY 10/22/17 Insulin Detemir [Levemir Pen] 15 unit SUBCU BEDTIME 10/22/17 Insulin Lispro [Humalog] 0 unit SUBCU ACHS PRN 10/22/17 Metoclopramide Tab [Reglan Tab] 5 mg PO QID 10/22/17 Senna/Docusate Tab [Senokot-S] 1 ea PO BID PRN 10/22/17 Famotidine 20 mg PO DAILY #30 tab 08/02/18 Atorvastatin Calcium 40 mg PO DAILY 09/17/18 Carvedilol 12.5 mg PO BID 09/17/18 Citalopram Hydrobromide [Citalopram] 20 mg PO DAILY 09/17/18 Finasteride 5 mg PO DAILY 09/17/18 Gabapentin 300 mg PO BID 09/17/18 Nitroglycerin 0.4 mg Tab [Nitrostat] 1 tablet PO Q5MIN 09/17/18 Tamsulosin HCl [Flomax] 0.4 mg PO DAILY 09/17/18 amLODIPine BESYLATE [Norvasc] 5 mg PO DAILY 09/17/18 Ciprofloxacin [Cipro] 250 mg PO DAILY #7 tablet 05/07/19 Lisinopril 2.5 mg PO DAILY 05/07/19 Sulfa/Trimeth 800/160 (Ds) Tab [Bactrim DS] 1 tablet PO BID #28 tab 05/07/19 Zolpidem Tartrate 10 mg PO BEDTIME PRN 05/07/19 Amoxicillin & Pot Clavulanate [Augmentin Tab] 500 mg PO DAILY #10 tablet 05/13/19 Meclizine HCl [Meclizine] 25 mg PO TID PRN #6 chw 05/25/19 Polyethylene Glycol 3350 [Miralax] 17 gm PO BID PRN 20 Days #20 pckt 02/06/20 Clindamycin HCl [Clindamycin Hydrochloride] 300 mg PO Q8H 10 Days #30 cap 03/29/20 Review of Systems - Review of Systems Constitutional: States: no symptoms reported EENTM: States: no symptoms reported Respiratory: States: no symptoms reported Cardiology: States: no symptoms reported Gastrointestinal/Abdominal: States: no symptoms reported Genitourinary: States: other - no urine output for 2 days Musculoskeletal: States: no symptoms reported Skin: States: no symptoms reported, other Neurological: States: no symptoms reported Hematologic/Lymphatic: States: anemia Past Medical History (General) - Patient Medical History Hx Seizures: No Hx Stroke: No Hx Dementia: No Hx Asthma: No Hx of COPD: No Hx Cardiac Disorders: Yes - hx GA Hx Congestive Heart Failure: Yes Hx Pacemaker: No Hx Hypertension: Yes Hx Thyroid Disease: No Hx Diabetes: Yes Hx Gastroesophageal Reflux: No Hx Renal Disease: Yes - renal failure, dialysis Hx Cancer: No Hx of HIV: No Hx Hepatitis C: No Hx MRSA: No - Vaccination History Hx Tetanus, Diphtheria Vaccination: Yes Hx Influenza Vaccination: Yes Hx Pneumococcal Vaccination: Yes - Social History Hx Tobacco Use: No Hx Chewing Tobacco Use: Yes Hx Alcohol Use: No Hx Substance Use: No Hx Substance Use Treatment: No Hx Depression: No Hx Physical Abuse: No Hx Emotional Abuse: No Hx Suspected Abuse: No - Female History Patient : No Family Medical History - Family History Father Family History: Unknown Living Status: Hx Family Asthma: No Hx Family Congestive Heart Failure: No Hx Family Hypertension: No Hx Family Stroke: No Hx Cardiac Disease: No Hx Family Diabetes: Yes - dad;multiple family members Hx Family Cancer: Yes - colon cancer Mother Family History: Unknown Living Status: Cause of : COPD Hx Family Asthma: No Hx Family Congestive Heart Failure: No Hx Family Hypertension: Yes Hx Family Stroke: No Hx Cardiac Disease: No Hx Family Diabetes: No Hx Family Cancer: No Physical Exam - Physical Exam General Appearance: Anxious, Other - chronically ill appearing Eyes, Ears, Nose, Throat Exam: PERRL/EOMI Neck: non-tender, full range of motion, supple Cardiovascular/Respiratory: regular rate, rhythm, no M/R/G, normal breath sounds, no respiratory distress Gastrointestinal/Abdominal: normal bowel sounds, non tender, soft, no organomegaly Male Genital Exam: normal genitalia, no hernia, other - uncircumcized Extremity: other - bilateral BKA Neurologic: no motor/sensory deficits, alert, normal mood/affect, oriented x 3 Skin Exam: pallor Departure - Departure Clinical Impression: ESRD on dialysis Disposition: Discharge to Home or Self Care Condition: Good Instructions: DI for Urinary Retention in Men Referrals: Jerry Parham MD [Primary Care Provider] - 1-2 Weeks Home Medications: Ambulatory Orders Aspirin [Aspirin Childrens] 81 mg PO DAILY 10/22/17 Febuxostat [Uloric] 40 mg PO DAILY 10/22/17 Insulin Detemir [Levemir Pen] 15 unit SUBCU BEDTIME 10/22/17 Insulin Lispro [Humalog] 0 unit SUBCU ACHS PRN 10/22/17 Metoclopramide Tab [Reglan Tab] 5 mg PO QID 10/22/17 Senna/Docusate Tab [Senokot-S] 1 ea PO BID PRN 10/22/17 Famotidine 20 mg PO DAILY #30 tab 08/02/18 Atorvastatin Calcium 40 mg PO DAILY 09/17/18 Carvedilol 12.5 mg PO BID 09/17/18 Citalopram Hydrobromide [Citalopram] 20 mg PO DAILY 09/17/18 Finasteride 5 mg PO DAILY 09/17/18 Gabapentin 300 mg PO BID 09/17/18 Nitroglycerin 0.4 mg Tab [Nitrostat] 1 tablet PO Q5MIN 09/17/18 Tamsulosin HCl [Flomax] 0.4 mg PO DAILY 09/17/18 amLODIPine BESYLATE [Norvasc] 5 mg PO DAILY 09/17/18 Ciprofloxacin [Cipro] 250 mg PO DAILY #7 tablet 05/07/19 Lisinopril 2.5 mg PO DAILY 05/07/19 Sulfa/Trimeth 800/160 (Ds) Tab [Bactrim DS] 1 tablet PO BID #28 tab 05/07/19 Zolpidem Tartrate 10 mg PO BEDTIME PRN 05/07/19 Amoxicillin & Pot Clavulanate [Augmentin Tab] 500 mg PO DAILY #10 tablet 05/13/19 Meclizine HCl [Meclizine] 25 mg PO TID PRN #6 chw 05/25/19 Polyethylene Glycol 3350 [Miralax] 17 gm PO BID PRN 20 Days #20 pckt 02/06/20 Clindamycin HCl [Clindamycin Hydrochloride] 300 mg PO Q8H 10 Days #30 cap 03/29/20
[2020-06-21 20:20] VITALS: O2SAT 99
[2020-06-21 20:58] VITALS: BP 134/94; TEMP 96.3
== END 2020-06-21 20:58 | disposition home or self-care (01) ==
LOC: ER 16:31
DX: N18.6 End stage renal disease (principal); I50.9 Heart failure, unspecified; E11.22 Type 2 diabetes mellitus with diabetic chronic kidney disease; I13.2 Hypertensive heart and chronic kidney disease with heart failure and with stage 5 chronic kidney disease, or end stage renal disease; I25.2 Old myocardial infarction; Z99.2 Dependence on renal dialysis; Z79.82 Long term (current) use of aspirin; Z79.4 Long term (current) use of insulin; Z79.899 Other long term (current) drug therapy; Z88.5 Allergy status to narcotic agent

== ENCOUNTER 2020-10-03 17:02 | Emergency (ER) | payer MEDICARE ==
[2020-10-03] MEDS ORDERED: SODIUM CHLORIDE 0.9% (FLUSH) 10 ML SYG IV PRN (17:31)
[2020-10-03] MEDS ORDERED: IPRATROPIUM/ALBUTEROL 3 ML VIAL NEB ONE (17:38)
--- NOTE | 2020-10-03 17:43 | ED.PDOC ---
History of Present Illness - General Chief Complaint: Respiratory Problem Stated Complaint: SOB Time Seen by Provider: 10/03/20 17:19 Source: patient, family Exam Limitations: no limitations - History of Present Illness Initial Comments: SOB STARTING TODAY. USES HOME 02 FOR UNKNOWN REASON (HE AND HIS ARE UNSURE WHY). SATS WERE 78% ON 2L NC AT HOME TODAY AND UPON ER PRESENTATION. IMPROVED TO 90% ON 5L NC IN ER. HAS CHRONIC SOB AND IS 02 DEPENDENT AT BASELINE, BUT SOB WORSE TODAY. DENIES H/O COPD, ASTHMA. NON-SMOKER. HE STATES HE SAW PULMONOLOGY A COUPLE MONTHS AGO AND THEY SAID HE NEEDS A SURGERY TO "HOLD THE LUNGS OPEN" (POSSIBLE PLEURODESIS?). NUMEROUS COMORBIDITIES INCLUDING ESRD DIALYSIS M,W,F, BL BKA, IDDM, STEMI WITH CABG 4 YR AGO, CHF, HTN. Timing/Duration: getting worse Severity: severe Activities at Onset: none Possible Cause: unknown cause Improving Factors: nothing Worsening Factors: nothing Respiratory Risk Factors: other - CHF Allergies/Adverse Reactions: Allergies Tramadol [From Ultram] Adverse Reaction (Intermediate, Verified 10/03/20 17:28) Home Medications: Ambulatory Orders Aspirin [Aspirin Childrens] 81 mg PO DAILY 10/22/17 Insulin Detemir [Levemir Pen] 15 unit SUBCU BEDTIME 10/22/17 Insulin Lispro [Humalog] 0 unit SUBCU ACHS PRN 10/22/17 Metoclopramide Tab [Reglan Tab] 10 mg PO QID 10/22/17 Senna/Docusate Tab [Senokot-S] 1 ea PO BID PRN 10/22/17 Famotidine 20 mg PO DAILY #30 tab 08/02/18 Atorvastatin Calcium 40 mg PO DAILY 09/17/18 Carvedilol 12.5 mg PO BID 09/17/18 Finasteride 5 mg PO DAILY 09/17/18 Gabapentin 300 mg PO BID 09/17/18 Nitroglycerin 0.4 mg Tab [Nitrostat] 1 tablet PO Q5MIN 09/17/18 Tamsulosin HCl [Flomax] 0.4 mg PO DAILY 09/17/18 Lisinopril 2.5 mg PO DAILY 05/07/19 Zolpidem Tartrate 10 mg PO BEDTIME PRN 05/07/19 Review of Systems - Review of Systems Constitutional: Denies: chills, fever EENTM: Denies: ear pain, nose congestion, throat pain Respiratory: States: short of breath. Denies: cough, stridor, wheezing Cardiology: Denies: chest pain, palpitations Gastrointestinal/Abdominal: Denies: abdominal pain, nausea Genitourinary: Denies: dysuria, frequency Musculoskeletal: Denies: back pain, neck pain Skin: Denies: lesions, rash Neurological: States: no symptoms reported. Denies: headache Endocrine: Denies: unexplained weight gain, unexplained weight loss Hematologic/Lymphatic: Denies: easy bleeding, easy bruising All other Systems: Reviewed and Negative Past Medical History (General) - Patient Medical History Hx Seizures: No Hx Stroke: No Hx Dementia: No Hx Asthma: No Hx of COPD: No Hx Cardiac Disorders: Yes - hx MA Hx Congestive Heart Failure: Yes Hx Pacemaker: No Hx Hypertension: Yes Hx Thyroid Disease: No Hx Diabetes: Yes Hx Gastroesophageal Reflux: No Hx Renal Disease: Yes - renal failure, dialysis Hx Cancer: No Hx of HIV: No Hx Hepatitis C: No Hx MRSA: No Surgical History: coronary bypass surgery - Vaccination History Hx Tetanus, Diphtheria Vaccination: Yes Hx Influenza Vaccination: Yes Hx Pneumococcal Vaccination: Yes - Social History Hx Tobacco Use: No Hx Chewing Tobacco Use: Yes Hx Alcohol Use: No Hx Substance Use: No Hx Substance Use Treatment: No Hx Depression: No Hx Physical Abuse: No Hx Emotional Abuse: No Hx Suspected Abuse: No - Activities of Daily Living Hospice Agency (if applicable):: None - Female History Patient is a Female of Child Bearing Age (10 -59 yrs old): No Patient : No Family Medical History - Family History Father Family History: Unknown Living Status: Hx Family Asthma: No Hx Family Congestive Heart Failure: No Hx Family Hypertension: No Hx Family Stroke: No Hx Cardiac Disease: No Hx Family Diabetes: Yes - dad;multiple family members Hx Family Cancer: Yes - colon cancer Mother Family History: Unknown Living Status: Cause of : COPD Hx Family Asthma: No Hx Family Congestive Heart Failure: No Hx Family Hypertension: Yes Hx Family Stroke: No Hx Cardiac Disease: No Hx Family Diabetes: No Hx Family Cancer: No Physical Exam - Physical Exam General Appearance: Alert, Obvious distress Eyes, Ears, Nose, Throat Exam: PERRL/EOMI, normal ENT inspection Neck: full range of motion, normal inspection Respiratory: decreased breath sounds - BLL, other - NO C/R/W. Cardiovascular/Chest: normal peripheral pulses, regular rate, rhythm, no JVD Peripheral Pulses: radial,right: 2+, radial,left: 2+ Gastrointestinal/Abdominal: non tender, soft Rectal Exam: deferred Extremity: other - BL BKA'S, NO SKIN LESIONS. Neurologic: alert, normal mood/affect Skin Exam: normal color, warm/dry Lymphatic: no adenopathy Progress - Progress Progress: 10/03/20 18:57 CXR SHOWS BL PATHCY OPACITIES (PNE/COVID, PULM EDEMA) - RESPIRATORY PATHOGENS PANEL (INCL COVID) PENDING. BNP 4420 - CHF EXACERBATION. GIVING LASIX 20 MG IV X 1. PER UP-TO-DATE, NO DOSING ADJUSTMENT FOR ESRD DIALYSIS, PT STILL VOIDS. D-DIMER ELEVATED - EXPECTED FROM ESRD. EKG NO CONCERNS. CBC NO LUEKOCYTOSIS. N/N ANEMIA. LACTIC ACID WNL. CMP NONCONTRIBUTORY. CR ELEVATED AT 3.8 EXPECTED (ON DIALYSIS) BCX PENDING. SATS IMPROVED FROM 89% ON 5L NC UPON ER ADMISSION, TO CURRENTLY 95% 5L NC. PT WILL NEED ADMISSION WITH HIS PNE, CHF, HYPOXIA. I WILL START WORKING ON FINDING AN ACCEPTING HOSPITAL, PT MAY NEED IN-PT DIALYSIS FOR HIS CHF EXACERBATION. [facility] DOES NOT HAVE INPT DIALYSIS THUS CANNOT ADMIT HERE. 10/03/20 19:51 COVID AND RPP NEG. THUS LIKELY BACTERIAL PNE. STARTING ROCEPHIN AND AZITHROMYCIN; NO DOSING ADJUSTMENTS NEEDED FOR DIALYSIS EXCEPT AZITHRO 250 INSTEAD OF 500 MG. 10/03/20 20:29 WE SPOKE WITH [facility], DR. JULIANA PENALOZA, IN THE ER, WHO IS ACCEPTING TRANSFER. THANK YOU, DR. PENALOZA AND [facility], FOR KINDLY ACCEPTING FURTHER CARE OF OUR PATIENT. PT IS STABLE FOR TRANSFER - SATURATING 90% ON 5L NC. Departure - Departure Clinical Impression: Elevated d-dimer, Hypoxia, Elevated brain natriuretic peptide (BNP) level, ESRD (end stage renal disease) on dialysis, Diabetes mellitus, insulin dependent (IDDM), controlled, S/P bilateral BKA (below knee amputation) Acute exacerbation of CHF (congestive heart failure) Qualifiers: Heart failure type: unspecified Qualified Code(s): I50.9 - Heart failure, unspecified Pneumonia Qualifiers: Pneumonia type: due to unspecified organism Laterality: bilateral Lung location: unspecified part of lung Qualified Code(s): J18.9 - Pneumonia, unspecified organism Dyspnea Qualifiers: Dyspnea type: shortness of breath Qualified Code(s): R06.02 - Shortness of breath; R06.00 - Dyspnea, unspecified; R06.01 - Orthopnea Disposition: Transfer to Hospital Condition: Fair Departure Forms: ED Discharge - Pt. Copy, Patient Portal Self Enrollment Referrals: Jerry Parham MD [Primary Care Provider] - 1-2 Weeks Home Medications: Ambulatory Orders Aspirin [Aspirin Childrens] 81 mg PO DAILY 10/22/17 Insulin Detemir [Levemir Pen] 15 unit SUBCU BEDTIME 10/22/17 Insulin Lispro [Humalog] 0 unit SUBCU ACHS PRN 10/22/17 Metoclopramide Tab [Reglan Tab] 10 mg PO QID 10/22/17 Senna/Docusate Tab [Senokot-S] 1 ea PO BID PRN 10/22/17 Famotidine 20 mg PO DAILY #30 tab 08/02/18 Atorvastatin Calcium 40 mg PO DAILY 09/17/18 Carvedilol 12.5 mg PO BID 09/17/18 Finasteride 5 mg PO DAILY 09/17/18 Gabapentin 300 mg PO BID 09/17/18 Nitroglycerin 0.4 mg Tab [Nitrostat] 1 tablet PO Q5MIN 09/17/18 Tamsulosin HCl [Flomax] 0.4 mg PO DAILY 09/17/18 Lisinopril 2.5 mg PO DAILY 05/07/19 Zolpidem Tartrate 10 mg PO BEDTIME PRN 05/07/19 Transfer to Outside Facility - Transfer Information Decision to Transfer Date: 10/03/20 Decision to Transfer Time: 20:36 Reason for Transfer: specialized care not available Accepting Provider:: DR. JULIANA PENALOZA, EMERGENCY MEDICINE Accepting Facility: [place]
--- NOTE | 2020-10-03 17:56 | RAD ---
XR CHEST 1 VIEW HISTORY: Dyspnea and hypoxia. COMPARISON: 02/06/2020 FINDINGS: The heart size is within normal limits. There is no pulmonary vascular congestion. There are diffuse bilateral patchy airspace opacities. No large pleural effusions or pneumothorax. Postsurgical changes of median sternotomy and CABG. IMPRESSION: Diffuse bilateral patchy airspace opacities, which may represent multifocal pneumonia (including Covid infection), ARDS, or pulmonary edema. Electronically signed by: Gagan Rivas MD 10/03/2020 5:55 PM NETWORK STRATEGIST
[2020-10-03] MEDS ORDERED: FUROSEMIDE INJ 20 MG/2 ML VIAL IV ONE (18:56)
[2020-10-03] MEDS ORDERED: FUROSEMIDE INJ 40 MG/4 ML VIAL ONE (19:02)
[2020-10-03] MEDS ORDERED: cefTRIAXone SODIUM 1 GM VIAL IM ONE (19:59)
[2020-10-03] MEDS ORDERED: AZITHROMYCIN IV 250 MG in SODIUM CHLORIDE 0.9% 250ML 250 ML IVPB ONE (19:59)
[2020-10-03] MEDS ORDERED: LIDOCAINE 1% 2 ML VIAL INJ ONE (20:06)
[2020-10-04 01:52] VITALS: BP 153/76; TEMP 97.9; O2SAT 92
== END 2020-10-03 21:10 | disposition short-term general hospital (02) ==
LOC: ER 17:02
DX: J18.9 Pneumonia, unspecified organism (principal); I50.9 Heart failure, unspecified; N18.6 End stage renal disease; R09.02 Hypoxemia; R79.89 Other specified abnormal findings of blood chemistry; E11.22 Type 2 diabetes mellitus with diabetic chronic kidney disease; I13.2 Hypertensive heart and chronic kidney disease with heart failure and with stage 5 chronic kidney disease, or end stage renal disease; I25.2 Old myocardial infarction; Z99.81 Dependence on supplemental oxygen; Z99.2 Dependence on renal dialysis; Z79.4 Long term (current) use of insulin; Z89.511 Acquired absence of right leg below knee; Z89.512 Acquired absence of left leg below knee; Z20.828 Contact with and (suspected) exposure to other viral communicable diseases; Z95.1 Presence of aortocoronary bypass graft; Z87.891 Personal history of nicotine dependence; Z79.82 Long term (current) use of aspirin; Z79.899 Other long term (current) drug therapy; Z88.5 Allergy status to narcotic agent
CPT/HCPCS: 36415; 71045; 80053; 83605; 83880; 85025; 85379; 87040; 87486; 87581; 87633; 87635; 93005; 94640; A4216; J0456; J0696; J1940; J7050; J7620

== ENCOUNTER → 2020-10-23 | Outpatient (CLI) | payer MEDICARE ==
--- NOTE | 2020-10-23 13:43 | CT ---
EXAM DESCRIPTION: Chest w/o Contrast CLINICAL HISTORY: 55 years, Male, RESTRICTIVE LUNG DISEASE COMPARISON: Chest CT May 17, 2020, chest x-ray October 03, 2020 TECHNIQUE: Thin-section noncontrast axial CT images are obtained according to our protocol. Reconstructed MPR images are created and reviewed as well. FINDINGS: Lungs: Patchy bilateral pulmonary infiltrates consistent with pneumonia involving the lingula and right middle lobe predominantly. Partial volume loss in both lower lobes anterior to the large pleural effusions right greater than left. No worrisome pulmonary mass or nodule. Mediastinum: Lymph nodes are normal in size. Median sternotomy wires are present. Multiple surgical clips in the mediastinum. Normal vascular contours. Heart size is large with small amount of pericardial fluid. Extensive coronary arterial calcification. Chest wall/axilla: No mass or adenopathy. Lower neck/supraclavicular: No mass or adenopathy. Normal appearance of the thyroid gland. Upper abdomen: Free fluid in the upper abdomen consistent with ascites. No focal lesion of upper portions of liver or spleen. Stomach is unremarkable. Question mild inflammatory changes around the pancreas. Correlate with serum amylase and lipase values. Gallbladder wall appears thickened and edematous. The gallbladder lumen is nondistended. Compared to previous chest CT, the pleural effusions are larger on the left and similar on the right. Mediastinal nodes are small but numerous likely reactive. Pulmonary infiltrates are new or increased compared to the previous study. Previous exam showed small amount of upper abdominal ascites. Question mild inflammatory changes around the pancreas on the previous study. Previous study showed a 5 mm nodule in the right middle lobe. On the present exam, this area is obscured by infiltrate and continued follow-up is recommended. IMPRESSION: Bilateral pulmonary infiltrates consistent with pneumonia. Large bilateral pleural effusions. Mild upper abdominal ascites. This exam was performed according to our departmental dose-optimization program, which includes automated exposure control, adjustment of the mA and/or kV according to patient size and/or use of iterative reconstruction technique. Total DLP equals 1566.52 mGycm. Electronically signed by: Declan Curry MD 10/23/2020 1:41 PM AUTO STRIPER
== END ==
LOC: CT 10:12
PROVIDERS: ATTEND Internal Medicine
DX: J98.4 Other disorders of lung (principal); R91.8 Other nonspecific abnormal finding of lung field; R18.8 Other ascites; J90 Pleural effusion, not elsewhere classified